=== PATIENT | female | born 1970 | race Caucasian/White ===

== ENCOUNTER 2020-06-22 13:34 | Outpatient (REF) | payer OTHER, SELFPAY ==
[2020-06-22 15:15] LABS: MANUAL DIFF FLAG NO
[2020-06-22 15:17] LABS: Basophils Percent Auto 0.6 % (0-2); Eosinophils Absolute Auto 0.1 X10*3/uL (0.0-0.4); Eosinophils Percent Auto 1.5 % (0-4); Hematocrit 36.2 % (37-47); Hemoglobin 11.9 g/dl (12.0-16.0); Imm Gran Abs Auto 0.01 X10*3/uL (0.00-0.03); Imm Gran Pct Auto 0.2 % (0.0-0.4); Lymphocytes Absolute Auto 1.5 X10*3/uL (1.2-4.9); Lymphocytes Percent Auto 27.8 % (20-40); Mean Corpuscular HGB Conc 32.9 g/dl (31.0-35.0); Mean Corpuscular Hemoglobin 29.7 pg (27.0-33.0); Mean Corpuscular Volume 90.3 fL (80-98); Mean Platelet Volume 10.2 fL (9.4-12.3); Monocytes Absolute Auto 0.4 X10*3/uL (0.1-1.2); Monocytes Percent Auto 7.2 % (2-11); Neutrophils Absolute Auto 3.3 X10*3/uL (2.0-8.3); Neutrophils Percent Auto 62.7 % (45-73); Platelet Count 202 X10*3/uL (160-400); Red Blood Count 4.01 X10*6/uL (4.20-5.50); Red Cell Distribution Width 12.9 % (11.0-16.0); White Blood Count 5.3 X10*3/uL (4.8-10.8)
[2020-06-22 15:21] LABS: Glucose Urine UA NEG (NEG); Leukocyte Esterase Urine NEG (NEG); Nitrite Urine NEG (NEG); PH 6.5 (5.0-8.0); Urine Blood 1+ (NEG); Urine Ketones NEG (NEG); Urine Protein NEG (NEG-TRACE)
[2020-06-22 15:23] LABS: Appearance Urine CLEAR; Color Urine YELLOW
[2020-06-22 15:32] LABS: Bacteria Urine 1+ /LPF; Squamous Epithelial Cell Urine 2+ /LPF; WBC Urine 0 /HPF (0-4)
[2020-06-22 15:43] LABS: Alanine Aminotransferase 35 U/L (0-31); Albumin Level 4.1 g/dL (3.5-5.0); Alkaline Phosphatase 101 U/L (39-117); Anion Gap 11 (12-20); Aspartate Amino Transferase 27 U/L (5-31); Bilirubin Total 0.2 mg/dL (0.0-1.0); Blood Urea Nitrogen 18 mg/dL (9-16); C Reactive Protein 0.29 mg/dL (< or = 0.50); Calcium 9.2 mg/dL (8.4-10.2); Carbon Dioxide 31 mmol/L (22-29); Chloride 104 mmol/L (96-108); Estimated Glomerular Filt Rate > 60; Glucose Random 88 mg/dL (60-115); Sodium 142 mmol/L (135-145); Total Protein 7.4 g/dL (6.5-8.0)
[2020-06-22 16:08] LABS: Erythrocyte Sedimentation Rate 46 MM/HR (0-20)
[2020-06-23 12:42] LABS: Anti DNA DS Antibody <1 IU/mL; SM/Ribonucleoprotein Ab <1.0 NEG AI (<1.0 NEG); Smith Protein <1.0 NEG AI (<1.0 NEG)
[2020-06-23 13:58] LABS: Complement C3 87 mg/dL (83-193)
== END 2020-06-22 13:35 | disposition home or self-care (01) ==
LOC: HO.LAB 13:34
PROVIDERS: PCP Nurse Practitioner Family; Visit Provider Student in an Organized Health Care Education/Training Program
DX: R76.8 Other specified abnormal immunological findings in serum (principal); I73.00 Raynaud's syndrome without gangrene; K21.9 Gastro-esophageal reflux disease without esophagitis; Z79.899 Other long term (current) drug therapy; Z86.16 Personal history of COVID-19
CPT/HCPCS: 36415; 80053; 81001; 85025; 85652; 86140; 86160; 86225; 86235; 99212

== ENCOUNTER → 2020-08-31 10:03 | Outpatient (BNVA) | payer OTHER, SELFPAY | PROVIDERS: PCP Internal Medicine; Visit Provider Student in an Organized Health Care Education/Training Program | DX: R76.8 Other specified abnormal immunological findings in serum (principal); I73.00 Raynaud's syndrome without gangrene | CPT/HCPCS: 99212 ==

== ENCOUNTER → 2021-09-01 14:55 | Outpatient (BNVA) | payer OTHER, MEDICAID, SELFPAY | PROVIDERS: PCP Internal Medicine; Visit Provider Nurse Practitioner Family | DX: Z13.89 Encounter for screening for other disorder (principal) ==

== ENCOUNTER 2022-01-17 07:49 | Outpatient (REF) | payer OTHER, MEDICAID, SELFPAY ==
--- NOTE | 2022-01-17 08:08 | EEG_ITS ---
This is a 16-channel EEG with an EKG lead. The patient is reported awake during the tracing. Background EEG rhythm is low amplitude, fast with no obvious asymmetry or paroxysmal tendency. Photic stimulation does not produce any significant abnormality. Hyperventilation is not performed. Cardiac lead does not reveal any significant abnormality. IMPRESSION: Unremarkable EEG. MD MONY Martínez/DAR / [id number]
== END 2022-01-17 07:50 | disposition home or self-care (01) ==
LOC: HO.NEURO 07:49
PROVIDERS: Visit Provider Nurse Practitioner Family
DX: F09 Unspecified mental disorder due to known physiological condition (principal)
CPT/HCPCS: 95816

== ENCOUNTER 2023-10-12 14:50 | Outpatient (AMB) | payer OTHER, SELFPAY ==
--- NOTE | 2023-10-12 15:36 | A.OFFVIS_ITS ---
Vital Signs 10/12/23 15:38 Height 5 ft 4 in Weight 202 lb BMI 34.7 BP 128/82 Blood Pressure Location Rt brachial Position Sitting Pulse 79 Pulse Source Pulse Oximeter Pulse Oximetry (%) 100 Intake Visit Reasons: F/U-LVM Intake Note: Patient presents for follow up patient here for headaches dizziness and unstable. Allergies ketorolac [From TORADOL] Allergy (Intermediate, Verified 10/12/23 15:39) hives contrast dye Allergy (Intermediate, Uncoded 10/12/23 15:39) Hives Medication List - Last Reconciled 10/12/23 by KEV Bone acetaminophen (Tylenol) 325 mg PO QID PRN albuterol sulfate 90 mcg/actuation 2 puffs inhalation Q6H PRN bupropion HCl 100 mg PO BID candesartan 4 mg PO DAILY cholecalciferol (vitamin D3) 25 mcg PO DAILY desvenlafaxine succinate ER 25 mg PO DAILY docusate sodium 100 mg PO BID duloxetine 30 mg PO DAILY ergocalciferol (vitamin D2) mcg PO escitalopram oxalate 5 mg PO DAILY famotidine (Pepcid) 20 mg PO BEDTIME ferrous sulfate 325 mg PO DAILY gabapentin 300 mg PO DAILY hydroxychloroquine 200 mg PO BID lidocaine 5% topical milnacipran (Savella) 25 mg PO BID mirtazapine 30 mg PO BEDTIME montelukast 10 mg PO DAILY naproxen 250 mg PO BID olopatadine 0.7% (Pataday Once Daily Relief) 1 drp ophthalmic (eye) QAM ondansetron HCl 4 mg PO Q8H PRN 30 days pantoprazole 20 mg PO DAILY polyethylene glycol 3350 (Gavilax) grams PO pregabalin 25 mg PO TID rizatriptan 5 - 10 mg (0.5 - 1 x 10 mg) PO Q2H PRN 30 days tobramycin-dexamethasone 0.3-0.1 % drps ophthalmic (eye) HPI Comments Details: 53-yr-old female presents for f/u visit, pt was last seen approx 2 yrs ago. Pt reports she has had Covid-19 in 2019 and 2021. The infection in 2021 left her bedridden x's 1 month and required rehab stay. Pt reports residual neurological s/s of memory loss, speech difficulties- improving some, balance difficulties- was using a walker and now a cane, room spinning dizziness, headaches, jean marie ear ringing/pulsating noise- worse when laying on left side, generalized tingling, depression. She has made some gains, but overall is still not feeling well. During this time, pt has had extensive work-up and medication trials, per review of [facility] PCP, neurosurgery, and neurology notes: Neurology, Dr Rodrigues at [facility], for polyneuropathies. Neurology eval at - dx'd w/ functional neurological d/o. 08/2023, [facility] neurosurgery consult, Dr Marley, for C5-6 cervical stenosis w/o cord abnormality, neck pain and paresthesias- no surgical intervention advised. Rheumatology Dr Valiente ([address])- for positive SERAFIN Work-up: * 08/2023, US retropeitoneal: Stable right renal cyst with septations measuring up to 2.2 cm. No new lesion. * CTH 02/20/22:??no acutte intracranial abnormality? * MRI brain W/W0 02/21/2022: Small T2 bright foci within the supratentorial white matter unchanged, cervical cord is normal in signal. * MRI cervical spine 02/21/2022: There is a T2 hemangioma, no epidural fluid collection no cervical spine signal abnormality mild central canal narrowing at C5-6. * ?EMG/NCS 05/18/2022: Normal study no evidence of large fiber sensory motor polyneuropathy affecting the right lower however upper extremities, no evidence of sciatic, peroneal, median, ulnar neuropathy, no evidence of a lumbosacral or brachial plexopathy no evidence of radiculopathy, no evidence of myopathy. * ?Skin biopsy 03/13/23:?Right thigh 9.3 II nerve fibers per millimeter?which is normal,?right calf?8.4 III nerve fibers per millimeter which is in the normal range.??Sweat gland nerve fiber density was unable to be performed.?? * [place] [facility] [place]remark[place] Labs: 07/09/2023: CBC- NL ESR- 55 High BMP- NL 11/20/22: Iron Level- 81 Iron Binding Capacity, Unsaturated- 273 Iron Binding Capacity, Estimated Total- 354 % Iron Saturation- 23 Ferritin Level- 79 Per [facility] neurology note 06/27/23: + SERAFIN 1:80 B12 1825 Folic acid 23 Lactate 0.9 CRP 0.3 Ferritin 91 TSH 1.82 Vitamin B6 16 Vitamin D normal Copper 140 Lead negative Mercury negative Arsenic negative Immunofixation slightly elevated IgG 20405 SPEP WNL Paraneoplastic antibody panel negative HIV negative RPR negative Lyme negative Hep C negative Tick panel negative ESR 18 (05/18/2022)?40 (30/09/21)?72 (02/20/2022)?38 (12/08/2021) RF Negative Sjogren's negative Hepatitis B-Negative RPR negative HIV negative [facility] tick panel negative anti- Hu?negative Interval medication trials: gpn - nausea and blurred vision?? cymbalta - not tolerating hydroxychlorquine - did not tolerate prednisone - not beneficial lidocaine -??not significantly beneficial.? desvenlafaxine- ineffective She had PT for BLE strengthening- has had soem benefit. She has not had Vestibular tx. She has a new headache- a severe left sided stabbing headache, which lasts 15 minutes. Happens most when laying down on the left side. A/w left neck feels warm, left ear pounding sound, could not see from her left eye, could not talk- speech slowness. The stabbing pain lasts 15 minutes, and the other s/s resolve w/in 1 hr. These headaches started 4 months ago, and has had 3 of these attacks since onset, the last attack was 1 month ago Left eye vision is worse. She continues to have her typical migraine- frontal region heaviness a/w more difficulty concentrating/focusing/remembering. Occurs 3-4 x's per week. She had eye exam 2 weeks ago- states right eye pressure, but vision is ok. States was told to f/u w/ neurology. She is not taking any medications for the headaches other than Tylenol. She is taking Pregabaiin- for the tingling, helps some. [facility] Medical History (Updated 10/13/23 @ 13:00 by KEV Bone) IBS (irritable bowel syndrome) Asthma Pericardial effusion Anemia Kidney stones Depression Endometriosis GERD (gastroesophageal reflux disease) Fibromyalgia Scleroderma COVID-19 virus infection Cervicalgia Snoring Raynauds phenomenon SERAFIN positive Surgical History History of right oophorectomy Hx of hysterectomy Hx of cholecystectomy History of section Family History Sister Thyroid disease Alopecia Family/Other Diabetes Social History Household Members: Significant Other and Children Alcohol intake: never Patient Tobacco Use Status: Never used Tobacco Current occupational status: employed 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 [employer] 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 Vital Signs: Last Vital Signs Pulse 79 10/12/23 15:38 BP 128/82 10/12/23 15:38 Pulse Ox 100 10/12/23 15:38 BMI result Body Mass Index 34.7 Const General: cooperative and no acute distress Resp Effort & Inspection: normal respiratory effort and able to speak in complete sentences Neuro Other: A&O x's 3, mild STM lapses, mild bradyphrenia, sad affect Photophobic Steady gait w/ cane Cranial nerves: Yes CN's II-XII intact bilaterally Psych Appearance: grossly normal Attitude: cooperative Assessment & Plan Assessment & Plan (1) Migraine without aura: Code(s): G43.009 - Migraine without aura, not intractable, without status migrainosus Category: Medical (2) Vertigo: Code(s): R42 - Dizziness and giddiness Category: Medical (3) Vertigo: Code(s): R42 - Dizziness and giddiness Category: Medical (4) Fatigue: Code(s): R53.83 - Other fatigue Category: Medical (5) Paresthesia: Code(s): R20.2 - Paresthesia of skin Category: Medical (6) White matter abnormality on MRI of brain: Code(s): R90.82 - White matter disease, unspecified Category: Medical (7) New onset headache: Comment: short left sided stabbing head attacks Code(s): R51.9 - Headache, unspecified Category: Medical Plan Recheck labs for common etiologies of new onset left sided headaches, paresthesias, fatigue Brain MRI w/wo- to assess for secondary etiologies of new onset left sided headache, and to assess status of white matter changes Start PT- for vestibular eval & tx- order given to pt. Continue to follow w/ psychiatry. Discussed that treating her migraine may help to improve her vestibular, cognitive, and fatigue s/s. For migraine prevention: Start Ajovy 225mg sc q month. Start Riboflavin 400mg qam Start Magnesium 400mg qhs. Advised to change Mirtazapine from qam to qhs- as this is causing daytime tiredness. Previous medications trials- Amitriptyline- not tolertaed. Desvenlafaxine- ineffective for migraine. Bupropion- ineffective for headache. Milnacipran- ineffective for headache. Mirtazapine- ineffective for headache. Candesartan- ineffective after > 3 months. Migraine tx contraindications- Topiramate d/t h/o kidney stones. Beta-blockers d/t symptomatic asthma. NSAIDs d/t Toradol allergy. For acute migraine tx: Resume Rizatriptan 10mg prn, may take w/ Tylenol. Previous acute tx trials: Sumatriptan- caused nausea. Upon review of above, consider trial of alpha-lipoic acid 600mg qd, sleep study. If true neurogenic functional d/o- consider referral to [facility] [place]. F/u upon review of above and in-clinic in 6 months or sooner prn. Orders: Orders PT Evaluation and Treatment 10/12/23 G43.009 - Migraine without aura, not intractable, without status migrainosus, R42 - Dizziness and giddiness Erythrocyte Sedimentation Rate 10/12/23 D64.9 - Anemia, unspecified, R20.2 - Paresthesia of skin, R42 - Dizziness and giddiness, R51.9 - Headache, unspecified, R53.83 - Other fatigue, R76.8 - Other specified abnormal immunological findings in serum SERAFIN Reflex Titer and Pattern 10/12/23 D64.9 - Anemia, unspecified, R20.2 - Paresthesia of skin, R42 - Dizziness and giddiness, R51.9 - Headache, unspecified, R53.83 - Other fatigue, R76.8 - Other specified abnormal immunological findings in serum Rheumatoid Factor 10/12/23 D64.9 - Anemia, unspecified, R20.2 - Paresthesia of skin, R42 - Dizziness and giddiness, R51.9 - Headache, unspecified, R53.83 - Other fatigue, R76.8 - Other specified abnormal immunological findings in serum Homocysteine 10/12/23 D64.9 - Anemia, unspecified, R20.2 - Paresthesia of skin, R42 - Dizziness and giddiness, R51.9 - Headache, unspecified, R53.83 - Other fatigue, R76.8 - Other specified abnormal immunological findings in serum CRP High Sensitivity 10/12/23 D64.9 - Anemia, unspecified, R20.2 - Paresthesia of skin, R42 - Dizziness and giddiness, R51.9 - Headache, unspecified, R53.83 - Other fatigue, R76.8 - Other specified abnormal immunological findings in serum IRON PROFILE 10/12/23 D64.9 - Anemia, unspecified, R20.2 - Paresthesia of skin, R42 - Dizziness and giddiness, R51.9 - Headache, unspecified, R53.83 - Other fatigue, R76.8 - Other specified abnormal immunological findings in serum MR head/brain wo/w con 10/12/23 R20.2 - Paresthesia of skin, R42 - Dizziness and giddiness, R51.9 - Headache, unspecified, R90.82 - White matter disease, unspecified Complete Blood Count Auto Diff 10/12/23 D64.9 - Anemia, unspecified, R20.2 - Paresthesia of skin, R42 - Dizziness and giddiness, R51.9 - Headache, unspecified, R53.83 - Other fatigue, R76.8 - Other specified abnormal immunological findings in serum Comprehensive Met. Panel 10/12/23 D64.9 - Anemia, unspecified, R20.2 - Paresthesia of skin, R42 - Dizziness and giddiness, R51.9 - Headache, unspecified, R53.83 - Other fatigue, R76.8 - Other specified abnormal immunological findings in serum TSH reflex Free T4 10/12/23 D64.9 - Anemia, unspecified, R20.2 - Paresthesia of skin, R42 - Dizziness and giddiness, R51.9 - Headache, unspecified, R53.83 - Other fatigue, R76.8 - Other specified abnormal immunological findings in serum Vitamin D 25-OH (D2 and D3) 10/12/23 D64.9 - Anemia, unspecified, R20.2 - Paresthesia of skin, R42 - Dizziness and giddiness, R51.9 - Headache, unspecified, R53.83 - Other fatigue, R76.8 - Other specified abnormal immunological findings in serum Vitamin B12 and Folate 10/12/23 D64.9 - Anemia, unspecified, R20.2 - Paresthesia of skin, R42 - Dizziness and giddiness, R51.9 - Headache, unspecified, R53.83 - Other fatigue, R76.8 - Other specified abnormal immunological findings in serum Methylmalonic Acid 10/12/23 D64.9 - Anemia, unspecified, R20.2 - Paresthesia of skin, R42 - Dizziness and giddiness, R51.9 - Headache, unspecified, R53.83 - Other fatigue, R76.8 - Other specified abnormal immunological findings in serum Hemoglobin A1c 10/12/23 D64.9 - Anemia, unspecified, R20.2 - Paresthesia of skin, R42 - Dizziness and giddiness, R51.9 - Headache, unspecified, R53.83 - Other fatigue, R76.8 - Other specified abnormal immunological findings in serum Medications: New fremanezumab-vfrm (Ajovy) administer 225mg sc q month 225 mg (1.5 mL) subcut ONCE 30 days 1.5 mL 6RF riboflavin (vitamin B2) 400 mg PO DAILY 30 days 30 tabs 6RF magnesium oxide may hold for loose stools 400 mg PO BEDTIME 30 days 30 tabs 6RF Refilled rizatriptan At onset of headache, may repeat in 2 hours. Max 2 tabs per day or 4 tabs per week. 5 - 10 mg (0.5 - 1 x 10 mg) PO Q2H 30 days PRN 12 tabs 3RF migraine headache Coding Level of Care Code Est Pt Level 4 (05350) Complex EM visit Add On G2211 Diagnoses Migraine without aura G43.009 Vertigo R42 Fatigue R53.83 Paresthesia R20.2 White matter abnormality on MRI of brain R90.82 New onset headache R51.9
[2023-10-12 15:38] VITALS: BP 128/82; PULSE 79; O2SAT 100; BMI 34.7
== END 2023-10-12 16:33 | disposition home or self-care (01) ==
PROVIDERS: PCP Student in an Organized Health Care Education/Training Program; Visit Provider Nurse Practitioner Family
DX: G43.009 Migraine without aura, not intractable, without status migrainosus (principal); R42 Dizziness and giddiness; R53.83 Other fatigue; R20.2 Paresthesia of skin; R90.82 White matter disease, unspecified; R51.9 Headache, unspecified
CPT/HCPCS: 99214; G2211

== ENCOUNTER → 2023-10-12 14:50 | Outpatient (BNVA) | payer OTHER, SELFPAY | PROVIDERS: PCP Student in an Organized Health Care Education/Training Program; Visit Provider Nurse Practitioner Family | DX: G43.009 Migraine without aura, not intractable, without status migrainosus (principal); R51.9 Headache, unspecified; R42 Dizziness and giddiness; R53.83 Other fatigue; R20.2 Paresthesia of skin; R90.82 White matter disease, unspecified | CPT/HCPCS: 99212 ==

== ENCOUNTER 2023-10-16 12:59 | Outpatient (REF) | payer OTHER, SELFPAY ==
[2023-10-16 18:12] LABS: MANUAL DIFF FLAG NO
[2023-10-16 18:18] LABS: Basophils Percent Auto 0.6 % (0-2); Eosinophils Absolute Auto 0.1 X10*3/uL (0.0-0.4); Eosinophils Percent Auto 1.4 % (0-4); Hematocrit 35.1 % (37.0-47.0); Hemoglobin 11.6 g/dl (12.0-16.0); Imm Gran Abs Auto 0.05 X10*3/uL (0.00-0.03); Lymphocytes Absolute Auto 1.3 X10*3/uL (1.2-4.9); Lymphocytes Percent Auto 25.8 % (20-40); Mean Corpuscular Hemoglobin 29.3 pg (27.0-33.0); Mean Corpuscular Volume 88.6 fL (80.0-98.0); Mean Platelet Volume 10.6 fL (9.4-12.3); Monocytes Absolute Auto 0.4 X10*3/uL (0.1-1.2); Monocytes Percent Auto 8.3 % (2-11); Neutrophils Absolute Auto 3.1 x10*3/uL (2.0-8.3); Neutrophils Percent Auto 62.9 % (45-73); Platelet Count 219 X10*3/uL (160-400); Red Blood Count 3.96 X10*6/uL (4.20-5.50); Red Cell Distribution Width 12.8 % (11.0-16.0); White Blood Count 4.9 X10*3/uL (4.8-10.8)
[2023-10-16 18:35] LABS: Rheumatoid Factor < 13.0 IU/mL (<15.0)
[2023-10-16 18:46] LABS: Alanine Aminotransferase 23 U/L (0-31); Albumin Level 3.9 g/dL (3.5-5.0); Alkaline Phosphatase 106 U/L (39-117); Anion Gap 9 (12-20); Aspartate Amino Transferase 20 U/L (5-31); Bilirubin Total 0.2 mg/dL (0.0-1.0); Blood Urea Nitrogen 18 mg/dL (9-16); Calcium 9.1 mg/dL (8.4-10.2); Carbon Dioxide 28 mmol/L (22-29); Chloride 108 mmol/L (96-108); Estimated Glomerular Filt Rate > 60; Glucose Random 89 mg/dL (60-115); Iron 80 mcg/dL (30-160); Percent Iron Saturation 26 % (15-50); Potassium 3.9 mmol/L (3.3-5.1); Sodium 141 mmol/L (135-145); Total Iron Binding Capacity 307 mcg/dL (228-428); Total Protein 7.4 g/dL (6.5-8.0); Unsaturated Iron Binding 227 ug/dL
[2023-10-16 18:52] LABS: TSH reflex Free T4 1.28 uIU/mL (0.32-4.0)
[2023-10-16 19:03] LABS: Folate 8.9 ng/mL (> or = 4.0); Vitamin B12 431 pg/mL (200-900)
[2023-10-16 19:19] LABS: Erythrocyte Sedimentation Rate 40 MM/HR (0-20)
[2023-10-17 19:23] LABS: CRP High Sensitivity 2.6 mg/L
[2023-10-18 15:09] LABS: Anti Nuclear Antibody Screen NEGATIVE (NEGATIVE)
[2023-10-20 17:34] LABS: Vitamin D 25-OH, D2 4 ng/mL; Vitamin D 25-OH, D3 13 ng/mL; Vitamin D 25-OH, Total 17 ng/mL (30-100)
== END 2023-10-16 13:00 | disposition home or self-care (01) ==
LOC: HO.HKASLDS 12:59
PROVIDERS: Visit Provider Nurse Practitioner Family
DX: R42 Dizziness and giddiness (principal); D64.9 Anemia, unspecified; R51.9 Headache, unspecified; R76.8 Other specified abnormal immunological findings in serum; R53.83 Other fatigue; R20.2 Paresthesia of skin
CPT/HCPCS: 36415; 80053; 82306; 82607; 82746; 83540; 84443; 85025; 85652; 86038; 86141; 86431

== ENCOUNTER 2024-03-10 08:00 | Outpatient (AMB) | payer OTHER, SELFPAY ==
--- NOTE | 2024-03-10 08:01 | MHC.OFFVIS ---
Intake Visit Reasons: worsening headaches Intake Note: Patient presents for headaches has a headache right now describes it as 9 right now. Allergies ketorolac [From TORADOL] Allergy (Intermediate, Verified 03/10/24 08:02) hives contrast dye Allergy (Intermediate, Uncoded 03/10/24 08:02) Hives Medication List - Last Reconciled 03/16/24 by KEV Bone acetaminophen (Tylenol) 325 mg PO QID PRN albuterol sulfate 90 mcg/actuation 2 puffs inhalation Q6H PRN bupropion HCl 100 mg PO BID cholecalciferol (vitamin D3) 25 mcg PO DAILY docusate sodium 100 mg PO BID ergocalciferol (vitamin D2) mcg PO famotidine (Pepcid) 20 mg PO BEDTIME ferrous sulfate 325 mg PO DAILY fremanezumab-vfrm (Ajovy) 225 mg (1.5 mL) subcut ONCE 30 days hydroxychloroquine 200 mg PO BID lidocaine 5% topical magnesium oxide 400 mg PO BEDTIME 30 days milnacipran (Savella) 25 mg PO BID mirtazapine 30 mg PO BEDTIME montelukast 10 mg PO DAILY naproxen 250 mg PO BID olopatadine 0.7% (Pataday Once Daily Relief) 1 drp ophthalmic (eye) QAM ondansetron 8 mg PO Q8H PRN 30 days pantoprazole 20 mg PO DAILY polyethylene glycol 3350 (Gavilax) grams PO pregabalin 25 mg PO TID riboflavin (vitamin B2) 400 mg PO DAILY 30 days rizatriptan 5 - 10 mg (0.5 - 1 x 10 mg) PO Q2H PRN 30 days tobramycin-dexamethasone 0.3-0.1 % drps ophthalmic (eye) verapamil ER 100 mg PO BEDTIME 30 days HPI Comments Details: 53-yr-old female presents for f/u televideo visit of migraine via D[employer]im[employer]. She has had eye exam- tx'd for upper/lower lid inflammation. States she is going to be referred to [place] d/t chronic blurry vision. Is f/b Eye & Lasix. Brain MRI was unremarkable. 10/16/23 10/16/23 13:00 13:06 WBC 4.9 RBC 3.96 L Hgb 11.6 L Hct 35.1 L MCV 88.6 MCH 29.3 ESR 40 H Sodium 141 Potassium 3.9 Chloride 108 Carbon Dioxide 28 Anion Gap 9 L BUN 18 H Estimated GFR > 60 Random Glucose 89 Calcium 9.1 Iron 80 TIBC 307 % Saturation 26 Unsat Iron Binding 227 Total Bilirubin 0.2 AST 20 ALT 23 Alkaline Phosphatase 106 C-React Prot High Sens 2.6 Total Protein 7.4 Albumin 3.9 Vitamin B12 431 25-OH Vitamin D Total 17 L Folate 8.9 TSH 1.28 Rheumatoid Factor < 13.0 SERAFIN Screen NEGATIVE She has been having increased migraine, photophobia, nausea, tinnitus, dizziness especially over the last 1-2 months. Migraine frequency is now > 4-5 days per week. Headache is worse when standing- when standing feels weird like she is not standing anywhere. She did not start Ajovy- thought it was not approved- unfortunately the PA has now . Psychiatry advised her to increase buproprion dose, and will change mirtazapine to qhs. Previous OV note from 10/12/2023: 53-yr-old female presents for f/u visit, pt was last seen approx 2 yrs ago. Pt reports she has had Covid-19 in 2019 and 2021. The infection in 2021 left her bedridden x's 1 month and required rehab stay. Pt reports residual neurological s/s of memory loss, speech difficulties- improving some, balance difficulties- was using a walker and now a cane, room spinning dizziness, headaches, jean marie ear ringing/pulsating noise- worse when laying on left side, generalized tingling, depression. She has made some gains, but overall is still not feeling well. During this time, pt has had extensive work-up and medication trials, per review of [facility] PCP, neurosurgery, and neurology notes: Neurology, Dr Rodrigues at [facility], for polyneuropathies. Neurology eval at - dx'd w/ functional neurological d/o. 08/2023, [facility] neurosurgery consult, Dr Marley, for C5-6 cervical stenosis w/o cord abnormality, neck pain and paresthesias- no surgical intervention advised. Rheumatology Dr Valiente ([place] [facility])- for positive SERAFIN Work-up: 08/2023, US retropeitoneal: Stable right renal cyst with septations measuring up to 2.2 cm. No new lesion. CTH 02/20/22:??no acutte intracranial abnormality? MRI brain W/W0 02/21/2022: Small T2 bright foci within the supratentorial white matter unchanged, cervical cord is normal in signal. MRI cervical spine 02/21/2022: There is a T2 hemangioma, no epidural fluid collection no cervical spine signal abnormality mild central canal narrowing at C5-6. ?EMG/NCS 05/18/2022: Normal study no evidence of large fiber sensory motor polyneuropathy affecting the right lower however upper extremities, no evidence of sciatic, peroneal, median, ulnar neuropathy, no evidence of a lumbosacral or brachial plexopathy no evidence of radiculopathy, no evidence of myopathy. ?Skin biopsy 03/13/23:?Right thigh 9.3 II nerve fibers per millimeter?which is normal,?right calf?8.4 III nerve fibers per millimeter which is in the normal range.??Sweat gland nerve fiber density was unable to be performed.?? EEG, 01/17/2022 [place] [facility] [place] Unremarkable Labs: 07/09/2023: CBC- NL ESR- 55 High BMP- NL 11/20/22: Iron Level- 81 Iron Binding Capacity, Unsaturated- 273 Iron Binding Capacity, Estimated Total- 354 % Iron Saturation- 23 Ferritin Level- 79 Per [facility] neurology note 06/27/23: + SERAFIN 1:80 B12 1825 Folic acid 23 Lactate 0.9 CRP 0.3 Ferritin 91 TSH 1.82 Vitamin B6 16 Vitamin D normal Copper 140 Lead negative Mercury negative Arsenic negative Immunofixation slightly elevated IgG 82455 SPEP WNL Paraneoplastic antibody panel negative HIV negative RPR negative Lyme negative Hep C negative Tick panel negative ESR 18 (05/18/2022)?40 (30/09/21)?72 (02/20/2022)?38 (12/08/2021) RF Negative Sjogren's negative Hepatitis B-Negative RPR negative HIV negative [facility] tick panel negative anti- Hu?negative Interval medication trials: gpn - nausea and blurred vision?? cymbalta - not tolerating hydroxychlorquine - did not tolerate prednisone - not beneficial lidocaine -??not significantly beneficial.? desvenlafaxine- ineffective She had PT for BLE strengthening- has had soem benefit. She has not had Vestibular tx. She has a new headache- a severe left sided stabbing headache, which lasts 15 minutes. Happens most when laying down on the left side. A/w left neck feels warm, left ear pounding sound, could not see from her left eye, could not talk- speech slowness. The stabbing pain lasts 15 minutes, and the other s/s resolve w/in 1 hr. These headaches started 4 months ago, and has had 3 of these attacks since onset, the last attack was 1 month ago Left eye vision is worse. She continues to have her typical migraine- frontal region heaviness a/w more difficulty concentrating/focusing/remembering. Occurs 3-4 x's per week. She had eye exam 2 weeks ago- states right eye pressure, but vision is ok. States was told to f/u w/ neurology. She is not taking any medications for the headaches other than Tylenol. She is taking Pregabaiin- for the tingling, helps some. [facility] Medical History (Updated 03/16/24 @ 17:03 by KEV Bone) IBS (irritable bowel syndrome) Asthma Pericardial effusion Anemia Kidney stones Depression Endometriosis GERD (gastroesophageal reflux disease) Fibromyalgia Scleroderma COVID-19 virus infection Cervicalgia Snoring Raynauds phenomenon SERAFIN positive Surgical History History of right oophorectomy Hx of hysterectomy Hx of cholecystectomy History of section Family History Sister Thyroid disease Alopecia Family/Other Diabetes Social History Household Members: Significant Other and Children Alcohol intake: never Patient Tobacco Use Status: Never used Tobacco Current occupational status: employed 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 [employer] 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 Const General: cooperative and no acute distress Resp Effort & Inspection: normal respiratory effort and able to speak in complete sentences Psych Appearance: grossly normal Attitude: cooperative Telehealth Telehealth Telehealth Platform[facility] Location of provider rendering services: practice address Location of patient: address on file Patient Identification confirmed using: Name, : Yes Telehealth method: video Patient verbally consented to treatment: Yes Patient verbally consented to billing insurance company: Yes Patient informed of any privacy concerns related to visit: Yes Minutes spent on Phone/Video with Pt.: 23 Assessment & Plan Assessment & Plan (1) Migraine without aura: Code(s): G43.009 - Migraine without aura, not intractable, without status migrainosus Category: Medical (2) Vertigo: Code(s): R42 - Dizziness and giddiness Category: Medical (3) Vertigo: Code(s): R42 - Dizziness and giddiness Category: Medical (4) Fatigue: Code(s): R53.83 - Other fatigue Category: Medical (5) Paresthesia: Code(s): R20.2 - Paresthesia of skin Category: Medical (6) Dizziness: Code(s): R42 - Dizziness and giddiness Category: Medical (7) Snoring: Code(s): R06.83 - Snoring Category: Medical (8) Hypersomnia: Comment: ESS- 12 Code(s): G47.10 - Hypersomnia, unspecified Category: Medical Plan Reviewed labs, notable for: Mild anemia w/ low norm B-12. Will check mma and homocysteine levels. Chronic elevated ESR 40 H w/ normal CRP, SERAFIN, RF. Will recheck in f/u. Vit D def- started on Vit De supplement. Will recheck. Reviewed Brain MRI w/wo- unremarkable Again start PT- for vestibular eval & tx- pt is awaiting PT-1 form from her PCP. Will request visual field test. Could consider VEP. Pt advised to undergo HST to assess for sleep apnea. Continue to follow w/ psychiatry. Discussed that treating her migraine may help to improve her vestibular, cognitive, and fatigue s/s. For migraine prevention: Again trial Ajovy 225mg sc q month- will need to request new prior auth- note pt never started Ajovy. Start Verapamil ER 100mg qhs. Check baseline EKG prior to starting. Continue Riboflavin 400mg qam Continue Magnesium 400mg qhs. Advised to change Mirtazapine from qam to qhs- as this is causing daytime tiredness. Previous medications trials- Amitriptyline- not tolerated. Desvenlafaxine- ineffective for migraine. Bupropion- ineffective for headache. Milnacipran- ineffective for headache. Mirtazapine- ineffective for headache. Candesartan- ineffective after > 3 months. Migraine tx contraindications- Topiramate d/t h/o kidney stones. Beta-blockers d/t symptomatic asthma. NSAIDs d/t Toradol allergy. For acute migraine tx: Continue Rizatriptan 10mg prn, may take w/ Tylenol. Increase Ondansetron from 4mg to 8mg prn. Previous acute tx trials: Sumatriptan- caused nausea. F/u upon review of above and in-clinic in 6 months or sooner prn. Orders: Orders ECG 12 lead EKG 03/10/24 I10 - Essential (primary) hypertension, R42 - Dizziness and giddiness RT home sleep study Today G47.10 - Hypersomnia, unspecified, R06.83 - Snoring Medications: New ondansetron 8 mg PO Q8H 30 days PRN 30 tabs 3RF nausea and vomiting verapamil ER 100 mg PO BEDTIME 30 days 30 caps 2RF Discontinued ondansetron HCl Discontinued Reason: Doctor's Order 4 mg PO Q8H 30 days PRN 20 tabs 3RF nausea and vomiting Coding Level of Care Code Tele Est Pt Level 4 (80212) Diagnoses Migraine without aura G43.009 Vertigo R42 Fatigue R53.83 Paresthesia R20.2 Dizziness R42 Snoring R06.83 Hypersomnia G47.10
== END 2024-03-10 11:28 | disposition home or self-care (01) ==
LOC: HO.HSMS 08:00
PROVIDERS: PCP Student in an Organized Health Care Education/Training Program; Visit Provider Nurse Practitioner Family
DX: G43.009 Migraine without aura, not intractable, without status migrainosus (principal); R42 Dizziness and giddiness; R53.83 Other fatigue; R20.2 Paresthesia of skin; R06.83 Snoring; G47.10 Hypersomnia, unspecified
CPT/HCPCS: 99214

== ENCOUNTER → 2024-03-10 08:00 | Outpatient (BNVA) | payer OTHER, SELFPAY | PROVIDERS: PCP Student in an Organized Health Care Education/Training Program; Visit Provider Nurse Practitioner Family ==

== ENCOUNTER 2024-09-12 10:50 | Outpatient (AMB) | payer BC, SELFPAY ==
[2024-09-12 11:17] VITALS: BP 114/84; PULSE 67; O2SAT 100
--- NOTE | 2024-09-12 11:17 | A.OFFVIS_ITS ---
Vital Signs 09/12/24 11:17 Height 5 ft 4 in BP 114/84 Blood Pressure Location Lt brachial Position Sitting Pulse 67 Pulse Source Pulse Oximeter Pulse Oximetry (%) 100 Oxygen Delivery Method Room Air Intake Visit Reasons: f/u appt Intake Note: Patient presents follow up for Vision disturbances, severe headaches, tinnitus, numbness on right side of body. Field Adjuster Required: No Accompanied by: Self / Same As Patient Allergies ketorolac [From TORADOL] Allergy (Intermediate, Verified 09/12/24 11:18) hives contrast dye Allergy (Intermediate, Uncoded 03/10/24 08:02) Hives HPI Comments Details: 54-yr-old female presents for f/u of migraine and follow-up of sleep study. 08/29/2024, home sleep study at [facility], which showed moderate mixed sleep apnea with an overall AHI 19.7 per hour, Medicare AHI 7.5 per hour, average SpO2 94%, O2 luca 89%. Recommendation of reading sleep neurologist was for patient to undergo follow-up in-lab PAP titration study with TCCO2 if available, which we have already ordered. Pt reports a couple of days ago- she had brief episode of RUE feeling - lasted seconds. She started shaking her arm, and the feeling resolved, but since she has had RUE tightness and pins and needles. At the time she also felt exhausted, SOB, slight chest tightness/weird sensation, and went back to bed. She did not seek medical attention. Since, she continues to feel RUE numbness, tingling, tightness, weakness, exhaustion. She is not on ASA. Pt reports she had a reaction to a TDaP vaccine 6 days ago- given in her left deltoid. Pt reports legs felt tight, SOB, sweating. Had ER eval, per patient- ER felt that pt was not having an allergic reaction but rather a generalized inflammatory response. Pt reports: Worsening headaches. She did not receive Ajovy- and now insurance has changed. She did not start verapamil. She has not had riboflavin- thought it was a 30 day order. Head feels numb. Is seeing halos- journalists and other writers feels this may be r/t migraine. Pt reports she is not sleeping well- waking up 3-4 times a night, feels like she is shaking and falling, and then cannot fall back asleep. Feels she cannot breathe, but her home SpO2 results are normal. She previously had rheumatology eval- for shiny skin, cold hands, pain- they did not feel this was scleroderma and advised to f/u prn. However, her inflammatory markers are still elevated. She has made a f/u appt for Dec 2024. 03/10/2024, HPI: She has had eye exam- tx'd for upper/lower lid inflammation. States she is going to be referred to [place] d/t chronic blurry vision. Is f/b Eye & Lasix. Brain MRI was unremarkable. 10/16/23 10/16/23 13:00 13:06 WBC 4.9 RBC 3.96 L Hgb 11.6 L Hct 35.1 L MCV 88.6 MCH 29.3 ESR 40 H Sodium 141 Potassium 3.9 Chloride 108 Carbon Dioxide 28 Anion Gap 9 L BUN 18 H Estimated GFR > 60 Random Glucose 89 Calcium 9.1 Iron 80 TIBC 307 % Saturation 26 Unsat Iron Binding 227 Total Bilirubin 0.2 AST 20 ALT 23 Alkaline Phosphatase 106 C-React Prot High Sens 2.6 Total Protein 7.4 Albumin 3.9 Vitamin B12 431 25-OH Vitamin D Total 17 L Folate 8.9 TSH 1.28 Rheumatoid Factor < 13.0 SERAFIN Screen NEGATIVE She has been having increased migraine, photophobia, nausea, tinnitus, dizziness especially over the last 1-2 months. Migraine frequency is now > 4-5 days per week. Headache is worse when standing- when standing feels weird like she is not standing anywhere. She did not start Ajovy- thought it was not approved- unfortunately the PA has now . Psychiatry advised her to increase buproprion dose, and will change mirtazapine to qhs. Previous OV note from 10/12/2023: 53-yr-old female presents for f/u visit, pt was last seen approx 2 yrs ago. Pt reports she has had Covid-19 in 2019 and 2021. The infection in 2021 left her bedridden x's 1 month and required rehab stay. Pt reports residual neurological s/s of memory loss, speech difficulties- improving some, balance difficulties- was using a walker and now a cane, room spinning dizziness, headaches, jean marie ear ringing/pulsating noise- worse when laying on left side, generalized tingling, depression. She has made some gains, but overall is still not feeling well. During this time, pt has had extensive work-up and medication trials, per review of [facility] PCP, neurosurgery, and neurology notes: Neurology, Dr Rodrigues at [facility], for polyneuropathies. Neurology eval at - dx'd w/ functional neurological d/o. 08/2023, [facility] neurosurgery consult, Dr Marley, for C5-6 cervical stenosis w/o cord abnormality, neck pain and paresthesias- no surgical intervention advised. Rheumatology Dr Valiente ([facility])- for positive SERAFIN Work-up: * 08/2023, US retropeitoneal: Stable right renal cyst with septations measuring up to 2.2 cm. No new lesion. * CTH 02/20/22:??no acutte intracranial abnormality? * MRI brain W/W0 02/21/2022: Small T2 bright foci within the supratentorial white matter unchanged, cervical cord is normal in signal. * MRI cervical spine 02/21/2022: There is a T2 hemangioma, no epidural fluid collection no cervical spine signal abnormality mild central canal narrowing at C5-6. * ?EMG/NCS 05/18/2022: Normal study no evidence of large fiber sensory motor polyneuropathy affecting the right lower however upper extremities, no evidence of sciatic, peroneal, median, ulnar neuropathy, no evidence of a lumbosacral or brachial plexopathy no evidence of radiculopathy, no evidence of myopathy. * ?Skin biopsy 03/13/23:?Right thigh 9.3 II nerve fibers per millimeter?which is normal,?right calf?8.4 III nerve fibers per millimeter which is in the normal range.??Sweat gland nerve fiber density was unable to be performed.?? * EEG, 01/17/2022 at [facility] [place]: Unremarkable Labs: 07/09/2023: CBC- NL ESR- 55 High BMP- NL 11/20/22: Iron Level- 81 Iron Binding Capacity, Unsaturated- 273 Iron Binding Capacity, Estimated Total- 354 % Iron Saturation- 23 Ferritin Level- 79 Per [facility] neurology note 06/27/23: + SERAFIN 1:80 B12 1825 Folic acid 23 Lactate 0.9 CRP 0.3 Ferritin 91 TSH 1.82 Vitamin B6 16 Vitamin D normal Copper 140 Lead negative Mercury negative Arsenic negative Immunofixation slightly elevated IgG 27620 SPEP WNL Paraneoplastic antibody panel negative HIV negative RPR negative Lyme negative Hep C negative Tick panel negative ESR 18 (05/18/2022)?40 (30/09/21)?72 (02/20/2022)?38 (12/08/2021) RF Negative Sjogren's negative Hepatitis B-Negative RPR negative HIV negative [place] tick panel negative anti- Hu?negative Interval medication trials: gpn - nausea and blurred vision?? cymbalta - not tolerating hydroxychlorquine - did not tolerate prednisone - not beneficial lidocaine -??not significantly beneficial.? desvenlafaxine- ineffective She had PT for BLE strengthening- has had soem benefit. She has not had Vestibular tx. She has a new headache- a severe left sided stabbing headache, which lasts 15 minutes. Happens most when laying down on the left side. A/w left neck feels warm, left ear pounding sound, could not see from her left eye, could not talk- speech slowness. The stabbing pain lasts 15 minutes, and the other s/s resolve w/in 1 hr. These headaches started 4 months ago, and has had 3 of these attacks since onset, the last attack was 1 month ago Left eye vision is worse. She continues to have her typical migraine- frontal region heaviness a/w more difficulty concentrating/focusing/remembering. Occurs 3-4 x's per week. She had eye exam 2 weeks ago- states right eye pressure, but vision is ok. States was told to f/u w/ neurology. She is not taking any medications for the headaches other than Tylenol. She is taking Pregabaiin- for the tingling, helps some. [facility] Medical History (Updated 09/04/24 @ 08:34 by KEV Bone) IBS (irritable bowel syndrome) Asthma Pericardial effusion Anemia Kidney stones Depression Endometriosis GERD (gastroesophageal reflux disease) Fibromyalgia Scleroderma COVID-19 virus infection Cervicalgia Snoring Raynauds phenomenon SERAFIN positive Surgical History History of right oophorectomy Hx of hysterectomy Hx of cholecystectomy History of section Family History Sister Thyroid disease Alopecia Family/Other Diabetes Social History Household Members: Significant Other and Children Alcohol intake: never Patient Tobacco Use Status: Never used Tobacco Current occupational status: employed 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 [employer] 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 Vital Signs: Last Vital Signs Pulse 67 09/12/24 11:17 BP 114/84 09/12/24 11:17 Pulse Ox 100 09/12/24 11:17 Oxygen Delivery Method Room Air 09/12/24 11:17 Const General: cooperative and no acute distress Resp Effort & Inspection: normal respiratory effort and able to speak in complete sentences Neuro Other: A&O x's 3, mild STM lapses, mild bradyphrenia Photophobic Pupils equal and reactive to light, EOM intact Bilateral symmetric eyebrow raise Mild right lower facial weakness on smile and cheek puff Tongue protrusion at midline Speech soft, clear Right pronator drift- mild RUE weakness and decreased sensation compared to left. DTRs dulled throughout BUE negative Marks. Steady gait w/ cane Psych Appearance: grossly normal Attitude: cooperative Assessment & Plan Assessment & Plan (1) Migraine without aura: Code(s): G43.009 - Migraine without aura, not intractable, without status migrainosus Category: Medical (2) Fatigue: Code(s): R53.83 - Other fatigue Category: Medical (3) Paresthesia: Code(s): R20.2 - Paresthesia of skin Category: Medical (4) Snoring: Code(s): R06.83 - Snoring Category: Medical (5) Hypersomnia: Comment: ESS- 12 Code(s): G47.10 - Hypersomnia, unspecified Category: Medical (6) Mixed sleep apnea: Comment: Moderate 08/19/2024 HST (at [facility]): AHI 19.7 per hour (obstructive greater than central events), Medicare AHI 7.5 per hour, average SpO2 94%, O2 luca 89%. Code(s): G47.39 - Other sleep apnea Category: Medical Plan Patient advised to have [facility] ER eval, as she has new onset right lower facial weakness and RUE paresthesias, decreased sensation, and tightness. Discussed that although patient is beyond 4 hours of last known well time, I would like patient to undergo evaluation to confirm if there is evidence of recent stroke, to that appropriate workup and treatment may be initiated. Patient does not drive herself. Offered to call 911, however patient declines. Patient states her transportation service can bring her to [facility] ER today. Our nurse placed call to [facility] ER to provide the above history. Upon review of ER workup and results: Consider follow-up lab work including vitamin-D level, repeat inflammatory markers. Reviewed results of in-lab sleep study, showing moderate mixed sleep apnea, patient advised to undergo in-lab PAP titration study as ordered. Follow-up with ophthalmology as scheduled. Follow-up with rheumatology as scheduled Follow-up with psychiatry as scheduled Discussed that treating her migraine may help to improve her vestibular, cognitive, and fatigue s/s. For migraine prevention: Hold Ajovy 225mg sc q month and Verapamil ER 100mg qhs- until after review of [facility] workup and results. Continue Riboflavin 400mg qam Continue Magnesium 400mg qhs. Continue Mirtazapine qhs. Previous medications trials- Amitriptyline- not tolerated. Desvenlafaxine- ineffective for migraine. Bupropion- ineffective for headache. Milnacipran- ineffective for headache. Mirtazapine- ineffective for headache. Candesartan- ineffective after > 3 months. Migraine tx contraindications- Topiramate d/t h/o kidney stones. Beta-blockers d/t symptomatic asthma. NSAIDs d/t Toradol allergy. For acute migraine tx: Continue Rizatriptan 10mg prn, may take w/ Tylenol. Continue Ondansetron 8mg prn. Previous acute tx trials: Sumatriptan- caused nausea. F/u upon review of above and in-clinic in 6 months or sooner prn. Coding Level of Care Code Est Pt Level 4 (05038) Diagnoses Migraine without aura G43.009 Fatigue R53.83 Paresthesia R20.2 Snoring R06.83 Hypersomnia G47.10 Mixed sleep apnea G47.39
--- OUTSIDE RECORDS SUMMARY | 2024-09-12 11:57 | XMS_ITS | Clinical Summary ---
Author Organization [facility] Address [address] [place] [address] Phone Care Team Providers Care Licensed Insurance Sales Agent Name Role Phone Earlene Andrade MD Primary Care Provider + Allergies Active Allergy Reactions Criticality Noted Date Comments Folic Acid Rash Low 01/05/2020 Iodinated Contrast Media Other (see comments),Hives,Shortness of breath High 01/05/2020 Nsaids Other (see comments) 07/27/2020 Prednisone Other (see comments) 10/06/2017 Sertraline Other (see comments) 01/05/2020 Ketorolac Tromethamine Other (see comments) Medications losartan (COZAAR) 25 MG tablet Comments: Filled Date: Oct 16 2017 12:00AM Patient Notes: TAKE 1 TABLET BY MOUTH EVERY DAY Duration: 30 8 Active cholecalciferol (VITAMIN D-3 SUPER STRENGTH) 50 MCG (2000 UT) tablet Take 2 capsules by mouth 1 (one) time each day Active albuterol HFA (ProAir HFA) 108 (90 Base) MCG/ACT inhaler Inhale 1 puff 9 Active acetaminophen-co deine (TYLENOL #3) 300-30 MG per tablet 1 Active Nutritional Supplements (ESTROVEN MAXIMUM STRENGTH PO) Take 1 tablet by mouth 1 (one) time each day Active Turmeric 450 MG capsule Take 1 capsule by mouth 1 (one) time each day Active Multiple Vitamin (MULTI-VITAMIN DAILY PO) Take 1 capsule by mouth 1 (one) time each day Active ondansetron (ZOFRAN) 4 MG tablet Take 4 mg by mouth if needed for nausea or vomiting Active Nutritional Supplements (ESTROVEN PO) estroven, 0 Refills, Maintenance, 09/08/20 12:25:00 EDT 1 Active ALBUTEROL IN Inhale 9 Active rizatriptan (MAXALT) 10 MG tablet TAKE 1/2 TO 1 TABLET BY MOUTH EVERY 2 HOURS NEEDED AT ONSET OF MIGRAINE HEADACHE MAX OF 2 TABS PER DAY AND MAX OF 4 TABS PER WEEK 2 Active famotidine (PEPCID) 20 MG tablet Take 20 mg by mouth 2 Active ferrous sulfate 325 (65 Fe) MG tablet Take 325 mg by mouth 1 (one) time each day with breakfast Active buPROPion SR (WELLBUTRIN SR) 200 MG 12 hr tablet Take 200 mg by mouth in the morning and 200 mg in the evening. Do not crush, chew, or split.. Active pregabalin (LYRICA) 25 MG capsule Take 25 mg by mouth in the morning and 25 mg in the evening. Active mirtazapine (REMERON JENNA-TAB) 30 MG dispersible tablet Take 30 mg by mouth every night Active Active Problems Problem Noted Date Diagnosed Date Calculus of gallbladder with cholecystitis 07/05 Proteinuria 08/24/2020 Recurrent urinary tract infection 04/16/2020 Hyperglycemia 04/16/2020 Chronic kidney disease stage 2 04/16/2020 Anemia in chronic kidney disease 04/16/2020 Microscopic hematuria 01/16/2020 Vitamin D deficiency 03/07/2019 Anti-nuclear factor detected 03/12/2018 Hematuria 09/18/2017 Overview (04/16/2020): 12/2014 negative cystoscopy, cytology Gastroesophageal reflux disease 08/30/2017 Irritable bowel syndrome 08/30/2017 Cyst of kidney 04/19/2017 Overview (01/16/2020): CT 07/17/2015, recurrent microscopic hematuria, Dr Hensley Encounters Date Type Department Care Team Description 07/23/2024 Orders Only [facility] [address] [place] [address] Buddy Hough MD Microscopic hematuria from Last 3 Months Immunizations Immunization Administration Dates Next Due Influenza, MDCK, PF, Quadrivalent 03/07/2019,03/2018 Influenza, Quadrivalent, Preservative Free 03/27 Influenza, Unspecified 11/22/2021 Tdap 05/18/2015,05/18/2015 Family History Medical History Relation Comments Heart disease Father Diabetes Mother Diabetes Sibling Relation Status Comments Father Mother Sibling Social History Tobacco Use Types Packs/Day Years Used Date Smoking Tobacco: Never Smokeless Tobacco: Never Tobacco Cessation:Counseling Given: No Comments Unknown Sex and Gender Information Value Date Recorded Sex Assigned at Not on file Legal Sex Female 4:36 PM EST Gender Identity Not on file Sexual Orientation Not on file Last Filed Vital Signs Vital Sign Reading Time Taken Comments Blood Pressure 138/62 09/10/2023 2:55 PM EDT Pulse 97 09/10/2023 2:55 PM EDT Temperature - - Respiratory Rate - - Oxygen Saturation - - Inhaled Oxygen Concentration - - Weight 92.4 kg (203 lb 12.8 oz) 09/10/2023 2:55 PM EDT Height 162.6 cm (5' 4 ) 09/06/2020 11:3 6 AM EDT Body Mass Index 34.98 09/06/2020 11:36 AM EDT Plan of Treatment Upcoming Encounters Date Type Department Care Team (Late st Contact Info) Description 09/22/2024 4:00 PM EDT Office Visit [facility] [address] [phone] Buddy Hough MD [address] [phone] Health Maintenance Due Date Last Done Comments Breast Cancer Screening 1972 Hepatitis B Vaccine (1 of 3 - 19+ 3-dose series) 08/09/1991 Pneumococcal Vaccine: 50+ Ye ars (1 of 2 - PCV) 08/09/1991 Colorectal Cancer Screening: Annual FOBT 2021 Colorectal Cancer Screening: Colonoscopy 2021 Colorectal Cancer Screening: Sigmoidoscopy 2021 Influenza Vaccine (Season Ended) 2025 11/22/2021, 03/27/2020, 03/07/2019, Additional history exists Insurance [employer] Commercial Medicaid [place] Member Subscriber Plan / Payer (Ef fective 2021-Present) Name:Sariah Jc Relation to Subscriber:Self Name:Sariah Jc Payer ID:Not on file Group ID:Not on file Type:Not on file Address: [place] [id number] [place] [facility] Care Teams Licensed Insurance Sales Agent Relationship Specialty Start Date End Date Earlene Andrade MD [address] [place] [id number] PCP - General Dental Mechanical Engineering Draftsperson 02/16/23
--- OUTSIDE RECORDS SUMMARY | 2024-09-12 11:57 | XMS_ITS | Encounter Summary ---
Author Organization [facility] Address [address] [place] [address] Phone Care Team Providers Care Director Of Compensation Name Role Phone Earlene Andrade MD Primary Care Provider + Encounter Details Date Type Department Care Team (Late st Contact Info) Description 12/14/2021 Documentation Only [facility] [address] [place] [phone] Darwin Hensley MD [address] [place] [address] [place] [phone] Social History Tobacco Use Types Packs/Day Years Used Date Smoking Tobacco: Never Smokeless Tobacco: Never Comments Unknown Sex and Gender Information Value Date Recorded Sex Assigned at Not on file Legal Sex Female 4:36 PM EST Gender Identity Not on file Sexual Orientation Not on file documented as of this encounter Plan of Treatment Upcoming Encounters Date Type Department Care Team (Late st Contact Info) Description 09/22/2024 4:00 PM EDT [facility] [address] [phone] Buddy Hough MD [address] [phone] documented as of this encounter Visit Diagnoses Not on filedocumented in this encounter Care Teams Director Of Compensation Relationship Specialty Start Date End Date Earlene Andrade MD [address] [place], [place] [phone] PCP - General Dental Haul Driver 02/16/23 documented as of this encounter
--- OUTSIDE RECORDS SUMMARY | 2024-09-12 11:57 | XMS_ITS | Clinical Summary ---
Author Organization [facility] Address [address] [place] [address] Care Team Providers Care Toll Collector Name Role Phone Nell ALARCON DO, Edward J Primary Care Provider Unavailable Allergies Active Allergy Reactions Criticality Noted Date Comments Covid-19 (Subunit) Vaccine Swelling High Covid-19 Mrna Vacc (Moderna) 06/07/2022 Other reaction(s): SOB facial and lip swelling Folic Acid Rash Low 01/05/2020 Iodinated Contrast Media 08/06/2017 Other reaction(s): Hives, SOB, swelling Ketorolac Tromethamine 04/25/2017 Other reaction(s): Hives, Other (see comments), SOB, palpitations Nsaids 07/27/2020 Other reaction(s): Other (see comments) Prednisone 10/06/2017 Other reaction(s): Other (see comments) Sertraline 01/05/2020 Other reaction(s): Other (see comments) Medications Medication Sig Dispensed Refills Start Date End Date Status acetaminophen (TYLENOL) 325 MG tablet Take 3 tablets (975 mg total) by mouth. 0 02/22/2022 Active albuterol (PROVENTIL) (2.5 MG/3ML) 0.083% nebulizer solution Inhale 3 mL (2.5 mg total) into the lungs. 0 07/28/2014 Active cholestyramine (QUESTRAN) 4 g packet TAKE 1 PACKET ORALLY 2 TIMES A DAY WITH WATER, AVOID TAKING WITHIN 30 MINUTES OF OTHER MEDICATIONS 0 06/05/2022 Active Acetaminophen-Code ine 300-30 MG per tablet 0 04/15/2014 Active Cholecalciferol 50 MCG (2000 UT) TABS Take 2 capsules by mouth. 0 Active escitalopram (LEXAPRO) tablet 10 mg Take 1 tablet (10 mg total) by mouth daily. 30 tablet 0 06/28/2022 Active Savella 25 MG TABS TAKE 2 TABLET BY MOUTH EVERY MORNING AFTER BREAKFAST. 180 tablet 0 12/18/2022 Active pregabalin (LYRICA) 25 MG capsule TAKE 1 CAPSULE BY MOUTH 3 TIMES A DAY. 270 capsule 3 09/26/2023 Active Family History Medical History Relation Name Comments Cancer Father Relation Name Status Comments Father Mother Alive Social History Tobacco Use Types Packs/Day Years Used Date Smoking Tobacco: Never Passive Smoke Exposure: Never Smokeless Tobacco: Never Tobacco Cessation:Counseling Given: Not Answered Alcohol Use Standard Drinks/Week Comments Never 0 (1 standard drink = 0.6 oz pur e alcohol) Sex and Gender Information Value Date Recorded Sex Assigned at Not on file Gender Identity Not on file Sexual Orientation Not on file Job Start Date Occupation Industry Not on file Not on file Not on file Last Filed Vital Signs Vital Sign Reading Time Taken Comments Blood Pressure 130/80 06/20/2022 1:52 PM EST Pulse 88 06/20/2022 1:52 PM EST Temperature - - Respiratory Rate - - Oxygen Saturation 98% 06/20/2022 1:52 PM EST Inhaled Oxygen Concentration - - Weight 84.4 kg (186 lb) 06/20/2022 1:52 PM EST Height 160 cm (5' 3 ) 06/20/2022 1:52 PM EST Body Mass Index 32.95 06/20/2022 1:52 PM EST Plan of Treatment Health Maintenance Due Date Last Done Comments Hepatitis B Vaccines (1 of 3 - 3-dose series) 1972 Hepatitis C Screening 1972 Depression Screening 1984 BMI Counseling 1990 Preventative Health Evaluation 1990 Cervical Cancer Screening (Pap Smear) 1993 Colon Cancer Screening (Colonoscopy) 2017 Breast Cancer Screening (Mammogram) 2022 Shingrix-Zoster Vaccine (1 of 2) 2022 COVID-19 Vaccine (2 - season) 2024 12/16/2020 Influenza Vaccine (#1) 2024 , 03/27/2020, 03/27/2020, Additional history exists DTap / Tdap / Td (2 - Td or Tdap) 05/18/2025 05/18/2015 Pneumococcal Vaccine Aged Out 02/26/2014 No long er eligible based on patient's age to complete this topic RSV Ped < 20 months Aged Out No longe r eligible based on patient's age to complete this topic Care Teams Toll Collector Relationship Specialty Start Date End Date Devang Camejo IV, DO PCP - General Internal Medicine 06/09/22
--- OUTSIDE RECORDS SUMMARY | 2024-09-12 11:57 | XMS_ITS | Encounter Summary ---
Author Organization [facility] Address [address] [place] [address] Phone Care Team Providers Care Magneto Specialist Name Role Phone Earlene Andrade MD Primary Care Provider + Encounter Details Date Type Department Care Team (Late st Contact Info) Description 12/02/2021 Documentation Only [facility] [address] [place] [phone] Darwin Hensley MD [address] [place] [address] [place] [phone] Social History Tobacco Use Types Packs/Day Years [...] Visit [facility] [address] [phone] Buddy Hough MD [address] [phone] documented as of this encounter Visit Diagnoses Not on filedocumented in this encounter Care Teams Magneto Specialist Relationship Specialty Start Date End Date Earlene Andrade MD [address] [place], [place] [phone] PCP - General Dental Conference Center Manager 02/16/23 documented as of this encounter
--- OUTSIDE RECORDS SUMMARY | 2024-09-12 11:57 | XMS_ITS | Encounter Summary ---
Author Organization [facility] Address [address] [place] [address] Phone Care Team Providers Care Music Orchestrator Name Role Phone Earlene Andrade MD Primary Care Provider + Encounter Details Date Type Department Care Team (Late st Contact Info) Description 12/02/2021 Documentation Only [facility] [address] [phone] Darwin Hensley MD [address] [place] [address] [place] [phone] Social History Tobacco Use Types Packs/Day Years [...] [facility] [address] [phone] uBddy Hough MD [address] [phone] documented as of this encounter Visit Diagnoses Not on filedocumented in this encounter Care Teams Music Orchestrator Relationship Specialty Start Date End Date Earlene Andrade MD [address] [place], [place] [phone] PCP - General Dental Principal Process Engineer 02/16/23 documented as of this encounter
--- OUTSIDE RECORDS SUMMARY | 2024-09-12 11:57 | XMS_ITS | Data Portability ---
Author Organization JUAN Joseph Kendrick [place] [facility], [facility] Address [address] [place] [address] Assessment Encounter Date Assessment Date Assessment LastModified by Organization Details LastModified Time 08/02/2023 08/02/2023 52-year-old female scheduled for C5-6 anterior discectomy and fusion. Having acute visual disturbance. Headaches. Needs a neurology evaluation. We will cancel this case. Follow-up to be arranged after the neurology evaluation. Not available 08/02/2023 12:36:12 11/01/2023 11/01/2023 53-year-old female with cervical spondylosis and associated neck pain. Radicular symptoms have resolved to some extent and as such my opinion surgery is no longer indicated. She may benefit from a cervical epidural steroid injection which I will arrange and also I have reviewed with her all the topical medications that have been helpful for my patients with axial neck pain. Natural history reviewed and questions answered. Follow-up postinjection. This patient has debilitating back and radiating leg pain refractory to conservative care, thus far. I have recommended a referral for injection evaluation. Risks and benefits reviewed. I have explained that I do not perform spinal injections and we will refer the patient to a pain management group that does such injections on a routine basis. Not available 11/01/2023 17:03:57 Plan of Treatment Reminders Order Date Submit Date Provider Last Modified By Organization Details Last Modified Time Details Appointments RECHECK 15 2024 11:00A M SAVITA MISTRY PA-C Not available Not available Not available Lab None recorded. Referral physical therapist referral - DX: cervical radiculop athy eval and treat 2024 025 [email or web address] Not available 08/01/2024 14:48:51 pain managemen t referral - injection eval cervical 2023 024 [email or web address] [facility], [address], [place], [address], 12/05/2023 15:06:22 Procedures None recorded. Surgeries None recorded. Imaging None recorded. Medication Orders Celebrex 100 mg capsule 2024 025 [facility] #[id number], [address] [place], [address], 07/21/2024 10:43:48 lidocaine 5 % topical patch 2024 025 [facility]arm[facility] #[id number], [address] [place], [address], 07/21/2024 10:43:48 Patient TargetsNo targets recorded. Patient InstructionsNo instructions recorded. Reason for Referral Pain Management Referral for Cervical radiculopathy injection eval cervical Referring Physician: Royal Bautista, Orthopedic Surgery, [id number] Encounter Date: 11/01/2023 Physical Therapist Referral for Cervical radiculopathy DX: cervical radiculopathy eval and treat Referring Physician: Savita Mistry, Orthopedic Surgery, Encounter Date: 07/21/2024 Results Created Date Observation Date Name Description Value Unit Range Abnormal Flag Note LastModifiedBy Organization Detail LastModifiedTime 01/11/2004/28/2023 imagi ng/di agnos tic resul t No observ ation record ed. [email or web address] Not Available 12/14 14:16:21 Result Notes None recorded. Procedures Surgical History None recorded. Imaging Results Imaging Date Name Status LastModified by Organiz ation Details LastModified Time 04/28/2023 imaging/diag nostic result completed [email or web address] Information not available 01/11/2024 14:16:21 Procedure Notes None recorded. Medical Equipment None Reported. Allergies Allergen ID Allergen Name Allergen Category Reaction Reaction Severity Criticality Documentation Date Start Date Code Code System Note Provider Name and Address Organization Details Recorded Time 252910 Toradol medicatio n Not available Not available Not available 07/21/2024 40695 RxNorm Jackie Garcia [facility], [facility] 5 10:14:00 [id number] blue dye medicatio n Not available Not available Not available 07/21/2024 [id number] UNShirley Garcia [facility], [facility] 5 10:14:22 [id number] COVID-19 (SARS-CoV -2) vaccine, olivier cell Not available Not available Not available Not available 07/21/2024 64132 1 TOÑO Garcia [facility], [facility] 5 10:15:16 Medications Name Sig Start Date Stop Date Status Note LastModified by Organization Details LastModified Time naltrexone hcl 1 mg cap TAKE ONE CAPSULE BY MOUTH ONCE DAILY AT BEDTIME FOR DAYS 1-30, THEN TWO CAPSULES AT BEDTIME FOR DAY 31-60, THEN THREE CAPSULES AT BEDTIME ON DAY 61-90 active Not Available Not Available No t Available amoxicillin 500 mg capsule TAKE ONE CAPSULE BY MOUTH EVERY SIX HOURS UNTIL GONE active Not Available Not Available N ot Available methocarbamo l 500 mg tablet TAKE 1 TABLET BY MOUTH FOUR TIMES A DAY FOR 7 DAYS NEEDED FOR SEVERE PAIN active Not Available Not Available No t Available bupropion HCl SR 150 mg tablet,12 hr sustained-re lease TAKE ONE (1) TABLET BY MOUTH DAILY TOGETHER WITH 300 MG TO THE TOTAL DAILY DOSE OF 450 MG DAILY active Not Available Not Available No t Available ibuprofen 800 mg tablet TAKE 1 TABLET BY MOUTH EVERY 8 HOURS NEEDED FOR PAIN active Not Available Not Available No t Available rizatriptan 10 mg tablet TAKE 1/2-1 TAB AT ONSET OF MIGRAINE NEEDED.MAY REPEAT IN 2 HOURS. MAX 2 TABS/DAY OR 4 TABS/WEEK active Not Available Not Available No t Available bupropion HCl SR 100 mg tablet,12 hr sustained-re lease TAKE 1 TABLET BY MOUTH EVERY DAY IN THE MORNING active Not Available Not Available No t Available ondansetron 8 mg disintegrati ng tablet TAKE 1 TABLET BY MOUTH EVERY 8 HOURS NEEDED FOR NAUSEA AND VOMITING active Not Available Not Available No t Available acetaminophe n ER 650 mg tablet,exten ded release TAKE 1 TABLET BY MOUTH EVERY SIX HOURS NEEDED FOR PAIN active Not Available Not Available No t Available bupropion HCl 100 mg tablet TAKE 1 TABLET BY MOUTH TWICE A DAY active Not Available Not Available No t Available amoxicillin 875 mg tablet TAKE 1 TABLET BY MOUTH TWICE A DAY FOR 7 DAYS active Not Available Not Available No t Available Celebrex 100 mg capsule Take 1 capsule twice a day by oral route with meal(s) for 30 days. 2024 active Not Available Not Available Not Avai lable prednisolone acetate 1 % eye drops,suspen shanti INSTILL 1 DROP INTO BOTH EYES THREE TIMES A DAY active Not Available Not Available No t Available magnesium oxide 400 mg (241.3 mg magnesium) tablet TAKE 1 TABLET ORALLY BEDTIME FOR 30 DAYS MAY HOLD FOR LOOSE STOOLS active Not Available Not Available No t Available mirtazapine 30 mg tablet TAKE 1 TABLET BY MOUTH EVERYDAY AT BEDTIME active Not Available Not Available No t Available ferrous sulfate 325 mg (65 mg iron) tablet TAKE 1 TABLET BY MOUTH EVERY DAY active Not Available Not Available No t Available lidocaine 5 % topical patch active Not Available Not Available Not Available losartan 25 mg tablet TAKE 1 TABLET BY MOUTH EVERY DAY active Not Available Not Available No t Available verapamil ER (PM) 100 mg capsule 24hr pellet CT,ext.relea se TAKE 1 CAPSULE BY MOUTH AT BEDTIME active Not Available Not Available No t Available amoxicillin 250 mg capsule TAKE 1 CAPSULE BY MOUTH FOUR TIMES A DAY FOR 7 DAYS active Not Available Not Available N ot Available mirtazapine 15 mg tablet TAKE 1 TABLET BY MOUTH EVERYDAY AT BEDTIME active Not Available Not Available No t Available methylpredni solone 4 mg tablets in a dose pack TAKE 6 TABLETS ON DAY 1 DIRECTED ON PACKAGE AND DECREASE BY 1 TAB EACH DAY FOR A TOTAL OF 6 DAYS active Not Available Not Available No t Available ondansetron 4 mg disintegrati ng tablet PLEASE SEE ATTACHED FOR DETAILED DIRECTIONS active Not Available Not Available N ot Available Ventolin HFA 90 mcg/actuatio n aerosol inhaler INHALE 2 PUFFS INTO THE LUNGS EVERY 6 HOURS NEEDED FOR WHEEZING/SH ORTNESS OF BREATH. active Not Available Not Available No t Available oxycodone 5 mg tablet TAKE 1 TABLET BY MOUTH TWICE A DAY NEEDED FOR MODERATE PAIN FOR 7 DAYS active Not Available Not Available No t Available neomycin 3.5 mg/g-polymyx in B 10,000 unit/g-dexam eth 0.1 % eye oint APPLY 1 A SMALL AMOUNT INTO BOTH EYES FOUR TIMES A DAY USE FOR 2 WEEKS THEN STOP active Not Available Not Available No t Available bupropion HCl SR 200 mg tablet,12 hr sustained-re lease TAKE 1 TABLET BY MOUTH EVERY DAY active Not Available Not Available No t Available aripiprazole 10 mg tablet TAKE 1 TABLET BY MOUTH EVERY DAY active Not Available Not Available No t Available cyclosporine 0.05 % eye drops in a dropperette INSTILL 1 DROP INTO BOTH EYES TWICE A DAY active Not Available Not Available Not Available aripiprazole 5 mg tablet TAKE ONE (1) TABLET BY MOUTH EVERY MORNING TOGETHER WITH 10 MG AT NIGHT, DAILY DOSE IS 15 MG active Not Available Not Available No t Available cholestyrami ne (with sugar) 4 gram powder for susp in a packet TAKE 1 PACKET ORALLY 2 TIMES A DAY WITH WATER, AVOID TAKING WITHIN 30 MINUTES OF OTHER MEDICATIONS active Not Available Not Available Not Available bupropion HCl XL 300 mg 24 hr tablet, extended release TAKE 1 TABLET BY MOUTH EVERY DAY active Not Available Not Available No t Available bupropion HCl XL 150 mg 24 hr tablet, extended release TAKE 1 TABLET BY MOUTH EVERY DAY active Not Available Not Available No t Available pregabalin 25 mg capsule TAKE 1 CAPSULE BY MOUTH THREE TIMES A DAY active Not Available Not Available Not Available pregabalin 50 mg capsule PLEASE START WITH TAKING 1 CAPSULE AT NIGHT FOR AT LEAST 1 WEEK THEN START TAKING 2 CAPS AT NIGHT active Not Available Not Available No t Available aripiprazole 2 mg tablet TAKE 1 TABLET BY MOUTH EVERY DAY IN THE EVENING active Not Available Not Available No t Available cholecalcife rol (vitamin D3) 50 mcg (2,000 unit) capsule TAKE 1 CAPSULE BY MOUTH DAILY WITH FOOD active Not Available Not Available No t Available Savella 25 mg tablet TAKE 2 TABLET BY MOUTH EVERY MORNING AFTER BREAKFAST. active Not Available Not Available N ot Available GaviLyte-G 236 gram-22.74 gram-6.74 gram-5.86 gram oral solution PLEASE SEE ATTACHED FOR DETAILED DIRECTIONS active Not Available Not Available N ot Available Gavilax 17 gram/dose oral powder TAKE 17 GM BY MOUTH 2 TIMES A DAY,INSTR:D ISSOLVE IN 4 TO 8 OZ OF BEVERAGE active Not Available Not Available Not Available desvenlafaxi ne succinate ER 25 mg tablet,exten ded release 24 hr TAKE 1 TABLET BY MOUTH EVERY DAY active Not Available Not Available No t Available riboflavin (vitamin B2) 400 mg tablet TAKE 400 MG ORALLY DAILY FOR 30 DAYS active Not Available Not Available No t Available ergocalcifer ol (vitamin D2) 50 mcg (2,000 unit) capsule TAKE 1 CAPSULE BY MOUTH DAILY WITH FOOD active Not Available Not Available No t Available Vitals Date Recorded Body height Body mass index (BMI) Body weight Provider Name and Address Organization Details Last Updated DateTime 08/02/2023 160.02 cm 32.9 kg/m2 06134.18 g [facility] 08/02/2023 12:01:14 Date Recorded Body height Body mass index (BMI) Body weight Provider Name and Address Organization Details Last Updated DateTime 11/01/2023 160.02 cm 36 kg/m2 02097.25 g [facility] 11/01/2023 13:02:58 Date Recorded Body height Body mass index (BMI) Body weight Provider Name and Address Organization Details Last Updated DateTime 07/21/2024 162.56 cm 34.3 kg/m2 42606.47 g Jackie Garcia [facility] 07/21/2024 10:13:47 Social History None recorded. Functional Status None recorded. Mental Status None recorded. Family History Nothing Reported. Medical History No medical history recorded. Gynecological HistoryNo gynecological history recorded. Obstetrics History GPAL:G 0 P 0 0 0 0 Past Encounters Encounter ID Performer Location Encounter Start Date Encounter Closed Date Diagnosis/Indication Diagnosis SNOMED-CT Code Diagnosis ICD10 Code Diagnosis Note [id number] Royal Bautista MD [facility] [address] [place] [address] 08/02/2023 10:57:55 08/21/2023 09:25:27 Herniation of nucleus pulposus of cervical intervertebral disc [id number] 91139 M50.20 [id number] Royal Bautista MD [facility] [address] [place] [address] 11/01/2023 12:47:42 12/05/2023 15:06:21 Cervical radiculopathy 97918600 M54.12 [id number] [facility] [address] [place] [address] 07/21/2024 10:01:13 08/01/2024 14:48:51 Cervical radiculopathy 98668350 M54.12 Health Concerns Section Related Observation LastModified by Organization Detai ls LastModified Time None Recorded Concern Status LastModified by Organization Details LastModified Time None Recorded Advance Directives Directive None Recorded Payers Encounter Date Sequence Insurance Name Policy Number Policy Robles Covered Member ID Robles Member ID Guarantor Name 08/02/2023 1 [facility] (MEDICAID HMO) [id number] Sariah E David Abraham [id number] Sariah Ирина David Abraham 11/01/2023 1 [facility] (MEDICAID HMO) [id number] Sariah E David Abraham [id number] Sariah Ирина David Abraham Notes Date Note Type Note Provider Name and Address Organization Details Recorded Time 08/02/2023 text/html The patient is h ere for a preoperative H&P examination. Risks and benefits of procedure reviewed, questions answered, consents signed. Full H&P dictated.Procedure [ ] Royal Bautista MD [address], [place], [address], [facility] 08/02/2023 12:36:44 11/01/2023 text/html HPI: 53-year-old female with known cervical spondylosis and neck pain returns for recheck. At 1 time she was scheduled for a anterior cervical discectomy and fusion. She had significant COVID related symptoms and surgery was canceled. Now she reports primary complaint of neck pain. She has some burning sensations in her hands from time to time. Worse with activity and relieved with recumbency. Awakens her at night. WORK STATUS: Disabled PFMSH and ROS has been reviewed, updated, and is located in the patient's chart RADIOGRAPHS: Not indicated PHYSICAL EXAMINATION: Royal Bautista MD [address], [place], [address], [facility] 11/01/2023 17:04:15 07/21/2024 text/html I am seeing the patient today under the supervision of Dr. Manzano who was available but who did not see the patient. HPI: Patient is a pleasant 53-year-old female who presents for follow up evaluation of ongoing neck pain. Patient was previously seen and followed by Dr. Bautista in the office she was initially scheduled for an ACDF C5-C6 however due to neurological symptoms patient needed neurology clearance. In follow-up after seeing neurology there seem to be some alleviation of symptoms patient was referred for injection therapy. She presents today stating the last 2 weeks her pain is gotten significantly worse she was unable to get injection therapy as she was told by that clinic that she is too high of a risk for infection and they did not feel comfortable moving forward with injections. 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 Patient was seen by neurology sent for a sleep study that is booked for next month as well as mandibular therapy however she was not cleared to do this as well due to some of her other health concerns. Patient endorses paresthesias from COVID over the last 2 weeks she has been having pain at the curvature of the neck into the thoracic spine left arm feels funny feels like she is having puwp-jsu-upkaoel and then it became pain she continues to have headaches on and off along the left side. For a few days she was having some weakness in bilateral legs as well as the right arm and right leg. However this is somewhat abated. She has been taking Tylenol 850 mg. Patient was previously seen in office by Dr. Bautista in October 2023 she was referred for Steroid injection she presents today in follow-up. TREATMENTS: As noted in HPI Past family, medical, social history and review of systems has been reviewed, updated and signed by me and is located in the patient? ? ?s chart. Examination: The patient is well appearing, alert and oriented x3 and in no acute distress. Gait is antalgic. Patient is able to transition from seated to standing position with difficulty.Inspecti on of the spine reveals no step off, deformity or overlying skin changes or atrophy.The spine is nontender over the paravertebral musculature. tender over the left upper trapezius and SCM.Range of motion of the cervical spine is 60% of normal.Strength in all upper extremity myotomes 5/5 bilaterally.Sensati on intact.Re? e xes normal 2+, brachial triceps, brachioradialis.Hof fman's sign negative. Cervical spine MRI was independently reviewed in office again with the patient today indicative of C5-C6 disc herniation with mild compression of exiting nerve root. No cervical stenosis is noted at any level. Impression/Plan: Neck pain with radicular symptoms patient endorses a complex pain history she has trialed multiple medications that have not been significantly helpful for her. We discussed potentially trying Celebrex 100 mg twice a day for 30 days as well as lidocaine patches over that area. As patient does not seem to be of the mindset for any type of surgical procedure and does not feel safe doing any kind of injection therapy after she was told she would be high risk for infection. I would recommend physical therapy for cervical spine stabilization and manual therapies as needed will follow-up in 8 to 10 weeks. Discussed with the patient if she has any symptoms of the Celebrex such as stomach pain nausea vomiting and discontinue this medication as she does state some sensitivities to ibuprofen. All other questions were asked and answered. Patient expressed understanding agreement plan. [employer] [facility] speech recognition software configuration specialist software was used to create portions of this document. An attempt at proofreading has been made to minimize errors. Please call for corrections. SAVITA MISTRY PA-C [address], [place], [address], [facility] 07/21/2024 10:42:02 OBGyn Episode No OBEpisode recorded.
--- OUTSIDE RECORDS SUMMARY | 2024-09-12 11:57 | XMS_ITS ---
Author Name [facility] Organization Unknown Encounters Encounter Type Encounter Reason Primary Diagnosis Location Date Ambulatory [facility] 05/11/2023
--- OUTSIDE RECORDS SUMMARY | 2024-09-12 11:57 | XMS_ITS | Clinical Summary ---
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 Name Role Phone Devang Camejo Primary Care Provider Allergies Active Allergy Reactions Criticality Noted Date Comments Covid-19 Vacc,Mrna(Moderna)-Pf 06/07/2022 Other reaction(s): SOB facial and lip swelling Covid-19 Vaccine, Recombinant (Novavax) Swelling High 12/28/2020 Folic Acid Rash Low 01/05/2020 Iodinated Contrast Media 08/06/2017 Other reaction(s): Hives, SOB, swelling Ketorolac Tromethamine Hives 06/28/2024 Other (see comments), SOB, palpitations Nsaids (Non-Steroidal Anti-Inflammatory Drug) 07/27/2020 Other reaction(s): Other (see comments) Prednisone 10/06/2017 Other reaction(s): Other (see comments) Sertraline 01/05/2020 Other reaction(s): Other (see comments) Medications acetaminophen (TYLENOL) 325 mg tablet Take 3 tablets (975 mg total) by mouth. 2 Active acetaminophen-c odeine (TYLENOL #3) 300-30 mg per tablet 4 Active albuterol 2.5 mg /3 mL (0.083 %) nebulizer solution Inhale 3 mL (2.5 mg total) by mouth. 5 Active cholecalciferol (VITAMIN D-3) 50 mcg (2,000 unit) tablet Take 2 tablets (4,000 Units total) by mouth. Active cholestyramine (QUESTRAN) 4 gram packet Take 1 packet (4 g total) by mouth 2 (two) times a day. WITH WATER, AVOID TAKING WITHIN 30 MINUTES OF OTHER MEDICATIONS 3 Active escitalopram (LEXAPRO) 10 mg tablet Take 1 tablet (10 mg total) by mouth 1 (one) time each day. 3 Active pregabalin (LYRICA) 25 mg capsule Take 1 capsule (25 mg total) by mouth 3 (three) times a day. Max Daily Amount: 75 mg 4 Active milnacipran (Savella) 25 mg tablet Take 2 tablets (50 mg total) by mouth 1 (one) time each day after breakfast. 3 Active Surgical History Surgery Date Site/Laterality Comments HYSTERECTOMY 2013 PROCEDURE: HISTORICAL HYSTERECTOMY; COMMENT: endometriosis SECTION PROCEDURE: HISTORICAL ; COMMENT: x 1 OVARIAN CYST REMOVAL 09/09/2012 PROCEDURE: KS OVARIAN CYSTECTOMY UNI/BI OTHER SURGICAL HISTORY PROCEDURE: [place] HYSTEROSCOPY LYSIS INTRAUTERINE ADHESIONS COLONOSCOPY 02/12/2014 PROCEDURE: HISTORICAL COLONOSCOPY; COMMENT: hemorrhoids; repeat in 10 yrs CYSTOSCOPY 12/2014 PROCEDURE: HISTORICAL CYSTOSCOPY; COMMENT: Negative OOPHORECTOMY 2013 Right PROCEDURE: HISTORICAL OOPHORECTOMY; COMMENT: endometriosis OTHER SURGICAL HISTORY 11/15/2010 Left PROCEDURE: KS PUNCTURE ASPIRATION CYST OF BREAST; COMMENT: breast cyst aspiration SECTION PROCEDURE: SECTION HYSTERECTOMY PROCEDURE:HYSTERECTOMY GALLBLADDER SURGERY PROCEDURE:GALLBLADDER SURGERY Medical History Medical History Date Comments Abnormal CT of brain 04/25/2017 DX:Abnormal CT of brain; COMMENT: ? Abnl ventricle, MRI done, referred to Dr Ham, no further information available Allergic rhinitis 04/25/2017 DX:Allergic rh initis Anemia 04/19/2017 DX:Anemia Asthma 04/19/2017 DX:Asthma Biliary dyskinesia 04/25/2017 DX:Biliary dy skinesia; COMMENT: Dr Vale, biliary scan 09/04/2016: recommended cholecystectomy, patient deferred Bladder disorder 04/19/2017 DX:Bladder diso rder; COMMENT: Dr Flower urology, cystoscopy 01/2014 Chronic constipation 04/19/2017 DX:Chronic constipation; COMMENT: Sees Dr Vale for GI Cyst of right kidney 04/19/2017 DX:Cyst of right kidney; COMMENT: CT 07/17/2015, recurrent microscopic hematuria, Dr Hensley Depression 04/25/2017 DX:Depression; C OMMENT: Past use celexa Endometriosis 04/19/2017 DX:Endometriosis History of kidney stones 04/25/2017 DX:Hist ory of kidney stones; COMMENT: stents Mastalgia 04/25/2017 DX:Mastalgia; CO MMENT: Recurrent, has seen breast center, ++ fam hx Ca Breast, Migraine 04/19/2017 DX:Migraine Pericarditis 04/19/2017 DX:Pericarditis Scoliosis 04/19/2017 DX:Scoliosis; CO MMENT: Chronic excerbations of back pain IBS (irritable bowel syndrome) 08/30/2017 D X:IBS (irritable bowel syndrome) Fatty liver 08/30/2017 DX:Fatty liver Hematuria 09/18/2017 DX:Hematuria; CO MMENT: 12/2014 negative cystoscopy, cytology Left ovarian cyst 2017 DX:Left ovaria n cyst Depression DX:Depression Family History Medical History Relation Name Comments Breast cancer Aunt mother maternal, ca B reast Diabetes Brother 1 PUD Diabetes Brother 2 depression Diabetes Brother 3 htn Diabetes Brother 4 Cancer Father Heart attack Father 48, CABG,H [place], DM, Ca prostate, colon ca (48) Diabetes Maternal Grandfather htn Hypertension Maternal Grandmother Seizures Mother OA,anemia,IBS, HLD, Asthma Sister 1 HTN,scoliosis Asthma Sister 2 HTN, thyroid di sorder Asthma Sister 3 HTN, depression Prostate cancer Uncle maternal Relation Name Status Comments Aunt mother Brother 1 Alive Brother 2 Alive Brother 3 Alive Brother 4 Alive Father Maternal Grandfather Maternal Grandmother Mother Alive Sister 1 Alive Sister 2 Alive Sister 3 Alive Uncle Social History Tobacco Use Types Packs/Day Years Used Date Smoking Tobacco: Never Smokeless Tobacco: Never Alcohol Use Standard Drinks/Week Comments Never 0 (1 standard drink = 0.6 oz pur e alcohol) Comments Unknown Sex and Gender Information Value Date Recorded Sex Assigned at Not on file Legal Sex Female 9:31 PM EDT Gender Identity Not on file Sexual Orientation Not on file Obstetrics History Last Filed Vital Signs Vital Sign Reading Time Taken Comments Blood Pressure 130/80 06/20/2022 1:52 PM EST Pulse 88 06/20/2022 1:52 PM EST Temperature - - Respiratory Rate - - Oxygen Saturation - - Inhaled Oxygen Concentration - - Weight 84.4 kg (186 lb) 06/20/2022 1:52 PM EST Height 160 cm (5' 3 ) 06/20/2022 1:52 PM EST Body Mass Index 32.95 06/20/2022 1:52 PM EST Plan of Treatment Health Maintenance Due Date Last Done Comments Breast Cancer Screening 1970 Hepatitis A Vaccines (1 of 2 - Risk 2-dose series) 08/09/1991 Hepatitis B Vaccines (1 of 3 - 19+ 3-dose series) 08/09/1991 Pneumococcal Vaccine: 50+ Years (1 of 2 - PCV) 08/09/1991 Pneumococcal Vaccine: Pediatrics (0 to 5 Years) and At-Risk Patients (6 to 64 Years) (1 of 2 - PCV) 08/09/1991 Colorectal Cancer Screening: Colonoscopy 09/30/2021 Depression Screening 09/30/2021 HIV Screening 09/30/2021 Hepatitis C Screening 09/30/2021 Social Influencers of Health Screening 09/30/2021 Zoster Vaccines (1 of 2) 2022 COVID-19 Vaccine (2 - 2023-2 5 season) 2024 12/16/2020 Influenza Vaccine (Season Ended) 2025 03/27/2020, 03/07/2019, 04/23/2018 DTaP,Tdap,and Td Vaccines (2 - Td or Tdap) 05/18/2025 05/18/2015 Cholesterol Screening (Lipid Panel) 03/28/2027 03/28/2022 HIB Vaccines Aged Out No longer eligi ble based on patient's age to complete this topic HPV Vaccines Aged Out No longer eligi ble based on patient's age to complete this topic IPV Vaccines Aged Out No longer eligi ble based on patient's age to complete this topic MMR Vaccines Aged Out No longer eligi ble based on patient's age to complete this topic Meningococcal ACWY Vaccine Aged Out N o longer eligible based on patient's age to complete this topic Meningococcal B Vaccine Aged Out No l onger eligible based on patient's age to complete this topic RSV Immunization Patients Under 20 months Aged Out No longer eligible b ased on patient's age to complete this topic Varicella Vaccines Aged Out No longer eligible based on patient's age to complete this topic Procedures Procedure Name Priority Date/Time Associated Diagnosis Comments LIPID PANEL Routine 03/28/2022 from Last 3 Months or Most Recently Relevant to Health Maintenance Results * Lipid panel (03/28/2022) LDL/HDL Ratio 0 0 - 0 Comment:no interpretation, a bstracted Triglycerides 0 0 - 0 mg/dL Comment:no interpretation, a bstracted Cholesterol 0 0 - 0 mg/dL Comment:no interpretation, a bstracted HDL 0 0 - 0 mg/dL Comment:no interpretation, a bstracted LDL Cholesterol 0 0 - 0 mg/dL Comment:no interpretation, a bstracted Blood Venous blood specimen / Unknown us Historical Provider LAB BLOOD ORDERABLES Viviane l Result from Last 3 Months or Most Recently Relevant to Health Maintenance Care Teams Small 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
== END 2024-09-12 12:08 | disposition home or self-care (01) ==
LOC: HO.HSMS 10:50
PROVIDERS: PCP Student in an Organized Health Care Education/Training Program; Visit Provider Nurse Practitioner Family
DX: G43.009 Migraine without aura, not intractable, without status migrainosus (principal); R53.83 Other fatigue; R20.2 Paresthesia of skin; R06.83 Snoring; G47.10 Hypersomnia, unspecified; G47.39 Other sleep apnea
CPT/HCPCS: 99214

== ENCOUNTER → 2024-09-12 10:50 | Outpatient (BNVA) | payer BC, SELFPAY | PROVIDERS: PCP Student in an Organized Health Care Education/Training Program; Visit Provider Nurse Practitioner Family ==

== ENCOUNTER 2024-09-23 14:52 | Outpatient (AMB) | payer BC, SELFPAY ==
[2024-09-23 15:04] VITALS: BP 130/84; PULSE 101; O2SAT 100
--- NOTE | 2024-09-23 15:04 | MHC.OFFVIS ---
Vital Signs 09/23/24 15:04 Height 5 ft 4 in BP 130/84 Blood Pressure Location Lt brachial Position Sitting Pulse 101 H Pulse Source Pulse Oximeter Pulse Oximetry (%) 100 Oxygen Delivery Method Room Air Intake Visit Reasons: follow up - discharge Allergies ketorolac [From TORADOL] Allergy (Intermediate, Verified 09/23/24 16:46) hives COVID-19 (SARS-CoV-2) vaccine, olivier Allergy (Verified 09/23/24 16:46) Hives contrast dye Allergy (Intermediate, Uncoded 03/10/24 08:02) Hives HPI Comments Details: 54-yr-old female presents for urgent follow-up of worsening bilateral lower extremity paresthesias and headache. Patient states that after the last visit, her transportation service would not bring her to the ER after her appointment with me, which was to evaluate a recent onset a recent RUE tightness and pins and needles following transient episode of on feeling . On September 19, she went to [facility] ER with complaints of worsening lower extremity pain and weakness. Lab workup revealed mild hypokalemia, and she was treated with potassium repletion and IV fluid, and discharged home. Pt also reports she was seen by rheuamtology [facility]- and had lab testing completed, results of which are pending. Fortunately, I am unable to review these. Today, patient is visibly uncomfortable. She reports her bilateral lower extremity painful pins and needles and numbness has worsened. Now it is taking her hours to get out of bed, and she can not walk without a Rollator walker that she borrowed. Her headache has also continue to increase. She has states these symptoms started after her Tdap vaccine at the end of August. She states she had paresthesias, which were not painful, in the past following a vaccination. 09/12/2024 previous HPI: 54-yr-old female presents for f/u of migraine and follow-up of sleep study. 08/29/2024, home sleep study at [facility], which showed moderate mixed sleep apnea with an overall AHI 19.7 per hour, Medicare AHI 7.5 per hour, average SpO2 94%, O2 luca 89%. Recommendation of reading sleep neurologist was for patient to undergo follow-up in-lab PAP titration study with TCCO2 if available, which we have already ordered. Pt reports a couple of days ago- she had brief episode of RUE feeling - lasted seconds. She started shaking her arm, and the feeling resolved, but since she has had RUE tightness and pins and needles. At the time she also felt exhausted, SOB, slight chest tightness/weird sensation, and went back to bed. She did not seek medical attention. Since, she continues to feel RUE numbness, tingling, tightness, weakness, exhaustion. She is not on ASA. Pt reports she had a reaction to a TDaP vaccine 6 days ago- given in her left deltoid. Pt reports legs felt tight, SOB, sweating. Had ER eval, per patient- ER felt that pt was not having an allergic reaction but rather a generalized inflammatory response. Pt reports: Worsening headaches. She did not receive Ajovy- and now insurance has changed. She did not start verapamil. She has not had riboflavin- thought it was a 30 day order. Head feels numb. 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 Pt reports she is not sleeping well- waking up 3-4 times a night, feels like she is shaking and falling, and then cannot fall back asleep. Feels she cannot breathe, but her home SpO2 results are normal. She previously had rheumatology eval- for shiny skin, cold hands, pain- they did not feel this was scleroderma and advised to f/u prn. However, her inflammatory markers are still elevated. She has made a f/u appt for Dec 2024. 03/10/2024, HPI: She has had eye exam- tx'd for upper/lower lid inflammation. States she is going to be referred to [place] d/t chronic blurry vision. Is f/b [facility]. Brain MRI was unremarkable. 10/16/23 10/16/23 13:00 13:06 WBC 4.9 RBC 3.96 L Hgb 11.6 L Hct 35.1 L MCV 88.6 MCH 29.3 ESR 40 H Sodium 141 Potassium 3.9 Chloride 108 Carbon Dioxide 28 Anion Gap 9 L BUN 18 H Estimated GFR > 60 Random Glucose 89 Calcium 9.1 Iron 80 TIBC 307 % Saturation 26 Unsat Iron Binding 227 Total Bilirubin 0.2 AST 20 ALT 23 Alkaline Phosphatase 106 C-React Prot High Sens 2.6 Total Protein 7.4 Albumin 3.9 Vitamin B12 431 25-OH Vitamin D Total 17 L Folate 8.9 TSH 1.28 Rheumatoid Factor < 13.0 SERAFIN Screen NEGATIVE She has been having increased migraine, photophobia, nausea, tinnitus, dizziness especially over the last 1-2 months. Migraine frequency is now > 4-5 days per week. Headache is worse when standing- when standing feels weird like she is not standing anywhere. She did not start Ajovy- thought it was not approved- unfortunately the PA has now . Psychiatry advised her to increase buproprion dose, and will change mirtazapine to qhs. Previous OV note from 10/12/2023: 53-yr-old female presents for f/u visit, pt was last seen approx 2 yrs ago. Pt reports she has had Covid-19 in 2019 and 2021. The infection in 2021 left her bedridden x's 1 month and required rehab stay. Pt reports residual neurological s/s of memory loss, speech difficulties- improving some, balance difficulties- was using a walker and now a cane, room spinning dizziness, headaches, jean marie ear ringing/pulsating noise- worse when laying on left side, generalized tingling, depression. She has made some gains, but overall is still not feeling well. During this time, pt has had extensive work-up and medication trials, per review of [facility] PCP, neurosurgery, and neurology notes: Neurology, Dr Rodrigues at [facility], for polyneuropathies. Neurology eval at - dx'd w/ functional neurological d/o. 08/2023, [facility] neurosurgery consult, Dr Marley, for C5-6 cervical stenosis w/o cord abnormality, neck pain and paresthesias- no surgical intervention advised. Rheumatology Dr Valiente ([facility])- for positive SERAFIN Work-up: 08/2023, US retropeitoneal: Stable right renal cyst with septations measuring up to 2.2 cm. No new lesion. CTH 02/20/22:??no acutte intracranial abnormality? MRI brain W/W0 02/21/2022: Small T2 bright foci within the supratentorial white matter unchanged, cervical cord is normal in signal. MRI cervical spine 02/21/2022: There is a T2 hemangioma, no epidural fluid collection no cervical spine signal abnormality mild central canal narrowing at C5-6. ?EMG/NCS 05/18/2022: Normal study no evidence of large fiber sensory motor polyneuropathy affecting the right lower however upper extremities, no evidence of sciatic, peroneal, median, ulnar neuropathy, no evidence of a lumbosacral or brachial plexopathy no evidence of radiculopathy, no evidence of myopathy. ?Skin biopsy 03/13/23:?Right thigh 9.3 II nerve fibers per millimeter?which is normal,?right calf?8.4 III nerve fibers per millimeter which is in the normal range.??Sweat gland nerve fiber density was unable to be performed.?? EEG, 01/17/2022 at [facility]: Unremarkable Labs: 07/09/2023: CBC- NL ESR- 55 High BMP- NL 11/20/22: Iron Level- 81 Iron Binding Capacity, Unsaturated- 273 Iron Binding Capacity, Estimated Total- 354 % Iron Saturation- 23 Ferritin Level- 79 Per [facility] neurology note 06/27/23: + SERAFIN 1:80 B12 1825 Folic acid 23 Lactate 0.9 CRP 0.3 Ferritin 91 TSH 1.82 Vitamin B6 16 Vitamin D normal Copper 140 Lead negative Mercury negative Arsenic negative Immunofixation slightly elevated IgG [id number] SPEP WNL Paraneoplastic antibody panel negative HIV negative RPR negative Lyme negative Hep C negative Tick panel negative ESR 18 (05/18/2022)?40 (30/09/21)?72 (02/20/2022)?38 (12/08/2021) RF Negative Sjogren's negative Hepatitis B-Negative RPR negative HIV negative [facility] tick panel negative anti- Hu?negative Interval medication trials: gpn - nausea and blurred vision?? cymbalta - not tolerating hydroxychlorquine - did not tolerate prednisone - not beneficial lidocaine -??not significantly beneficial.? desvenlafaxine- ineffective She had PT for BLE strengthening- has had soem benefit. She has not had Vestibular tx. She has a new headache- a severe left sided stabbing headache, which lasts 15 minutes. Happens most when laying down on the left side. A/w left neck feels warm, left ear pounding sound, could not see from her left eye, could not talk- speech slowness. The stabbing pain lasts 15 minutes, and the other s/s resolve w/in 1 hr. These headaches started 4 months ago, and has had 3 of these attacks since onset, the last attack was 1 month ago Left eye vision is worse. She continues to have her typical migraine- frontal region heaviness a/w more difficulty concentrating/focusing/remembering. Occurs 3-4 x's per week. She had eye exam 2 weeks ago- states right eye pressure, but vision is ok. States was told to f/u w/ neurology. She is not taking any medications for the headaches other than Tylenol. She is taking Pregabaiin- for the tingling, helps some. [facility] Medical History (Updated 09/17/24 @ 07:26 by KEV Bone) IBS (irritable bowel syndrome) Asthma Pericardial effusion Anemia Kidney stones Depression Endometriosis GERD (gastroesophageal reflux disease) Fibromyalgia Scleroderma COVID-19 virus infection Cervicalgia Snoring Raynauds phenomenon SERAFIN positive Surgical History History of right oophorectomy Hx of hysterectomy Hx of cholecystectomy History of section Family History Sister Thyroid disease Alopecia Family/Other Diabetes Social History Household Members: Significant Other and Children Alcohol intake: never Patient Tobacco Use Status: Never used Tobacco Current occupational status: employed 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 Vital Signs: Last Vital Signs Pulse 101 H 09/23/24 15:04 BP 130/84 09/23/24 15:04 Pulse Ox 100 09/23/24 15:04 Oxygen Delivery Method Room Air 09/23/24 15:04 Const General: cooperative and in distress (Crying throughout visit) Resp Effort & Inspection: normal respiratory effort and able to speak in complete sentences Neuro Other: A&O x's 3, Exam was limited today due to patient's distress and tearfulness. Patient unable to perform BLE hip flexor, ankle extension, ankle flexion against resistance. Patient able to stand using arms of walker to support herself. Multiple steps to turn, when attempts to step with walker, patient is dragging right foot behind her. Note that at last visit, patient's gait was steady with a cane. Deep tendon reflexes (DTR's): Right patellar reflex intensity grade: 2+ and Left patellar reflex intensity grade: 2+ Psych Appearance: grossly normal Attitude: cooperative Assessment & Plan Assessment & Plan (1) Migraine without aura: Code(s): G43.009 - Migraine without aura, not intractable, without status migrainosus Category: Medical (2) Fatigue: Code(s): R53.83 - Other fatigue Category: Medical (3) Paresthesia: Code(s): R20.2 - Paresthesia of skin Category: Medical (4) Snoring: Code(s): R06.83 - Snoring Category: Medical (5) Hypersomnia: Comment: ESS- 12 Code(s): G47.10 - Hypersomnia, unspecified Category: Medical (6) Mixed sleep apnea: Comment: Moderate 08/19/2024 HST (at [facility]): AHI 19.7 per hour (obstructive greater than central events), Medicare AHI 7.5 per hour, average SpO2 94%, O2 luca 89%. Code(s): G47.39 - Other sleep apnea Category: Medical Plan Patient advised to have a [facility] ER evaluation, for worsening BLE painful paresthesias and possible weakness versus decreased effort due to pain symptoms, in marked change in gait. Call placed to [facility] ear, requesting brain and cervical imaging be done to assess for stroke, inflammatory, or demyelinating process. Patient likely will benefit from a BLE EMG/NCS. Reviewed results of in-lab sleep study, showing moderate mixed sleep apnea, patient advised to undergo in-lab PAP titration study as ordered. Follow-up with ophthalmology as scheduled. Follow-up with rheumatology as scheduled Follow-up with psychiatry as scheduled Discussed that treating her migraine may help to improve her vestibular, cognitive, and fatigue s/s. For migraine prevention: Hold Ajovy 225mg sc q month and Verapamil ER 100mg qhs- until after review of [facility] workup and results. Continue Riboflavin 400mg qam Continue Magnesium 400mg qhs. Continue Mirtazapine qhs. Previous medications trials- Amitriptyline- not tolerated. Desvenlafaxine- ineffective for migraine. Bupropion- ineffective for headache. Milnacipran- ineffective for headache. Mirtazapine- ineffective for headache. Candesartan- ineffective after > 3 months. Migraine tx contraindications- Topiramate d/t h/o kidney stones. Beta-blockers d/t symptomatic asthma. NSAIDs d/t Toradol allergy. For acute migraine tx: Continue Rizatriptan 10mg prn, may take w/ Tylenol. Continue Ondansetron 8mg prn. Previous acute tx trials: Sumatriptan- caused nausea. Case discussed with Dr. Danyell Mcconnell F/u upon review of above and in-clinic in 1-3 months or sooner prn. Coding Level of Care Code Est Pt Level 4 (08673) Diagnoses Migraine without aura G43.009 Fatigue R53.83 Paresthesia R20.2 Snoring R06.83 Hypersomnia G47.10 Mixed sleep apnea G47.39
--- OUTSIDE RECORDS SUMMARY | 2024-09-23 15:54 | XMS_ITS | Clinical Summary ---
Author Organization [facility] Address [address] [place] [address] Phone Care Team Providers Care Machine Heel Seat Fitter Name Role Phone Physician, Pcp Unknown Primary Care Provider Jackie vailable Allergies Active Allergy Reactions Criticality Noted Date [...] time each day after breakfast. 3 Active potassium chloride (KLOR-CON M10) 10 mEq CR tablet Take 1 tablet (10 mEq total) by mouth 2 (two) times a day for 10 days. Tablet may be swallowed whole (do not crush/chew/suck on) OR broken in half and each half swallowed separately OR dissolved (whole tablet) in ~4 ounces of water (allow ~2 minutes to dissolve, stir well and administer immediately). 20 tablet 5 10/01/19 25 Active Encounters Date Type Department Care Team Description 09/19/2024 11:07 PM EDT - 09/20/2024 3:56 AM EDT Emergency [facility] Emergency [address] [place] [address] Kimi Mondragon MD Viral syndrome (Primary Dx); Myalgia; Hypokalemia Discharge Disposition: Home or Self Care from Last 3 Months Surgical History Surgery Date Site/Laterality Comments HYSTERECTOMY 2013 PROCEDURE: HISTORICAL HYSTERECTOMY; COMMENT: endometriosis SECTION PROCEDURE: HISTORICAL ; COMMENT: x 1 OVARIAN CYST REMOVAL 09/09/2012 PROCEDURE: NC OVARIAN CYSTECTOMY UNI/BI OTHER SURGICAL HISTORY PROCEDURE: NC HYSTEROSCOPY LYSIS INTRAUTERINE ADHESIONS COLONOSCOPY 02/12/2014 PROCEDURE: HISTORICAL COLONOSCOPY; COMMENT: hemorrhoids; repeat in 10 yrs CYSTOSCOPY 12/2014 PROCEDURE: HISTORICAL CYSTOSCOPY; COMMENT: Negative OOPHORECTOMY 2014 Right PROCEDURE: HISTORICAL OOPHORECTOMY; COMMENT: endometriosis OTHER SURGICAL HISTORY 11/15/2010 Left PROCEDURE: NC PUNCTURE ASPIRATION CYST OF BREAST; COMMENT: breast [...] Sign Reading Time Taken Comments Blood Pressure 123/86 09/20/2024 2:17 AM EDT Pulse 88 09/20/2024 2:17 AM EDT Temperature 36.7 ??C (98 ??F) 09/20/2024 2:17 AM EDT Respiratory Rate 16 09/20/2024 2:17 AM EDT Oxygen Saturation 100% 09/20/2024 2:17 AM EDT Inhaled Oxygen Concentration - - Weight 86.2 kg (190 lb) 09/19/2024 5:28 PM EDT Height 162.6 cm (5' 4 ) 09/19/2024 5:28 PM EDT Body Mass Index 32.61 09/19/2024 5:28 PM EDT Plan of Treatment Health Maintenance Due Date [...] HIV Screening 09/30/2021 Hepatitis C Screening 09/30/2021 Medicare Annual Wellness Visit 09/30/2021 Social Influencers of Health Screening 09/30/2021 Zoster Vaccines (1 of 2) 2022 COVID-19 Vaccine (2 - season) 2024 12/16/2020 Influenza Vaccine (Season Ended) 2025 11/22/2021, 04/08/2021, 03/27/2020, Additional history exists Hypertension/CHF/CAD Annual BMP Blood Test 09/19/2025 09/19/2024, 06/20/2022, 06/20/2022 Cholesterol Screening (Lipid Panel) 03/28/2027 03/28/2022, 03/28/2022 DTaP,Tdap,and Td Vaccines (3 - Td or Tdap) 09/05/2034 09/05/2024, 05/18/2015 HIB Vaccines Aged Out No longer eligi [...] 20 months Aged Out No longer eligible based on patient's age to complete this topic Varicella Vaccines Aged Out No longer eligible based on patient's age to complete this topic Procedures Procedure Name Priority Date/Time Associated Diagnosis Comments ECG ANNOTATED 09/22/2024 ECG 12-LEAD STAT 09/20/2024 12:32 AM EDT C-REACTIVE PROTEIN STAT Add-on 09/19/2024 5: 48 PM EDT PHOSPHORUS Add-On 09/19/2024 5:48 PM EDT CREATINE KINASE STAT Add-on 09/19/2024 5:48 PM EDT CBC WITH AUTO DIFFERENTIAL STAT 09/19/2024 5:48 PM EDT COMPREHENSIVE METABOLIC PANEL STAT 09/19/2024 5:48 PM EDT MAGNESIUM STAT 09/19/2024 5:48 PM EDT CBC AND DIFFERENTIAL STAT 09/19/2024 5:48 PM EDT H[place]OWITZ URINE CULTURE TUBE STAT 09/19/2024 5:39 PM EDT URINALYSIS WITH REFLEX MICROSCOPIC AND CULTURE STAT 09/19/2024 5:39 PM EDT URINALYSIS WITH REFLEX MICROSCOPIC AND CULTURE STAT 09/19/2024 5:39 PM EDT CULTURE URINE STAT 09/19/2024 5:39 PM EDT RESPIRATORY VIRUS PANEL MOLECULAR STUDY STAT 09/19/2024 5:33 PM EDT LIPID PANEL Routine 03/28/2022 from Last 3 Months or Most Recently Relevant to Health Maintenance Results * ECG-Annotated (09/22/2024) us Provider Onbase MD ECG ORDERABLES Final Result * ECG 12 lead (09/20/2024 12:32 AM EDT) Ventricular Rate ECG 81 BPM GEMUSE Atrial Rate 81 BPM GEMUSE P-R Interval 138 ms GEMUSE QRS Duration 80 ms GEMUSE Q-T Interval 414 ms GEMUSE QTc 480 ms GEMUSE P Wave [place] 108 degrees GEMUSE R [place] 27 degrees GEMUSE T [place] 42 degrees GEMUSE ECG Interpretation Normal sinus rhythm When compared with ECG of 12-MAY-2022 14:24, No significant change was found Confirmed by MAXIMINO CARREON ([id number]) on 09/20/2024 11:09:55 PM GEMUSE 09/20/2024 12:3 2 AM EDT 09/20/2024 11:09 PM EDT us Kimi Mondragon MD ECG ORDERABLES Final Re sult GEMUSE * CBC auto differential (09/19/2024 5:48 PM EDT) [facility] WBC 5.2 4.8 - 10.8 K/mcL LAB HEMETOLOGY METHOD 09/19/2024 6:23 PM EDT [facility] RBC 4.30 3.80 - 4.80 M/mcL LAB HEMETOLOGY METHOD 09/19/2024 6:23 PM EDT [facility] Hemoglobin 12.7 11.5 - 16.0 g/dL LAB HEMETOLOGY METHOD 09/19/2024 6:23 PM EDT [facility] Hematocrit 37.8 35.0 - 47.0 % LAB HEMETOLOGY METHOD 09/19/2024 6:23 PM EDT [facility] MCV 88.1 79.0 - 98.0 FL LAB HEMETOLOGY METHOD 09/19/2024 6:23 PM EDT [facility] MCH 29.6 27.0 - 32.0 pcg LAB HEMETOLOGY METHOD 09/19/2024 6:23 PM EDT [facility] MCHC 33.6 32.0 - 37.0 g/dL LAB HEMETOLOGY METHOD 09/19/2024 6:23 PM EDT [facility] RDW 13.3 11.0 - 15.0 % LAB HEMETOLOGY METHOD 09/19/2024 6:23 PM EDT [facility] Platelets 242 130 - 400 K/mcL LAB HEMETOLOGY METHOD 09/19/2024 6:23 PM EDT [facility] MPV 10.3 7.0 - 11.0 FL LAB HEMETOLOGY METHOD 09/19/2024 6:23 PM EDT [facility] NRBC 0.0 <1.0 % LAB HEMETOLOGY METHOD 09/19/2024 6:23 PM [facility] NRBC Absolute 0.00 <0.10 K/mcL LAB HEMETOLOGY METHOD 09/19/2024 6:23 PM [facility] Neutrophils Relative 62.3 % LAB HEMETOLOGY METHOD 09/19/2024 6:23 PM [facility] Lymphocytes Relative 27.7 % LAB HEMETOLOGY METHOD 09/19/2024 6:23 PM [facility] Monocytes Relative 8.6 % LAB HEMETOLOGY METHOD 09/19/2024 6:23 PM [facility] Eosinophils Relative 0.6 % LAB HEMETOLOGY METHOD 09/19/2024 6:23 PM [facility] Basophils Relative 0.6 % LAB HEMETOLOGY METHOD 09/19/2024 6:23 PM [facility] Immature Granulocytes Relative 0.2 % LAB HEMETOLOGY METHOD 09/19/2024 6:23 PM [facility] Neutrophils Absolute 3.26 1.50 - 7.00 K/mcL LAB HEMETOLOGY METHOD 09/19/2024 6:23 PM [facility] Lymphocytes Absolute 1.45 1.00 - 5.00 K/mcL LAB HEMETOLOGY METHOD 09/19/2024 6:23 PM [facility] Monocytes Absolute 0.45 0.20 - 1.00 K/mcL LAB HEMETOLOGY METHOD 09/19/2024 6:23 PM [facility] Eosinophils Absolute 0.03 0.00 - 0.50 K/mcL LAB HEMETOLOGY METHOD 09/19/2024 6:23 PM [facility] Basophils Absolute 0.03 0.00 - 0.20 K/mcL LAB HEMETOLOGY METHOD 09/19/2024 6:23 PM [facility] Immature Granulocytes Absolute 0.01 0.00 - 0.03 K/mcL LAB HEMETOLOGY METHOD 09/19/2024 6:23 PM EDT [facility] Blood Venous blood specimen / Unknown Venipuncture / Unknown 09/19/2024 5:48 PM EDT 09/19/2024 6:10 PM EDT Kimi Mondragon MD LAB BLOOD ORDERABLES Fin al Result Performing Organization Address [facility] Co de Phone Number [facility] [address] [place] [address], [place] [phone] * C-reactive protein (09/19/2024 5:48 PM EDT) C-Reactive Protein <0.29 <=0.50 mg/dL LAB CHEMISTRY METHOD 09/20/2024 1:24 AM EDT [facility] Blood Venous blood specimen / Unknown Venipuncture / Unknown 09/19/2024 5:48 PM EDT 09/19/2024 6:10 PM EDT Kimi Mondragon MD LAB BLOOD ORDERABLES Fin al Result Performing Organization Address [facility] de Phone Number [facility] [address] [place] [address], [place] [phone] * Phosphorus (09/19/2024 5:48 PM EDT) Phosphorus 3.5 2.5 - 4.5 mg/dL LAB CHEMISTRY METHOD 09/20/2024 1:24 AM EDT [facility] Blood Venous blood specimen / Unknown Venipuncture / Unknown 09/19/2024 5:48 PM EDT 09/19/2024 6:10 PM EDT Kimi Mondragon MD LAB BLOOD ORDERABLES Fin al Result Performing Organization Address [facility] Co de Phone Number [facility] [address] [place] [address], [place] [phone] * Magnesium (09/19/2024 5:48 PM EDT) [facility] Magnesium 2.2 1.9 - 2.6 mg/dL LAB CHEMISTRY METHOD 09/19/2024 6:54 PM EDT [facility] Blood Venous blood specimen / Unknown Venipuncture / Unknown 09/19/2024 5:48 PM EDT 09/19/2024 6:10 PM EDT Kimi Mondragon MD LAB BLOOD ORDERABLES Fin al Result Performing Organization Address [facility]/ZIP Co de Phone Number [facility] [address] [place] [address], [place] [phone] * Creatine kinase (09/19/2024 5:48 PM EDT) [facility] Total CK 81 22 - 269 unit/L LAB CHEMISTRY METHOD 09/20/2024 1:24 AM EDT [facility] Blood Venous blood specimen / Unknown Venipuncture / Unknown 09/19/2024 5:48 PM EDT 09/19/2024 6:10 PM EDT Kimi Mondragon MD LAB BLOOD ORDERABLES Fin al Result [facility] [address] [place] [address], [place] [phone] * (ABNORMAL) Comprehensive metabolic panel (09/19/2024 5:48 PM EDT) [facility] Sodium 138 133 - 145 mmol/L LAB CHEMISTRY METHOD 09/19/2024 6:54 PM EDT [facility] Potassium 3.3(L) 3.5 - 5.5 mmol/L LAB CHEMISTRY METHOD 09/19[facility]2024 6[facility] Chloride 106 96 - 110 mmol/L LAB CHEMISTRY METHOD 09/19/2024 6:54 PM [facility] CO2 24 21 - 32 mmol/L LAB CHEMISTRY METHOD 09/19/2024 6:54 PM [facility] Anion Gap 8 3 - 11 LAB CHEMISTRY METHOD 09/19/2024 6:54 PM [facility] Glucose 99 70 - 100 mg/dL LAB CHEMISTRY METHOD 09/19/2024 6:54 PM [facility] BUN 12 5 - 25 mg/dL LAB CHEMISTRY METHOD 09/19/2024 6:54 PM [facility] Creatinine 0.75 0.50 - 1.10 mg/dL LAB CHEMISTRY METHOD 09/19/2024 6:54 PM [facility] eGFR 96 >=60 mL/min/1. 73m2 LAB CHEMISTRY METHOD 09/19/2024 6:54 PM [facility] Comment:Calculation based on the Chronic Kidney Disease Epidemiology Collaboration (CKD-EPI) equation refit without adjustment for race. BUN/Creatinine Ratio 16.0 LAB CHEMISTRY METHOD 09/19/2024 6:54 PM [facility] Calcium 9.5 8.5 - 10.5 mg/dL LAB CHEMISTRY METHOD 09/19/2024 6:54 PM [facility] AST (SGOT) 22 10 - 42 unit/L LAB CHEMISTRY METHOD 09/19/2024 6:54 PM [facility] ALT (SGPT) 41 10 - 60 unit/L LAB CHEMISTRY METHOD 09/19/2024 6:54 PM [facility] Alkaline Phosphatase 124(H) 42 - 121 unit/L LAB CHEMISTRY METHOD 09/19/2024 6:54 PM [facility] Total Protein 8.4(H) 6.0 - 8.0 g/dL LAB CHEMISTRY METHOD 09/19/2024 6:54 PM EDT [facility] Albumin 4.0 3.2 - 5.0 g/dL LAB CHEMISTRY METHOD 09/19/2024 6:54 PM EDT [facility] Total Bilirubin 0.4 0.0 - 1.4 mg/dL LAB CHEMISTRY METHOD 09/19/2024 6:54 PM T [facility] Blood Venous blood specimen / Unknown Venipuncture / Unknown 09/19/2024 5:48 PM EDT 09/19/2024 6:10 PM EDT us Kimi Mondragon MD LAB BLOOD ORDERABLES Fin al Result [facility] [address] [place] [address], [place] [phone] * (ABNORMAL) Urinalysis with reflex microscopic and culture (09/19/2024 5:39 PM EDT) Specific [place] Urine 1.004 1.003 - 1.030 LAB URINALYSIS - AUTOMATED METHOD 09/19/2024 6:19 PM [facility] pH, Urine 7.0 5.0 - 8.0 pH LAB URINALYSIS - AUTOMATED METHOD 09/19/2024 6:19 PM [facility] Leukocytes, Urine Small(A) Negative LAB URINALYSIS - AUTOMATED METHOD 09/19/2024 6:19 PM [facility] Nitrite, Urine Negative Negative LAB URINALYSIS - AUTOMATED METHOD 09/19/2024 6:19 PM [facility] Protein, Urine Negative <=Trace mg/dL LAB URINALYSIS - AUTOMATED METHOD 09/19/2024 6:19 PM [facility] Glucose, Urine Negative Negative mg/dL LAB URINALYSIS - AUTOMATED METHOD 09/19/2024 6:19 PM [facility] Ketones, Urine Negative Negative mg/dL LAB URINALYSIS - AUTOMATED METHOD 09/19/2024 6:19 PM EDT [facility] Urobilinogen, Urine 0.2 0.2 - 1.0 mg/dL LAB URINALYSIS - AUTOMATED METHOD 09/19/2024 6:19 PM [facility] Bilirubin, Urine Negative Negative LAB URINALYSIS - AUTOMATED METHOD 09/19/2024 6:19 PM [facility] Blood, Urine Small(A) Negative LAB URINALYSIS - AUTOMATED METHOD 09/19/2024 6:19 PM [facility] RBC, Urine 0.7 0 - 4 /HPF LAB URINALYSIS - AUTOMATED METHOD 09/19/2024 6:19 PM [facility] WBC, Urine 5.0(H) 0 - 4 /HPF LAB URINALYSIS - AUTOMATED METHOD 09/19/2024 6:19 PM [facility] Squamous Epithelial, Urine 23 0 - 60 /LPF LAB URINALYSIS - AUTOMATED METHOD 09/19/2024 6:19 PM [facility] Bacteria, Urine Negative Negative /HPF LAB URINALYSIS - AUTOMATED METHOD 09/19/2024 6:19 PM [facility] Hyaline Casts, Urine 0.8 0 - 3 /LPF LAB URINALYSIS - AUTOMATED METHOD 09/19/2024 6:19 PM [facility] Urine Urine specimen obtained by clean catch procedure / Unknown Non-blood Collection / Unknown 09/19/2024 5:39 PM EDT 09/19/2024 6:10 PM EDT us Kimi Mondragon MD LAB URINE ORDERABLES Fin al Result [facility] [address] [place] [address], * Horowitz urine culture tube (09/19/2024 5:39 PM EDT) [facility] Extra Tube Hold for add-ons. 09/19/2024 8:01 PM EDT [facility] Comment:Auto resulted. Urine Urine specimen obtained by clean catch procedure / Unknown Non-blood Collection / Unknown 09/19/2024 5:39 PM EDT 09/19/2024 6:10 PM EDT Kimi Mondragon MD LAB URINE ORDERABLES Fin al Result [facility] [address] [place] [address], [place] [phone] * Culture urine (09/19/2024 5:39 PM EDT) [facility] Culture, Urine 10,000-49,000 CFU/mL Mixed urogenital esther, no uropathogens present. Suggest repeat specimen if clinically indicated. 09/20/2024 1:58 PM EDT [facility] Urine Urine specimen obtained by clean catch procedure / Unknown Non-blood Collection / Unknown 09/19/2024 5:39 PM EDT 09/19/2024 6:19 PM EDT Kimi Mondragon MD LAB MICROBIOLOGY - GENER AL ORDERABLES Final Result Performing Organization Address City/[facility]/ZIP Co de Phone Number [facility] [address] [place] [address], [place] [phone] * Respiratory virus panel molecular study (09/19/2024 5:33 PM EDT) [facility] Adenovirus Detection by PCR Not Detected Not Detected LAB MICROBIOLOGY METHOD 09/19/2024 7:12 PM EDT [facility] Influenza A PCR Not Detected Not Detected LAB MICROBIOLOGY METHOD 09/19/2024 7:12 PM EDT [facility] Influenza B PCR Not Detected Not Detected LAB MICROBIOLOGY METHOD 09/19/2024 7:12 PM EDT [facility] Coronavirus 229E Not Detected Not Detected LAB MICROBIOLOGY METHOD 09/19/2024 7:12 PM EDT [facility] Coronavirus HKU1 Not Detected Not Detected LAB MICROBIOLOGY METHOD 09/19/2024 7:12 PM EDT [facility] Coronavirus OC43 Not Detected Not Detected LAB MICROBIOLOGY METHOD 09/19/2024 7:12 PM EDT [facility] Coronavirus NL63 Not Detected Not Detected LAB MICROBIOLOGY METHOD 09/19/2024 7:12 PM EDT [facility] Parainfluenza Virus 1 Not Detected Not Detected LAB MICROBIOLOGY METHOD 09/19/2024 7:12 PM EDT [facility] Parainfluenza Virus 2 Not Detected Not Detected LAB MICROBIOLOGY METHOD 09/19/2024 7:12 PM EDT [facility] Parainfluenza Virus 3 Not Detected Not Detected LAB MICROBIOLOGY METHOD 09/19/2024 7:12 PM EDT [facility] Parainfluenza Virus 4 Not Detected Not Detected LAB MICROBIOLOGY METHOD 09/19/2024 7:12 PM EDT [facility] RSV PCR Not Detected Not Detected LAB MICROBIOLOGY METHOD 09/19/2024 7:12 PM EDT [facility] Human Metapneumovirus A and B Not Detected Not Detected LAB MICROBIOLOGY METHOD 09/19/2024 7:12 PM EDT [facility] Rhinovirus/Entero virus Not Detected Not Detected LAB MICROBIOLOGY METHOD 09/19/2024 7:12 PM EDT [facility] Bordetella pertussis Not Detected Not Detected LAB MICROBIOLOGY METHOD 09/19/2024 7:12 PM EDT [facility] Bordetella parapertussis Not Detected Not Detected LAB MICROBIOLOGY METHOD 09/19/2024 7:12 PM EDT [facility] Mycoplasma pneumo by PCR Not Detected Not Detected LAB MICROBIOLOGY METHOD 09/19/2024 7:12 PM EDT [facility] Chlamydia pneumoniae Not Detected Not Detected LAB MICROBIOLOGY METHOD 09/19/2024 7:12 PM EDT [facility] SARS COV-2 Not Detected Not Detected LAB MICROBIOLOGY METHOD 09/19/2024 7:12 PM EDT [facility] Swab Both anterior nares / Unknown Non-blood Collection / Unknown 09/19/2024 5:33 PM EDT 09/19/2024 6:09 PM EDT Narrative [facility] - 09/19/2024 7:12 PM EDT Testing was performed using the [employer] Respiratory Pathogen PCR Assay. All results must be correlated with the clinical findings. Results should not be used as the sole basis for diagnosis. False Negative results may occur from the presence of sequence variants in the region targeted by the assay or the presence of inhibitors. Results may be affected by concurrent antiviral/antimicrobial therapy or levels of organisms that are below the limit of detection. Kimi Mondragon MD LAB MICROBIOLOGY - [facility] AL ORDERABLES Final Result [facility] [address] [place] [address], * Lipid panel (03/28/2022) LDL/HDL Ratio 0 0 - 0 Comment:no interpretation, a bstracted Triglycerides 0 0 - 0 mg/dL Comment:no interpretation, a bstracted Cholesterol 0 0 - 0 mg/dL Comment:no interpretation, a bstracted HDL 0 0 - 0 mg/dL Comment:no interpretation, a bstracted LDL Cholesterol 0 0 - 0 mg/dL Comment:no interpretation, a bstracted Blood Venous blood specimen / Unknown Historical Provider LAB BLOOD ORDERABLES Viviane l Result from Last 3 Months or Most Recently Relevant to Health Maintenance Insurance [facility] MEDICARE ADVANTAGE MEDICAID - [place] Care Teams Machine Heel Seat Fitter Relationship Specialty Start Date End Date Physician, Pcp Unknown PCP - General 09/19/24
--- OUTSIDE RECORDS SUMMARY | 2024-09-23 15:55 | XMS_ITS | Clinical Summary ---
Author Organization [facility] Address [address] [address] Phone Care Team Providers Care Rail Detector Car Operator Name Role Phone Earlene Andrade MD Primary [...] 30 mg by mouth every night Active citric acid-potassium citrate (POLYCITRA) 1100-334 MG/5ML solution Take by mouth in the morning and at noon and in the evening. Take with meals. Active Active Problems Problem Noted Date Diagnosed [...] Encounters Date Type Department Care Team Description 09/22/2024 4:00 PM EDT Office Visit [facility] [address] [place] [phone] Buddy Hough MD Microscopic hematuria (Primary Dx) 07/23/2024 Orders Only [facility] [address] [facility] [address] [place] [phone] Buddy Hough MD Microscopic hematuria from Last [...] Sign Reading Time Taken Comments Blood Pressure 112/80 09/22/2024 4:07 PM EDT Pulse 97 09/10/2023 2:55 PM EDT Temperature - - Respiratory Rate - - Oxygen Saturation - - Inhaled Oxygen Concentration - - Weight 84.8 kg (187 lb) 09/22/2024 4:07 PM EDT Height 162.6 cm (5' 4 ) 09/06/2020 11:36 AM EDT Body Mass Index 32.1 09/06/2020 11:36 AM EDT Plan of Treatment Upcoming Encounters Date Type Department Care Team (Late st Contact Info) Description 12/26/2024 9:15 AM EDT Office Visit [facility] [address] [facility] [address] [place] [phone] Buddy Hough MD [address] [facility] [address] [place] [phone] Health Maintenance Due Date Last Done Comments [...] history exists Insurance [employer] Commercial Medicaid [place] Medicaid [place] Medicaid [place] [facility] Care Teams Rail Detector Car Operator Relationship Specialty Start Date End Date Earlene Andrade MD [address] [place] [id number] PCP - General Internal Medicine 02/16/23
--- OUTSIDE RECORDS SUMMARY | 2024-09-23 15:55 | XMS_ITS | Encounter Summary ---
Author Organization [email or web address] Address [address] [place] [address] Care Team Providers Care Map Maker Name Role Phone Physician, Pcp Unknown Primary Care Provider Jackie vailable Reason for Visit * Reason Comments Generalized Body Aches Had tdap 14 days ago left arm Encounter Details Date Type Department Care Team (Late st Contact Info) Description 09/19/2024 11:07 PM EDT - 09/20/2024 3:56 AM EDT Emergency [facility] Emergency [address] [place] [address] Kimi Mondragon MD [address] [place] [address] Viral syndrome (Primary Dx); Myalgia; Hypokalemia Discharge Disposition: Home or Self Care Social History Tobacco Use Types Packs/Day Years [...] on file documented as of this encounter Last Filed Vital Signs Vital Sign Reading [...] Mass Index 32.61 09/19/2024 5:28 PM EDT documented in this encounter Discharge Instructions * Discharge Instructions* Kimi Mondragon MD - 09/20/2024 3:35 AM EDT Try to force your fluids over the next several days. Return to the emergency department if you develop any new or worsening symptoms including: Worsening weakness in your legs, fevers greater than 100 degrees, chest pain, difficulty breathing, any new symptom that concerns you. Follow-up with your primary care doctor soon as possible. * Attachments The following attachments cannot be sent through Care Everywhere. * Viral Infections (Bahamian) * Myalgia (Bahamian) * Hypokalemia ([place]ahamian) documented in this encounter Medications at Time of Discharge acetaminophen (TYLENOL) 325 mg tablet Take 3 tablets (975 mg total) by mouth. 02/22/2022 acetaminophen-co deine (TYLENOL #3) 300-30 mg per tablet 04/15/2014 albuterol 2.5 mg /3 mL (0.083 %) nebulizer solution Inhale 3 mL (2.5 mg total) by mouth. 07/28/2014 cholecalciferol (VITAMIN D-3) 50 mcg (2,000 unit) tablet Take 2 tablets (4,000 Units total) by mouth. cholestyramine (QUESTRAN) 4 gram packet Take 1 packet (4 g total) by mouth 2 (two) times a day. WITH WATER, AVOID TAKING WITHIN 30 MINUTES OF OTHER MEDICATIONS 06/05/2022 escitalopram (LEXAPRO) 10 mg tablet Take 1 tablet (10 mg total) by mouth 1 (one) time each day. 06/28/2022 milnacipran (Savella) 25 mg tablet Take 2 tablets (50 mg total) by mouth 1 (one) time each day after breakfast. 12/18/2022 potassium chloride (KLOR-CON M10) 10 mEq CR tablet Take 1 tablet (10 mEq total) by mouth 2 (two) times a day for 10 days. Tablet may be swallowed whole (do not crush/chew/suck on) OR broken in half and each half swallowed separately OR dissolved (whole tablet) in ~4 ounces of water (allow ~2 minutes to dissolve, stir well and administer immediately). 20 tablet 09/20/2024 5 pregabalin (LYRICA) 25 mg capsule Take 1 capsule (25 mg total) by mouth 3 (three) times a day. Max Daily Amount: 75 mg 09/26/2023 documented as of this encounter Ordered Prescriptions Prescription Sig Dispense Quantity Refills Last Filled Start Date End Date potassium chloride (KLOR-CON M10) 10 mEq CR tablet Take 1 tablet (10 mEq total) by mouth 2 (two) times a day for 10 days. Tablet may be swallowed whole (do not crush/chew/suck on) OR broken in half and each half swallowed separately OR dissolved (whole tablet) in ~4 ounces of water (allow ~2 minutes to dissolve, stir well and administer immediately). 20 tablet 09/20/2024 5 documented in this encounter Discharge Disposition Disposition Code Departure Means Destination Comment s Home or Self Care documented in this encounter Progress Notes * Kiko Ricks RN - 09/19/2024 5:24 PM EDT Had TDAP shot 14 days ago x3 days muscle pain/weakness all over not unilateral. Shot was given in left arm x3 days pain radiating up arm into ear. Finger and toe pain. Low back pain. Fever once in the last 3 day * Kimi Mondragon MD - 09/19/2024 5:19 PM EDT Emergency Medicine Note Patient Name: Sariah Rosario Initial Evaluation: 09/19/2024 : 1970 Patient's PCP: Pcp Unknown Physician Emergency Physician: Kimi Mondragon MD History of Present Illness Chief Complaint: Chief Complaint Patient presents with Generalized Body Aches Had tdap 14 days ago left arm HPI: 54 year old female with extensive PMH including anemia, depression, anxiety, migraine headaches presenting with generalized bodyaches, paresthesias, bilateral lower extremity numbness and tingling, diarrhea and poor appetite ongoing for the last 2 weeks after receiving a Tdap vaccine. She was scratched by a dog and required antibiotics. Antibiotics course was completed about a week ago. Otherwise she admits to fever at 1 point over the last 2 weeks as high as 103 degrees. Admits that sincethen she has had the chills but has not measured a temperature at home. Denies cough or cold type symptoms. Denies hematochezia or melena. Denies vomiting but admits to nausea. No known sick contactsor questionable food intake. ROS: I have performed a ROS with the pertinent positives and negatives documented in the history ofpresent illness. Previous History Past Medical History: Diagnosis Date Abnormal CT of brain 04/25/2017 DX:Abnormal CT of brain; COMMENT: ? Abnl ventricle, MRI done, referred to Dr Ham, no further information available Allergic rhinitis 04/25/2017 DX:Allergic rhinitis Anemia 04/19/2017 DX:Anemia Asthma 04/19/2017 DX:Asthma Biliary dyskinesia 04/25/2017 DX:Biliary dyskinesia; COMMENT: Dr Vale, biliary scan 09/04/2016: recommended cholecystectomy, patient deferred Bladder disorder 04/19/2017 DX:Bladder disorder; COMMENT: Dr Flower urology, cystoscopy 01/2014 Chronic constipation 04/19/2017 DX:Chronic constipation; COMMENT: Sees Dr Vale for GI Cyst of right kidney 04/19/2017 DX:Cyst of right kidney; COMMENT: CT 07/17/2015, recurrent microscopic hematuria, Dr Hensley Depression 04/25/2017 DX:Depression; COMMENT: Past use celexa Depression DX:Depression Endometriosis 04/19/2017 DX:Endometriosis Fatty liver 08/30/2017 DX:Fatty liver Hematuria 09/18/2017 DX:Hematuria; COMMENT: 12/2014 negative cystoscopy, cytology History of kidney stones 04/25/2017 DX:History of kidney stones; COMMENT: stents IBS (irritable bowel syndrome) 08/30/2017 DX:IBS (irritable bowel syndrome) Left ovarian cyst 2017 DX:Left ovarian cyst Mastalgia 04/25/2017 DX:Mastalgia; COMMENT: Recurrent, has seen breast center, ++ fam hx Ca Breast, Migraine 04/19/2017 DX:Migraine Pericarditis 04/19/2017 DX:Pericarditis Scoliosis 04/19/2017 DX:Scoliosis; COMMENT: Chronic excerbations of back pain Past Surgical History: Procedure Laterality Date SECTION PROCEDURE: HISTORICAL ; COMMENT: x 1 SECTION PROCEDURE: SECTION COLONOSCOPY 02/12/2014 PROCEDURE: HISTORICAL COLONOSCOPY; COMMENT: hemorrhoids; repeat in 10 yrs CYSTOSCOPY 12/2014 PROCEDURE: HISTORICAL CYSTOSCOPY; COMMENT: Negative GALLBLADDER SURGERY PROCEDURE:GALLBLADDER SURGERY HYSTERECTOMY 2013 PROCEDURE: HISTORICAL HYSTERECTOMY; COMMENT: endometriosis HYSTERECTOMY PROCEDURE:HYSTERECTOMY OOPHORECTOMY Right 2013 PROCEDURE: HISTORICAL OOPHORECTOMY; COMMENT: endometriosis OTHER SURGICAL HISTORY PROCEDURE: CA HYSTEROSCOPY LYSIS INTRAUTERINE ADHESIONS OTHER SURGICAL HISTORY Left 11/15/2010 PROCEDURE: CA PUNCTURE ASPIRATION CYST OF BREAST; COMMENT: breast cyst aspiration OVARIAN CYST REMOVAL 09/09/2012 PROCEDURE: CA OVARIAN CYSTECTOMY UNI/BI Social History Tobacco Use Smoking status: Never Smokeless tobacco: Never Substance Use Topics Alcohol use: Never Drug use: Never Family History Problem Relation Name Age of Onset Seizures Mother OA,anemia,IBS, HLD, Heart attack Father 48, CABG,HTN, DM, Ca prostate, colon ca (48) Asthma Sister HTN,scoliosis Diabetes Brother PUD Asthma Sister HTN, thyroid disorder Asthma Sister HTN, depression Prostate cancer Uncle maternal Diabetes Brother depression Diabetes Brother htn Diabetes Brother Breast cancer Aunt mother maternal, ca Breast Diabetes Maternal Grandfather htn Hypertension Maternal Grandmother Cancer Father is allergic to covid-19 vaccine, recombinant (novavax); covid-19 vacc,mrna(moderna)-pf; iodinated contrast media; ketorolac tromethamine; nsaids (non-steroidal anti-inflammatory drug); prednisone; sertraline; and folic acid. No current facility-administered medications on file prior to encounter. Current Outpatient Medications on File Prior to Encounter Medication Sig Dispense Refill acetaminophen (TYLENOL) 325 mg tablet Take 3 tablets (975 mg total) by mouth. acetaminophen-codeine (TYLENOL #3) 300-30 mg per tablet albuterol 2.5 mg /3 mL (0.083 %) nebulizer solution Inhale 3 mL (2.5 mg total) by mouth. cholecalciferol (VITAMIN D-3) 50 mcg (2,000 unit) tablet Take 2 tablets (4,000 Units total) by mouth. cholestyramine (QUESTRAN) 4 gram packet Take 1 packet (4 g total) by mouth 2 (two) times a day. WITH WATER, AVOID TAKING WITHIN 30 MINUTES OF OTHER MEDICATIONS escitalopram (LEXAPRO) 10 mg tablet Take 1 tablet (10 mg total) by mouth 1 (one) time each day. milnacipran (Savella) 25 mg tablet Take 2 tablets (50 mg total) by mouth 1 (one) time each day after breakfast. pregabalin (LYRICA) 25 mg capsule Take 1 capsule (25 mg total) by mouth 3 (three) times a day. Max Daily Amount: 75 mg 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 ED Triage Vitals [09/19/24 1728] Temp Heart Rate Resp BP 36.6 ??C (97.9 ??F) 97 18 (!) 151/106 SpO2 Temp Source Heart Rate Source Patient Position 100 % Oral -- -- BP Location FiO2 (%) -- -- GENERAL: Ill-Appearing, appears uncomfortable. SKIN: Normal skin color for ethnicity, warm, dry, no rashes noted. HEENT: Normocephalic, atraumatic, no stridor, dry mucous membranes, dentition intact, EOMI. NECK: Soft, supple, full ROM, midline structures nontender, no step-offs, no deformities, no lymphadenopathy. CHEST: Heart regular tachycardia, no murmurs, symmetric chest rise and fall. PULMONARY: Clear to auscultation bilaterally, diminished at the bases, no labored breathing, no wheezes/rhales/rhonchi. ABDOMINAL: Soft, nondistended, nontender, positive bowel sounds in all quadrants. : Deferred. MUSCULOSKELETAL: Normal tone, full range of motion, no deformities, no peripheral edema. NEURO: Alert and oriented x3, CN II through XII intact, equal strength and sensation bilateral upper and lower extremities, no focal neurologic deficits. PSYCHIATRIC: Flat affect, fluid speech, good eye contact and appropriate demeanor. Results Labs Reviewed COMPREHENSIVE METABOLIC PANEL - Abnormal Result Value Sodium 138 Potassium 3.3 (*) Chloride 106 CO2 24 Anion Gap 8 Glucose 99 BUN 12 Creatinine 0.75 eGFR 96 BUN/Creatinine Ratio 16.0 Calcium 9.5 AST (SGOT) 22 ALT (SGPT) 41 Alkaline Phosphatase 124 (*) Total Protein 8.4 (*) Albumin 4.0 Total Bilirubin 0.4 URINALYSIS WITH REFLEX MICROSCOPIC AND CULTURE - Abnormal Specific [place] Urine 1.004 pH, Urine 7.0 Leukocytes, Urine Small (*) Nitrite, Urine Negative Protein, Urine Negative Glucose, Urine Negative Ketones, Urine Negative Urobilinogen, Urine 0.2 Bilirubin, Urine Negative Blood, Urine Small (*) RBC, Urine 0.7 WBC, Urine 5.0 (*) Squamous Epithelial, Urine 23 Bacteria, Urine Negative Hyaline Casts, Urine 0.8 RESPIRATORY VIRUS PANEL MOLECULAR STUDY - Normal Adenovirus Detection by PCR Not Detected Influenza A PCR Not Detected Influenza B PCR Not Detected Coronavirus 229E Not Detected Coronavirus HKU1 Not Detected Coronavirus OC43 Not Detected Coronavirus NL63 Not Detected Parainfluenza Virus 1 Not Detected Parainfluenza Virus 2 Not Detected Parainfluenza Virus 3 Not Detected Parainfluenza Virus 4 Not Detected RSV PCR Not Detected Human Metapneumovirus A and B Not Detected Rhinovirus/Enterovirus Not Detected Bordetella pertussis Not Detected Bordetella parapertussis Not Detected Mycoplasma pneumo by PCR Not Detected Chlamydia pneumoniae Not Detected SARS COV-2 Not Detected Narrative: Testing was performed using the [employer] Respiratory Pathogen PCR Assay. All results must [...] that are below the limit of detection. MAGNESIUM - Normal Magnesium 2.2 CREATINE KINASE - Normal Total CK 81 PHOSPHORUS - Normal Phosphorus 3.5 C-REACTIVE PROTEIN - Normal C-Reactive Protein <0.29 CULTURE URINE CBC AND DIFFERENTIAL Narrative: The following orders were created for panel order CBC and differential. Procedure Abnormality Status --------- ------ CBC auto differential[[id number]] Final result Please view results for these tests on the individual orders. URINALYSIS WITH REFLEX MICROSCOPIC AND CULTURE Narrative: The following orders were created for panel order Urinalysis with reflex microscopic and culture. Procedure Abnormality Status --------- ------ Urinalysis with reflex ...[[id number]] Abnormal Final result Horowitz urine culture tube[[id number]] Final result Please view results for these tests on the individual orders. CBC WITH AUTO DIFFERENTIAL WBC 5.2 RBC 4.30 Hemoglobin 12.7 Hematocrit 37.8 MCV 88.1 MCH 29.6 MCHC 33.6 RDW 13.3 Platelets 242 MPV 10.3 NRBC 0.0 NRBC Absolute 0.00 Neutrophils Relative 62.3 Lymphocytes Relative 27.7 Monocytes Relative 8.6 Eosinophils Relative 0.6 Basophils Relative 0.6 Immature Granulocytes Relative 0.2 Neutrophils Absolute 3.26 Lymphocytes Absolute 1.45 Monocytes Absolute 0.45 Eosinophils Absolute 0.03 Basophils Absolute 0.03 Immature Granulocytes Absolute 0.01 Abnormal Labs Reviewed COMPREHENSIVE METABOLIC PANEL - Abnormal; Notable for the following components: Result Value Potassium 3.3 (*) Alkaline Phosphatase 124 (*) Total Protein 8.4 (*) All other components within normal limits URINALYSIS WITH REFLEX MICROSCOPIC AND CULTURE - Abnormal; Notable for the following components: Leukocytes, Urine Small (*) Blood, Urine Small (*) WBC, Urine 5.0 (*) All other components within normal limits No orders to display I have discussed the incidental/abnormal imaging and/or lab abnormalities with the patient and haveinstructed them the need for further evaluation and workup with their primary care doctor. I have provided the patient with a paper copy of the abnormality. The laboratory results, imaging results and other diagnostic exam results were reviewed in the EMR. Medical Decision Making Patient presents today with generalized weakness. Differential diagnosis includes anemia, electrolyte abnormality, infection, rhabdomyolysis/myositis, neurologic disorders such as Guillain-[place] or myasthenia gravis, CVA, medication side effects, deconditioning, dehydration, among many others. A broad-based workup was initiated based on the patient's history and physical examination. They were watched closely on telemetry monitor with vital signs that were monitored during the duration of their stay. There are no signs of focal neurological deficit or weakness on exam. Patient feeling significantly improved after treatment today. Potassium is slightly low, which has been repleted. We had an extensive discussion regarding importance of follow-up with primary care aswell strict return precautions to the emergency department. Using shared decision making, plan for discharge home to follow-up with primary care and/or specialist. Patient understands and agrees withplan for discharge. Discharged home in stable condition. Medications lactated Ringer's bolus 1,000 mL (0 mL intravenous Stopped 09/20/24118) potassium chloride (KLOR-CON M20) CR tablet 40 mEq (40 mEq oral Given 09/20/2436) Followed by potassium chloride (KLOR-CON M20) CR tablet 20 mEq (20 mEq oral Given 09/20/24117) ondansetron (PF) (ZOFRAN) injection 4 mg (4 mg intravenous Given 09/20/2437) diazePAM (VALIUM) tablet 5 mg (5 mg oral Given 09/20/24137) acetaminophen (TYLENOL) tablet 1,000 mg (1,000 mg oral Given 09/20/24137) Clinical Impressions as of 09/20/24338 Viral syndrome Myalgia Hypokalemia Procedures Procedures Diagnosis 1. Viral syndrome 2. Myalgia 3. Hypokalemia Disposition Discharge ED Prescriptions Medication Sig Dispense Start Date End Date Auth. Provider potassium chloride (KLOR-CON M10) 10 mEq CR tablet Take 1 tablet (10 mEq total) by mouth 2 (two) times a day for 10 days. Tablet may be swallowed whole (do not crush/chew/suck on) OR broken in half and each half swallowed separately OR dissolved (whole tablet) in ~4 ounces of water (allow ~2 minutes to dissolve, stir well and administer immediately). 20 tablet 09/20/2024 09/30/2024 Kimi Mondragon MD Physician Attestation Kimi Mondragon MD 09/20/24 0028 Kimi Mondragon MD 09/20/24 0339 documented in this encounter Plan of Treatment Not on file documented as of this encounter Procedures Procedure Name Priority Date/Time Associated Diagnosis Comments ECG ANNOTATED 09/22/2024 ECG 12-LEAD STAT 09/20/2024 12:32 AM EDT CBC WITH AUTO DIFFERENTIAL STAT 09/19/2024 5:48 PM EDT CBC AND DIFFERENTIAL STAT 09/19/2024 5:48 PM EDT C-REACTIVE PROTEIN STAT Add-on 09/19/2024 5: 48 PM EDT PHOSPHORUS Add-On 09/19/2024 5:48 PM EDT MAGNESIUM STAT 09/19/2024 5:48 PM EDT CREATINE KINASE STAT Add-on 09/19/2024 5:48 PM EDT COMPREHENSIVE METABOLIC PANEL STAT 09/19/2024 5:48 PM EDT URINALYSIS WITH REFLEX MICROSCOPIC AND CULTURE STAT 09/19/2024 5:39 PM EDT [place] URINE CULTURE TUBE STAT 09/19/2024 5:39 PM EDT URINALYSIS WITH REFLEX MICROSCOPIC AND CULTURE STAT 09/19/2024 5:39 PM EDT CULTURE URINE STAT 09/19/2024 5:39 PM EDT RESPIRATORY VIRUS PANEL MOLECULAR STUDY STAT 09/19/2024 5:33 PM EDT documented in this encounter Results * ECG-Annotated (09/22/2024) us Provider Onbase MD ECG ORDERABLES Final Result * ECG 12 lead (09/20/2024 12:32 AM EDT) Ventricular Rate ECG 81 BPM GEMUSE Atrial Rate 81 BPM GEMUSE P-R Interval 138 ms GEMUSE QRS Duration 80 ms GEMUSE Q-T Interval 414 ms GEMUSE QTc 480 ms GEMUSE P Wave Bertrand 108 degrees GEMUSE R Bertrand 27 degrees GEMUSE T Bertrand 42 degrees GEMUSE ECG Interpretation Normal sinus rhythm When compared with ECG of 12-MAY-2022 14:24, No significant change was found Confirmed by MAXIMINO CARREON ([id number]) on 09/20/2024 11:09:55 PM GEMUSE 09/20/2024 12:3 2 AM EDT 09/20/2024 11:09 PM EDT us Kimi Mondragon MD ECG ORDERABLES Final Re sult GEMUSE * C-reactive protein (09/19/2024 5:48 PM EDT) C-Reactive Protein <0.29 <=0.50 mg/dL LAB CHEMISTRY METHOD 09/20/2024 1:24 AM EDT [facility] Blood Venous blood specimen / Unknown Venipuncture / Unknown 09/19/2024 5:48 PM EDT 09/19/2024 6:10 PM EDT Kimi Mondragon MD LAB BLOOD ORDERABLES Fin al Result Performing Organization Address [facility] Co de Phone Number [facility] [address] [place] [address], [place] [phone] * Phosphorus (09/19/2024 5:48 PM EDT) Phosphorus 3.5 2.5 - 4.5 mg/dL LAB CHEMISTRY METHOD 09/20/2024 1:24 AM EDT [facility] Blood Venous blood specimen / Unknown Venipuncture / Unknown 09/19/2024 5:48 PM EDT 09/19/2024 6:10 PM EDT us Kimi Mondragon MD LAB BLOOD ORDERABLES Fin al Result Performing Organization Address [facility] Co de Phone Number [facility] [address] [place] [address], [place] [phone] * Creatine kinase (09/19/2024 5:48 PM EDT) Pathologist [facility] Total CK 81 22 - 269 unit/L LAB CHEMISTRY METHOD 09/20/2024 1:24 AM EDT [facility] Blood Venous blood specimen / Unknown Venipuncture / Unknown 09/19/2024 5:48 PM EDT 09/19/2024 6:10 PM EDT us Kimi Mondragon MD LAB BLOOD ORDERABLES Fin al Result [facility] [address] [place] [address], * CBC auto differential (09/19/2024 5:48 PM EDT) [facility] WBC 5.2 4.8 - 10.8 K/mcL LAB HEMETOLOGY METHOD 09/19/2024 6:23 PM EDT [facility] RBC 4.30 3.80 - 4.80 M/mcL LAB HEMETOLOGY METHOD 09/19/2024 6:23 PM EDT [facility] Hemoglobin 12.7 11.5 - 16.0 g/dL LAB HEMETOLOGY METHOD 09/19/2024 6:23 PM EDT [facility] Hematocrit 37.8 35.0 - 47.0 % LAB HEMETOLOGY METHOD 09/19/2024 6:23 PM EDT [facility] MCV 88.1 79.0 - 98.0 FL LAB HEMETOLOGY METHOD 09/19/2024 6:23 PM EDT [facility] MCH 29.6 27.0 - 32.0 pcg LAB HEMETOLOGY [facility] MCHC 33.6 32.0 - 37.0 g/dL LAB HEMETOLOGY METHOD 09/19/2024 6:23 PM EDT [facility] RDW 13.3 11.0 - 15.0 % LAB HEMETOLOGY METHOD 09/19/2024 6:23 PM [facility] Platelets 242 130 - 400 K/mcL LAB HEMETOLOGY METHOD 09/19/2024 6:23 PM [facility] MPV 10.3 7.0 - 11.0 FL LAB HEMETOLOGY METHOD 09/19/2024 6:23 PM [facility] NRBC 0.0 <1.0 % LAB HEMETOLOGY METHOD 09/19/2024 6:23 PM [facility] NRBC Absolute 0.00 <0.10 K/mcL LAB HEMETOLOGY METHOD 09/19/2024 6:23 PM [facility] Neutrophils Relative 62.3 % LAB HEMETOLOGY METHOD 09/19/2024 6:23 PM [facility] Lymphocytes Relative 27.7 % LAB HEMETOLOGY METHOD 09/19/2024 6:23 PM [facility] Monocytes Relative 8.6 % LAB HEMETOLOGY METHOD 09/19/2024 6:23 PM [facility] Eosinophils Relative 0.6 % LAB HEMETOLOGY METHOD 09/19/2024 6:23 PM [facility] Basophils Relative 0.6 % LAB HEMETOLOGY METHOD 09/19/2024 6:23 PM [facility] Immature Granulocytes Relative 0.2 % LAB HEMETOLOGY METHOD 09/19/2024 6:23 PM [facility] Neutrophils Absolute 3.26 1.50 - 7.00 K/mcL LAB HEMETOLOGY METHOD 09/19/2024 6:23 PM [facility] Lymphocytes Absolute 1.45 1.00 - 5.00 K/mcL LAB HEMETOLOGY METHOD 09/19/2024 6:23 PM [facility] Monocytes Absolute 0.45 0.20 - 1.00 K/mcL LAB HEMETOLOGY METHOD 09/19/2024 6:23 PM EDT [facility] Eosinophils Absolute 0.03 0.00 - 0.50 K/mcL LAB HEMETOLOGY METHOD 09/19/2024 6:23 PM EDT [facility] Basophils Absolute 0.03 0.00 - 0.20 K/mcL LAB HEMETOLOGY METHOD 09/19/2024 6:23 PM EDT [facility] Immature Granulocytes Absolute 0.01 0.00 - 0.03 K/mcL LAB HEMETOLOGY METHOD 09[facility]19[facility]2024 [facility] Blood Venous blood specimen / Unknown Venipuncture / Unknown 09/19/2024 5:48 PM EDT 09/19/2024 6:10 PM EDT us Kimi Mondragon MD LAB BLOOD ORDERABLES Fin al Result [facility] [address] [place] [address], * (ABNORMAL) Comprehensive metabolic panel (09/19/2024 5:48 PM EDT) Sodium 138 133 - 145 mmol/L LAB CHEMISTRY METHOD 09/19/2024 6:54 PM [facility] Potassium 3.3(L) 3.5 - 5.5 mmol/L LAB CHEMISTRY METHOD 09/19/2024 6:54 PM EDT [facility] Chloride 106 96 - 110 mmol/L LAB CHEMISTRY METHOD 09/19/2024 6:54 PM [facility] CO2 24 21 - 32 mmol/L LAB CHEMISTRY METHOD 09/19/2024 6:54 PM EDT [facility] Anion Gap 8 3 - 11 LAB CHEMISTRY METHOD 09/19/2024 6:54 PM [facility] Glucose 99 70 - 100 mg/dL LAB CHEMISTRY METHOD 09/19/2024 6:54 PM [facility] BUN 12 5 - 25 mg/dL LAB CHEMISTRY METHOD 09/19/2024 6:54 PM [facility] Creatinine 0.75 0.50 - 1.10 mg/dL LAB CHEMISTRY METHOD 09/19/2024 6:54 PM [facility] eGFR 96 >=60 mL/min/1. 73m2 LAB CHEMISTRY METHOD 09/19/2024 6:54 PM [facility] Comment:Calculation based on the Chronic Kidney Disease Epidemiology Collaboration (CKD-EPI) equation refit without adjustment for race. BUN/Creatinine Ratio 16.0 LAB CHEMISTRY METHOD 09/19/2024 6:54 PM [facility] Calcium 9.5 8.5 - 10.5 mg/dL LAB CHEMISTRY METHOD 09/19/2024 6:54 PM [facility] AST (SGOT) 22 10 - 42 unit/L LAB CHEMISTRY METHOD 09/19/2024 6:54 PM [facility] ALT (SGPT) 41 10 - 60 unit/L LAB CHEMISTRY METHOD 09/19/2024 6:54 PM [facility] Alkaline Phosphatase 124(H) 42 - 121 unit/L LAB CHEMISTRY METHOD 09/19/2024 6:54 PM [facility] Total Protein 8.4(H) 6.0 - 8.0 g/dL LAB CHEMISTRY METHOD 09/19/2024 6:54 PM [facility] Albumin 4.0 3.2 - 5.0 g/dL LAB CHEMISTRY METHOD 09/19/2024 6:54 PM [facility] Total Bilirubin 0.4 0.0 - 1.4 mg/dL LAB CHEMISTRY METHOD 09/19/2024 6:54 PM [facility] Blood Venous blood specimen / Unknown Venipuncture / Unknown 09/19/2024 5:48 PM EDT 09/19/2024 6:10 PM EDT Kimi Mondragon MD LAB BLOOD ORDERABLES Fin al Result Performing Organization Address [facility]/ZIP Co de Phone Number [facility] [address] [place] [address], [place] [phone] * Magnesium (09/19/2024 5:48 PM EDT) Magnesium 2.2 1.9 - 2.6 mg/dL LAB CHEMISTRY METHOD 09/19/2024 6:54 PM EDT [facility] Blood Venous blood specimen / Unknown Venipuncture / Unknown 09/19/2024 5:48 PM EDT 09/19/2024 6:10 PM EDT Kimi Mondragon MD LAB BLOOD ORDERABLES Fin al Result Performing Organization Address [facility] de Phone Number [facility] [address] [place] [address], [place] [phone] * Culture urine (09/19/2024 5:39 PM EDT) Culture, Urine 10,000-49,000 CFU/mL Mixed urogenital esther, no uropathogens present. Suggest repeat specimen if clinically indicated. 09/20/2024 1:58 PM EDT [facility] Urine Urine specimen obtained by clean catch procedure / Unknown Non-blood Collection / Unknown 09/19/2024 5:39 PM EDT 09/19/2024 6:19 PM EDT Kimi Mondragon MD LAB MICROBIOLOGY - GENER AL ORDERABLES Final Result Performing Organization Address [facility]/ZIP Co de Phone Number [facility] [address] [place] [address], [place] [phone] * Horowitz urine culture tube (09/19/2024 5:39 PM EDT) [facility] Extra Tube Hold for add-ons. 09/19/2024 8:01 PM EDT [facility] Comment:Auto resulted. Urine Urine specimen obtained by clean catch procedure / Unknown Non-blood Collection / Unknown 09/19/2024 5:39 PM EDT 09/19/2024 6:10 PM EDT us Kimi Mondragon MD LAB URINE ORDERABLES Fin al Result [facility] [address] [place] [address], * (ABNORMAL) Urinalysis with reflex microscopic and culture (09/19/2024 5:39 PM EDT) [facility] Specific [place] Urine 1.004 1.003 - 1.030 LAB URINALYSIS - AUTOMATED METHOD 09/19/2024 6:19 PM [facility] pH, Urine 7.0 5.0 - 8.0 pH LAB URINALYSIS - AUTOMATED METHOD 09/19/2024 6:19 PM [facility] Leukocytes, Urine Small(A) Negative LAB URINALYSIS - AUTOMATED METHOD 09/19/2024 6:19 PM [facility] Nitrite, Urine Negative Negative LAB URINALYSIS - AUTOMATED METHOD 09/19/2024 6:19 PM [facility] Protein, Urine Negative <=Trace mg/dL LAB URINALYSIS - AUTOMATED METHOD 09/19/2024 6:19 PM [facility] Glucose, Urine Negative Negative mg/dL LAB URINALYSIS - AUTOMATED METHOD 09/19/2024 6:19 PM [facility] Ketones, Urine Negative Negative mg/dL LAB URINALYSIS - AUTOMATED METHOD 09/19/2024 6:19 PM EDT [facility] Urobilinogen, Urine 0.2 0.2 - 1.0 mg/dL LAB URINALYSIS - AUTOMATED METHOD 09/19/2024 6:19 PM [facility] Bilirubin, Urine Negative Negative LAB URINALYSIS - AUTOMATED METHOD 09/19/2024 6:19 PM [facility] Blood, Urine Small(A) Negative LAB URINALYSIS - AUTOMATED METHOD 09/19/2024 6:19 PM [facility] RBC, Urine 0.7 0 - 4 /HPF LAB URINALYSIS - AUTOMATED METHOD 09/19/2024 6:19 PM [facility] WBC, Urine 5.0(H) 0 - 4 /HPF LAB URINALYSIS - AUTOMATED METHOD 09/19/2024 6:19 PM [facility] Squamous Epithelial, Urine 23 0 - 60 /LPF LAB URINALYSIS - AUTOMATED METHOD 09/19/2024 6:19 PM [facility] Bacteria, Urine Negative Negative /HPF LAB URINALYSIS - AUTOMATED METHOD 09/19/2024 6:19 PM [facility] Hyaline Casts, Urine 0.8 0 - 3 /LPF LAB URINALYSIS - AUTOMATED METHOD 09/19/2024 6:19 PM [facility] Urine Urine specimen obtained by clean catch procedure / Unknown Non-blood Collection / Unknown 09/19/2024 5:39 PM EDT 09/19/2024 6:10 PM EDT us Kimi Mondragon MD LAB URINE ORDERABLES Fin al Result [facility] [address] [place] [address], * Respiratory virus panel molecular study (09/19/2024 5:33 PM EDT) Pathologist [facility] Adenovirus Detection by PCR Not Detected Not Detected LAB MICROBIOLOGY METHOD 09/19/2024 7:12 PM EDT [facility] Influenza A PCR Not Detected Not Detected LAB MICROBIOLOGY METHOD 09/19/2024 7:12 PM EDT [facility] Influenza B PCR Not Detected Not Detected LAB MICROBIOLOGY METHOD 09/19/2024 7:12 PM EDT [facility] Coronavirus 229E Not Detected Not Detected LAB MICROBIOLOGY METHOD 09/19/2024 7:12 PM EDT [facility] Coronavirus HKU1 Not Detected Not Detected LAB MICROBIOLOGY METHOD 09/19/2024 7:12 PM EDT [facility] Coronavirus OC43 Not Detected Not Detected LAB MICROBIOLOGY METHOD 09/19/2024 7:12 PM EDT [facility] Coronavirus NL63 Not Detected Not Detected LAB MICROBIOLOGY METHOD 09/19/2024 7:12 PM EDT [facility] Parainfluenza Virus 1 Not Detected Not Detected LAB MICROBIOLOGY METHOD 09/19/2024 7:12 PM EDT [facility] Parainfluenza Virus 2 Not Detected Not Detected LAB MICROBIOLOGY METHOD 09/19/2024 7:12 PM EDT [facility] Parainfluenza Virus 3 Not Detected Not Detected LAB MICROBIOLOGY METHOD 09/19/2024 7:12 PM EDT [facility] Parainfluenza Virus 4 Not Detected Not Detected LAB MICROBIOLOGY METHOD 09/19/2024 7:12 PM EDT [facility] RSV PCR Not Detected Not Detected LAB MICROBIOLOGY METHOD 09/19/2024 7:12 PM EDT [facility] Human Metapneumovirus A and B Not Detected Not Detected LAB MICROBIOLOGY METHOD 09/19/2024 7:12 PM EDT [facility] Rhinovirus/Entero virus Not Detected Not Detected LAB MICROBIOLOGY METHOD 09/19/2024 7:12 PM EDT [facility] Bordetella pertussis Not Detected Not Detected LAB MICROBIOLOGY METHOD 09/19/2024 7:12 PM EDT [facility] Bordetella parapertussis Not Detected Not Detected LAB MICROBIOLOGY METHOD 09/19/2024 7:12 PM EDT [facility] Mycoplasma pneumo by PCR Not Detected Not Detected LAB MICROBIOLOGY METHOD 09/19/2024 7:12 PM EDT [facility] Chlamydia pneumoniae Not Detected Not Detected LAB MICROBIOLOGY METHOD 09/19/2024 7:12 PM EDT [facility] SARS COV-2 Not Detected Not Detected LAB MICROBIOLOGY METHOD 09/19/2024 7:12 PM EDT [facility] Swab Both anterior nares / Unknown Non-blood Collection / Unknown 09/19/2024 5:33 PM EDT 09/19/2024 6:09 PM EDT Narrative [facility] - 09/19/2024 7:12 PM EDT Testing was performed using the [employer] Respiratory Pathogen PCR Assay. All results must [...] that are below the limit of detection. us Kimi Mondragon MD LAB MICROBIOLOGY - [facility] AL ORDERABLES Final Result [facility] [address] [place] [address], documented in this encounter Visit Diagnoses Diagnosis Viral syndrome- Primary Unspecified viral infection, in conditions classified elsewhere and of unspecified site Myalgia Unspecified myalgia and myositis Hypokalemia Hypopotassemia documented in this encounter Administered Medications Inactive Administered Medications - up to 3 most recent administrations Medication Order MAR Action Action Date Dose Rate Site acetaminophen (TYLENOL) tablet 1,000 mg 1,000 mg, oral, Once, On 09/20/24 at 0131, For 1 dose Given 09/20/2024 1:38 AM EDT 1,000 mg diazePAM (VALIUM) tablet 5 mg 5 mg, oral, Once, On 09/20/24 at 0131, For 1 dose Given 09/20/2024 1:38 AM EDT 5 mg lactated Ringer's bolus 1,000 mL 1,000 mL, intravenous, at 1,000 mL/hr, Administer over 1 Hours, Once, On 09/20/24 at 0017, For 1 dose New Bag 09/20/2024 12:37 AM EDT 1,000 mL 1000 mL/hr ondansetron (PF) (ZOFRAN) injection 4 mg 4 mg, intravenous, Once, On 09/20/24 at 0017, For 1 dose Given 09/20/2024 12:38 AM EDT 4 mg potassium chloride (KLOR-CON M20) CR tablet 20 mEq 20 mEq, oral, Once, On 09/20/24 at 0217, For 1 dose, Tablet may be swallowed whole (do not crush/chew/suck on) OR broken in half and each half swallowed separately OR dissolved (whole tablet) in ~4 ounces of water (allow ~2 minutes to dissolve, stir well and administer immediately). Given 09/20/2024 1:18 AM EDT 20 mEq potassium chloride (KLOR-CON M20) CR tablet 40 mEq 40 mEq, oral, Once, On 09/20/24 at 0017, For 1 dose, Tablet may be swallowed whole (do not crush/chew/suck on) OR broken in half and each half swallowed separately OR dissolved (whole tablet) in ~4 ounces of water (allow ~2 minutes to dissolve, stir well and administer immediately). Given 09/20/2024 12:37 AM EDT 40 mEq documented in this encounter Active and Recently Administered Medications Times are shown in EDT. Scheduled Medication Order 09/18/2024 09/19/2024 09/20/2024 acetaminophen (TYLENOL) tablet 1,000 mg (COMPLETED) 1,000 mg, oral, Once, On 09/20/24 at 0131, For 1 dose 0138 (Given - Provid er: Breanne Cohen RN) diazePAM (VALIUM) tablet 5 mg (COMPLETED) 5 mg, oral, Once, On 09/20/24 at 0131, For 1 dose 0138 (Given - Provid er: Breanne Cohen RN) lactated Ringer's bolus 1,000 mL (COMPLETED) 1,000 mL, intravenous, at 1,000 mL/hr, Administer over 1 Hours, Once, On 09/20/24 at 0017, For 1 dose 0037 (New Bag - Prov ider: Breanne Cohen RN)0119 (Stopped - Provider: Breanne Cohen RN) ondansetron (PF) (ZOFRAN) injection 4 mg (COMPLETED) 4 mg, intravenous, Once, On 09/20/24 at 0017, For 1 dose 0038 (Given - Provid er: Breanne Cohen RN) potassium chloride (KLOR-CON M20) CR tablet 20 mEq (COMPLETED)(Linked Group 1) 20 mEq, oral, Once, On 09/20/24 at 0217, For 1 dose, Tablet may be swallowed whole (do not crush/chew/suck on) OR broken in half and each half swallowed separately OR dissolved (whole tablet) in ~4 ounces of water (allow ~2 minutes to dissolve, stir well and administer immediately). 0118 (Given - Provid er: Breanne Cohen RN - Comment: already administered) potassium chloride (KLOR-CON M20) CR tablet 40 mEq (COMPLETED)(Linked Group 1) 40 mEq, oral, Once, On 09/20/24 at 0017, For 1 dose, Tablet may be swallowed whole (do not crush/chew/suck on) OR broken in half and each half swallowed separately OR dissolved (whole tablet) in ~4 ounces of water (allow ~2 minutes to dissolve, stir well and administer immediately). 0037 (Given - Provid er: Breanne Cohen RN) Linked Groups Order Group 1: potassium chloride (KLOR-CON M20) CR tablet 40 mEq (COMPLETED)Jump to med 40 mEq, oral, Once, On 09/20/24 at 0017, For 1 dose, Tablet may be swallowed whole (do not crush/chew/suck on) OR broken in half and each half swallowed separately OR dissolved (whole tablet) in ~4 ounces of water (allow ~2 minutes to dissolve, stir well and administer immediately). Followed by potassium chloride (KLOR-CON M20) CR tablet 20 mEq (COMPLETED)Jump to med 20 mEq, oral, Once, On 09/20/24 at 0217, For 1 dose, Tablet may be swallowed whole (do not crush/chew/suck on) OR broken in half and each half swallowed separately OR dissolved (whole tablet) in ~4 ounces of water (allow ~2 minutes to dissolve, stir well and administer immediately). documented in this encounter Care Teams Map Maker Relationship Specialty Start Date End Date Physician, Pcp Unknown PCP - General 09/19/24 documented as of this encounter
--- OUTSIDE RECORDS SUMMARY | 2024-09-23 15:55 | XMS_ITS | Encounter Summary ---
Author Organization [facility] Address [address] [place] [address] Phone Care Team Providers Care Fisher Lobster Name Role Phone Earlene Andrade MD Primary Care Provider + Encounter Details Date Type Department Care Team (Late st Contact Info) Description 12/02/2021 Documentation Only [facility] [address] [place] [phone] Darwin Hensley MD [address] [place] [address] [place] [phone] Social History Tobacco Use Types Packs/Day Years [...] Visit [facility] [address] [phone] Buddy Hough MD [address] [phone] documented as of this encounter Visit Diagnoses Not on filedocumented in this encounter Care Teams Fisher Lobster Relationship Specialty Start Date End Date Earlene Andrade MD [address] [place], [place] [phone] PCP - General Internal Medicine 02/16/23 documented as of this encounter
--- OUTSIDE RECORDS SUMMARY | 2024-09-23 15:55 | XMS_ITS | Encounter Summary ---
Author Organization [facility] Address [address] [place] [address] Phone Care Team Providers Care Chief Credit Officer Name Role Phone Earlene Andrade MD Primary Care Provider + Encounter Details Date Type Department Care Team (Late st Contact Info) Description 12/02/2021 Documentation Only [facility] [address] [place] [phone] Darwin Hensley MD [address] [place] [address] [place] [phone] Social History Tobacco Use Types Packs/Day Years [...] [facility] [address] [phone] Buddy Hough MD [address] [phone] documented as of this encounter Visit Diagnoses Not on filedocumented in this encounter Care Teams Chief Credit Officer Relationship Specialty Start Date End Date Earlene Andrade MD [address] [place], [place] [phone] PCP - General Internal Medicine 02/16/23 documented as of this encounter
--- OUTSIDE RECORDS SUMMARY | 2024-09-23 15:55 | XMS_ITS | Clinical Summary ---
Author Organization [facility] Address [address] [place] [address] Care Team Providers Care Wool Broker Name Role Phone Nell ALARCON DO, Edward [...] age to complete this topic Care Teams Wool Broker Relationship Specialty Start Date End Date Devang Camejo IV, DO PCP - General Internal Medicine 06/09/22
--- OUTSIDE RECORDS SUMMARY | 2024-09-23 15:55 | XMS_ITS | Encounter Summary ---
Author Organization [facility] Address [address] [place] [phone] Phone Care Team Providers Care Hydrographical Technical Officer Name Role Phone Earlene Andrade MD Primary Care Provider + Reason for Visit * Reason Comments microscopic hematuria isolated proteinuria Encounter Details Date Type Department Care Team ([facility] st Contact Info) Description 09/22/2024 4:00 PM EDT Office Visit [facility] [address] [place] [phone] Buddy Hough MD [address] [phone] Microscopic hematuria (Primary Dx) Social History Tobacco Use Types Packs/Day Years [...] Pressure 112/80 09/22/2024 4:07 PM EDT Pulse - - Temperature - - Respiratory Rate - - Oxygen Saturation - - Inhaled Oxygen Concentration - - Weight 84.8 kg (187 lb) 09/22/2024 4:07 PM EDT Height - - Body Mass Index 32.1 09/06/2020 11:36 AM EDT documented in this encounter Progress Notes * Buddy Hough MD - 09/22/2024 4:00 PM EDT [facility] Patient Name: Sariah Rosario, Female Date of : 1970, 54 y.o. Date: 09/22/2024 [] New Patient [x] Established Patient [] New Hospital Follow Up [] Established Hospital Follow Up [] Telemed Visit [] H&P Referring MD: No primary care provider on file. PCP: Earlene Andrade MD Chief Complaint: Chief Complaint Patient presents with microscopic hematuria isolated proteinuria Reason For Visit: Sariah Rosario is a 54 y.o. female for f/u re Microscopic hematuria / She had no proteinuria Has had Urologic w/u in the pasrt including a cystoscopy Has h/o stones Has had COVID x 2 and states she has ? Long COVID symptoms and neuro symptoms No CP + SOB NO luis haematuria Had tetanus shot and has all 4 ext weakness- was in [facility] and seeing a neurologist in AM The following portions of the patient's chart were reviewed in this encounter and updated as appropriate: Allergies Meds Problems Med Hx Surg Hx Fam Hx ROS Constitutional: Negative for chills and fever. HENT: Negative for congestion, ear pain, hearing loss and sore throat. Eyes: Negative for pain and discharge. Respiratory: Negative for cough, shortness of breath and wheezing. Cardiovascular: Negative for chest pain, palpitations and leg swelling. Gastrointestinal: Negative for abdominal pain, blood in stool, constipation, diarrhea, nausea and vomiting. Genitourinary: Negative for dysuria, frequency, hematuria and urgency. Musculoskeletal: Negative for back pain, myalgias and neck pain. Skin: Negative for rash. Neurological: Negative for dizziness, tremors and headaches. Endo/Heme/Allergies: Negative for polydipsia. Does not bruise/bleed easily. Full 13 point review of systems unremarkable except as noted above. Past Medical History: Diagnosis Date Anemia Asthma Chronic kidney disease stage 2 Depressive disorder Gastroesophageal reflux disease H/O: kidney disease Proteinuris and Hematuris History of recurrent urinary tract infection Irritable bowel syndrome Nephrolithiasis Past Surgical History: Procedure Laterality Date APPENDECTOMY HYSTERECTOMY Social History Tobacco Use Smoking status: Never Smokeless tobacco: Never Substance Use Topics Alcohol use: Not on file Family History Problem Relation Age of Onset Diabetes Mother Diabetes Sibling Heart disease Father Current Outpatient Medications Medication Sig Dispense Refill acetaminophen-codeine (TYLENOL #3) 300-30 MG per tablet albuterol HFA (ProAir HFA) 108 (90 Base) MCG/ACT inhaler Inhale 1 puff ALBUTEROL IN Inhale buPROPion SR (WELLBUTRIN SR) 200 MG 12 hr tablet Take 200 mg by mouth in the morning and 200 mg in the evening. Do not crush, chew, or split.. cholecalciferol (VITAMIN D-3 SUPER STRENGTH) 50 MCG (2000 UT) tablet Take 2 capsules by mouth 1 (one) time each day citric acid-potassium citrate (POLYCITRA) 1100-334 MG/5ML solution Take by mouth in the morning andat noon and in the evening. Take with meals. famotidine (PEPCID) 20 MG tablet Take 20 mg by mouth losartan (COZAAR) 25 MG tablet Comments: Filled Date: Oct 16 2017 12:00AM Patient Notes: TAKE 1 TABLET BY MOUTH EVERY DAY Duration: 30 mirtazapine (REMERON JENNA-TAB) 30 MG dispersible tablet Take 30 mg by mouth every night ondansetron (ZOFRAN) 4 MG tablet Take 4 mg by mouth if needed for nausea or vomiting rizatriptan (MAXALT) 10 MG tablet TAKE 1/2 TO 1 TABLET BY MOUTH EVERY 2 HOURS NEEDED AT ONSET OFMIGRAINE HEADACHE MAX OF 2 TABS PER DAY AND MAX OF 4 TABS PER WEEK ferrous sulfate 325 (65 Fe) MG tablet Take 325 mg by mouth 1 (one) time each day with breakfast (Patient not taking: Reported on 09/22/2024) Multiple Vitamin (MULTI-VITAMIN DAILY PO) Take 1 capsule by mouth 1 (one) time each day (Patient not taking: Reported on 09/22/2024) Nutritional Supplements (ESTROVEN MAXIMUM STRENGTH PO) Take 1 tablet by mouth 1 (one) time each day(Patient not taking: Reported on 09/22/2024) Nutritional Supplements (ESTROVEN PO) estroven, 0 Refills, Maintenance, 09/08/20 12:25:00 EDT (Patient not taking: Reported on 09/22/2024) pregabalin (LYRICA) 25 MG capsule Take 25 mg by mouth in the morning and 25 mg in the evening. (Patient not taking: Reported on 09/22/2024) Turmeric 450 MG capsule Take 1 capsule by mouth 1 (one) time each day (Patient not taking: Reportedon 09/22/2024) No current facility-administered medications for this visit. Allergies Allergen Reactions Iodinated Contrast Media Other (see comments), Hives and Shortness of breath Nsaids Other (see comments) Prednisone Other (see comments) Sertraline Other (see comments) Toradol [Ketorolac Tromethamine] Other (see comments) Folic Acid Rash Objective: Vitals: 09/22/24 1607 BP: 112/80 Weight: 187 lb (84.8 kg) Vitals reviewed. Constitutional: Patient does not appear ill. HEENT: DANNIE , No JVD Nose: Nose normal. Mouth/Throat: Oropharynx is clear and moist. Eyes: Conjunctivae are normal. Pupils are equal, round, and reactive to light. No scleral icterus. Neck: No thyroid mass and no thyromegaly present. Cardiovascular: Normal rate and regular rhythm. Exam reveals no friction rub. No murmur heard. No edema. Pulmonary/Chest: Effort normal and breath sounds normal. No respiratory distress. No wheezes. No rales. Abdominal: Soft. There is no abdominal tenderness. No hernia. Musculoskeletal: Normal range of motion. She exhibits no deformity. Skin: Skin is warm and dry. No rash noted. No erythema. Psychiatric: Normal mood and affect. EST GFR Date Value Ref Range Status 07/31/2020 127 ML/MIN/1.73 M2 Final Comment: Creatinine based estimated glomerular filtration rate (eGFR) is calculated using the Chronic Kidney Disease Epidemiology Collaboration (CKD-EPI). The CKD-EPI creatinine equation has not been validated in children (<18 years), women or in some racial or ethnic subgroups other than Caucasians and Americans. Testing performed or reported by [facility] [employer], a Service of [facility], [address] [place] [address] Laurie Cevallos MD, Flower Shop Laborer/Designer Est GFR Non Date Value Ref Range Status 07/09/2023 106 ML/MIN/1.73 M2 Final Comment: Creatinine based estimated glomerular filtration (eGFR) in adults is calculated using the National Kidney Foundation recommended 2020 CKD-EPI equation. Estimates GFR from serum creatinine, age and sex. Testing performed or reported by [facility] [employer], a Service of [address] [address] Ashish Gaona MD, Flower Shop Laborer/Designer [facility]# [id number] Chemistry Lab Units 09/19/24 1748 07/09/23 1037 02/16/23 1046 CREATININE mg/dL 0.75 0.7 0.7 BUN mg/dL 12 19 16 BUN / CREAT RATIO 16 -- -- EGFRNAFR ML/MIN/1.73 M2 -- 106 106 GLUCOSE mg/dL 99 112* 94 POTASSIUM mmol/L 3.3* 4.3 4.2 SODIUM mmol/L 138 143 140 CO2 mmol/L 24 27 28 CHLORIDE mmol/L 106 105 106 ALBUMIN g/dL 4 4.3 4.1 BILIRUBIN TOTAL mg/dL 0.4 -- -- AST unit/L 22 -- -- Bone Mineral Lab Units 09/19/24 1748 07/09/23 1037 02/16/23 1046 CALCIUM mg/dL 9.5 9.4 9.2 PHOSPHORUS mg/dL 3.5 3.6 3.5 ALK PHOS unit/L 124* -- -- MAGNESIUM mg/dL 2.2 -- -- Urine Lab Units 06/06/23 1400 02/16/23 1046 PH U 6.0 6.5 GLUCOSE UR NEGATIVE NEGATIVE KETONES U MG/DL NEGATIVE NEGATIVE WBC UR HPF /HPF NONE SEEN <1 RBC UR HPF /HPF 12* 7* UROBILINOGEN U MG/DL MG/DL NORMAL NORMAL PLAN: Assessment & Plan 1. Microscopic hematuria U Pr/ Cr ratio was 0.25 in the past Normal SERAFIN is +ve but Anti Ds DNA is negative / Normal compliments Pt refused a kidney Bx in the past Renal func is normal . Has persistent Microscopic hematuria - Had a Urologic w/u as well Pt advised to keep herself hydrated F/u with Urology re renal cyst No new labs F/u renal func OrderedUA with microscopy and U pr/cr ratio- Before next visit If pt has proteinuria will push for a Bx F/u with Neurology Thx Orders Placed This Encounter Renal function panel Urine Protein / creatinine ratio Urinalysis with microscopic Return in about 3 months (around 12/23/2024). Buddy Hough MD documented in this encounter Plan of Treatment Upcoming Encounters Date Type Department Care Team (Late st Contact Info) Description 12/26/2024 9:15 AM EDT Office Visit [facility] [address] [address] Buddy Hough MD [address] [address] Scheduled Orders Name Type Priority Associated Diagnoses Orde r Schedule Renal function panel Lab Routine Microscopic hematuria Expected: 09/22/2024, Expires: 10/23/2025 Urine Protein / creatinine ratio Lab Routine Microscopic hematuria Expected: 09/22/2024, Expires: 10/23/2025 Urinalysis with microscopic Lab Routine Microscopic hematuria Expected: 09/22/2024, Expires: 10/23/2025 documented as of this encounter Visit Diagnoses Diagnosis Microscopic hematuria- Primary documented in this encounter Care Teams Hydrographical Technical Officer Relationship Specialty Start Date End Date Earlene Andrade MD [address] [place] [address] PCP - General Internal Medicine 02/16/23 documented as of this encounter
--- OUTSIDE RECORDS SUMMARY | 2024-09-23 15:55 | XMS_ITS | Data Portability ---
Author Organization [facility] Joseph Kendrick [facility] Address [address] [place] [address] Assessment Encounter Date Assessment Date Assessment LastModified [...] Organization Details Last Modified Time Details Appointments MUST SEE MD Lawler 2024 10:15A Ford Bautista MD Not available Not available Not available Lab None recorded. Referral physical therapist referral - DX: cervical radiculop athy eval and treat 2024 025 [email or web address] Not available 08/01/2024 14:48:51 pain managemen t referral - injection eval cervical 2023 024 [email or web address], [address] [place], [place], [address], 12/05/2023 15:06:22 Procedures None recorded. Surgeries None recorded. Imaging None recorded. Medication Orders prednison e 20 mg tablet [address] [employer][id number], [address] [place], [address], 09/16/2024 11:13:05 Celebrex 100 mg capsule 2024 [address] [employer][id number], [address] [place], [address], 07/21/2024 10:43:48 lidocaine 5 % topical patch [address]/Pharmacy [address][id number], [address] [place], [address], 07/21/2024 10:43:48 Patient TargetsNo targets recorded. Patient InstructionsNo instructions recorded. Reason for Referral Pain Management Referral for Cervical radiculopathy injection eval cervical Referring Physician: Royal Bautista, Orthopedic Surgery, [id number] Encounter Date: 11/01/2023 Physical Therapist Referral for Cervical radiculopathy DX: cervical radiculopathy eval and treat Referring Physician: Savita Mistry, Orthopedic Surgery, Encounter Date: 07/21/2024 Results Created Date Observation Date Name Description Value Unit Range Abnormal Flag Note LastModifiedBy Organization Detail LastModifiedTime 01/11/2004/28/2023 altai ng/di selinaos tic resul t No observ ation record [...] Name and Address Organization Details Recorded Time [id number] Toradol medicatio n Not available Not available Not available 07/21/2024 38852 RxNorm Jackie Jose null, [facility] 5 10:14:00 [id number] blue dye medicatio n Not available Not available Not available 07/21/2024 [id number] [facility]K [facility] 5 10:14:22 [id number] COVID-19 (SARS-CoV -2) vaccine, olivier cell Not available Not available Not available Not available 07/21/2024 16697 1 UNK Jackie Jose [facility] 5 10:15:16 Medications Name Sig Start [...] BY MOUTH DAILY TOGETHER WITH 300 MG , TOTAL DAILY DOSE IS 450 MG DAILY active Not Available Not Available No t Available ibuprofen 800 mg tablet TAKE 1 TABLET BY MOUTH EVERY 8 HOURS NEEDED FOR PAIN active Not Available Not Available No t Available prednisone 20 mg tablet Take 1 tablet every day by oral route for 5 days. 2024 active Not Available Not Available Not Avai lable rizatriptan 10 mg tablet TAKE 1/2-1 TAB AT ONSET OF MIGRAINE NEEDED.MAY REPEAT IN 2 HOURS. MAX 2 TABS/DAY OR 4 TABS/WEEK active Not Available Not Available No t Available methylpredni solone 4 mg tablet TAKE 6 TABLETS ON DAY 1 DIRECTED [...] Not Available Not Available N ot Available amoxicillin 875 mg-potassium clavulanate 125 mg tablet TAKE 1 TABLET BY MOUTH TWICE A DAY FOR 7 DAYS active Not Available Not Available No t Available Ventolin HFA 90 mcg/actuatio n aerosol [...] Available Not Available No t Available aripiprazole 20 mg tablet TAKE 1 TABLET BY MOUTH [...] Updated DateTime 08/02/2023 160.02 cm 32.9 kg/m2 39608.18 g [facility] 08/02/2023 12:01:14 Date Recorded Body height Body mass index (BMI) Body weight Provider Name and Address Organization Details Last Updated DateTime 11/01/2023 160.02 cm 36 kg/m2 50826.25 g [facility] 11/01/2023 13:02:58 Date Recorded Body height Body mass index (BMI) Body weight Provider Name and Address Organization Details Last Updated DateTime 07/21/2024 162.56 cm 34.3 kg/m2 39166.47 g [facility] 07/21/2024 10:13:47 Date Recorded Body height Body mass index (BMI) Body weight Provider Name and Address Organization Details Last Updated DateTime 09/16/2024 162.56 cm 34.3 kg/m2 35223.47 g [facility] 09/16/2024 10:45:02 Social History None recorded. Functional Status None recorded. Mental Status None recorded. Family History Nothing Reported. Medical History No medical history recorded. Gynecological HistoryNo gynecological history recorded. Obstetrics History GPAL:G 0 P 0 0 0 0 Past Encounters Encounter ID Performer Location Encounter Start Date Encounter Closed Date Diagnosis/Indication Diagnosis SNOMED-CT Code Diagnosis ICD10 Code Diagnosis Note [id number] Royal Bautista MD [facility] [address] [place] [address] 08/02/2023 10:57:55 08/21/2023 09:25:27 Herniation of nucleus pulposus of cervical intervertebral disc 7047297068 36556 M50.20 [id number] Royal Bautista MD [facility] [address] [place] [address] 11/01/2023 12:47:42 12/05/2023 15:06:21 Cervical radiculopathy 44178416 M54.12 [id number] SAVITA MISTRY PA-C [facility] [place] [address] [place] [address] 07/21/2024 10:01:13 08/01/2024 14:48:51 Cervical radiculopathy 15181910 M54.12 [id number] SAVITA MISTRY PA-C [facility] [place] [address] [place] [address] 09/16/2024 10:38:57 09/22/2024 15:28:07 Neck pain 92837803 M54.2 Health Concerns Section Related Observation LastModified by Organization Detai ls LastModified Time None Recorded Concern Status LastModified by Organization Details LastModified Time None Recorded Advance Directives Directive None Recorded Payers Encounter Date Sequence Insurance Name Policy Number Policy Robles Covered Member ID Robles Member ID Guarantor Name 08/02/2023 1 [facility] (MEDICAID HMO) [id number] Sariah Rosario [id number] Sariah Rosario 11/01/2023 1 [facility] (MEDICAID HMO) [id number] Sariah Rosario [id number] Sariah Rosario 09/16/2024 1 [place]MED[place] HMO) [id number] Sariah Castrejon David Rosario [id number] Sariah Castrejon David Rosario 09/16/2024 2 [place] [facility] Sariah Castrejon David Rosario [id number] Sariah Castrejon David Rosario Notes Date Note Type Note Provider Name and Address Organization Details Recorded Time 08/02/2023 text/html The patient is h ere for a preoperative H&P examination. Risks and benefits of procedure reviewed, questions answered, consents signed. Full H&P dictated.Procedure [ ] Royal Bautista MD [address], [place], [address], [facility] 08/02/2023 12:36:44 11/01/2023 text/html HPI: 53-year-old [...] indicated PHYSICAL EXAMINATION: Royal Bautista MD [address], [place], [address], [facility] 11/01/2023 17:04:15 07/21/2024 text/html I am seeing [...] feels funny feels like she is having [id number] and then it became pain she continues [...] and answered. Patient expressed understanding agreement plan. GL [employer] speech recognition food packer software was used to create portions of this document. An attempt at proofreading has been made to minimize errors. Please call for corrections. SAVITA MISTRY PA-C [address] [facility] [address], [place], [address], [facility] [place] [facility] 07/21/2024 10:42:02 09/16/2024 text/html I am seeing the patient today under the supervision of Dr. Conrad who was available but who did not see the patient. HPI: Patient is a pleasant 53-year-old female who presents for follow up evaluation of ongoing neck pain. Patient was previously seen and followed by Dr. Bautista in the office she was initially scheduled for an ACDF C5-C6 however due to neurological symptoms patient needed neurology clearance. Patient presents today can follow-up with myself worsening bilateral numbness tingling and pain. She was recently in the emergency department due to worsening symptoms. She was seen by neurosurgery who ordered an MRI of her cervical spine recommended Medrol Dosepak and continued follow-up in our office. Patient was previously seen in office by [...] cervical stenosis is noted at any level. This again is confirmed on an updated MRI completed on 08/29/2024 Impression/Plan: Neck pain with radicular symptoms patient endorses a complex pain history she has trialed multiple medications that have not been significantly helpful for her. At this time I would recommend a prednisone burst for 5 days. And follow-up again with Dr. Bautista to discuss potential surgical options as previously planned however were postponed due to changes in symptomology. Patient now is also endorsing diffuse paresthesias throughout the body unclear at this time or this coming from she may still continue to need neurology clearance. [facility] speech recognition food packer software was used to create portions of this document. An attempt at proofreading has been made to minimize errors. Please call for corrections. SAVITA MISTRY PA-C [address] [facility] [address], [place], [address], [facility] [place] [facility] 09/16/2024 12:08:10 OBGyn Episode No OBEpisode recorded.
--- OUTSIDE RECORDS SUMMARY | 2024-09-23 15:55 | XMS_ITS | Encounter Summary ---
Author Organization [facility] Address [address] [place] [address] Phone Care Team Providers Care Foam Charger Name Role Phone Earlene Andrade MD Primary Care Provider + Encounter Details Date Type Department Care Team (Late st Contact Info) Description 12/14/2021 Documentation Only [facility] [address] [place] [phone] Darwin Hensley MD [address] [place] [address] [place] [phone] Social History Tobacco Use Types Packs/Day Years [...] [facility] [address] [phone] Buddy Hough MD [address] [phone] documented as of this encounter Visit Diagnoses Not on filedocumented in this encounter Care Teams Foam Charger Relationship Specialty Start Date End Date Earlene Andrade MD [address] [place], [place] [id number] PCP - General Internal Medicine 02/16/23 documented as of this encounter
== END 2024-09-23 16:09 | disposition home or self-care (01) ==
LOC: HO.HSMS 14:52
PROVIDERS: PCP Student in an Organized Health Care Education/Training Program; Visit Provider Nurse Practitioner Family
DX: G43.009 Migraine without aura, not intractable, without status migrainosus (principal); R53.83 Other fatigue; R20.2 Paresthesia of skin; R06.83 Snoring; G47.10 Hypersomnia, unspecified; G47.39 Other sleep apnea
CPT/HCPCS: 99214

== ENCOUNTER 2024-09-23 16:24 | Inpatient (IN) | payer MEDICARE, MEDICAID, SELFPAY ==
--- NOTE | ~2024-09-23 | CT_ITS ---
CLINICAL HISTORY: paresthesias all extremities, leg weakness CT head without contrast Comparison: None Findings: No intra-axial mass, midline shift, hydrocephalus, or acute hemorrhage. No significant atrophy-like change or white matter disease. The visualized paranasal sinuses and mastoid air cells are normal. The orbits are within normal limits. No skull fracture. IMPRESSION: 1. No acute intracranial findings. This document has been electronically signed by: Shirley Marion MD on 09/23/2024 17:40:14
--- NOTE | ~2024-09-23 | MR_ITS ---
CLINICAL HISTORY: Neurological deficits after TDAP vaccine. MR cervical spine without intravenous contrast. Comparison: None available Findings: No x-rays or CT of the cervical spine available for review at this time. Mild reversal of the cervical lordosis. No significant listhesis. Minimal height loss of the C6 appears old/chronic. Abnormal STIR signal of the T2 vertebral body is nonspecific and likely due to atypical hemangioma. Additional small typical hemangiomas are noted. Dorsal subcutaneous edema and mild muscle fluid signal may reflect muscle strain. No drainable paraspinal fluid collection. Mild osteoarthritis of the craniocervical junction. No definite abnormal signal of the cervical spinal cord accounting for motion and phase artifacts. C2-C3: Bilateral facet arthropathy. No spinal canal stenosis. Mild right-sided foraminal narrowing. C3-C4: Disc osteophyte complex and bilateral facet arthropathy. No spinal canal stenosis. Mild right-sided foraminal narrowing. C4-C5: Small disc osteophyte complexes with mild-minimal spinal canal stenosis. Trace right foraminal narrowing. C5-C6: Disc osteophyte complex and bilateral facet arthropathy. Moderate spinal canal stenosis. Moderate bilateral foraminal narrowing. C6-C7: Disc osteophyte complex and bilateral facet arthropathy. Minimal spinal canal stenosis. Mild bilateral foraminal narrowing. C7-T1: Bilateral facet arthropathy. No significant spinal stenosis. IMPRESSION: 1. Degenerative disc changes including disc osteophyte complex at C5-C6 where there is moderate spinal stenosis. 2. Reversal of the cervical lordosis with multifocal facet arthropathy. This document has been electronically signed by: Ang Holland MD on 09/25/2024 21:42:54
--- NOTE | ~2024-09-23 | FL_ITS ---
EXAMINATION: XR LUMBAR PUNCTURE CLINICAL INFORMATION: per neuro neuro deficits s/p TDAP vacc ? GBS COMPARISON: None available. TECHNIQUE: Following explaining fluoroscopy-guided lumbar puncture procedure, benefits and risk, a written consent was obtained. Patient was placed prone on fluoroscopy table and a marker was placed overlying the L4-5 disc level. There is marked and the skin and cleaned and draped in usual sterile manner with 2% chlorhexidine solution. 1% lidocaine was injected puncture site. A 20-gauge spinal needle was inserted from the skin intrathecally at the L4-5 disc level. After removing stylet and observing CSF return, patient was quickly placed in the left lateral decubitus view and opening CSF pressure was obtained. Subsequently fluid was collected in 4 test tubes. Postprocedure stylet was reintroduced and needle withdrawn. Simple bandage applied post procedure. Patient tolerated procedure extremely well. FINDINGS: On fluoroscopy images visualize L3, L4, L5 vertebral heights and alignment are normal. The disc heights are normal. Visualized SI joints are normal. Successful fluoroscopy-guided L4-5 lumbar printer performed. Opening CSF pressure 12 cm of water. Approximately 13 mL of clear CSF fluid was collected in 4 test tubes and sent to lab as per physician orders. FLUOROSCOPY TIME: 12 seconds DOSE AREA PRODUCT: 39.4 uGy-m2 (microgray-meter squared) FL/FL guided lumbar puncture LP IMPRESSION: Successful fluoroscopy-guided L4-5 lumbar puncture performed without immediate complications. Electronically signed by: Glynn Lanier MD 09/24/2024 04:29 PM EDT
--- NOTE | ~2024-09-23 | MR_ITS ---
EXAMINATION: MR BRAIN WITHOUT CONTRAST CLINICAL INFORMATION: Neurological deficits after TDAP vaccine. 54-year-old female. COMPARISON: No prior MRI. CT head 09/23/2024. TECHNIQUE: MRI of the brain was obtained using routine sequences without contrast. Examination was performed on a 1.5 [place] high-field Siemens unit. FINDINGS: There is no diffusion restriction. There is no intracranial hemorrhage, acute infarction, mass effect, or edema. Ventricles, sulci, and cisterns are normal in size and configuration for patient age. No shift of midline. No abnormal hemosiderin deposition is identified. There are a few scattered punctate and minimally confluent foci of white matter T2 hyperintensity in the periventricular, subcortical, and hemispheric deep white matter. These are nonspecific but statistically most likely relate to minimal small vessel ischemic changes. Midline structures appear normally formed. The pituitary gland appears normal. Posterior fossa structures appear normal. Cerebellar tonsils are appropriately located. Major flow voids are preserved within the skull base. The globes and orbital contents demonstrate no abnormalities. Paranasal sinuses are clear bilaterally. Nasal septum is midline without spur. The mastoids and tympanic cavities are normally aerated. Extracranial soft tissues demonstrate no abnormalities. No suspicious bone marrow changes are evident. Atlantoaxial joint is normal. MR/MR head/brain wo con IMPRESSION: 1. No intracranial hemorrhage, acute infarction, mass effect, or edema. 2. Minimal changes of small vessel ischemia. Electronically signed by: Tian Dixon MD 09/24/2024 02:22 PM EDT
--- NOTE | 2024-09-23 16:42 | ED_ITS ---
HPI - General Adult General Chief complaint: Neuro Symptoms/Deficit Stated complaint: [facility] called cant walk in pain Time Seen by Provider: 09/23/24 21:18 Source: patient Mode of arrival: ambulatory Limitations: no limitations History of Present Illness ED Provider: DR. Chao HPI narrative: Patient is a 54-year-old female referred to the ED by neurologist, Ozzie Nguyen, CORPORATE DIRECTOR for symptoms following administration of Tdap at [facility] 17 days ago. States she is unable to walk, paresthesias to all extremities, lower back pain, left sided headache, cloudy vision in both eyes, pain to both legs. No speech abnormality, no diplopia, Related Data Home Medications ?Medication ?Instructions ?Recorded ?Confirmed acetaminophen 325 mg tablet 325 mg PO QID PRN 06/22/20 03/16/24 (Tylenol) albuterol sulfate 90 mcg/actuation 2 puff inhalation Q6H PRN 06/22/20 03/16/24 aerosol inhaler cholecalciferol (vitamin D3) 25 25 mcg PO DAILY 06/22/20 03/16/24 mcg (1,000 unit) capsule famotidine 20 mg tablet (Pepcid) 20 mg PO BEDTIME 06/22/20 03/16/24 naproxen 250 mg tablet 250 mg PO BID 01/25/22 03/16/24 bupropion HCl 100 mg tablet 100 mg PO BID 01/25/23 03/16/24 docusate sodium 100 mg capsule 100 mg PO BID 01/25/23 03/16/24 ergocalciferol (vitamin D2) 50 mcg mcg PO 01/25/23 03/16/24 (2,000 unit) capsule ferrous sulfate 325 mg (65 mg 325 mg PO DAILY 01/25/23 03/16/24 iron) tablet hydroxychloroquine 200 mg tablet 200 mg PO BID 01/25/23 03/16/24 lidocaine 5 % topical ointment topical 01/25/23 03/16/24 milnacipran 25 mg tablet (Savella) 25 mg PO BID 01/25/23 03/16/24 mirtazapine 30 mg tablet 30 mg PO BEDTIME 01/25/23 03/16/24 montelukast 10 mg tablet 10 mg PO DAILY 01/25/23 03/16/24 olopatadine 0.7 % eye drops 1 drp ophthalmic (eye) QAM 01/25/23 03/16/24 (Pataday Once Daily Relief) pantoprazole 20 mg tablet,delayed 20 mg PO DAILY 01/25/23 03/16/24 release polyethylene glycol 3350 17 g PO 01/25/23 03/16/24 gram/dose oral powder (Gavilax) pregabalin 25 mg capsule 25 mg PO TID 01/25/23 03/16/24 tobramycin 0.3 %-dexamethasone 0.1 drp ophthalmic (eye) 01/25/23 03/16/24 % eye drops,suspension amoxicillin 875 mg tablet 875 mg PO BID 09/12/24 Previous Rx's ?Medication ?Instructions ?Recorded fremanezumab-vfrm 225 mg/1.5 mL 225 mg (1.5 mL) subcut ONCE 30 10/12/23 subcutaneous auto-injector (Ajovy) days #1.5 mL rizatriptan 10 mg tablet 5 - 10 mg (0.5 - 1 x 10 mg) PO Q2H 10/12/23 PRN migraine headache 30 days #12 tabs magnesium oxide 400 mg (241.3 mg 400 mg PO BEDTIME 30 days #30 tabs 10/13/23 magnesium) tablet riboflavin (vitamin B2) 400 mg 400 mg PO DAILY 30 days #30 tabs 10/13/23 tablet ondansetron 8 mg disintegrating 8 mg PO Q8H PRN nausea and 03/10/24 tablet vomiting 30 days #30 tabs verapamil 100 mg capsule 24hr 100 mg PO BEDTIME 30 days #30 caps 03/10/[address],ext[address]release Allergies Allergy/AdvReac Type Severity Reaction Status Date / Time ketorolac [From TORADOL] Allergy Intermediate hives Verified 09/23/24 16:46 COVID-19 (SARS-CoV-2) Allergy Hives Verified 09/23/24 16:46 vaccine, olivier contrast dye Allergy Intermediate Hives Uncoded 03/10/24 08:02 Review of Systems 2 Review of Systems: All other systems are reviewed and are negative Constitutional: Reports as per HPI and Reports no additional constitutional complaints Eyes: Reports as per HPI and Reports no additional eye complaints Reports system reviewed and no additional complaints, except as documented Cardiovascular: Reports as per HPI and Reports no additional cardiovascular complaints Respiratory: Reports as per HPI and Reports no additional respiratory complaints Gastrointestinal: Reports as per HPI and Reports no additional gastrointestinal complaints Genitourinary: Reports no additional female genitourinary complaints Musculoskeletal: Reports no additional musculoskeletal complaints Skin/Breast: Reports system reviewed and no additional complaints, except as docu Psychiatric: Reports no additional psychiatric complaints Endocrine: Reports no additional endocrine complaints Hematologic/Lymphatic: Reports no additional hematologic/lymphatic complaints Allergic/Immunologic: Reports no additional allergic/immunologic complaints Reports system reviewed and no additional complaints, except as documented and Reports Abnormal speech present [facility] Past Medical History Medical History IBS (irritable bowel syndrome) Asthma Pericardial effusion Anemia Kidney stones Depression Endometriosis GERD (gastroesophageal reflux disease) Fibromyalgia Scleroderma COVID-19 virus infection Cervicalgia Snoring Raynauds phenomenon SERAFIN positive Surgical History History of right oophorectomy Hx of hysterectomy Hx of cholecystectomy History of section Family History Family History Sister Thyroid disease Alopecia Family/Other Diabetes Social History Social History Household Members: Significant Other and Children Unable to assess alcohol history related to: Unknown Alcohol intake: never Patient Tobacco Use Status: Never used Tobacco Use of substances other than those prescribed or required for medical reasons: Unknown Advance Directives: No Advance Directives Information Provided: Yes Patient : No Current occupational status: employed 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 Blood pressure elevated. Heart rate normal. Respiratory rate normal. Temperature normal. Oxygen saturation normal. Appearance: Alert. Oriented X3. No acute distress. Head: Normal external exam. Normocephalic. Atraumatic. No Jones signs noted. No raccoon eyes noted Eyes: PERRLA. EOMI. Conjunctiva and sclera normal. Eyelids normal. ENT: TM's Normal. Pharynx normal. Uvula midline. Moist mucous membranes. No trismus noted. No drooling noted. No muffled voice noted. Neck: Normal inspection. Neck supple. FROM. No adenopathy. Thyroid Normal. No meningeal signs. No neck mass noted. CVS: Normal heart rate and rhythm. Heart sound normal. No murmurs noted. Pulses normal throughout. Respiratory: No respiratory distress. Painless inspiration. Breath sounds normal. No wheezes/rales/rhonchi noted. Chest nontender. No accessory muscle usage noted or decreased air movement noted. Abdomen: Soft and nontender. Bowel sounds normal in all 4 quadrants. No distention noted. No organomegaly noted. No visible injury noted. Back: No CVA tenderness. Full range of motion noted. Skin: Skin warm and dry. Normal skin color. Normal skin turgor. No rashes/lesions/lacerations noted. Extremities: No lower extremity edema. Extremities exhibit normal range of motion. Extremities nontender. Neuro: Mental status: Normal attention, orientation, memory, and affect. Cranial nerves: Pupils are equal, round and reactive to light, EOMI, visual cárdenas are fall, face is symmetric, facial sensations are normal. Motor examination normal muscle tone, strength to 4 extremities. DTR are +2, planter's are flexor. Sensory exam; normal coordination, no ataxia, gait stable. Cerebellar exam: Mjqasb-xe-kols and nxmn-wc-plmo is normal. Extrapyramidal system: No tremors, no rigidity with normal facial expressions. Pronator drift not present NIH Stroke Scale Time: 21:37 Level of Consciousness: Alert Level of Consciousness Questions: Answers both questions correctly Level of Consciousness Commands: Performs both tasks correctly Best Gaze: Normal Visual: No visual loss Facial Palsy: Normal Motor Arm (Right): No drift Motor Arm (Left): No drift Motor Leg (Right): No drift Motor Leg (Left): No drift Limb Ataxia: Absent Sensory: Normal Best Language: No aphasia Dysarthia: Normal Extinction and Inattention: No abnormality Score: 0 Course Course Course Narrative: This is a rapid medical exam performed by Eula Beebe NP: Additional HPI, ROS, PE not included below will be deferred to primary provider. Plan: CT head, labs, EKG Reevaluation(s) Reevaluation #1: Bilateral lower extremity weakness and paresthesia after patient received Tdap vaccination 2 weeks ago, neuro exam is unremarkable, CT head is unremarkable, no metabolic abnormalities, no anemia, case was discussed with Dr. Diaz recommending admission for further neurological consultation and rule out side- effect of tetanus immunization including but not limited to Guillain-Cooter syndrome. Time: 21:38 Medical Decision Making Differential Diagnosis Differential Diagnoses: The differential diagnosis associated with the presentation includes (Tdap side-effect, autoimmune muscular disease, rhabdomyolysis, severe anemia) Admission/Observation Consideration of admission/observation: Escalation of care including admission/observation considered Consult Healthcare Provider Management of the patient was discussed with: Hospitalist (Dr. Almanza) and Hot Braider (Dr. Diaz) Lab Data MDM Lab Attestation statement: I reviewed the patient's lab results. 09/23/24 17:03 09/23/24 17:03 Labs: Lab Results 09/23/24 Range/Units 17:03 WBC 6.2 (4.8-10.8) X10*3/uL RBC 4.44 (4.20-5.50) X10*6/uL Hgb 13.2 (12.0-16.0) g/dl Hct 38.2 (37.0-47.0) % MCV 86.0 (80.0-98.0) fL MCH 29.7 (27.0-33.0) pg MCHC 34.6 (31.0-35.0) g/dl RDW 13.4 (11.0-16.0) % Plt Count 230 (160-400) X10*3/uL MPV 9.5 (9.4-12.3) fL Immature Gran % (Auto) 0.2 (0.0-0.4) % Neut % (Auto) 67.9 (45-73) % Lymph % (Auto) 22.3 (20-40) % Colbert % (Auto) 8.5 (2-11) % Eos % (Auto) 0.6 (0-4) % Baso % (Auto) 0.5 (0-2) % Lymph # (Auto) 1.4 (1.2-4.9) X10*3/uL Colbert # (Auto) 0.5 (0.1-1.2) X10*3/uL Eos # (Auto) 0.0 (0.0-0.4) X10*3/uL Baso # (Auto) 0.0 (0.0-0.2) X10*3/uL Abs Immat Gran (auto) 0.01 (0.00-0.03) X10*3/uL Absolute Neuts (auto) 4.2 (2.0-8.3) x10*3/uL Absolute Nucleated RBC 0.000 (0.0-0.012) X10*3/uL Nucleated RBC % (auto) 0.0 (0.0-0.2) /100WBC ESR 46 H (0-20) MM/HR Sodium 143 (135-145) mmol/L Potassium 3.7 (3.3-5.1) mmol/L Chloride 108 (96-108) mmol/L Carbon Dioxide 25 (22-29) mmol/L Anion Gap 14 (12-20) BUN 16 (9-16) mg/dL Creatinine 0.75 (0.5-1.4) mg/dL Estim Creat Clear Calc 93.2 Estimated GFR > 60 Random Glucose 87 (60-115) mg/dL Calcium 9.6 (8.4-10.2) mg/dL Magnesium 2.3 (1.6-2.6) mg/dL Total Bilirubin 0.3 (0.0-1.0) mg/dL AST 28 (5-31) U/L ALT 32 H (0-31) U/L Alkaline Phosphatase 107 (39-117) U/L C-Reactive Protein 0.13 (< or = 0.50) mg/dL Total Protein 8.2 H (6.5-8.0) g/dL Albumin 4.4 (3.5-5.0) g/dL Independent Interpretation I performed an independent interpretation of an: CT Scan (Head: No acute intracranial findings.) Radiology Impression Discussion of test interpretation with radiology: I have reviewed the radiologist's reading. Discharge Plan Discharge Clinical Impression: Bilateral leg weakness, Paresthesia Patient Disposition: Admitted As Inpatient Prescriptions: No Action acetaminophen [Tylenol] 325 mg tablet 325 mg PO QID PRN famotidine [Pepcid] 20 mg tablet 20 mg PO BEDTIME albuterol sulfate 90 mcg/actuation HFA aerosol inhaler 2 puff inhalation Q6H PRN cholecalciferol (vitamin D3) 25 mcg (1,000 unit) capsule 25 mcg PO DAILY docusate sodium 100 mg capsule 100 mg PO BID Pataday Once Daily Relief 0.7 % drops 1 drp ophthalmic (eye) QAM pantoprazole 20 mg tablet,delayed release (DR/EC) 20 mg PO DAILY hydroxychloroquine 200 mg tablet 200 mg PO BID montelukast 10 mg tablet 10 mg PO DAILY tobramycin-dexamethasone 0.3-0.1 % drops,suspension ophthalmic (eye) polyethylene glycol 3350 [Gavilax] 17 gram/dose powder PO lidocaine 5 % ointment topical ferrous sulfate 325 mg (65 mg iron) tablet 325 mg PO DAILY ergocalciferol (vitamin D2) 50 mcg (2,000 unit) capsule PO bupropion HCl 100 mg tablet 100 mg PO BID pregabalin 25 mg capsule 25 mg PO TID mirtazapine 30 mg tablet 30 mg PO BEDTIME Savella 25 mg tablet 25 mg PO BID naproxen 250 mg tablet 250 mg PO BID verapamil 100 mg capsule, [address] 100 mg PO BEDTIME 30 Days Qty: 30 2RF ondansetron 8 mg tablet,disintegrating 8 mg PO Q8H PRN (Reason: nausea and vomiting) 30 Days Qty: 30 3RF Ajovy Autoinjector 225 mg/1.5 mL auto-injector 225 mg subcut ONCE 30 Days Qty: 1.5 6RF Rx Instructions: administer 225mg sc q month rizatriptan 10 mg tablet 5 - 10 mg PO Q2H PRN (Reason: migraine headache) 30 Days Qty: 12 3RF Rx Instructions: At onset of headache, may repeat in 2 hours. Max 2 tabs per day or 4 tabs per week. riboflavin (vitamin B2) 400 mg tablet 400 mg PO DAILY 30 Days Qty: 30 6RF magnesium oxide 400 mg (241.3 mg magnesium) tablet 400 mg PO BEDTIME 30 Days Qty: 30 6RF Rx Instructions: may hold for loose stools amoxicillin 875 mg tablet 875 mg PO BID Print Language: Belizean
[2024-09-23 16:45] VITALS: BP 148/85; PULSE 84; RESP 18; TEMP 36.7; O2SAT 100; BMI 32.6
--- NOTE | 2024-09-23 16:46 | ECG_ITS ---
Test Reason : WEAKNESS Blood Pressure : */* mmHG Vent. Rate : 77 BPM Atrial Rate : 77 BPM P-R Int : 140 ms QRS Dur : 74 ms QT Int : 380 ms P-R-T Axes : 25 3 24 degrees QTcB Int : 430 ms Normal sinus rhythm Minimal voltage criteria for LVH, may be normal variant ( R in aVL ) Borderline ECG No previous ECGs available Referred By: Shandra Beebe Electronically Signed By: KIMBERLYN MORENO MD
[2024-09-23 17:06] LABS: MANUAL DIFF FLAG NO
[2024-09-23 17:09] LABS: Basophils Percent Auto 0.5 % (0-2); Eosinophils Percent Auto 0.6 % (0-4); Hematocrit 38.2 % (37.0-47.0); Hemoglobin 13.2 g/dl (12.0-16.0); Imm Gran Abs Auto 0.01 X10*3/uL (0.00-0.03); Imm Gran Pct Auto 0.2 % (0.0-0.4); Lymphocytes Absolute Auto 1.4 X10*3/uL (1.2-4.9); Lymphocytes Percent Auto 22.3 % (20-40); Mean Corpuscular HGB Conc 34.6 g/dl (31.0-35.0); Mean Corpuscular Hemoglobin 29.7 pg (27.0-33.0); Mean Platelet Volume 9.5 fL (9.4-12.3); Monocytes Absolute Auto 0.5 X10*3/uL (0.1-1.2); Monocytes Percent Auto 8.5 % (2-11); Neutrophils Absolute Auto 4.2 x10*3/uL (2.0-8.3); Neutrophils Percent Auto 67.9 % (45-73); Platelet Count 230 X10*3/uL (160-400); Red Blood Count 4.44 X10*6/uL (4.20-5.50); Red Cell Distribution Width 13.4 % (11.0-16.0); White Blood Count 6.2 X10*3/uL (4.8-10.8)
[2024-09-23 17:43] LABS: Alanine Aminotransferase 32 U/L (0-31); Albumin Level 4.4 g/dL (3.5-5.0); Anion Gap 14 (12-20); Aspartate Amino Transferase 28 U/L (5-31); Bilirubin Total 0.3 mg/dL (0.0-1.0); Blood Urea Nitrogen 16 mg/dL (9-16); C Reactive Protein 0.13 mg/dL (< or = 0.50); Calcium 9.6 mg/dL (8.4-10.2); Carbon Dioxide 25 mmol/L (22-29); Chloride 108 mmol/L (96-108); Creatinine Clr Calc Pharmacy 93.2; Estimated Glomerular Filt Rate > 60; Glucose Random 87 mg/dL (60-115); Magnesium 2.3 mg/dL (1.6-2.6); Potassium 3.7 mmol/L (3.3-5.1); Sodium 143 mmol/L (135-145); Total Protein 8.2 g/dL (6.5-8.0)
[2024-09-23 18:00] LABS: Erythrocyte Sedimentation Rate 46 MM/HR (0-20)
[2024-09-23 18:07] LABS: Alkaline Phosphatase 107 U/L (39-117)
--- OUTSIDE RECORDS SUMMARY | 2024-09-23 19:38 | XMS_ITS | Data Portability ---
Author Organization [facility] Joseph Kendrick [facility] Address [address] [place] [address] Assessment Encounter Date Assessment Date Assessment LastModified [...] radiculop athy eval and treat 2024 025 [email or web address] Not available 08/01/2024 14:48:51 pain managemen t referral - injection eval cervical 2023 024 [email or web address] [facility], [address], [place], [address], 12/05/2023 15:06:22 Procedures None recorded. Surgeries None recorded. Imaging None recorded. Medication Orders prednison e 20 mg tablet [id number], [address] [place], [address], 09/16/2024 11:13:05 Celebrex 100 mg capsule [address][id number], [address] [place], [address], 07/21/2024 10:43:48 lidocaine 5 % topical patch [address]acy [address][id number], [address] [place], [address], 07/21/2024 10:43:48 Patient TargetsNo targets recorded. Patient InstructionsNo instructions recorded. Reason for Referral Pain Management Referral for Cervical radiculopathy injection eval cervical Referring Physician: Royal Bautista, Orthopedic Surgery, [id number] Encounter Date: 11/01/2023 Physical Therapist Referral for [...] Name and Address Organization Details Recorded Time [id number] Toradol medicatio n Not available Not available Not available 07/21/2024 46810 RxNorm Jackie Jose null, [facility] 5 10:14:00 [id number] blue dye medicatio n Not available Not available Not available 07/21/2024 95074 UNK [facility] 5 10:14:22 [id number] COVID-19 (SARS-CoV -2) vaccine, olivier cell Not available Not available Not available Not available 07/21/2024 [id number] 1 UNK Jackie Jose [facility] 5 10:15:16 Medications Name Sig Start [...] Updated DateTime 08/02/2023 160.02 cm 32.9 kg/m2 33829.18 g [facility] 08/02/2023 12:01:14 Date Recorded Body height Body mass index (BMI) Body weight Provider Name and Address Organization Details Last Updated DateTime 11/01/2023 160.02 cm 36 kg/m2 60181.25 g [facility] 11/01/2023 13:02:58 Date Recorded Body height Body mass index (BMI) Body weight Provider Name and Address Organization Details Last Updated DateTime 07/21/2024 162.56 cm 34.3 kg/m2 27241.47 g [facility] 07/21/2024 10:13:47 Date Recorded Body height Body mass index (BMI) Body weight Provider Name and Address Organization Details Last Updated DateTime 09/16/2024 162.56 cm 34.3 kg/m2 14350.47 g [facility] 09/16/2024 10:45:02 Social History None recorded. Functional Status None recorded. Mental Status None recorded. Family History Nothing Reported. Medical History No medical history recorded. Gynecological HistoryNo gynecological history recorded. Obstetrics History GPAL:G 0 P 0 0 0 0 Past Encounters Encounter ID Performer Location Encounter Start Date Encounter Closed Date Diagnosis/Indication Diagnosis SNOMED-CT Code Diagnosis ICD10 Code Diagnosis Note [id number] Royal Bautista MD [facility] [address] [place] [address] 08/02/2023 10:57:55 08/21/2023 09:25:27 Herniation of nucleus pulposus of cervical intervertebral disc 9319875843 60644 M50.20 [id number] Royal Bautista MD [facility] [address] [place] [address] 11/01/2023 12:47:42 12/05/2023 15:06:21 Cervical radiculopathy 34541845 M54.12 [id number] SAVITA MISTRY PA-C [facility] [address] [place] [address] 07/21/2024 10:01:13 08/01/2024 14:48:51 Cervical radiculopathy 94556016 M54.12 [id number] SAVITA MISTRY PA-C [facility] [place] [address] [place] [address] 09/16/2024 10:38:57 09/22/2024 15:28:07 Neck pain 02366307 M54.2 Health Concerns Section Related Observation LastModified by Organization Detai ls LastModified Time None Recorded Concern Status LastModified by Organization Details LastModified Time None Recorded Advance Directives Directive None Recorded Payers Encounter Date Sequence Insurance Name Policy Number Policy Robles Covered Member ID Robles Member ID Guarantor Name 08/02/2023 1 [facility] [id number] Sariah Rosario [id number] Sariah Rosario 11/01/2023 1 [facility]) [id number] Sariah Rosario [id number] Sariah Rosario 09/16/2024 1 [place]MED[place] HMO) [id number] Sariah Castrejon David Rosario [id number] Sariah Castrejon David Rosario 09/16/2024 2 [place] [facility] Sariah Castrejon David Rosario [id number] Sariah Castrejon David Rosario Notes Date Note Type Note Provider Name and Address Organization Details Recorded Time 08/02/2023 text/html The patient is h ere for a preoperative H&P examination. Risks and benefits of procedure reviewed, questions answered, consents signed. Full H&P dictated.Procedure [ ] Royal Bautista MD [address], [place], [address], [facility] 08/02/2023 12:36:44 11/01/2023 text/html HPI: 53-year-old [...] indicated PHYSICAL EXAMINATION: Royal Bautista MD [address], [place], [address], [facility] 11/01/2023 17:04:15 07/21/2024 text/html I am [...] feels funny feels like she is having knxe-cnp-kznuhaw and then it became pain she continues [...] and answered. Patient expressed understanding agreement plan. [employer] speech recognition protection agent software was used to create portions of this document. An attempt at proofreading has been made to minimize errors. Please call for corrections. SAVITA MISTRY PA-C [address], [place], [address], [facility] 07/21/2024 10:42:02 09/16/2024 text/html I am [...] 5 days. And follow-up again with Dr. Bautsita to discuss potential surgical options as previously planned however were postponed due to changes in symptomology. Patient now is also endorsing diffuse paresthesias throughout the body unclear at this time or this coming from she may still continue to need neurology clearance. [facility] speech recognition protection agent software was used to create portions of this document. An attempt at proofreading has been made to minimize errors. Please call for corrections. SAVITA MISTRY PA-C [address], [place], [address], [facility] 09/16/2024 12:08:10 OBGyn Episode No OBEpisode recorded.
--- OUTSIDE RECORDS SUMMARY | 2024-09-23 19:38 | XMS_ITS | Encounter Summary ---
Author Organization [facility] Address [address] [place] [address] Phone Care Team Providers Care Student Finance Specialist Name Role Phone Earlene Andrade MD Primary Care Provider + Encounter Details Date Type Department Care Team (Late st Contact Info) Description 12/02/2021 Documentation Only [facility] [address] [place] [phone] Darwin Hensley MD [address] [place] [address] [place] [phone] Social History Tobacco Use Types Packs/Day Years [...] Visit [facility] [address] [phone] Buddy Hough MD [address] [phone] documented as of this encounter Visit Diagnoses Not on filedocumented in this encounter Care Teams Student Finance Specialist Relationship Specialty Start Date End Date Earlene Andrade MD [address] [place], [place] [phone] PCP - General Internal Medicine 02/16/23 documented as of this encounter
--- OUTSIDE RECORDS SUMMARY | 2024-09-23 19:39 | XMS_ITS | Encounter Summary ---
Author Organization [facility] Address [address] [place] [address] Phone Care Team Providers Care Scrap Crane Operator Name Role Phone Earlene Andrade MD Primary Care Provider + Encounter Details Date Type Department Care Team (Late st Contact Info) Description 12/02/2021 Documentation Only [facility] [address] [place] [phone] Darwin Hensley MD [address] [place] [address] [place] [phone] Social History Tobacco Use Types Packs/Day Years [...] Visit [facility] [address] [phone] Buddy Hough MD [address] [phone] documented as of this encounter Visit Diagnoses Not on filedocumented in this encounter Care Teams Scrap Crane Operator Relationship Specialty Start Date End Date Earlene Andrade MD [address] [place], [place] [phone] PCP - General Internal Medicine 02/16/23 documented as of this encounter
--- OUTSIDE RECORDS SUMMARY | 2024-09-23 19:39 | XMS_ITS | Encounter Summary ---
Author Organization [employer] Address [address] [place] [address] Care Team Providers Care Supervisor Mill Name Role Phone Physician, Pcp Unknown Primary Care Provider Jackie vailable Reason for Visit * Reason Comments Generalized Body Aches Had tdap 14 days ago left arm Encounter Details Date Type Department Care Team (Late st Contact Info) Description 09/19/2024 11:07 PM EDT - 09/20/2024 3:56 AM EDT Emergency [facility] Emergency [address] [place] [address] Kimi Mondragon MD [address] [place] [address] Viral syndrome (Primary Dx); Myalgia; Hypokalemia Discharge [...] sent through Care Everywhere. * Viral Infections ([place]) * Myalgia ([place]) * Hypokalemia ([place]) documented in this encounter Medications at Time [...] PM EDT Emergency Medicine Note Patient Name: Sairah Rosario Initial Evaluation: 09/19/2024 : 1970 Patient's [...] OOPHORECTOMY; COMMENT: endometriosis OTHER SURGICAL HISTORY PROCEDURE: [place] HYSTEROSCOPY LYSIS INTRAUTERINE ADHESIONS OTHER SURGICAL HISTORY Left 11/15/2010 PROCEDURE: [place] PUNCTURE ASPIRATION CYST OF BREAST; COMMENT: breast cyst aspiration OVARIAN CYST REMOVAL 09/09/2012 PROCEDURE: IL OVARIAN CYSTECTOMY UNI/BI Social History Tobacco Use [...] REFLEX MICROSCOPIC AND CULTURE - Abnormal Specific Fred Urine 1.004 pH, Urine 7.0 Leukocytes, Urine [...] Detected Narrative: Testing was performed using the [employer] Respiratory Pathogen PCR Assay. All results must [...] Procedure Abnormality Status --------- ------ CBC auto differential[[id number]] Final result Please view results for these tests on the individual orders. URINALYSIS WITH REFLEX MICROSCOPIC AND CULTURE Narrative: The following orders were created for panel order Urinalysis with reflex microscopic and culture. Procedure Abnormality Status --------- ------ Urinalysis with reflex ...[[id number]] Abnormal Final result Horowitz urine culture tube[[id number]] Final result Please view results for these [...] abnormality, infection, rhabdomyolysis/myositis, neurologic disorders such as Guillain-[place] or myasthenia gravis, CVA, medication side effects, deconditioning, dehydration, among many others. A broad-based workup was initiated based on the patient's history and physical examination. They were watched closely on smoking pipe repairer with vital signs that were monitored during [...] GEMUSE QTc 480 ms GEMUSE P Wave [place] 108 degrees GEMUSE R [place] 27 degrees GEMUSE T [place] 42 degrees GEMUSE ECG Interpretation Normal sinus [...] LAB CHEMISTRY METHOD 09/20/2024 1:24 AM EDT [facility] Blood Venous blood specimen / Unknown Venipuncture / Unknown 09/19/2024 5:48 PM EDT 09/19/2024 6:10 PM EDT Kimi Mondragon MD LAB BLOOD ORDERABLES Fin al Result Performing Organization Address [facility] Co de Phone Number [facility] [address] [place] [address], [place] [phone] * Phosphorus (09/19/2024 5:48 PM EDT) Phosphorus 3.5 2.5 - 4.5 mg/dL LAB CHEMISTRY METHOD 09/20/2024 1:24 AM EDT [facility] Blood Venous blood specimen / Unknown Venipuncture / Unknown 09/19/2024 5:48 PM EDT 09/19/2024 6:10 PM EDT us Kimi Mondragon MD LAB BLOOD ORDERABLES Fin al Result Performing Organization Address [facility] Co de Phone Number [facility] [address] [place] [address], [place] [phone] * Creatine kinase (09/19/2024 5:48 PM EDT) Pathologist [facility] Total CK 81 22 - 269 unit/L LAB CHEMISTRY METHOD 09/20/2024 1:24 AM EDT [facility] Blood Venous blood specimen / Unknown Venipuncture / Unknown 09/19/2024 5:48 PM EDT 09/19/2024 6:10 PM EDT us Kimi Mondragon MD LAB BLOOD ORDERABLES Fin al Result [facility] [address] [place] [address], * CBC auto differential (09/19/2024 5:48 PM EDT) [facility] WBC 5.2 4.8 - 10.8 K/mcL LAB HEMETOLOGY METHOD 09/19/2024 6:23 PM EDT [facility] RBC 4.30 3.80 - 4.80 M/mcL LAB HEMETOLOGY METHOD 09/19/2024 6:23 PM EDT [facility] Hemoglobin 12.7 11.5 - 16.0 g/dL LAB HEMETOLOGY METHOD 09/19/2024 6:23 PM EDT [facility] Hematocrit 37.8 35.0 - 47.0 % LAB HEMETOLOGY METHOD 09/19/2024 6:23 PM EDT [facility] MCV 88.1 79.0 - 98.0 FL LAB HEMETOLOGY METHOD 09/19/2024 6:23 PM EDT [facility] MCH 29.6 27.0 - 32.0 pcg LAB HEMETOLOGY [facility] MCHC 33.6 32.0 - 37.0 g/dL LAB HEMETOLOGY METHOD 09/19/2024 6:23 PM EDT [facility] RDW 13.3 11.0 - 15.0 % LAB HEMETOLOGY METHOD 09/19/2024 6:23 PM [facility] Platelets 242 130 - 400 K/mcL LAB HEMETOLOGY METHOD 09/19/2024 6:23 PM [facility] MPV 10.3 7.0 - 11.0 FL LAB HEMETOLOGY METHOD 09/19/2024 6:23 PM [facility] NRBC 0.0 <1.0 % LAB HEMETOLOGY METHOD 09/19/2024 6:23 PM [facility] NRBC Absolute 0.00 <0.10 K/mcL LAB HEMETOLOGY METHOD 09/19/2024 6:23 PM [facility] Neutrophils Relative 62.3 % LAB HEMETOLOGY METHOD 09/19/2024 6:23 PM [facility] Lymphocytes Relative 27.7 % LAB HEMETOLOGY METHOD 09/19/2024 6:23 PM [facility] Monocytes Relative 8.6 % LAB HEMETOLOGY METHOD 09/19/2024 6:23 PM [facility] Eosinophils Relative 0.6 % LAB HEMETOLOGY METHOD 09/19/2024 6:23 PM [facility] Basophils Relative 0.6 % LAB HEMETOLOGY METHOD 09/19/2024 6:23 PM [facility] Immature Granulocytes Relative 0.2 % LAB HEMETOLOGY METHOD 09/19/2024 6:23 PM [facility] Neutrophils Absolute 3.26 1.50 - 7.00 K/mcL LAB HEMETOLOGY METHOD 09/19/2024 6:23 PM [facility] Lymphocytes Absolute 1.45 1.00 - 5.00 K/mcL LAB HEMETOLOGY METHOD 09/19/2024 6:23 PM [facility] Monocytes Absolute 0.45 0.20 - 1.00 K/mcL LAB HEMETOLOGY METHOD 09/19/2024 6:23 PM EDT [facility] Eosinophils Absolute 0.03 0.00 - 0.50 K/mcL LAB HEMETOLOGY METHOD 09/19/2024 6:23 PM EDT [facility] Basophils Absolute 0.03 0.00 - 0.20 K/mcL LAB HEMETOLOGY METHOD 09/19/2024 6:23 PM EDT [facility] Immature Granulocytes Absolute 0.01 0.00 - 0.03 K/mcL LAB HEMETOLOGY METHOD 09/19/2024 6[facility] Blood Venous blood specimen / Unknown Venipuncture / Unknown 09/19/2024 5:48 PM EDT 09/19/2024 6:10 PM EDT us Kimi Mondragon MD LAB BLOOD ORDERABLES Fin al Result [facility] [address] [place] [address], * (ABNORMAL) Comprehensive metabolic panel (09/19/2024 5:48 PM EDT) Sodium 138 133 - 145 mmol/L LAB CHEMISTRY METHOD 09/19/2024 6:54 PM [facility] Potassium 3.3(L) 3.5 - 5.5 mmol/L LAB CHEMISTRY METHOD 09/19/2024 6:54 PM EDT [facility] Chloride 106 96 - 110 mmol/L LAB CHEMISTRY METHOD 09/19/2024 6:54 PM [facility] CO2 24 21 - 32 mmol/L LAB CHEMISTRY METHOD 09/19/2024 6:54 PM EDT [facility] Anion Gap 8 3 - 11 LAB CHEMISTRY METHOD 09/19/2024 6:54 PM [facility] Glucose 99 70 - 100 mg/dL LAB CHEMISTRY METHOD 09/19/2024 6:54 PM [facility] BUN 12 5 - 25 mg/dL LAB CHEMISTRY METHOD 09/19/2024 6:54 PM [facility] Creatinine 0.75 0.50 - 1.10 mg/dL LAB CHEMISTRY METHOD 09/19/2024 6:54 PM [facility] eGFR 96 >=60 mL/min/1. 73m2 LAB CHEMISTRY METHOD 09/19/2024 6:54 PM [facility] Comment:Calculation based on the Chronic Kidney Disease Epidemiology Collaboration (CKD-EPI) equation refit without adjustment for race. BUN/Creatinine Ratio 16.0 LAB CHEMISTRY METHOD 09/19/2024 6:54 PM [facility] Calcium 9.5 8.5 - 10.5 mg/dL LAB CHEMISTRY METHOD 09/19/2024 6:54 PM [facility] AST (SGOT) 22 10 - 42 unit/L LAB CHEMISTRY METHOD 09/19/2024 6:54 PM [facility] ALT (SGPT) 41 10 - 60 unit/L LAB CHEMISTRY METHOD 09/19/2024 6:54 PM [facility] Alkaline Phosphatase 124(H) 42 - 121 unit/L LAB CHEMISTRY METHOD 09/19/2024 6:54 PM [facility] Total Protein 8.4(H) 6.0 - 8.0 g/dL LAB CHEMISTRY METHOD 09/19/2024 6:54 PM [facility] Albumin 4.0 3.2 - 5.0 g/dL LAB CHEMISTRY METHOD 09/19/2024 6:54 PM [facility] Total Bilirubin 0.4 0.0 - 1.4 mg/dL LAB CHEMISTRY METHOD 09/19/2024 6:54 PM [facility] Blood Venous blood specimen / Unknown Venipuncture / Unknown 09/19/2024 5:48 PM EDT 09/19/2024 6:10 PM EDT Kimi Mondragon MD LAB BLOOD ORDERABLES Fin al Result Performing Organization Address [facility]/ZIP Co de Phone Number [facility] [address] [place] [address], [place] [phone] * Magnesium (09/19/2024 5:48 PM EDT) Magnesium 2.2 1.9 - 2.6 mg/dL LAB CHEMISTRY METHOD 09/19/2024 6:54 PM EDT [facility] Blood Venous blood specimen / Unknown Venipuncture / Unknown 09/19/2024 5:48 PM EDT 09/19/2024 6:10 PM EDT Kimi Mondragon MD LAB BLOOD ORDERABLES Fin al Result Performing Organization Address [facility] de Phone Number [facility] [address] [place] [address], [place] [phone] * Culture urine (09/19/2024 5:39 PM EDT) Culture, Urine 10,000-49,000 CFU/mL Mixed urogenital esther, no uropathogens present. Suggest repeat specimen if clinically indicated. 09/20/2024 1:58 PM EDT [facility] Urine Urine specimen obtained by clean catch procedure / Unknown Non-blood Collection / Unknown 09/19/2024 5:39 PM EDT 09/19/2024 6:19 PM EDT Kimi Mondragon MD LAB MICROBIOLOGY - GENER AL ORDERABLES Final Result Performing Organization Address [facility]/ZIP Co de Phone Number [facility] [address] [place] [address], [place] [phone] * Horowitz urine culture tube (09/19/2024 5:39 PM EDT) [facility] Extra Tube Hold for add-ons. 09/19/2024 8:01 PM EDT [facility] Comment:Auto resulted. Urine Urine specimen obtained by clean catch procedure / Unknown Non-blood Collection / Unknown 09/19/2024 5:39 PM EDT 09/19/2024 6:10 PM EDT us Kimi Mondragon MD LAB URINE ORDERABLES Fin al Result [facility] [address] [place] [address], * (ABNORMAL) Urinalysis with reflex microscopic and culture (09/19/2024 5:39 PM EDT) [facility] Specific Fred Urine 1.004 1.003 - 1.030 LAB URINALYSIS - AUTOMATED METHOD 09/19/2024 6:19 PM [facility] pH, Urine 7.0 5.0 - 8.0 pH LAB URINALYSIS - AUTOMATED METHOD 09/19/2024 6:19 PM [facility] Leukocytes, Urine Small(A) Negative LAB URINALYSIS - AUTOMATED METHOD 09/19/2024 6:19 PM [facility] Nitrite, Urine Negative Negative LAB URINALYSIS - AUTOMATED METHOD 09/19/2024 6:19 PM [facility] Protein, Urine Negative <=Trace mg/dL LAB URINALYSIS - AUTOMATED METHOD 09/19/2024 6:19 PM [facility] Glucose, Urine Negative Negative mg/dL LAB URINALYSIS - AUTOMATED METHOD 09/19/2024 6:19 PM [facility] Ketones, Urine Negative Negative mg/dL LAB URINALYSIS - AUTOMATED METHOD 09/19/2024 6:19 PM EDT [facility] Urobilinogen, Urine 0.2 0.2 - 1.0 mg/dL LAB URINALYSIS - AUTOMATED METHOD 09/19/2024 6:19 PM [facility] Bilirubin, Urine Negative Negative LAB URINALYSIS - AUTOMATED METHOD 09/19/2024 6:19 PM [facility] Blood, Urine Small(A) Negative LAB URINALYSIS - AUTOMATED METHOD 09/19/2024 6:19 PM [facility] RBC, Urine 0.7 0 - 4 /HPF LAB URINALYSIS - AUTOMATED METHOD 09/19/2024 6:19 PM [facility] WBC, Urine 5.0(H) 0 - 4 /HPF LAB URINALYSIS - AUTOMATED METHOD 09/19/2024 6:19 PM [facility] Squamous Epithelial, Urine 23 0 - 60 /LPF LAB URINALYSIS - AUTOMATED METHOD 09/19/2024 6:19 PM [facility] Bacteria, Urine Negative Negative /HPF LAB URINALYSIS - AUTOMATED METHOD 09/19/2024 6:19 PM [facility] Hyaline Casts, Urine 0.8 0 - 3 /LPF LAB URINALYSIS - AUTOMATED METHOD 09/19/2024 6:19 PM [facility] Urine Urine specimen obtained by clean catch procedure / Unknown Non-blood Collection / Unknown 09/19/2024 5:39 PM EDT 09/19/2024 6:10 PM EDT us Kimi Mondragon MD LAB URINE ORDERABLES Fin al Result [facility] [address] [place] [address], * Respiratory virus panel molecular study (09/19/2024 5:33 PM EDT) Pathologist [facility] Adenovirus Detection by PCR Not Detected Not Detected LAB MICROBIOLOGY METHOD 09/19/2024 7:12 PM EDT [facility] Influenza A PCR Not Detected Not Detected LAB MICROBIOLOGY METHOD 09/19/2024 7:12 PM EDT [facility] Influenza B PCR Not Detected Not Detected LAB MICROBIOLOGY METHOD 09/19/2024 7:12 PM EDT [facility] Coronavirus 229E Not Detected Not Detected LAB MICROBIOLOGY METHOD 09/19/2024 7:12 PM EDT [facility] Coronavirus HKU1 Not Detected Not Detected LAB MICROBIOLOGY METHOD 09/19/2024 7:12 PM EDT [facility] Coronavirus OC43 Not Detected Not Detected LAB MICROBIOLOGY METHOD 09/19/2024 7:12 PM EDT [facility] Coronavirus NL63 Not Detected Not Detected LAB MICROBIOLOGY METHOD 09/19/2024 7:12 PM EDT [facility] Parainfluenza Virus 1 Not Detected Not Detected LAB MICROBIOLOGY METHOD 09/19/2024 7:12 PM EDT [facility] Parainfluenza Virus 2 Not Detected Not Detected LAB MICROBIOLOGY METHOD 09/19/2024 7:12 PM EDT [facility] Parainfluenza Virus 3 Not Detected Not Detected LAB MICROBIOLOGY METHOD 09/19/2024 7:12 PM EDT [facility] Parainfluenza Virus 4 Not Detected Not Detected LAB MICROBIOLOGY METHOD 09/19/2024 7:12 PM EDT [facility] RSV PCR Not Detected Not Detected LAB MICROBIOLOGY METHOD 09/19/2024 7:12 PM EDT [facility] Human Metapneumovirus A and B Not Detected Not Detected LAB MICROBIOLOGY METHOD 09/19/2024 7:12 PM EDT [facility] Rhinovirus/Entero virus Not Detected Not Detected LAB MICROBIOLOGY METHOD 09/19/2024 7:12 PM EDT [facility] Bordetella pertussis Not Detected Not Detected LAB MICROBIOLOGY METHOD 09/19/2024 7:12 PM EDT [facility] Bordetella parapertussis Not Detected Not Detected LAB MICROBIOLOGY METHOD 09/19/2024 7:12 PM EDT [facility] Mycoplasma pneumo by PCR Not Detected Not Detected LAB MICROBIOLOGY METHOD 09/19/2024 7:12 PM EDT [facility] Chlamydia pneumoniae Not Detected Not Detected LAB MICROBIOLOGY METHOD 09/19/2024 7:12 PM EDT [facility] SARS COV-2 Not Detected Not Detected LAB MICROBIOLOGY METHOD 09/19/2024 7:12 PM EDT [facility] Swab Both anterior nares / Unknown Non-blood Collection / Unknown 09/19/2024 5:33 PM EDT 09/19/2024 6:09 PM EDT Narrative [facility] - 09/19/2024 7:12 PM EDT Testing was performed using the [employer] Respiratory Pathogen PCR Assay. All results must [...] us Kimi Mondragon MD LAB MICROBIOLOGY - [facility] AL ORDERABLES Final Result [facility] [address] [place] [address], documented in this encounter Visit Diagnoses Diagnosis [...] immediately). documented in this encounter Care Teams Supervisor Mill Relationship Specialty Start Date End Date Physician, Pcp Unknown PCP - General 09/19/24 documented as of this encounter
--- OUTSIDE RECORDS SUMMARY | 2024-09-23 19:39 | XMS_ITS | Encounter Summary ---
Author Organization [facility] Address [address] [place] [phone] Phone Care Team Providers Care Hair Clipper Power Name Role Phone Earlene Andrade MD Primary Care Provider + Reason for Visit * Reason Comments microscopic hematuria isolated proteinuria Encounter Details Date Type Department Care Team ([facility] st Contact Info) Description 09/22/2024 4:00 PM EDT Office Visit [facility] [address] [place] [phone] Buddy Hough MD [address] [phone] Microscopic hematuria (Primary Dx) Social [...] 4:00 PM EDT [facility] Patient Name: Sariah Rosario, Female Date of [...] has all 4 ext weakness- was in [facility] and seeing a neurologist in AM The [...] and Americans. Testing performed or reported by [facility], a Service of [facility], [address] [place] [id number] Laurie Cevallos MD, Tower Dragline Operator Est GFR Non Date Value Ref Range Status 07/09/2023 106 ML/MIN/1.73 M2 Final Comment: Creatinine based estimated glomerular filtration (eGFR) in adults is calculated using the National Kidney Foundation recommended 2020 CKD-EPI equation. Estimates GFR from serum creatinine, age and sex. Testing performed or reported by [facility], a Service of [address] [address] Ashish Gaona MD, Tower Dragline Operator [facility]# [id number] Chemistry Lab Units 09/19/24 1748 07/09/23 1037 [...] Visit [facility] [address] [phone] Buddy Hough MD [address] [phone] Scheduled Orders Name Type Priority [...] Primary documented in this encounter Care Teams Hair Clipper Power Relationship Specialty Start Date End Date Earlene Andrade MD [address] [place] [address] PCP - General Internal Medicine 02/16/23 documented as of this encounter
--- OUTSIDE RECORDS SUMMARY | 2024-09-23 19:39 | XMS_ITS | Encounter Summary ---
Author Organization [facility] Address [address] [place] [address] Phone Care Team Providers Care Hospital Account Liaison Name Role Phone Earlene Andrade MD Primary Care Provider + Encounter Details Date Type Department Care Team (Late st Contact Info) Description 12/14/2021 Documentation Only [facility] [address] [place] [phone] Darwin Hensley MD [address] [place] [address] [place] [phone] Social History Tobacco Use Types Packs/Day Years [...] Visit [facility] [address] [phone] Buddy Hough MD [address] [phone] documented as of this encounter Visit Diagnoses Not on filedocumented in this encounter Care Teams Hospital Account Liaison Relationship Specialty Start Date End Date Earlene Andrade MD [address] [place], [place] [phone] PCP - General Internal Medicine 02/16/23 documented as of this encounter
--- OUTSIDE RECORDS SUMMARY | 2024-09-23 19:39 | XMS_ITS | Clinical Summary ---
Author Organization [facility] Address [address] [phone] Phone Care Team Providers Care Incubator Operator Name Role Phone Earlene Andrade MD [...] Visit [facility] [address] [place] [phone] Buddy Hough MD Microscopic hematuria (Primary Dx) 07/23/2024 Orders Only [facility] [place] [address] [facility] [address] [place] [phone] Buddy Hough MD Microscopic hematuria from Last [...] Visit [facility] [address] [facility] [address] [place] [address] Buddy Hough MD [address] [facility] [address] [place] [phone] Health Maintenance Due Date Last [...] [employer] [place] [facility] Care Teams Incubator Operator Relationship Specialty Start Date End Date Earlene Andrade MD [address] [place] [phone] PCP - General Internal Medicine 02/16/23
--- OUTSIDE RECORDS SUMMARY | 2024-09-23 19:39 | XMS_ITS | Clinical Summary ---
Author Organization [facility] Address [address] [place] [address] Care Team Providers Care Revolving Field Assembler Name Role Phone Nell ALARCON DO, Edward [...] age to complete this topic Care Teams Revolving Field Assembler Relationship Specialty Start Date End Date Devang Camejo IV, DO PCP - General Internal Medicine 06/09/22
[2024-09-23 20:58] VITALS: BP 140/80; PULSE 78; RESP 18; TEMP 36.8; O2SAT 98
--- NOTE | 2024-09-23 22:37 | PHA.MEDREC ---
Addendum entered by Monique Baker RPh 09/23/24 22:46: reviewed by [facility]. Original Note: Pharmacy Consult ? Medication Reconciliation Pharmacy has completed the medication reconciliation. Spoke to patient to confirm med list. Patient states she only takes Acetaminophen 500 mg, Miralax , and Potassium 10 mEq. took off all other medications off med rec even though there are recent claims for Aripipazole 20 mg last filled 09/01/24 for 90 days, Bupropion Hcl 150 mg with 300 mg for a total dose of 450 mg, last filled 09/04/24 for 90 days, Mirtazipine 30 mg, last filled 09/01/24 for 90 days.
--- NOTE | 2024-09-23 22:43 | P.HPHOSP_ITS ---
History of Present Illness Date of Service: 09/23/24 Attending physician on admission: Isauro Almanza Chief Complaint: B leg weakness,burning pain head to toe, unable to walk Patient is a 54-year-old female with past medical history obstructive sleep apnea, fatty liver, migraine, endometriosis relieved by hysterectomy, pericardial effusion, iron-deficiency anemia, cholecystectomy, alopecia, recent viral stomach infection, previous reaction to COVID vaccination 2 years prior with similar symptoms requiring rehabilitation to walk again (patient was not diagnosed with GBS), tinnitus, pinched nerve in the cervical spine, lumbar spine stenosis and denies history of HSV 1 or 2 infection, STD's, hepatitis-B or C and HIV presents to the emergency department after seeing her PCP today for BECERRA and progressive symptoms involving neuropathic pain from head to toe, bilateral leg weakness with B foot drag and paresthesia in all extremities after receiving a DTaP vaccination 4 weeks prior. Patient states it is now taking more time to get out of bed and she is dependent on using a Rollator to ambulate. Patient is reporting over the last 4 days, increasing haziness with her vision, and essential tremor only in the right hand, patient is right hand dominant. In addition patient is not able to walk because of the pain and weakness. Patient states she can currently bear weight though. Patient denies any falls or injuries in the last 2 weeks. Patient adds that the injection was given in the left deltoid and although she has chronic tinnitus, the tinnitus in the left ear to the top of the head increased after the injection. Patient currently denies any fever, chills, night sweats or unexplained weight loss. Patient is not having any chest pain, nausea, vomiting or abdominal pain. Patient was seen at [facility] September 19 and was having complaints of worsening lower extremity pain and weakness. She was found to have hypokalemia and was treated and released. Patient was also seen by [facility] 1 week prior and patient believes she was being worked up for lupus with history of a positive SERAFIN? and other possible autoimmune issues. Those lab results are still pending per patient. Overall patient's inflammatory markers have been elevated for some time. Patient has previous episode after COVID vaccination 2 years prior resulted in similar symptoms but with less progression. Patient was told she did not have GBS back then because she still had sensation intact. Patient did require rehabilitation in order to walk again. Patient was told it was a reaction to the vaccination. Patient did undergo EEG testing and the results were unremarkable. Patient currently being worked up for MS, lupus and in the past had 1 positive scleroderma test and then 2 negative scleroderma tests. In the interim patient has had a pericardial effusion but with no underlying etiology or diagnosis as to the cause. At this time patient has no autoimmune diagnoses in her medical history. Patient has significant allergies including gabapentin which has caused increased intra-ocular pressure and patient has been told not to take this medication. In addition patient has adverse GI side effects when taking NSAIDs including ibuprofen and Toradol. Patient can not receive contrast dye due to anaphylaxis. Allergies have been updated upon admission. Patient noted not to be able to void on bedpan. Patient feels her bladder is full but she can not void. Patient states she was incontinent of urine earlier this morning. Patient also states that she is extremely constipated and has had this problem for some time. Patient is a prediabetic and is not taking any medications for diabetes management or GLP-1s. Patient is being admitted for neurological consultation, lumbar puncture with CSF testing, PT consultation, and monitoring overnight. Review of Systems 2 Review of Systems: Patient reports haziness with her vision in both eyes, denies dysphagia, chest pain, shortness of breath at rest or abdominal pain. Patient is not having any nausea or vomiting. Patient does report an active appetite. Patient is reporting an essential tremor in the right hand only that started 4 days prior. Patient states she can bear weight but it is too painful and she is too weak to walk at this time. Patient is also reporting some persistent constipation along with urinary incontinence 1 time this morning and now inability to void on bedpan. Patient denies any burning or pain with urination prior to today. Patient does have a headache but is not describing it as a usual migraine. Patient denies any nuchal pain or immobility. Patient denies any recent fever or chills, night sweats. Yes all other systems are reviewed and are negative [facility] Medical History (Updated 09/23/24 @ 23:07 by AUTUMN Matute) Lumbar spinal stenosis Fatty liver Adverse neurologic event after COVID-19 vaccination Endometriosis FH: cholecystectomy Sleep apnea Migraine Alopecia IBS (irritable bowel syndrome) Asthma Pericardial effusion Anemia Kidney stones Depression Endometriosis GERD (gastroesophageal reflux disease) Fibromyalgia Scleroderma COVID-19 virus infection Cervicalgia Snoring Raynauds phenomenon SERAFIN positive Cognitive capacity: Alert and orientated x3 Functional capacity: uses cane/walker Family History Sister Thyroid disease Alopecia Family/Other Diabetes Surgical History History of right oophorectomy Hx of hysterectomy Hx of cholecystectomy History of section Social History Household Members: Significant Other and Children Unable to assess alcohol history related to: Unknown Alcohol intake: never Patient Tobacco Use Status: Never used Tobacco Use of substances other than those prescribed or required for medical reasons: Unknown Advance Directives: No Advance Directives Information Provided: Yes Nutrition Risks: No Nutritional Risk Patient : No Current occupational status: employed 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 [employer] Ebola Risk: Travel/Contact With Anyone From Affected Area/s: No Has Patient Experienced Ebola Symptoms: No Meds Allergies Allergy/AdvReac Type Severity Reaction Status Date / Time ketorolac [From TORADOL] Allergy Intermediate hives Verified 09/23/24 23:22 COVID-19 (SARS-CoV-2) Allergy Hives Verified 09/23/24 23:22 vaccine, olivier contrast dye Allergy Intermediate Hives Uncoded 09/23/24 23:22 gabapentin AdvReac Weakness Uncoded 09/23/24 23:22 Active Medications: Current Medications Acetaminophen (Acetaminophen 325 Mg Tablet) 650 mg PO Q6H PRN PRN Reason: Pain, Mild 1-3,fever,headache Albuterol/Ipratropium (Albuterol/Iprat 2.5/0.5mg 3 Ml Ampul.Neb) 3 ml INHALE Q4H PRN PRN Reason: Shortness of Breath/Wheezing Calcium Carbonate (Calcium Carbonate 750 Mg Tab.Chew) 750 mg PO Q4H PRN PRN Reason: Heartburn Magnesium Hydroxide (Milk Of Magnesia 30 Ml Oral.Susp) 30 ml PO DAILY PRN PRN Reason: Constipation Melatonin (Melatonin 3 Mg Tablet) 6 mg PO BEDTIME PRN PRN Reason: Insomnia Ondansetron HCl (Ondansetron Hcl 4 Mg/2 Ml Vial) 4 mg IVPUSH Q8H PRN PRN Reason: Nausea and Vomiting Senna (Sennosides 8.6 Mg Tablet) 17.2 mg PO BEDTIME DAILY Sodium Chloride (0.9 % Sodium Chloride Flush 3 Ml Syringe) 3 ml IVFLUSH QSHIFT [facility] Home Medications ?Medication ?Instructions ?Recorded ?Confirmed ?Last Taken ?Type polyethylene glycol 3350 17 17 g PO DAILY PRN Constipation 01/25/23 09/23/24 Unknown History gram/dose oral powder (Gavilax) acetaminophen 500 mg tablet 500 mg PO Q6H PRN Pain 09/23/24 09/23/24 Unknown History potassium chloride 10 mEq 10 meq PO DAILY 09/23/24 09/23/24 09/22/24 History tablet,extended release(part/cryst) 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 2 Vital Signs and Narrative: Vital Signs: Last Vital Signs Temp 98.2 F 09/23/24 20:58 Pulse 78 09/23/24 20:58 Resp 18 09/23/24 20:58 BP 140/80 H 09/23/24 20:58 Pulse Ox 98 09/23/24 20:58 O2 Del Method Room Air 09/23/24 20:58 BMI result Body Mass Index 32.6 Alert and orientated X3, able to give good hx Neuro: CN II-X11 intact, visual acuity intact, essential tremor R hand only, B foot drag reported, DTR +2 R patellar EYES: PERRLA, EOM intact ENT: hearing intact, no issues with swallowing, uvula midline, lips moist, nares patent no epistaxis Cardiac: S1 S2 RRR, no murmur, no JVD, no edema in Lower ext Pulmonary: lungs clear to ausculation B Abdominal: BS active in all 4 quadrants, no guarding, tenderness, rebounding, obese MSK: strength 4/5 upper and 3/5 lower extremities : no CVA tenderness, bladder distension noted Extremities: no edema in lower extremities, PT and DP pulses palpable +2 Psych: mood anxious, judgement and insight good Skin: No open wounds noted and patient did not report any open wounds Results Labs 09/23/24 17:03 09/23/24 17:03 Labs: Laboratory Results - last 24 hr 09/23/24 17:03 MCV 86.0 MCH 29.7 MCHC 34.6 RDW 13.4 Plt Count 230 MPV 9.5 Immature Gran % (Auto) 0.2 Neut % (Auto) 67.9 Lymph % (Auto) 22.3 [place] % (Auto) 8.5 Eos % (Auto) 0.6 Baso % (Auto) 0.5 Lymph # (Auto) 1.4 [place] # (Auto) 0.5 Eos # (Auto) 0.0 Baso # (Auto) 0.0 Abs Immat Gran (auto) 0.01 Absolute Neuts (auto) 4.2 Absolute Nucleated RBC 0.000 Nucleated RBC % (auto) 0.0 ESR 46 H Anion Gap 14 Estim Creat Clear Calc 93.2 Estimated GFR > 60 Random Glucose 87 Calcium 9.6 Magnesium 2.3 Total Bilirubin 0.3 AST 28 ALT 32 H Alkaline Phosphatase 107 Total Creatine Kinase 125 C-Reactive Protein 0.13 Total Protein 8.2 H Albumin 4.4 ECG Attestation: I personally reviewed and interpreted this ECG as follows: (Sinus arrhythmia, heart rate 77, QTC 430, NC 140) Prior ECG tracings: available for review Assessment and Plan (1) Paresthesia: Status: Acute (2) Bilateral leg weakness: Status: Acute Plan Patient is a 54-year-old female with past medical history obstructive sleep apnea, fatty liver, migraine, endometriosis relieved by hysterectomy, pericardial effusion, iron-deficiency anemia, cholecystectomy, alopecia, recent viral stomach infection, previous reaction to COVID vaccination 2 years prior with similar symptoms requiring rehabilitation to walk again (patient was not diagnosed with GBS), tinnitus, pinched nerve in the cervical spine, lumbar spine stenosis and denies history of HSV 1 or 2 infection, STD's, hepatitis-B or C and HIV is being admitted for neurological workup with consultation and plan for lumbar puncture and MRI of the brain. Patient may be having a significant adverse reaction to a DTaP vaccination 1 month prior with history of similar respons to COVID vaccination 2 years prior. Paresthesia/bilateral leg weakness possibly secondary to DTaP vaccination 1 month prior with history of similar reaction to COVID vaccination 2 years ago -neurology consulted -MRI of the brain pending -plan for lumbar puncture in the a.m., lab tests have been ordered, Lovenox is held -PT consultation if needed this admission -fall prevention -pain management, morphine has been effective. Patient can not use gabapentin as this causes increased intra-ocular pressure in the past. -CMV (serum)testing pending, ESR 40, CRP 0.13 Urinary incontinence -patient was finally able to void this evening in the ED -UA with reflex pending -likely secondary to patient's new onset neurological symptoms since vaccination 1 month prior Constipation -ordering Dulcolax suppository once today -MiraLax daily -senna daily DVT prophylaxis: Held due to lumbar puncture plan for the morning Med rec pending Full code status Quality Stroke Does the patient have a stroke diagnosis?: No Reason for No Anti-thrombotic by Day Two: Contraindicated VTE Prior VTE?: No VTE Risk Level:: Medical - moderate - high VTE Device Contraindication: N/A - Device Ordered VTE Drug Contraindication: N/A - Med Ordered
[2024-09-23 22:50] LABS: Appearance Urine Clear; Color Urine Yellow; Glucose Urine UA Negative (Negative); Leukocyte Esterase Urine Moderate (2+) (Negative); Nitrite Urine Negative (Negative); PH 5.5 (5.0-9.0); Specific Gravity - Urine 1.025 (1.005-1.025); UMIC TRIGGER UACC YES; Urine Blood Moderate (2+) (Negative); Urine Ketones 15 mg/dL (Negative); Urine Protein Trace mg/dL (Neg-Trace)
--- OUTSIDE RECORDS SUMMARY | 2024-09-23 23:47 | XMS_ITS | Clinical Summary ---
Author Organization [facility] Address [address] [place] [address] Care Team Providers Care Documentum Consultant Name Role Phone Nell ALARCON DO, Edward [...] age to complete this topic Care Teams Documentum Consultant Relationship Specialty Start Date End Date Devang Camejo IV, DO PCP - General Internal Medicine 06/09/22
--- OUTSIDE RECORDS SUMMARY | 2024-09-23 23:47 | XMS_ITS | Encounter Summary ---
Author Organization [facility] Address [address] [place] [address] Phone Care Team Providers Care Image Editor Name Role Phone Earlene Andrade MD Primary Care Provider + Encounter Details Date Type Department Care Team (Late st Contact Info) Description 12/02/2021 Documentation Only [facility] [address] [place] [phone] Darwin Hensley MD [address] [place] [address] [place] [phone] Social History Tobacco Use Types Packs/Day Years [...] Visit [facility] [address] [phone] uBddy Hough MD [address] [phone] documented as of this encounter Visit Diagnoses Not on filedocumented in this encounter Care Teams Image Editor Relationship Specialty Start Date End Date Earlene Andrade MD [address] [place], [place] [id number] PCP - General Internal Medicine 02/16/23 documented as of this encounter
--- OUTSIDE RECORDS SUMMARY | 2024-09-23 23:47 | XMS_ITS | Clinical Summary ---
Author Organization [facility] Address [address] [place] [address] Phone Care Team Providers Care Straddle Bug Driver Name Role Phone Physician, Pcp Unknown Primary [...] EDT - 09/20/2024 3:[address] [facility] Emergency [address] [place] [address] Kimi Mondragon MD Viral syndrome (Primary Dx); Myalgia; Hypokalemia Discharge Disposition: Home or Self Care from Last 3 Months Surgical History Surgery Date Site/Laterality Comments HYSTERECTOMY 2013 PROCEDURE: HISTORICAL HYSTERECTOMY; COMMENT: endometriosis SECTION PROCEDURE: HISTORICAL ; COMMENT: x 1 OVARIAN CYST REMOVAL 09/09/2012 PROCEDURE: WI OVARIAN CYSTECTOMY UNI/BI OTHER SURGICAL HISTORY PROCEDURE: WI HYSTEROSCOPY LYSIS INTRAUTERINE ADHESIONS COLONOSCOPY 02/12/2014 PROCEDURE: HISTORICAL COLONOSCOPY; COMMENT: hemorrhoids; repeat in 10 yrs CYSTOSCOPY 12/2014 PROCEDURE: HISTORICAL CYSTOSCOPY; COMMENT: Negative OOPHORECTOMY 2014 Right PROCEDURE: HISTORICAL OOPHORECTOMY; COMMENT: endometriosis OTHER SURGICAL HISTORY 11/15/2010 Left PROCEDURE: WI PUNCTURE ASPIRATION CYST OF BREAST; COMMENT: breast [...] GEMUSE QTc 480 ms GEMUSE P Wave [place] 108 degrees GEMUSE R [place] 27 degrees GEMUSE T [place] 42 degrees GEMUSE ECG Interpretation Normal sinus rhythm When compared with ECG of 12-MAY-2022 14:24, No significant change was found Confirmed by MAXIMINO CARREON ([id number]) on 09/20/2024 11:09:55 PM GEMUSE 09/20/2024 12:3 2 AM EDT 09/20/2024 11:09 PM EDT us Kimi Mondragon MD ECG ORDERABLES Final Re sult GEMUSE * CBC auto differential (09/19/2024 5:48 PM EDT) [facility] WBC 5.2 4.8 - 10.8 K/mcL LAB HEMETOLOGY METHOD 09/19/2024 6:23 PM EDT [facility] RBC 4.30 3.80 - 4.80 M/mcL LAB HEMETOLOGY METHOD 09/19/2024 6:23 PM EDT [facility] Hemoglobin 12.7 11.5 - 16.0 g/dL LAB HEMETOLOGY METHOD 09/19/2024 6:23 PM EDT [facility] Hematocrit 37.8 35.0 - 47.0 % LAB HEMETOLOGY METHOD 09/19/2024 6:23 PM EDT [facility] MCV 88.1 79.0 - 98.0 FL LAB HEMETOLOGY METHOD 09/19/2024 6:23 PM EDT [facility] MCH 29.6 27.0 - 32.0 pcg LAB HEMETOLOGY METHOD 09/19/2024 6:23 PM EDT [facility] MCHC 33.6 32.0 - 37.0 g/dL LAB HEMETOLOGY METHOD 09/19/2024 6:23 PM EDT [facility] RDW 13.3 11.0 - 15.0 % LAB HEMETOLOGY METHOD 09/19/2024 6:23 PM EDT [facility] Platelets 242 130 - 400 K/mcL LAB HEMETOLOGY METHOD 09/19/2024 6:23 PM EDT [facility] MPV 10.3 7.0 - 11.0 FL LAB HEMETOLOGY METHOD 09/19/2024 6:23 PM EDT [facility] NRBC 0.0 <1.0 % LAB HEMETOLOGY METHOD 09/19/2024 6:23 PM [facility] NRBC Absolute 0.00 <0.10 K/mcL LAB HEMETOLOGY METHOD 09/19/2024 6:23 PM [facility] Neutrophils Relative 62.3 % LAB HEMETOLOGY METHOD 09/19/2024 6:23 PM [facility] Lymphocytes Relative 27.7 % LAB HEMETOLOGY METHOD 09/19/2024 6:23 PM [facility] Monocytes Relative 8.6 % LAB HEMETOLOGY METHOD 09/19/2024 6:23 PM [facility] Eosinophils Relative 0.6 % LAB HEMETOLOGY METHOD 09/19/2024 6:23 PM [facility] Basophils Relative 0.6 % LAB HEMETOLOGY METHOD 09/19/2024 6:23 PM [facility] Immature Granulocytes Relative 0.2 % LAB HEMETOLOGY METHOD 09/19/2024 6:23 PM [facility] Neutrophils Absolute 3.26 1.50 - 7.00 K/mcL LAB HEMETOLOGY METHOD 09/19/2024 6:23 PM [facility] Lymphocytes Absolute 1.45 1.00 - 5.00 K/mcL LAB HEMETOLOGY METHOD 09/19/2024 6:23 PM [facility] Monocytes Absolute 0.45 0.20 - 1.00 K/mcL LAB HEMETOLOGY METHOD 09/19/2024 6:23 PM [facility] Eosinophils Absolute 0.03 0.00 - 0.50 K/mcL LAB HEMETOLOGY METHOD 09/19/2024 6:23 PM [facility] Basophils Absolute 0.03 0.00 - 0.20 K/mcL LAB HEMETOLOGY METHOD 09/19/2024 6:23 PM [facility] Immature Granulocytes Absolute 0.01 0.00 - 0.03 K/mcL LAB HEMETOLOGY METHOD 09/19/2024 6:23 PM EDT [facility] Blood Venous blood specimen / Unknown Venipuncture / Unknown 09/19/2024 5:48 PM EDT 09/19/2024 6:10 PM EDT Kimi Mondragon MD LAB BLOOD ORDERABLES Fin al Result Performing Organization Address [facility] Co de Phone Number [facility] [address] [place] [address], [place] [phone] * C-reactive protein (09/19/2024 5:48 PM EDT) C-Reactive Protein <0.29 <=0.50 mg/dL LAB CHEMISTRY METHOD 09/20/2024 1:24 AM EDT [facility] Blood Venous blood specimen / Unknown Venipuncture / Unknown 09/19/2024 5:48 PM EDT 09/19/2024 6:10 PM EDT Kimi Mondragon MD LAB BLOOD ORDERABLES Fin al Result Performing Organization Address [facility] de Phone Number [facility] [address] [place] [address], [place] [phone] * Phosphorus (09/19/2024 5:48 PM EDT) Phosphorus 3.5 2.5 - 4.5 mg/dL LAB CHEMISTRY METHOD 09/20/2024 1:24 AM EDT [facility] Blood Venous blood specimen / Unknown Venipuncture / Unknown 09/19/2024 5:48 PM EDT 09/19/2024 6:10 PM EDT Kimi Mondragon MD LAB BLOOD ORDERABLES Fin al Result Performing Organization Address [facility] Co de Phone Number [facility] [address] [place] [address], [place] [phone] * Magnesium (09/19/2024 5:48 PM EDT) [facility] Magnesium 2.2 1.9 - 2.6 mg/dL LAB CHEMISTRY METHOD 09/19/2024 6:54 PM EDT [facility] Blood Venous blood specimen / Unknown Venipuncture / Unknown 09/19/2024 5:48 PM EDT 09/19/2024 6:10 PM EDT Kimi Mondragon MD LAB BLOOD ORDERABLES Fin al Result Performing Organization Address [facility]/ZIP Co de Phone Number [facility] [address] [place] [address], [place] [phone] * Creatine kinase (09/19/2024 5:48 PM EDT) [facility] Total CK 81 22 - 269 unit/L LAB CHEMISTRY METHOD 09/20/2024 1:24 AM EDT [facility] Blood Venous blood specimen / Unknown Venipuncture / Unknown 09/19/2024 5:48 PM EDT 09/19/2024 6:10 PM EDT Kimi Mondragon MD LAB BLOOD ORDERABLES Fin al Result [facility] [address] [place] [address], [place] [phone] * (ABNORMAL) Comprehensive metabolic panel (09/19/2024 5:48 PM EDT) [facility] Sodium 138 133 - 145 mmol/L LAB CHEMISTRY METHOD 09/19/2024 6:54 PM EDT [facility] Potassium 3.3(L) 3.5 - 5.5 mmol/L LAB CHEMISTRY [facility]19[facility]24 [facility] Chloride 106 96 - 110 mmol/L LAB CHEMISTRY METHOD 09/19/2024 6:54 PM [facility] CO2 24 21 - 32 mmol/L LAB CHEMISTRY METHOD 09/19/2024 6:54 PM [facility] Anion Gap 8 3 - 11 LAB CHEMISTRY METHOD 09/19/2024 6:54 PM [facility] Glucose 99 70 - 100 mg/dL LAB CHEMISTRY METHOD 09/19/2024 6:54 PM [facility] BUN 12 5 - 25 mg/dL LAB CHEMISTRY METHOD 09/19/2024 6:54 PM [facility] Creatinine 0.75 0.50 - 1.10 mg/dL LAB CHEMISTRY METHOD 09/19/2024 6:54 PM [facility] eGFR 96 >=60 mL/min/1. 73m2 LAB CHEMISTRY METHOD 09/19/2024 6:54 PM [facility] Comment:Calculation based on the Chronic Kidney Disease Epidemiology Collaboration (CKD-EPI) equation refit without adjustment for race. BUN/Creatinine Ratio 16.0 LAB CHEMISTRY METHOD 09/19/2024 6:54 PM [facility] Calcium 9.5 8.5 - 10.5 mg/dL LAB CHEMISTRY METHOD 09/19/2024 6:54 PM [facility] AST (SGOT) 22 10 - 42 unit/L LAB CHEMISTRY METHOD 09/19/2024 6:54 PM [facility] ALT (SGPT) 41 10 - 60 unit/L LAB CHEMISTRY METHOD 09/19/2024 6:54 PM [facility] Alkaline Phosphatase 124(H) 42 - 121 unit/L LAB CHEMISTRY METHOD 09/19/2024 6:54 PM [facility] Total Protein 8.4(H) 6.0 - 8.0 g/dL LAB CHEMISTRY METHOD 09/19/2024 6:54 PM EDT [facility] Albumin 4.0 3.2 - 5.0 g/dL LAB CHEMISTRY METHOD 09/19/2024 6:54 PM EDT [facility] Total Bilirubin 0.4 0.0 - 1.4 mg/dL LAB CHEMISTRY METHOD 09/19/2024 6:54 PM T [facility] Blood Venous blood specimen / Unknown Venipuncture / Unknown 09/19/2024 5:48 PM EDT 09/19/2024 6:10 PM EDT us Kimi Mondragon MD LAB BLOOD ORDERABLES Fin al Result [facility] [address] [place] [address], [place] [phone] * (ABNORMAL) Urinalysis with reflex microscopic and culture (09/19/2024 5:39 PM EDT) Specific [place] Urine 1.004 1.003 - 1.030 LAB URINALYSIS - AUTOMATED METHOD 09/19/2024 6:19 PM [facility] pH, Urine 7.0 5.0 - 8.0 pH LAB URINALYSIS - AUTOMATED METHOD 09/19/2024 6:19 PM [facility] Leukocytes, Urine Small(A) Negative LAB URINALYSIS - AUTOMATED METHOD 09/19/2024 6:19 PM [facility] Nitrite, Urine Negative Negative LAB URINALYSIS - AUTOMATED METHOD 09/19/2024 6:19 PM [facility] Protein, Urine Negative <=Trace mg/dL LAB URINALYSIS - AUTOMATED METHOD 09/19/2024 6:19 PM [facility] Glucose, Urine Negative Negative mg/dL LAB URINALYSIS - AUTOMATED METHOD 09/19/2024 6:19 PM [facility] Ketones, Urine Negative Negative mg/dL LAB URINALYSIS - AUTOMATED METHOD 09/19/2024 6:19 PM EDT [facility] Urobilinogen, Urine 0.2 0.2 - 1.0 mg/dL LAB URINALYSIS - AUTOMATED METHOD 09/19/2024 6:19 PM [facility] Bilirubin, Urine Negative Negative LAB URINALYSIS - AUTOMATED METHOD 09/19/2024 6:19 PM [facility] Blood, Urine Small(A) Negative LAB URINALYSIS - AUTOMATED METHOD 09/19/2024 6:19 PM [facility] RBC, Urine 0.7 0 - 4 /HPF LAB URINALYSIS - AUTOMATED METHOD 09/19/2024 6:19 PM [facility] WBC, Urine 5.0(H) 0 - 4 /HPF LAB URINALYSIS - AUTOMATED METHOD 09/19/2024 6:19 PM [facility] Squamous Epithelial, Urine 23 0 - 60 /LPF LAB URINALYSIS - AUTOMATED METHOD 09/19/2024 6:19 PM [facility] Bacteria, Urine Negative Negative /HPF LAB URINALYSIS - AUTOMATED METHOD 09/19/2024 6:19 PM [facility] Hyaline Casts, Urine 0.8 0 - 3 /LPF LAB URINALYSIS - AUTOMATED METHOD 09/19/2024 6:19 PM [facility] Urine Urine specimen obtained by clean catch procedure / Unknown Non-blood Collection / Unknown 09/19/2024 5:39 PM EDT 09/19/2024 6:10 PM EDT us Kimi Mondragon MD LAB URINE ORDERABLES Fin al Result [facility] [address] [place] [address], * Horowitz urine culture tube (09/19/2024 5:39 PM EDT) [facility] Extra Tube Hold for add-ons. 09/19/2024 8:01 PM EDT [facility] Comment:Auto resulted. Urine Urine specimen obtained by clean catch procedure / Unknown Non-blood Collection / Unknown 09/19/2024 5:39 PM EDT 09/19/2024 6:10 PM EDT Kimi Mondragon MD LAB URINE ORDERABLES Fin al Result [facility] [address] [place] [address], [place] [phone] * Culture urine (09/19/2024 5:39 PM EDT) [facility] Culture, Urine 10,000-49,000 CFU/mL Mixed urogenital esther, no uropathogens present. Suggest repeat specimen if clinically indicated. 09/20/2024 1:58 PM EDT [facility] Urine Urine specimen obtained by clean catch procedure / Unknown Non-blood Collection / Unknown 09/19/2024 5:39 PM EDT 09/19/2024 6:19 PM EDT Kimi Mondragon MD LAB MICROBIOLOGY - GENER AL ORDERABLES Final Result Performing Organization Address City/[facility]/ZIP Co de Phone Number [facility] [address] [place] [address], [place] [phone] * Respiratory virus panel molecular study (09/19/2024 5:33 PM EDT) [facility] Adenovirus Detection by PCR Not Detected Not Detected LAB MICROBIOLOGY METHOD 09/19/2024 7:12 PM EDT [facility] Influenza A PCR Not Detected Not Detected LAB MICROBIOLOGY METHOD 09/19/2024 7:12 PM EDT [facility] Influenza B PCR Not Detected Not Detected LAB MICROBIOLOGY METHOD 09/19/2024 7:12 PM EDT [facility] Coronavirus 229E Not Detected Not Detected LAB MICROBIOLOGY METHOD 09/19/2024 7:12 PM EDT [facility] Coronavirus HKU1 Not Detected Not Detected LAB MICROBIOLOGY METHOD 09/19/2024 7:12 PM EDT [facility] Coronavirus OC43 Not Detected Not Detected LAB MICROBIOLOGY METHOD 09/19/2024 7:12 PM EDT [facility] Coronavirus NL63 Not Detected Not Detected LAB MICROBIOLOGY METHOD 09/19/2024 7:12 PM EDT [facility] Parainfluenza Virus 1 Not Detected Not Detected LAB MICROBIOLOGY METHOD 09/19/2024 7:12 PM EDT [facility] Parainfluenza Virus 2 Not Detected Not Detected LAB MICROBIOLOGY METHOD 09/19/2024 7:12 PM EDT [facility] Parainfluenza Virus 3 Not Detected Not Detected LAB MICROBIOLOGY METHOD 09/19/2024 7:12 PM EDT [facility] Parainfluenza Virus 4 Not Detected Not Detected LAB MICROBIOLOGY METHOD 09/19/2024 7:12 PM EDT [facility] RSV PCR Not Detected Not Detected LAB MICROBIOLOGY METHOD 09/19/2024 7:12 PM EDT [facility] Human Metapneumovirus A and B Not Detected Not Detected LAB MICROBIOLOGY METHOD 09/19/2024 7:12 PM EDT [facility] Rhinovirus/Entero virus Not Detected Not Detected LAB MICROBIOLOGY METHOD 09/19/2024 7:12 PM EDT [facility] Bordetella pertussis Not Detected Not Detected LAB MICROBIOLOGY METHOD 09/19/2024 7:12 PM EDT [facility] Bordetella parapertussis Not Detected Not Detected LAB MICROBIOLOGY METHOD 09/19/2024 7:12 PM EDT [facility] Mycoplasma pneumo by PCR Not Detected Not Detected LAB MICROBIOLOGY METHOD 09/19/2024 7:12 PM EDT [facility] Chlamydia pneumoniae Not Detected Not Detected LAB MICROBIOLOGY METHOD 09/19/2024 7:12 PM EDT [facility] SARS COV-2 Not Detected Not Detected LAB MICROBIOLOGY METHOD 09/19/2024 7:12 PM EDT [facility] Swab Both anterior nares / Unknown Non-blood Collection / Unknown 09/19/2024 5:33 PM EDT 09/19/2024 6:09 PM EDT Narrative [facility] - 09/19/2024 7:12 PM EDT Testing was performed using the [employer] Respiratory Pathogen PCR Assay. All results must [...] detection. Kimi Mondragon MD LAB MICROBIOLOGY - [facility] AL ORDERABLES Final Result [facility] [address] [place] [address], * Lipid panel (03/28/2022) LDL/HDL Ratio 0 [...] Most Recently Relevant to Health Maintenance Insurance [facility] MEDICARE ADVANTAGE MEDICAID - [place] Care Teams Straddle Bug Driver Relationship Specialty Start Date End Date Physician, Pcp Unknown PCP - General 09/19/24
--- OUTSIDE RECORDS SUMMARY | 2024-09-23 23:47 | XMS_ITS | Encounter Summary ---
Author Organization [facility] Address [address] [place] [address] Phone Care Team Providers Care Aquatic Biologist Name Role Phone Earlene Andrade MD Primary Care Provider + Encounter Details Date Type Department Care Team (Late st Contact Info) Description 12/14/2021 Documentation Only [facility] [address] [place] [phone] Darwin Hensley MD [address] [place] [address] [place] [phone] Social History Tobacco Use Types Packs/Day Years [...] [facility] [address] [phone] Buddy Hough MD [address] [phone] documented as of this encounter Visit Diagnoses Not on filedocumented in this encounter Care Teams Aquatic Biologist Relationship Specialty Start Date End Date Earlene Andrade MD [address] [place], [place] [phone] PCP - General Internal Medicine 02/16/23 documented as of this encounter
--- OUTSIDE RECORDS SUMMARY | 2024-09-23 23:47 | XMS_ITS | Encounter Summary ---
Author Organization [facility] Address [address] [place] [phone] Phone Care Team Providers Care Dispersion Mixer Name Role Phone Earlene Andrade MD Primary Care Provider + Reason for Visit * Reason Comments microscopic hematuria isolated proteinuria Encounter Details Date Type Department Care Team ([facility] st Contact Info) Description 09/22/2024 4:00 PM EDT Office Visit [facility] [address] [place] [phone] Buddy Hough MD [address] [phone] Microscopic hematuria (Primary Dx) Social [...] 4:00 PM EDT [facility] Patient Name: Sariah Rosario, Female Date of [...] has all 4 ext weakness- [place] [facility] [place] in AM The [...] and Americans. Testing performed or reported by [facility] [employer], a Service of [facility], [address] [place] [id number] Laurie Cevallos MD, Energy Analyst Est GFR Non Date Value Ref Range Status 07/09/2023 106 ML/MIN/1.73 M2 Final Comment: Creatinine based estimated glomerular filtration (eGFR) in adults is calculated using the National [employer] recommended 2020 CKD-EPI equation. Estimates GFR from serum creatinine, age and sex. Testing performed or reported by [facility] [employer], a Service of [address] [address] Ashish Gaona MD, Energy Analyst [facility]# [id number] Chemistry Lab Units 09/19/24 1748 07/09/23 1037 [...] Visit [facility] [address] [phone] Buddy Hough MD [address] [phone] Scheduled Orders Name Type Priority [...] Primary documented in this encounter Care Teams Dispersion Mixer Relationship Specialty Start Date End Date Earlene Andrade MD [address] [place] [address] PCP - General Internal Medicine 02/16/23 documented as of this encounter
--- OUTSIDE RECORDS SUMMARY | 2024-09-23 23:47 | XMS_ITS | Encounter Summary ---
Author Organization [facility] Address [address] [place] [address] Phone Care Team Providers Care Sheep Farmer Name Role Phone Earlene Andrade MD Primary Care Provider + Encounter Details Date Type Department Care Team (Late st Contact Info) Description 12/02/2021 Documentation Only [facility] [address] [place] [phone] Darwin Hensley MD [address] [place] [address] [place] [phone] Social History Tobacco Use Types Packs/Day Years [...] Visit [facility] [address] [phone] Buddy Hough MD [address] [phone] documented as of this encounter Visit Diagnoses Not on filedocumented in this encounter Care Teams Sheep Farmer Relationship Specialty Start Date End Date Earlene Andrade MD [address] [place], [place] [phone] PCP - General Internal Medicine 02/16/23 documented as of this encounter
--- OUTSIDE RECORDS SUMMARY | 2024-09-23 23:47 | XMS_ITS | Encounter Summary ---
Author Organization [employer] Address [address] [place] [address] Care Team Providers Care Exhaust Emissions Inspector Name Role Phone Physician, Pcp Unknown Primary Care Provider Jackie vailable Reason for Visit * Reason Comments Generalized Body Aches Had tdap 14 days ago left arm Encounter Details Date Type Department Care Team (Late st Contact Info) Description 09/19/2024 11:07 PM EDT - 09/20/2024 3:56 AM EDT Emergency [facility] Emergency [address] [place] [address] Kimi Mondragon MD [address] [place] [address] Viral syndrome (Primary Dx); Myalgia; Hypokalemia Discharge [...] sent through Care Everywhere. * Viral Infections (Iraqi) * Myalgia (Iraqi) * Hypokalemia (Iraqi) documented in this encounter Medications at Time [...] OOPHORECTOMY; COMMENT: endometriosis OTHER SURGICAL HISTORY PROCEDURE: NH HYSTEROSCOPY LYSIS INTRAUTERINE ADHESIONS OTHER SURGICAL HISTORY Left 11/15/2010 PROCEDURE: NH PUNCTURE ASPIRATION CYST OF BREAST; COMMENT: breast cyst aspiration OVARIAN CYST REMOVAL 09/09/2012 PROCEDURE: NH OVARIAN CYSTECTOMY UNI/BI Social History Tobacco Use [...] REFLEX MICROSCOPIC AND CULTURE - Abnormal Specific [place] Urine 1.004 pH, Urine 7.0 Leukocytes, Urine [...] Detected Narrative: Testing was performed using the [employer] Respiratory Pathogen PCR Assay. All results must [...] Procedure Abnormality Status --------- ------ CBC auto differential[[id number]] Final result Please view results for these tests on the individual orders. URINALYSIS WITH REFLEX MICROSCOPIC AND CULTURE Narrative: The following orders were created for panel order Urinalysis with reflex microscopic and culture. Procedure Abnormality Status --------- ------ Urinalysis with reflex ...[[id number]] Abnormal Final result Horowitz urine culture tube[[id number]] Final result Please view results for these [...] abnormality, infection, rhabdomyolysis/myositis, neurologic disorders such as Guillain-Hope or myasthenia gravis, CVA, medication side effects, deconditioning, dehydration, among many others. A broad-based workup was initiated based on the patient's history and physical examination. They were watched closely on cardiac rehabilitation specialist with vital signs that were monitored during [...] GEMUSE QTc 480 ms GEMUSE P Wave Poyen 108 degrees GEMUSE R Poyen 27 degrees GEMUSE T Poyen 42 degrees GEMUSE ECG Interpretation Normal sinus [...] LAB CHEMISTRY METHOD 09/20/2024 1:24 AM EDT [facility] Blood Venous blood specimen / Unknown Venipuncture / Unknown 09/19/2024 5:48 PM EDT 09/19/2024 6:10 PM EDT Kimi Mondragon MD LAB BLOOD ORDERABLES Fin al Result Performing Organization Address [facility] Co de Phone Number [facility] [address] [place] [address], [place] [phone] * Phosphorus (09/19/2024 5:48 PM EDT) Phosphorus 3.5 2.5 - 4.5 mg/dL LAB CHEMISTRY METHOD 09/20/2024 1:24 AM EDT [facility] Blood Venous blood specimen / Unknown Venipuncture / Unknown 09/19/2024 5:48 PM EDT 09/19/2024 6:10 PM EDT us Kimi Mondragon MD LAB BLOOD ORDERABLES Fin al Result Performing Organization Address [facility] Co de Phone Number [facility] [address] [place] [address], [place] [phone] * Creatine kinase (09/19/2024 5:48 PM EDT) Pathologist [facility] Total CK 81 22 - 269 unit/L LAB CHEMISTRY METHOD 09/20/2024 1:24 AM EDT [facility] Blood Venous blood specimen / Unknown Venipuncture / Unknown 09/19/2024 5:48 PM EDT 09/19/2024 6:10 PM EDT us Kimi Mondragon MD LAB BLOOD ORDERABLES Fin al Result [facility] [address] [place] [address], * CBC auto differential (09/19/2024 5:48 PM EDT) [facility] WBC 5.2 4.8 - 10.8 K/mcL LAB HEMETOLOGY METHOD 09/19/2024 6:23 PM EDT [facility] RBC 4.30 3.80 - 4.80 M/mcL LAB HEMETOLOGY METHOD 09/19/2024 6:23 PM EDT [facility] Hemoglobin 12.7 11.5 - 16.0 g/dL LAB HEMETOLOGY METHOD 09/19/2024 6:23 PM EDT [facility] Hematocrit 37.8 35.0 - 47.0 % LAB HEMETOLOGY METHOD 09/19/2024 6:23 PM EDT [facility] MCV 88.1 79.0 - 98.0 FL LAB HEMETOLOGY METHOD 09/19/2024 6:23 PM EDT [facility] MCH 29.6 27.0 - 32.0 pcg LAB HEMETOLOGY METHOD 09/19[facility]2024 [facility] MCHC 33.6 32.0 - 37.0 g/dL LAB HEMETOLOGY METHOD 09/19/2024 6:23 PM EDT [facility] RDW 13.3 11.0 - 15.0 % [...] LAB HEMETOLOGY METHOD 09/19/2024 6:23 PM EDT [facility] Eosinophils Absolute 0.03 0.00 - 0.50 K/mcL LAB HEMETOLOGY METHOD 09/19/2024 6:23 PM EDT [facility] Basophils Absolute 0.03 0.00 - 0.20 K/mcL LAB HEMETOLOGY METHOD 09/19/2024 6:23 PM EDT [facility] Immature Granulocytes Absolute 0.01 0.00 - 0.03 K/mcL LAB HEMETOLOGY METHOD 09/19/2024 6:[facility] Blood Venous blood specimen / Unknown Venipuncture / Unknown 09/19/2024 5:48 PM EDT 09/19/2024 6:10 PM EDT us Kimi Mondragon MD LAB BLOOD ORDERABLES Fin al Result [facility] [address] [place] [address], * (ABNORMAL) Comprehensive metabolic panel (09/19/2024 5:48 PM EDT) Sodium 138 133 - 145 mmol/L LAB CHEMISTRY METHOD 09/19/2024 6:54 PM [facility] Potassium 3.3(L) 3.5 - 5.5 mmol/L LAB CHEMISTRY METHOD 09/19/2024 6:54 PM EDT [facility] Chloride 106 96 - 110 mmol/L LAB CHEMISTRY METHOD 09/19/2024 6:54 PM [facility] CO2 24 21 - 32 mmol/L LAB CHEMISTRY METHOD 09/19/2024 6:54 PM EDT [facility] Anion Gap 8 3 [...] 5:48 PM EDT 09/19/2024 6:10 PM EDT Kiim Mondragon MD LAB BLOOD ORDERABLES Fin al Result Performing Organization Address [facility]ZIP Co de Phone Number [facility] [address] [place] [address], [place] [phone] * Magnesium (09/19/2024 5:48 PM EDT) Magnesium 2.2 1.9 - 2.6 mg/dL LAB CHEMISTRY METHOD 09/19/2024 6:54 PM EDT [facility] Blood Venous blood specimen / Unknown Venipuncture / Unknown 09/19/2024 5:48 PM EDT 09/19/2024 6:10 PM EDT Kimi Mondragon MD LAB BLOOD ORDERABLES Fin al Result Performing Organization Address [facility] de Phone Number [facility] [address] [place] [address], [place] [phone] * Culture urine (09/19/2024 5:39 PM EDT) Culture, Urine 10,000-49,000 CFU/mL Mixed urogenital esther, no uropathogens present. Suggest repeat specimen if clinically indicated. 09/20/2024 1:58 PM EDT [facility] Urine Urine specimen obtained by clean catch procedure / Unknown Non-blood Collection / Unknown 09/19/2024 5:39 PM EDT 09/19/2024 6:19 PM EDT Kimi Mondragon MD LAB MICROBIOLOGY - GENER AL ORDERABLES Final Result Performing Organization Address [facility]ZIP Co de Phone Number [facility] [address] [place] [address], [place] [phone] * Horowitz urine culture tube (09/19/2024 5:39 PM EDT) [facility] Extra Tube Hold for add-ons. 09/19/2024 8:01 PM EDT [facility] Comment:Auto resulted. Urine Urine specimen obtained by clean catch procedure / Unknown Non-blood Collection / Unknown 09/19/2024 5:39 PM EDT 09/19/2024 6:10 PM EDT us Kimi Mondragon MD LAB URINE ORDERABLES Fin al Result [facility] [address] [place] [address], * (ABNORMAL) Urinalysis with reflex microscopic and culture (09/19/2024 5:39 PM EDT) [facility] Specific [place] Urine 1.004 1.003 - 1.030 LAB URINALYSIS [...] - AUTOMATED METHOD 09/19/2024 6:19 PM EDT [facility] Urobilinogen, Urine 0.2 0.2 - 1.0 [...] MD LAB URINE ORDERABLES Fin al Result [facility] [address] [place] [address], * Respiratory virus panel molecular study (09/19/2024 5:33 PM EDT) Pathologist [facility] Adenovirus Detection by PCR Not Detected Not Detected LAB MICROBIOLOGY METHOD 09/19/2024 7:12 PM EDT [facility] Influenza A PCR Not Detected Not Detected LAB MICROBIOLOGY METHOD 09/19/2024 7:12 PM EDT [facility] Influenza B PCR Not Detected Not Detected LAB MICROBIOLOGY METHOD 09/19/2024 7:12 PM EDT [facility] Coronavirus 229E Not Detected Not Detected LAB MICROBIOLOGY METHOD 09/19/2024 7:12 PM EDT [facility] Coronavirus HKU1 Not Detected Not Detected LAB MICROBIOLOGY METHOD 09/19/2024 7:12 PM EDT [facility] Coronavirus OC43 Not Detected Not Detected LAB MICROBIOLOGY METHOD 09/19/2024 7:12 PM EDT [facility] Coronavirus NL63 Not Detected Not Detected LAB MICROBIOLOGY METHOD 09/19/2024 7:12 PM EDT [facility] Parainfluenza Virus 1 Not Detected Not Detected LAB MICROBIOLOGY METHOD 09/19/2024 7:12 PM EDT [facility] Parainfluenza Virus 2 Not Detected Not Detected LAB MICROBIOLOGY METHOD 09/19/2024 7:12 PM EDT [facility] Parainfluenza Virus 3 Not Detected Not Detected LAB MICROBIOLOGY METHOD 09/19/2024 7:12 PM EDT [facility] Parainfluenza Virus 4 Not Detected Not Detected LAB MICROBIOLOGY METHOD 09/19/2024 7:12 PM EDT [facility] RSV PCR Not Detected Not Detected LAB MICROBIOLOGY METHOD 09/19/2024 7:12 PM EDT [facility] Human Metapneumovirus A and B Not Detected Not Detected LAB MICROBIOLOGY METHOD 09/19/2024 7:12 PM EDT [facility] Rhinovirus/Entero virus Not Detected Not Detected LAB MICROBIOLOGY METHOD 09/19/2024 7:12 PM EDT [facility] Bordetella pertussis Not Detected Not Detected LAB MICROBIOLOGY METHOD 09/19/2024 7:12 PM EDT [facility] Bordetella parapertussis Not Detected Not Detected LAB MICROBIOLOGY METHOD 09/19/2024 7:12 PM EDT [facility] Mycoplasma pneumo by PCR Not Detected Not Detected LAB MICROBIOLOGY METHOD 09/19/2024 7:12 PM EDT [facility] Chlamydia pneumoniae Not Detected Not Detected LAB MICROBIOLOGY METHOD 09/19/2024 7:12 PM EDT [facility] SARS COV-2 Not Detected Not Detected LAB MICROBIOLOGY METHOD 09/19/2024 7:12 PM EDT [facility] Swab Both anterior nares / Unknown Non-blood Collection / Unknown 09/19/2024 5:33 PM EDT 09/19/2024 6:09 PM EDT Narrative [facility] - 09/19/2024 7:12 PM EDT Testing was performed using the [employer] Respiratory Pathogen PCR Assay. All results must [...] us Kimi Mondragon MD LAB MICROBIOLOGY - [facility] AL ORDERABLES Final Result [facility] [address] [place] [address], documented in this encounter Visit Diagnoses Diagnosis [...] immediately). documented in this encounter Care Teams Exhaust Emissions Inspector Relationship Specialty Start Date End Date Physician, Pcp Unknown PCP - General 09/19/24 documented as of this encounter
--- OUTSIDE RECORDS SUMMARY | 2024-09-23 23:47 | XMS_ITS | Clinical Summary ---
Author Organization [facility] Address [address] [address] Phone Care Team Providers Care Route Vending Machine Servicer Name Role Phone Earlene Andrade MD Primary [...] [facility] [address] [place] [address] [phone] Buddy Hough MD Microscopic hematuria (Primary Dx) 07/23/2024 Orders Only [facility] [address] [facility] [address] [place] [phone] Buddy Hough MD Microscopic hematuria from Last [...] [facility] [address] [facility] [address] [place] [address] Buddy Hough MD [address] [facility] [address] [place] [address] Health Maintenance Due Date Last [...] [employer] [place] [facility] Care Teams Route Vending Machine Servicer Relationship Specialty Start Date End Date Earlene Andrade MD [address] [place] [id number] PCP - General Internal Medicine 02/16/23
[2024-09-23 23:58] LABS: Bacteria Urine 2+ (None Seen); Hyaline Casts Urine 0-2 /LPF (0-2); UACC Culture Trigger YES; WBC Urine 21-50 /HPF (0-5)
[2024-09-24] VITALS (8 sets, daily range): BP systolic 113–141; BP diastolic 61–83; PULSE 64–87; RESP 14–18; TEMP 36.4–36.7; O2SAT 97–100; BMI 34.2
--- NOTE | 2024-09-24 | ECG_ITS ---
Test Reason : EPIGASTRIC PAIN Blood Pressure : */* mmHG Vent. Rate : 71 BPM Atrial Rate : * BPM P-R Int : * ms QRS Dur : 86 ms QT Int : 406 ms P-R-T Axes : * 16 37 degrees QTcB Int : 441 ms Normal sinus rhythm Nonspecific ST abnormality When compared with ECG of 23-Sep-2024 16:55, No significant changes seen Referred By: Nikki Mehta Electronically Signed By: KIMBERLYN MORENO MD
[2024-09-24] MEDS: 0.9 % Sodium Chloride Flush 3 ML SYRINGE IVFLUSH ×4 (00:28→21:12)
[2024-09-24] MEDS: Acetaminophen 325 MG TABLET 650 MG PO ×3 (00:28→16:07)
[2024-09-24] MEDS: Morphine Sulfate 2 MG/ML CARTRIDGE IVPUSH (02:01)
[2024-09-24] MEDS: cefTRIAXone sodium 1 GM VIAL IVPUSH ×2 (02:01→21:12)
[2024-09-24] MEDS: ondansetron HCL 4 MG/2 ML VIAL IVPUSH (02:01)
[2024-09-24 03:43] LABS: Basophils Percent Auto 0.4 % (0-2); Eosinophils Absolute Auto 0.1 X10*3/uL (0.0-0.4); Eosinophils Percent Auto 1.1 % (0-4); Hematocrit 37.3 % (37.0-47.0); Hemoglobin 12.8 g/dl (12.0-16.0); Imm Gran Abs Auto 0.01 X10*3/uL (0.00-0.03); Imm Gran Pct Auto 0.2 % (0.0-0.4); Lymphocytes Absolute Auto 1.6 X10*3/uL (1.2-4.9); Lymphocytes Percent Auto 29.9 % (20-40); MANUAL DIFF FLAG NO; Mean Corpuscular HGB Conc 34.3 g/dl (31.0-35.0); Mean Corpuscular Hemoglobin 29.7 pg (27.0-33.0); Mean Corpuscular Volume 86.5 fL (80.0-98.0); Mean Platelet Volume 9.8 fL (9.4-12.3); Monocytes Absolute Auto 0.4 X10*3/uL (0.1-1.2); Monocytes Percent Auto 7.4 % (2-11); Neutrophils Absolute Auto 3.2 x10*3/uL (2.0-8.3); Platelet Count 202 X10*3/uL (160-400); Red Blood Count 4.31 X10*6/uL (4.20-5.50); Red Cell Distribution Width 13.5 % (11.0-16.0); White Blood Count 5.3 X10*3/uL (4.8-10.8)
[2024-09-24 04:01] LABS: Alanine Aminotransferase 33 U/L (0-31); Albumin Level 4.1 g/dL (3.5-5.0); Anion Gap 16 (12-20); Aspartate Amino Transferase 33 U/L (5-31); Bilirubin Total 0.4 mg/dL (0.0-1.0); Blood Urea Nitrogen 15 mg/dL (9-16); Calcium 9.5 mg/dL (8.4-10.2); Carbon Dioxide 23 mmol/L (22-29); Chloride 107 mmol/L (96-108); Creatinine Clr Calc Pharmacy 88.5; Estimated Glomerular Filt Rate > 60; Glucose Random 126 mg/dL (60-115); Potassium 3.4 mmol/L (3.3-5.1); Sodium 143 mmol/L (135-145); Total Protein 7.8 g/dL (6.5-8.0)
[2024-09-24 04:08] LABS: Alkaline Phosphatase 100 U/L (39-117)
[2024-09-24] MEDS: Milk of Magnesia 30 ML ORAL.SUSP PO (04:13)
[2024-09-24 04:38] LABS: Lipase 68 U/L (8-78)
--- NOTE | 2024-09-24 07:00 | CA_ITS ---
Transthoracic Echocardiogram Patient (Last, First, Middle): Sariah Hernandez, Gender: Female Date of : 1970 Age: 54 Procedure Date: 09/24/2024 Procedure Type: Transthoracic Echocardiogram Location: ER Height: 162.56 cm Weight: 86.18 kg BSA: 1.91 m2 Heart Rate: bpm BP: 122 / 77 mmHg New Patient Escort: KENDRA Garay MD: Nikki Mehta [facility]- Emergency Telecommunications Dispatcher: Noe Kearns MD Symptoms: hx of pericardial effusion, abnormal ECG Study Quality: Fair/PEG allergy unable to use Definity ECG Rhythm: Sinus Conclusions: - Trivial pericardial effusion otherwise normal study Findings Left Ventricle Normal left ventricular size, thickness, and systolic function. The visually estimated ejection fraction is between 55-60%. Regional wall motion abnormalities can not be excluded due to suboptimal endocardial definition. Spectral Doppler is indicative of a normal filling pattern. Right Ventricle Normal right ventricular cavity size and systolic function. Atria The left atrium is normal in size. There is no evidence of interatrial shunt. The right atrium is normal in size. Aortic Valve The aortic valve structure and function is likely normal. There is no aortic valve stenosis. There is no aortic valve regurgitation. Mitral Valve Normal mitral valve structure and function. There is trace mitral valve regurgitation. There is no mitral valve stenosis. Pulmonic Valve The pulmonic valve was not well visualized. Tricuspid Valve Likely normal tricuspid valve structure and function. There is trace tricuspid valve regurgitation. The right ventricular systolic pressure is normal. The right ventricular systolic pressure is 27 mmHg. Normal right atrial pressure. There is no evidence of pulmonary hypertension. Great Vessels All visible segments of the aorta are normal in size. The pulmonary artery was not well visualized. Venous The inferior vena cava is normal in size and collapses greater than 50% with inspiration. Pericardium/Pleural There is a trivial pericardial effusion. Prior Study Comparison No prior study available for comparison. Measurements 2D Linear Measurements IVSd: 0.87 0.6-0.9/0.6-1.0 cm LVIDd: 4.29 3.9-5.3/4.2-5.9 cm LVIDd Index: 2.25 2.4-3.2/2.2-3.1 cm/m2 LVIDs: 2.98 2.0-3.6 cm LVPWd: 0.94 0.7-1.1 cm Ao Root: 2.90 2.1-3.5 cm LA Diam: 3.40 2.7-3.8/3.0-4.0 cm LAIDs Index: 1.78 1.5-2.3 cm/m2 LV Mass: 153.37 67-162/88-224 g LV Mass Index: 80.30 43-95/49-115 g/m2 LVOT Diam: 1.90 3.0+(-)1.3 cm Mitral Valve MV Pk E: 0.78 MV PK A: 0.75 MV Decel Time: 208.00 E/A: 1.00 E'Lateral: 7.62 E'Medial: 8.05 E/E' Med: 9.70 E/E' Lat: 10.20 PHT: 61.00 MVA PHT: 3.61 Decel Norton: 3.75 Aortic Valve AoV Pk Ricco: 1.41 AoV Mn Ricco: 0.84 AoV VTI: 0.21 AoV Pk Grad: 8.00 Aov Mn Grad: 3.00 CHAVO Cont.VTI: 2.66 LVOT LVOT Pk Ricco: 0.98 LVOT Mn Ricco: 0.60 LVOT VTI: 0.20 LVOT Pk Grad: 4.00 LVOT Mn Grad: 2.00 LVOT Diam: 1.90 LVOT Area: 2.84 Diastolic Function MV Pk E: 0.78 MV Pk A: 0.75 E/A: 1.00 E'Medial: 8.05 E/E' Med: 9.70 E' Laterial: 7.62 E/E' Lat: 10.20 Right Ventricle TAPSE (mm): 21.70 TVS' Ricco: 12.50 Tricuspid Valve TR Pk Ricco: 2.43 TR Pk Grad: 24.00 RA Press: 3.00 RVSP: 27.00 Great Vessels Aorta Ao Root-2D: 2.90 2.0-3.7 cm Ao Asc: 3.00 2.1-3.4 cm Updated in Other Vendor System with Status of Final Noe Kearns MD electronically signed on 09/24/2024 1:34:07 PM with status of Final
--- NOTE | 2024-09-24 08:53 | MHC.CM.PN ---
CM met with Patient at bedside, in the ED, and addressed IMM with her, providing Patient with the original and a copy will be placed on the chart. Patient lives in a house with her and 19 year old son and she has been using a walker to assist with mobility. Patient may benefit from a PT Eval to assist with disposition (home new VNA VS STR); CM has initiated and will follow for dc planning. PCP is DR. Earlene Andrade and Son will transport to home at time of dc. Patient declined the completion of a HCP.
[2024-09-24] MEDS: Potassium Chloride ER 10 MEQ TABLET.ER PO (09:19)
[2024-09-24] MEDS: polyethylene glycoL 3350 17 GM POWD.PACK PO (09:19)
--- NOTE | 2024-09-24 09:52 | PC.NURSE ---
Pt C/O Pain 01/21 but refusing Morphine- states I only want Tylenol Given Tylenol as requested.
--- NOTE | 2024-09-24 13:19 | HO.PM.IMPN ---
Subjective Subjective Date of Service: 09/24/24 Interval History: endorses bilateral leg weakness + numbness, also RUE numbness Review of Systems Review of Systems: Yes all other systems are reviewed and are negative 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 Vital Signs: Vital Signs: Last Vital Signs Temp 98.1 F 09/24/24 12:14 Pulse 67 09/24/24 12:14 Resp 18 09/24/24 12:14 BP 141/83 H 09/24/24 12:14 Pulse Ox 100 09/24/24 12:14 O2 Del Method Room Air 09/24/24 12:14 BMI result Body Mass Index 34.2 Gen: in no acute distress HEENT: sclera anicteric, moist mucus membranes Neck: supple Lungs: clear to auscultation bilaterally Heart: regular rate and rhythm, no murmurs Abd: soft, non-tender, non-distended Ext: no edema Skin: warm/well-perfused Neuro: alert and oriented x3, symmetric weakness in legs 3/5 Psych: appropriate affect Objective Data Active Medications Acetaminophen (Acetaminophen 325 Mg Tablet) 650 mg PO Q6H PRN PRN Reason: Pain, Mild 1-3,fever,headache Last Admin: 09/24/24 09:52 Dose: 650 mg Documented By: JL Albuterol/Ipratropium (Albuterol/Iprat 2.5/0.5mg 3 Ml Ampul.Neb) 3 ml INHALE Q4H PRN PRN Reason: Shortness of Breath/Wheezing Calcium Carbonate (Calcium Carbonate 750 Mg Tab.Chew) 750 mg PO Q4H PRN PRN Reason: Heartburn Ceftriaxone Sodium (Ceftriaxone Sodium 1 Gm Vial) 1 gm IVPUSH 2200 DAILY Last Admin: 09/24/24 02:01 Dose: 1 gm Documented By: SAMPSON Lorazepam (Lorazepam 0.5 Mg Tablet) 0.5 mg PO Q8H PRN PRN Reason: Anxiety Lorazepam (Lorazepam 1 Mg Tablet) 1 mg PO ONCE ONE Stop: 09/24/24 13:15 Magnesium Hydroxide (Milk Of Magnesia 30 Ml Oral.Susp) 30 ml PO DAILY PRN PRN Reason: Constipation Last Admin: 09/24/24 04:13 Dose: 30 ml Documented By: SAMPSON Melatonin (Melatonin 3 Mg Tablet) 6 mg PO BEDTIME PRN PRN Reason: Insomnia Morphine Sulfate (Morphine Sulfate 2 Mg/Ml Cartridge) 2 mg IVPUSH Q4H PRN; Protocol PRN Reason: Pain, Severe (Pain Scale 7-10) Last Admin: 09/24/24 02:01 Dose: 2 mg Documented By: SAMPSON Multi-Ingred Cream/Lotion/Oil/Oint (Artificial Tears Ophth Oint 3.5 Gm Tube) 1 appl EYE-BOTH TID PRN; Protocol PRN Reason: Dry Eyes Ondansetron HCl (Ondansetron Hcl 4 Mg/2 Ml Vial) 4 mg IVPUSH Q8H PRN PRN Reason: Nausea and Vomiting Last Admin: 09/24/24 02:01 Dose: 4 mg Documented By: SAMPSON Polyethylene Glycol (Polyethylene Glycol 3350 17 Gm Powd.Pack) 17 gm PO DAILY [facility] Last Admin: 09/24/24 09:19 Dose: 17 gm Documented By: JL Polyethylene Glycol (Polyethylene Glycol 3350 17 Gm Powd.Pack) 17 gm PO DAILY PRN PRN Reason: Constipation Potassium Chloride (Potassium Chloride Er 10 Meq Tablet.Er) 10 meq PO DAILY [facility] Last Admin: 09/24/24 09:19 Dose: 10 meq Documented By: JL Senna (Sennosides 8.6 Mg Tablet) 17.2 mg PO BEDTIME [facility] Sodium Chloride (0.9 % Sodium Chloride Flush 3 Ml Syringe) 3 ml IVFLUSH QSHIFT [facility] Last Admin: 09/24/24 09:47 Dose: 3 ml Documented By: JL Labs 09/24/24 03:37 09/24/24 03:37 Labs: Laboratory Results - last 24 hr 09/23/24 09/23/24 09/24/24 17:03 22:43 03:37 MCV 86.0 86.5 MCH 29.7 29.7 MCHC 34.6 34.3 RDW 13.4 13.5 Plt Count 230 202 MPV 9.5 9.8 Immature Gran % (Auto) 0.2 0.2 Neut % (Auto) 67.9 61.0 Lymph % (Auto) 22.3 29.9 Power % (Auto) 8.5 7.4 Eos % (Auto) 0.6 1.1 Baso % (Auto) 0.5 0.4 Lymph # (Auto) 1.4 1.6 Power # (Auto) 0.5 0.4 Eos # (Auto) 0.0 0.1 Baso # (Auto) 0.0 0.0 Abs Immat Gran (auto) 0.01 0.01 Absolute Neuts (auto) 4.2 3.2 Absolute Nucleated RBC 0.000 0.000 Nucleated RBC % (auto) 0.0 0.0 ESR 46 H Anion Gap 14 16 Estim Creat Clear Calc 93.2 88.5 Estimated GFR > 60 > 60 Random Glucose 87 126 H Calcium 9.6 9.5 Magnesium 2.3 Total Bilirubin 0.3 0.4 AST 28 33 H ALT 32 H 33 H Alkaline Phosphatase 107 100 Total Creatine Kinase 125 89 C-Reactive Protein 0.13 Total Protein 8.2 H 7.8 Albumin 4.4 4.1 Lipase 68 Urine Color Yellow Urine Appearance Clear Urine pH 5.5 Ur Specific [place] 1.025 Urine Protein Trace Urine Glucose (UA) Negative Urine Ketones 15 Urine Blood Moderate (2+) H Urine Nitrite Negative Ur Leukocyte Esterase Moderate (2+) H Urine RBC 11-20 H Urine WBC 21-50 H Ur Squamous Epith Cells 6-10 Urine Bacteria 2+ Hyaline Casts 0-2 Assessment and Plan (1) Bilateral leg weakness: Status: Acute Plan d2 for 54yo F with TERESA, NAFLD, migraine disorder, endometriosis s/p hysterectomy, pericardial effusion, currently under workup by recruiting administrator for possible autoimunie disease; presenting with worsening bilateral leg weakness and numbness/paresthesias in legs and RUE. Pt attributes it to Tdap vaccination 4 wk ago; had similar episode after Covid-19 vaccination 2 yr ago. bilateral leg weakness paresthesias - Neurology consult pending, along with MRI brain and LP with CSF studies pericardial effusion - echocardiogram pending UTI - ceftriaxone 09/24-, follow UCx TERESA - awaiting CPAP fitting constipation - bowel regimen VTE ppx - SCDs dispo - TBD In my clinical judgment, the patient requires continued inpatient hospitalization for the following reasons: neurologic workup Total time managing care of this patient today: 40 minutes. Quality Stroke Does the patient have a stroke diagnosis?: No Reason for No Anti-thrombotic by Day Two: Contraindicated VTE Prior VTE?: No VTE Risk Level:: Medical - moderate - high VTE Device Contraindication: N/A - Device Ordered VTE Drug Contraindication: N/A - Med Ordered
[2024-09-24] MEDS: LORazepam 1 MG TABLET PO (13:49)
[2024-09-24] MEDS: Artificial Tears Ophth Oint 3.5 GM TUBE 1 APPL EYE-BOTH (15:15)
[2024-09-24 15:39] LABS: Glucose CSF 69 mg/dL; Total Protein CSF 31.6 mg/dL (15-45)
[2024-09-24 15:47] LABS: Appearance CSF CLEAR; CSF Tube # 1; Color CSF COLORLESS; Red Blood Cell CSF 3 MM*3; White Blood Cell CSF 0 MM*3
[2024-09-24 15:48] LABS: CSF Appearance Clear, Colorless; CSF Tube # 3
[2024-09-24 16:14] LABS: CSF Monos 0 %; Lymphocytes CSF 0 %; Neutrophils CSF 0 %
[2024-09-24 16:15] LABS: Appearance CSF CLEAR; CSF Tube # 4; CSF Volume 3.1 ML; Color CSF COLORLESS; Red Blood Cell CSF 4 MM*3; White Blood Cell CSF 0 MM*3
--- NOTE | 2024-09-24 16:16 | PM.NEUROCN ---
History of Present Illness Data of Consult Service Date: 09/24/24 Primary Care Provider: SARA Douglas [facility] Reason for consult: Weakness This is a 54-year-old female presented to the emergency department with BECERRA and progressive symptoms involving pain from head to toe, bilateral leg weakness with bilateral foot drag and paresthesia in all extremities starting 4 days after receiving a DTaP vaccination 2 weeks prior. Patient states it takes more time to get out of bed and she is dependent on using a Rollator to ambulate. Over the last 4 days, she has increasing haziness with her vision, and a tremor in the right hand. She is not able to walk because of the pain and weakness. Denies any falls or injuries in the last 2 weeks. She has a h/o obstructive sleep apnea, fatty liver, migraine, endometriosis relieved by hysterectomy, pericardial effusion, iron-deficiency anemia, cholecystectomy, alopecia, recent viral stomach infection, previous reaction to COVID vaccination 2 years prior with similar symptoms requiring rehabilitation to walk again (patient was not diagnosed with GBS), tinnitus, pinched nerve in the cervical spine, lumbar spine stenosis and denies history of HSV 1 or 2 infection, STD's, hepatitis-B or C and HIV Patient adds that the injection was given in the left deltoid and although she has chronic tinnitus, the tinnitus in the left ear to the top of the head increased after the injection. Patient currently denies any fever, chills, night sweats or unexplained weight loss. Patient is not having any chest pain, nausea, vomiting or abdominal pain. Patient was seen at [facility] September 19 and was having complaints of worsening lower extremity pain and weakness. She was found to have hypokalemia and was treated and released. Patient was also seen by professor of poultry science 1 week prior and patient believes she was being worked up for lupus with history of a positive SERAFIN? and other possible autoimmune issues. Those lab results are still pending per patient. Overall patient's inflammatory markers have been elevated for some time. In the past had 1 positive scleroderma test and then 2 negative scleroderma tests. In the interim patient has had a pericardial effusion but with no underlying etiology or diagnosis as to the cause. At this time patient has no autoimmune diagnoses in her medical history Patient has previous episode after COVID vaccination 2 years prior resulted in similar symptoms but with less progression. Patient was told she did not have GBS back then because she still had sensation intact. Patient did require rehabilitation in order to walk again. Patient was told it was a reaction to the vaccination. Patient did undergo EEG testing and the results were unremarkable. Labs negative except sedrate of 46. MRI brain unremarkable with minor microvascular changes. [facility] Past Medical History Medical History Lumbar spinal stenosis Fatty liver Adverse neurologic event after COVID-19 vaccination Endometriosis FH: cholecystectomy Sleep apnea Migraine Alopecia IBS (irritable bowel syndrome) Asthma Pericardial effusion Anemia Kidney stones Depression Endometriosis GERD (gastroesophageal reflux disease) Fibromyalgia Scleroderma COVID-19 virus infection Cervicalgia Snoring Raynauds phenomenon SERAFIN positive Family History Family History Sister Thyroid disease Alopecia Family/Other Diabetes Surgical History Surgical History History of right oophorectomy Hx of hysterectomy Hx of cholecystectomy History of section Social History Social History Household Members: Children Housing: House Do you presently have visiting nurse or other home services: No Unable to assess alcohol history related to: Unknown Alcohol intake: never Patient Tobacco Use Status: Never used Tobacco service: No Current occupational status: employed 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 [employer] Travel History Ebola Risk: Travel/Contact With Anyone From Affected Area/s: No Has Patient Experienced Ebola Symptoms: No Meds Allergies Allergy/AdvReac Type Severity Reaction Status Date / Time ketorolac [From TORADOL] Allergy Intermediate hives Verified 09/23/24 23:22 polyethylene glycol Allergy Intermediate Unknown Verified 09/24/24 10:52 COVID-19 (SARS-CoV-2) Allergy Hives Verified 09/23/24 23:22 vaccine, olivier perflutren [From Definity] AdvReac Unknown Verified 09/24/24 10:54 contrast dye Allergy Intermediate Hives Uncoded 09/23/24 23:22 gabapentin AdvReac Weakness Uncoded 09/23/24 23:22 Active Medications: Current Medications Acetaminophen (Acetaminophen 325 Mg Tablet) 650 mg PO Q6H PRN PRN Reason: Pain, Mild 1-3,fever,headache Last Admin: 09/24/24 16:07 Dose: 650 mg Albuterol/Ipratropium (Albuterol/Iprat 2.5/0.5mg 3 Ml Ampul.Neb) 3 ml INHALE Q4H PRN PRN Reason: Shortness of Breath/Wheezing Calcium Carbonate (Calcium Carbonate 750 Mg Tab.Chew) 750 mg PO Q4H PRN PRN Reason: Heartburn Ceftriaxone Sodium (Ceftriaxone Sodium 1 Gm Vial) 1 gm IVPUSH 2200 [facility] Last Admin: 09/24/24 02:01 Dose: 1 gm Lorazepam (Lorazepam 0.5 Mg Tablet) 0.5 mg PO Q8H PRN PRN Reason: Anxiety Magnesium Hydroxide (Milk Of Magnesia 30 Ml Oral.Susp) 30 ml PO DAILY PRN PRN Reason: Constipation Last Admin: 09/24/24 04:13 Dose: 30 ml Melatonin (Melatonin 3 Mg Tablet) 6 mg PO BEDTIME PRN PRN Reason: Insomnia Morphine Sulfate (Morphine Sulfate 2 Mg/Ml Cartridge) 2 mg IVPUSH Q4H PRN; Protocol PRN Reason: Pain, Severe (Pain Scale 7-10) Last Admin: 09/24/24 02:01 Dose: 2 mg Multi-Ingred Cream/Lotion/Oil/Oint (Artificial Tears Ophth Oint 3.5 Gm Tube) 1 appl EYE-BOTH TID PRN; Protocol PRN Reason: Dry Eyes Last Admin: 09/24/24 15:15 Dose: 1 appl Ondansetron HCl (Ondansetron Hcl 4 Mg/2 Ml Vial) 4 mg IVPUSH Q8H PRN PRN Reason: Nausea and Vomiting Last Admin: 09/24/24 02:01 Dose: 4 mg Polyethylene Glycol (Polyethylene Glycol 3350 17 Gm Powd.Pack) 17 gm PO DAILY [facility] Last Admin: 09/24/24 09:19 Dose: 17 gm Polyethylene Glycol (Polyethylene Glycol 3350 17 Gm Powd.Pack) 17 gm PO DAILY PRN PRN Reason: Constipation Potassium Chloride (Potassium Chloride Er 10 Meq Tablet.Er) 10 meq PO DAILY [facility] Last Admin: 09/24/24 09:19 Dose: 10 meq Senna (Sennosides 8.6 Mg Tablet) 17.2 mg PO BEDTIME [facility] Sodium Chloride (0.9 % Sodium Chloride Flush 3 Ml Syringe) 3 [facility] Last Admin: 09/24/24 15:16 Dose: 3 ml Home Medications ?Medication ?Instructions ?Recorded ?Confirmed ?Last Taken ?Type polyethylene glycol 3350 17 17 g PO DAILY PRN Constipation 01/25/23 09/23/24 Unknown History gram/dose oral powder (Gavilax) acetaminophen 500 mg tablet 500 mg PO Q6H PRN Pain 09/23/24 09/23/24 Unknown History potassium chloride 10 mEq 10 meq PO DAILY 09/23/24 09/23/24 09/22/24 History tablet,extended release(part/cryst) 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 Vital Signs: Vital Signs: Last Vital Signs Temp 97.5 F 09/24/24 14:57 Pulse 64 09/24/24 14:57 Resp 16 09/24/24 14:57 BP 121/71 09/24/24 14:57 Pulse Ox 99 09/24/24 14:57 O2 Del Method Room Air 09/24/24 14:57 BMI result Body Mass Index 34.2 Neuro: Other: Diffuse give away weakness in a generalized distribution including neck muscles that may be submaximal voluntary effort. DTRs are hypoactive 0-1+. Plantars are flexor Results Labs 09/24/24 03:37 09/24/24 03:37 Labs: Short CBC 09/23/24 09/24/24 Range/Units 17:03 03:37 WBC 6.2 5.3 (4.8-10.8) X10*3/uL Hgb 13.2 12.8 (12.0-16.0) g/dl Hct 38.2 37.3 (37.0-47.0) % Plt Count 230 202 (160-400) X10*3/uL BMP 09/23/24 09/24/24 17:03 03:37 Sodium 143 143 Potassium 3.7 3.4 Chloride 108 107 Carbon Dioxide 25 23 BUN 16 15 Creatinine 0.75 0.79 Calcium 9.6 9.5 Cardiac Enzymes 09/23/24 09/24/24 Range/Units 17:03 03:37 Total Creatine Kinase 125 89 (26-140) U/L Liver Function 09/23/24 09/24/24 Range/Units 17:03 03:37 Total Bilirubin 0.3 0.4 (0.0-1.0) mg/dL AST 28 33 H (5-31) U/L ALT 32 H 33 H (0-31) U/L Alkaline Phosphatase 107 100 (39-117) U/L Albumin 4.4 4.1 (3.5-5.0) g/dL Urine 09/23/24 Range/Units 22:43 Urine Color Yellow Urine Appearance Clear Urine pH 5.5 (5.0-9.0) Ur Specific [place] 1.025 (1.005-1.025) Urine Protein Trace (Neg-Trace) mg/dL Urine Glucose (UA) Negative (Negative) mg/dL Assessment and Plan (1) Bilateral leg weakness: Status: Acute R/o Guillain Havelock syndrome . No evidence of MANAGER [employer] EQUIPMENT disorder. Recom: Lumbar puncture to look for elevated proteins. Nerve conduction/ EMG including F -waves. Check CPK and ALdolase (2) Paresthesia: Status: Acute Procedures Date of Service Date of Service: 09/24/24
[2024-09-24 16:43] LABS: Cryptococcus neoformans/gattii Not Detected (Not Detect.); Enterovirus Not Detected (Not Detect.); Escherichia coli K1 Not Detected (Not Detect.); Haemophilus influenzae Not Detected (Not Detect.); Herpes simplex virus 1 Not Detected (Not Detect.); Herpes simplex virus 2 Not Detected (Not Detect.); Human herpesvirus 6 Not Detected (Not Detect.); Human parechovirus Not Detected (Not Detect.); Listeria monocytogenes Not Detected (Not Detect.); Neisseria meningitidis Not Detected (Not Detect.); Streptococcus agalactiae Not Detected (Not Detect.); Streptococcus pneumoniae Not Detected (Not Detect.); Varicella zoster virus Not Detected (Not Detect.)
[2024-09-24 20:14] LABS: Oligoclonal Serum Yes
[2024-09-24] MEDS: Sennosides 8.6 MG TABLET 17.2 MG PO (21:12)
[2024-09-25] MEDS: Acetaminophen 325 MG TABLET 650 MG PO ×2 (03:25→15:41)
[2024-09-25 03:32] VITALS: BP 128/75; PULSE 76; RESP 17; TEMP 36.4; O2SAT 97
[2024-09-25 06:32] LABS: Hematocrit 35.9 % (37.0-47.0); Hemoglobin 11.9 g/dl (12.0-16.0); Mean Corpuscular HGB Conc 33.1 g/dl (31.0-35.0); Mean Corpuscular Hemoglobin 29.2 pg (27.0-33.0); Platelet Count 188 X10*3/uL (160-400); Red Blood Count 4.08 X10*6/uL (4.20-5.50); Red Cell Distribution Width 13.7 % (11.0-16.0); White Blood Count 4.1 X10*3/uL (4.8-10.8)
[2024-09-25 06:50] LABS: Alanine Aminotransferase 29 U/L (0-31); Albumin Level 3.8 g/dL (3.5-5.0); Alkaline Phosphatase 92 U/L (39-117); Anion Gap 12 (12-20); Aspartate Amino Transferase 25 U/L (5-31); Bilirubin Total 0.3 mg/dL (0.0-1.0); Blood Urea Nitrogen 15 mg/dL (9-16); Calcium 9.2 mg/dL (8.4-10.2); Carbon Dioxide 26 mmol/L (22-29); Chloride 108 mmol/L (96-108); Creatinine Clr Calc Pharmacy 95.5; Estimated Glomerular Filt Rate > 60; Glucose Random 114 mg/dL (60-115); Potassium 3.5 mmol/L (3.3-5.1); Sodium 142 mmol/L (135-145)
[2024-09-25 07:22] VITALS: BP 130/78; PULSE 82; RESP 18; TEMP 36.2; O2SAT 100
[2024-09-25 07:56] LABS: HIV AB/AG Nonreactive (Nonreactive); HIV Num 1 0.07 S/CO (0.00-0.99)
[2024-09-25] MEDS: Potassium Chloride ER 10 MEQ TABLET.ER PO (08:27)
[2024-09-25] MEDS: polyethylene glycoL 3350 17 GM POWD.PACK PO (08:28)
[2024-09-25] MEDS: 0.9 % Sodium Chloride Flush 3 ML SYRINGE IVFLUSH ×2 (08:29→21:28)
[2024-09-25 11:20] LABS: Glucose, Whole Blood 114 mg/dL (60-115)
[2024-09-25 12:15] VITALS: BP 113/73; PULSE 76; RESP 18; TEMP 36.7; O2SAT 97
--- NOTE | 2024-09-25 12:37 | MHC.CM.PN ---
PT rec acute rehab. Reviewed w/ patient who is amenable and does not have a facility preference. Referrals sent via [facility]. CM will continue to follow.
--- NOTE | 2024-09-25 13:47 | HO.PM.IMPN ---
Subjective Subjective Date of Service: 09/25/24 Interval History: c/o worsening weakness in legs, tingling of arms and now face c/o R kidney pain, minimal dysuria Review of Systems Review of Systems: Yes all other systems are reviewed and are negative 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 Vital Signs: Vital Signs: Last Vital Signs Temp 98.1 F 09/25/24 12:15 Pulse 76 09/25/24 12:15 Resp 18 09/25/24 12:15 BP 113/73 09/25/24 12:15 Pulse Ox 97 09/25/24 12:15 O2 Del Method Room Air 09/25/24 12:15 BMI result Body Mass Index 34.2 Gen: in no acute distress HEENT: sclera anicteric, moist mucus membranes Neck: supple Lungs: clear to auscultation bilaterally Heart: regular rate and rhythm, no murmurs Abd: soft, non-tender, non-distended Ext: no edema Skin: warm/well-perfused Neuro: alert and oriented x3, symmetric weakness in legs 3/5 Psych: appropriate affect Objective Data Active Medications Acetaminophen (Acetaminophen 325 Mg Tablet) 650 mg PO Q6H PRN PRN Reason: Pain, Mild 1-3,fever,headache Last Admin: 09/25/24 03:25 Dose: 650 mg Documented By: APARNA Albuterol/Ipratropium (Albuterol/Iprat 2.5/0.5mg 3 Ml Ampul.Neb) 3 ml INHALE Q4H PRN PRN Reason: Shortness of Breath/Wheezing Calcium Carbonate (Calcium Carbonate 750 Mg Tab.Chew) 750 mg PO Q4H PRN PRN Reason: Heartburn Ceftriaxone Sodium (Ceftriaxone Sodium 1 Gm Vial) 1 gm IVPUSH 2200 DAILY Last Admin: 09/24/24 21:12 Dose: 1 gm Documented By: APARNA Lorazepam (Lorazepam 0.5 Mg Tablet) 0.5 mg PO Q8H PRN PRN Reason: Anxiety Magnesium Hydroxide (Milk Of Magnesia 30 Ml Oral.Susp) 30 ml PO DAILY PRN PRN Reason: Constipation Last Admin: 09/24/24 04:13 Dose: 30 ml Documented By: SAMPSON Melatonin (Melatonin 3 Mg Tablet) 6 mg PO BEDTIME PRN PRN Reason: Insomnia Morphine Sulfate (Morphine Sulfate 2 Mg/Ml Cartridge) 2 mg IVPUSH Q4H PRN; Protocol PRN Reason: Pain, Severe (Pain Scale 7-10) Last Admin: 09/24/24 02:01 Dose: 2 mg Documented By: SAMPSON Multi-Ingred Cream/Lotion/Oil/Oint (Artificial Tears Ophth Oint 3.5 Gm Tube) 1 appl EYE-BOTH TID PRN; Protocol PRN Reason: Dry Eyes Last Admin: 09/24/24 15:15 Dose: 1 appl Documented By: AVRIL Ondansetron HCl (Ondansetron Hcl 4 Mg/2 Ml Vial) 4 mg IVPUSH Q8H PRN PRN Reason: Nausea and Vomiting Last Admin: 09/24/24 02:01 Dose: 4 mg Documented By: SAMPSON Polyethylene Glycol (Polyethylene Glycol 3350 17 Gm Powd.Pack) 17 gm PO DAILY [facility] Last Admin: 09/25/24 08:28 Dose: 17 gm Documented By: GENA Polyethylene Glycol (Polyethylene Glycol 3350 17 Gm Powd.Pack) 17 gm PO DAILY PRN PRN Reason: Constipation Potassium Chloride (Potassium Chloride Er 10 Meq Tablet.Er) 10 meq PO DAILY [facility] Last Admin: 09/25/24 08:27 Dose: 10 meq Documented By: GENA Senna (Sennosides 8.6 Mg Tablet) 17.2 mg PO BEDTIME [facility] Last Admin: 09/24/24 21:12 Dose: 17.2 mg Documented By: APARNA Sodium Chloride (0.9 % Sodium Chloride Flush 3 Ml Syringe) 3 ml IVFLUSH QSHIFT [facility] Last Admin: 09/25/24 08:29 Dose: 3 ml Documented By: GENA Labs 09/25/24 06:12 09/25/24 06:13 Labs: Laboratory Results - last 24 hr 09/24/24 09/24/24 09/24/24 14:24 14:24 14:24 MCV MCH MCHC RDW Plt Count MPV Absolute Nucleated RBC Nucleated RBC % (auto) Anion Gap Estim Creat Clear Calc Estimated GFR POC Glucose Random Glucose Calcium Total Bilirubin AST ALT Alkaline Phosphatase Total Creatine Kinase Total Protein Albumin CSF Tube Number 3 1 4 CSF Volume 3.0 CSF Appearance CSF Color CSF WBC CSF RBC CSF Neutrophils CSF Lymphocytes CSF Monocytes % CSF Appearance (b) CSF Glucose CSF Total Protein CSF C.neoform/gat PCR CSF CMV DNA (PCR) CSF Enterovirus (PCR) CSF E. coli K1 (PCR) CSF H. influenzae (PCR) CSF HSV I (PCR) CSF HSV II (PCR) CSF HHV 6 (PCR) CSF L.monocytogenes PCR CSF N. meningitidis PCR CSF Parechovirus (PCR) CSF S. agalactiae (PCR) CSF S. pneumoniae (PCR) CSF VZV (PCR) HIV 1&2 Ab/P24 Ag 4thGn 09/24/24 09/24/24 09/24/24 14:24 14:24 14:24 MCV MCH MCHC RDW Plt Count MPV Absolute Nucleated RBC Nucleated RBC % (auto) Anion Gap Estim Creat Clear Calc Estimated GFR POC Glucose Random Glucose Calcium Total Bilirubin AST ALT Alkaline Phosphatase Total Creatine Kinase Total Protein Albumin CSF Tube Number CSF Volume 3.1 CSF Appearance CLEAR CLEAR CSF Color COLORLESS COLORLESS CSF WBC 0 CSF RBC CSF Neutrophils CSF Lymphocytes CSF Monocytes % CSF Appearance (b) CSF Glucose CSF Total Protein CSF C.neoform/gat PCR CSF CMV DNA (PCR) CSF Enterovirus (PCR) CSF E. coli K1 (PCR) CSF H. influenzae (PCR) CSF HSV I (PCR) CSF HSV II (PCR) CSF HHV 6 (PCR) CSF L.monocytogenes PCR CSF N. meningitidis PCR CSF Parechovirus (PCR) CSF S. agalactiae (PCR) CSF S. pneumoniae (PCR) CSF VZV (PCR) HIV 1&2 Ab/P24 Ag 4thGn 09/24/24 09/24/24 09/25/24 14:24 14:24 06:12 MCV 88.0 MCH 29.2 MCHC 33.1 RDW 13.7 Plt Count 188 MPV 10.0 Absolute Nucleated RBC 0.000 Nucleated RBC % (auto) 0.0 Anion Gap Estim Creat Clear Calc Estimated GFR POC Glucose Random Glucose Calcium Total Bilirubin AST ALT Alkaline Phosphatase Total Creatine Kinase Total Protein Albumin CSF Tube Number CSF Volume CSF Appearance CSF Color CSF WBC 0 CSF RBC 3 4 CSF Neutrophils 0 CSF Lymphocytes 0 CSF Monocytes % 0 CSF Appearance (b) Clear, Colorless CSF Glucose 69 CSF Total Protein 31.6 CSF C.neoform/gat PCR Not Detected CSF CMV DNA (PCR) Not Detected CSF Enterovirus (PCR) Not Detected CSF E. coli K1 (PCR) Not Detected CSF H. influenzae (PCR) Not Detected CSF HSV I (PCR) Not Detected CSF HSV II (PCR) Not Detected CSF HHV 6 (PCR) Not Detected CSF L.monocytogenes PCR Not Detected CSF N. meningitidis PCR Not Detected CSF Parechovirus (PCR) Not Detected CSF S. agalactiae (PCR) Not Detected CSF S. pneumoniae (PCR) Not Detected CSF VZV (PCR) Not Detected HIV 1&2 Ab/P24 Ag 4thGn Nonreactive 09/25/24 09/25/24 06:13 11:17 MCV MCH MCHC RDW Plt Count MPV Absolute Nucleated RBC Nucleated RBC % (auto) Anion Gap 12 Estim Creat Clear Calc 95.5 Estimated GFR > 60 POC Glucose 114 Random Glucose 114 Calcium 9.2 Total Bilirubin 0.3 AST 25 ALT 29 Alkaline Phosphatase 92 Total Creatine Kinase 56 Total Protein 7.0 Albumin 3.8 CSF Tube Number CSF Volume CSF Appearance CSF Color CSF WBC CSF RBC CSF Neutrophils CSF Lymphocytes CSF Monocytes % CSF Appearance (b) CSF Glucose CSF Total Protein CSF C.neoform/gat PCR CSF CMV DNA (PCR) CSF Enterovirus (PCR) CSF E. coli K1 (PCR) CSF H. influenzae (PCR) CSF HSV I (PCR) CSF HSV II (PCR) CSF HHV 6 (PCR) CSF L.monocytogenes PCR CSF N. meningitidis PCR CSF Parechovirus (PCR) CSF S. agalactiae (PCR) CSF S. pneumoniae (PCR) CSF VZV (PCR) HIV 1&2 Ab/P24 Ag 4thGn Microbiology Microbiology Results: Microbiology 09/24/24 14:24 Gram Stain - Final Cerebrospinal Fluid Fluid Description - Final CSF Culture - Preliminary No growth after 1 day 09/24/24 01:56 Blood Culture - Preliminary Blood - Venous No growth after 24 hours. 09/24/24 01:56 Blood Culture - Preliminary Blood - Venous No growth after 24 hours. Assessment and Plan (1) Bilateral leg weakness: Status: Acute Plan d3 for 54yo F with TERESA, NAFLD, migraine disorder, endometriosis s/p hysterectomy, pericardial effusion, currently under workup by plodding operator for possible autoimunie disease; presenting with worsening bilateral leg weakness and numbness/paresthesias in legs and RUE. Pt attributes it to Tdap vaccination 4 wk ago; had similar episode after Covid-19 vaccination 2 yr ago. bilateral leg weakness paresthesias - Neurology consulted; MRI brain with minimal small vessl ischemia but no other lesions. LP done 09/24, CSF protein completely normal; MBP + oligoclonal bands pending. Per Neuro likely functional disorder but will obtain MRI C-spine; needs outpatient EMG/NCS. CPK normal; aldolase + TSH/fT4 pending. PT/OT recommend AIR pericardial effusion - echocardiogram with only trivial pericardial effusion UTI - ceftriaxone 09/24-, follow UCx TERESA - awaiting CPAP fitting as outpt constipation - bowel regimen VTE ppx - SCDs dispo - AIR In my clinical judgment, the patient requires continued inpatient hospitalization for the following reasons: neurologic workup, AIR placement Total time managing care of this patient today: 35 minutes. Quality Stroke Does the patient have a stroke diagnosis?: No Reason for No Anti-thrombotic by Day Two: Contraindicated VTE Prior VTE?: No VTE Risk Level:: Medical - moderate - high VTE Device Contraindication: N/A - Device Ordered VTE Drug Contraindication: N/A - Med Ordered
--- NOTE | 2024-09-25 14:29 | P.CNNE_ITS ---
History of Present Illness Data of Consult Service Date: 09/25/24 Primary Care Provider: SARA Douglas HPI Reason for consult: Paresthesia 54 years old woman who reported that after 3 days of taking a vaccine shot she developed tingling and numbness in her legs arms face around her lips in eyes and weakness and came to hospital. There was no associated diarrhea loss of bowel bladder control any significant pain or obvious cold or flu-like illness. She had a lumbar puncture that revealed no significant abnormality. MRI of brain and CAT scan of brain did not reveal any significant abnormality. She continues to complain of tingling and numbness. Review of Systems 2 Review of Systems: As per HPI [facility] Past Medical History Medical History Lumbar spinal stenosis Fatty liver Adverse neurologic event after COVID-19 vaccination Endometriosis FH: cholecystectomy Sleep apnea Migraine Alopecia IBS (irritable bowel syndrome) Asthma Pericardial effusion Anemia Kidney stones Depression Endometriosis GERD (gastroesophageal reflux disease) Fibromyalgia Scleroderma COVID-19 virus infection Cervicalgia Snoring Raynauds phenomenon SERAFIN positive Family History Family History Sister Thyroid disease Alopecia Family/Other Diabetes Surgical History Surgical History History of right oophorectomy Hx of hysterectomy Hx of cholecystectomy History of section Social History Social History Household Members: Children Housing: House Do you presently have visiting nurse or other home services: No Unable to assess alcohol history related to: Unknown Alcohol intake: never Patient Tobacco Use Status: Never used Tobacco service: No Current occupational status: employed 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 [employer] Travel History Ebola Risk: Travel/Contact With Anyone From Affected Area/s: No Has Patient Experienced Ebola Symptoms: No Meds Allergies Allergy/AdvReac Type Severity Reaction Status Date / Time ketorolac [From TORADOL] Allergy Intermediate hives Verified 09/23/24 23:22 polyethylene glycol Allergy Intermediate Unknown Verified 09/24/24 10:52 COVID-19 (SARS-CoV-2) Allergy Hives Verified 09/23/24 23:22 vaccine, olivier perflutren [From [facility]] AdvReac Unknown Verified 09/24/24 10:54 contrast dye Allergy Intermediate Hives Uncoded 09/23/24 23:22 gabapentin AdvReac Weakness Uncoded 09/23/24 23:22 Active Medications: Current Medications Acetaminophen (Acetaminophen 325 Mg Tablet) 650 mg PO Q6H PRN PRN Reason: Pain, Mild 1-3,fever,headache Last Admin: 09/25/24 03:25 Dose: 650 mg Albuterol/Ipratropium (Albuterol/Iprat 2.5/0.5mg 3 Ml Ampul.Neb) 3 ml INHALE Q4H PRN PRN Reason: Shortness of Breath/Wheezing Calcium Carbonate (Calcium Carbonate 750 Mg Tab.Chew) 750 mg PO Q4H PRN PRN Reason: Heartburn Ceftriaxone Sodium (Ceftriaxone Sodium 1 Gm Vial) 1 gm IVPUSH 2200 DAILY Last Admin: 09/24/24 21:12 Dose: 1 gm Lorazepam (Lorazepam 0.5 Mg Tablet) 0.5 mg PO Q8H PRN PRN Reason: Anxiety Magnesium Hydroxide (Milk Of Magnesia 30 Ml Oral.Susp) 30 ml PO DAILY PRN PRN Reason: Constipation Last Admin: 09/24/24 04:13 Dose: 30 ml Melatonin (Melatonin 3 Mg Tablet) 6 mg PO BEDTIME PRN PRN Reason: Insomnia Morphine Sulfate (Morphine Sulfate 2 Mg/Ml Cartridge) 2 mg IVPUSH Q4H PRN; Protocol PRN Reason: Pain, Severe (Pain Scale 7-10) Last Admin: 09/24/24 02:01 Dose: 2 mg Multi-Ingred Cream/Lotion/Oil/Oint (Artificial Tears Ophth Oint 3.5 Gm Tube) 1 appl EYE-BOTH TID PRN; Protocol PRN Reason: Dry Eyes Last Admin: 09/24/24 15:15 Dose: 1 appl Ondansetron HCl (Ondansetron Hcl 4 Mg/2 Ml Vial) 4 mg IVPUSH Q8H PRN PRN Reason: Nausea and Vomiting Last Admin: 09/24/24 02:01 Dose: 4 mg Polyethylene Glycol (Polyethylene Glycol 3350 17 Gm Powd.Pack) 17 gm PO DAILY DAILY Last Admin: 09/25/24 08:28 Dose: 17 gm Polyethylene Glycol (Polyethylene Glycol 3350 17 Gm Powd.Pack) 17 gm PO DAILY PRN PRN Reason: Constipation Potassium Chloride (Potassium Chloride Er 10 Meq Tablet.Er) 10 meq PO DAILY [facility] Last Admin: 09/25/24 08:27 Dose: 10 meq Senna (Sennosides 8.6 Mg Tablet) 17.2 mg PO BEDTIME [facility] Last Admin: 09/24/24 21:12 Dose: 17.2 mg Sodium Chloride (0.9 % Sodium Chloride Flush 3 Ml Syringe) 3 ml IVFLUSH QSHIFT [facility] Last Admin: 09/25/24 08:29 Dose: 3 ml Home Medications ?Medication ?Instructions ?Recorded ?Confirmed ?Last Taken ?Type polyethylene glycol 3350 17 17 g PO DAILY PRN Constipation 01/25/23 09/23/24 Unknown History gram/dose oral powder (Gavilax) acetaminophen 500 mg tablet 500 mg PO Q6H PRN Pain 09/23/24 09/23/24 Unknown History potassium chloride 10 mEq 10 meq PO DAILY 09/23/24 09/23/24 09/22/24 History tablet,extended release(part/cryst) 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 2 Vital Signs: Vital Signs: Last Vital Signs Temp 98.1 F 09/25/24 12:15 Pulse 76 09/25/24 12:15 Resp 18 09/25/24 12:15 BP 113/73 09/25/24 12:15 Pulse Ox 97 09/25/24 12:15 O2 Del Method Room Air 09/25/24 12:15 BMI result Body Mass Index 34.2 Neuro: Other: She is alert and awake with normal spontaneity of speech fluency comprehension and affect. There is no ptosis. Speech is normal. Deep tendon reflexes are trace with flexor plantars. She is able to stand up holding my hand and was hesitant to take a step. Results Labs 09/25/24 06:12 09/25/24 06:13 Labs: Short CBC 09/25/24 Range/Units 06:12 WBC 4.1 L (4.8-10.8) X10*3/uL Hgb 11.9 L (12.0-16.0) g/dl Hct 35.9 L (37.0-47.0) % Plt Count 188 (160-400) X10*3/uL BMP 09/25/24 06:13 Sodium 142 Potassium 3.5 Chloride 108 Carbon Dioxide 26 BUN 15 Creatinine 0.75 Calcium 9.2 Cardiac Enzymes 09/25/24 Range/Units 06:13 Total Creatine Kinase 56 (26-140) U/L Liver Function 09/25/24 Range/Units 06:13 Total Bilirubin 0.3 (0.0-1.0) mg/dL AST 25 (5-31) U/L ALT 29 (0-31) U/L Alkaline Phosphatase 92 (39-117) U/L Albumin 3.8 (3.5-5.0) g/dL Microbiology Microbiology Results: Microbiology 09/24/24 14:24 Cerebrospinal Fluid Gram Stain - Final 09/24/24 14:24 Cerebrospinal Fluid Fluid Description - Final 09/24/24 14:24 Cerebrospinal Fluid CSF Culture - Preliminary No growth after 1 day 09/24/24 01:56 Blood - Venous Blood Culture - Preliminary No growth after 24 hours. 09/24/24 01:56 Blood - Venous Blood Culture - Preliminary No growth after 24 hours. Assessment and Plan (1) Paresthesia: Status: Acute Unclear etiology of paresthesia syndrome with generalized weakness after 3 days of taking a vaccine shot, which was atypical for demyelinating neuropathy or Guillain-Empire type of syndrome. Lumbar puncture did not reveal any significant abnormality and brain imaging was normal. Clinical examination did not suggest any upper motor neuron or spinal cord pathology. My recommendation is to involve PT OT, reassured her, and consider outpatient EMG nerve conduction study. Procedures Date of Service Date of Service: 09/25/24
[2024-09-25 14:42] LABS: TSH reflex Free T4 1.38 uIU/mL (0.32-4.0)
[2024-09-25 15:12] VITALS: BP 129/65; PULSE 73; RESP 18; TEMP 36.6; O2SAT 99
[2024-09-25] MEDS: Milk of Magnesia 30 ML ORAL.SUSP PO (15:47)
[2024-09-25 19:31] VITALS: BP 121/76; PULSE 92; RESP 18; TEMP 36.6; O2SAT 98
[2024-09-25] MEDS: LORazepam 0.5 MG TABLET PO (20:27)
[2024-09-25] MEDS: Sennosides 8.6 MG TABLET 17.2 MG PO (21:26)
[2024-09-25] MEDS: cefTRIAXone sodium 1 GM VIAL IVPUSH (21:26)
[2024-09-26 03:30] VITALS: BP 111/64; PULSE 88; RESP 18; TEMP 36.9; O2SAT 99
[2024-09-26 07:58] VITALS: BP 124/80; PULSE 68; RESP 18; TEMP 36.1; O2SAT 99
[2024-09-26] MEDS: polyethylene glycoL 3350 17 GM POWD.PACK PO (08:57)
[2024-09-26] MEDS: cefuroxime axetiL 500 MG TABLET PO (08:57)
[2024-09-26] MEDS: 0.9 % Sodium Chloride Flush 3 ML SYRINGE IVFLUSH (08:57)
--- NOTE | 2024-09-26 12:44 | P.PNIM_ITS ---
Subjective Subjective Date of Service: 09/26/24 Interval History: c/o weakness of legs, paresthesias of arms and face c/o binocular diplopia Review of Systems Review of Systems: Yes all other systems are reviewed and are negative 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 2 Vital Signs: Vital Signs: Last Vital Signs Temp 97.0 F 09/26/24 07:58 Pulse 68 09/26/24 07:58 Resp 18 09/26/24 07:58 BP 124/80 09/26/24 07:58 Pulse Ox 99 09/26/24 07:58 O2 Del Method Room Air 09/26/24 07:58 BMI result Body Mass Index 34.2 Gen: in no acute distress HEENT: sclera anicteric, moist mucus membranes Neck: supple Lungs: clear to auscultation bilaterally Heart: regular rate and rhythm, no murmurs Abd: soft, non-tender, non-distended Ext: no edema Skin: warm/well-perfused Neuro: alert and oriented x3, symmetric weakness in legs 3/5 Psych: appropriate affect Objective Data Active Medications Acetaminophen (Acetaminophen 325 Mg Tablet) 650 mg PO Q6H PRN PRN Reason: Pain, Mild 1-3,fever,headache Last Admin: 09/25/24 15:41 Dose: 650 mg Documented By: GENA Albuterol/Ipratropium (Albuterol/Iprat 2.5/0.5mg 3 Ml Ampul.Neb) 3 ml INHALE Q4H PRN PRN Reason: Shortness of Breath/Wheezing Calcium Carbonate (Calcium Carbonate 750 Mg Tab.Chew) 750 mg PO Q4H PRN PRN Reason: Heartburn Cefuroxime Axetil (Cefuroxime Axetil 500 Mg Tablet) 500 mg PO Q12H [facility] Last Admin: 09/26/24 08:57 Dose: 500 mg Documented By: GENA Lorazepam (Lorazepam 0.5 Mg Tablet) 0.5 mg PO Q8H PRN PRN Reason: Anxiety Last Admin: 09/25/24 20:27 Dose: 0.5 mg Documented By: APARNA Magnesium Hydroxide (Milk Of Magnesia 30 Ml Oral.Susp) 30 ml PO DAILY PRN PRN Reason: Constipation Last Admin: 09/25/24 15:47 Dose: 30 ml Documented By: GENA Melatonin (Melatonin 3 Mg Tablet) 6 mg PO BEDTIME PRN PRN Reason: Insomnia Morphine Sulfate (Morphine Sulfate 2 Mg/Ml Cartridge) 2 mg IVPUSH Q4H PRN; Protocol PRN Reason: Pain, Severe (Pain Scale 7-10) Last Admin: 09/24/24 02:01 Dose: 2 mg Documented By: SAMPSON Multi-Ingred Cream/Lotion/Oil/Oint (Artificial Tears Ophth Oint 3.5 Gm Tube) 1 appl EYE-BOTH TID PRN; Protocol PRN Reason: Dry Eyes Last Admin: 09/24/24 15:15 Dose: 1 appl Documented By: AVRIL Ondansetron HCl (Ondansetron Hcl 4 Mg/2 Ml Vial) 4 mg IVPUSH Q8H PRN PRN Reason: Nausea and Vomiting Last Admin: 09/24/24 02:01 Dose: 4 mg Documented By: SAMPSON Polyethylene Glycol (Polyethylene Glycol 3350 17 Gm Powd.Pack) 17 gm PO DAILY [facility] Last Admin: 09/26/24 08:57 Dose: 17 gm Documented By: GENA Polyethylene Glycol (Polyethylene Glycol 3350 17 Gm Powd.Pack) 17 gm PO DAILY PRN PRN Reason: Constipation Potassium Chloride (Potassium Chloride Er 10 Meq Tablet.Er) 10 meq PO DAILY [facility] Last Admin: 09/26/24 08:59 Dose: Not Given Documented By: GENA Non-Admin Reason: Patient Refused Senna (Sennosides 8.6 Mg Tablet) 17.2 mg PO BEDTIME [facility] Last Admin: 09/25/24 21:26 Dose: 17.2 mg Documented By: APARNA Sodium Chloride (0.9 % Sodium Chloride Flush 3 Ml Syringe) [facility] Last Admin: 09/26/24 08:57 Dose: 3 ml Documented By: GENA Labs 09/25/24 06:12 09/25/24 06:13 Labs: Laboratory Results - last 24 hr 09/25/24 06:13 TSH 1.38 Microbiology Microbiology Results: Microbiology 09/24/24 14:24 Gram Stain - Final Cerebrospinal Fluid Fluid Description - Final CSF Culture - Preliminary No growth after 2 days 09/24/24 01:56 Blood Culture - Preliminary Blood - Venous No growth after 48 hours. 09/24/24 01:56 Blood Culture - Preliminary Blood - Venous No growth after 48 hours. 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 Pt attributes it to Tdap vaccination 4 wk ago; had similar episode after Covid-19 vaccination 2 yr ago. bilateral leg weakness paresthesias - Neurology consulted; MRI brain with minimal small vessl ischemia but no other lesions. LP done 09/24, CSF protein completely normal; MBP + oligoclonal bands pending. Per Neuro likely functional disorder but recommends outpatient EMG/NCS. CPK normal; aldolase + TSH/fT4 pending. PT/OT recommend AIR binocular diplopia - outpt Ophthalmology referral pericardial effusion - echocardiogram with only trivial pericardial effusion UTI, GBS - ceftriaxone 09/24-09/26, change to cefuroxime 09/26-10/01 TERESA - awaiting CPAP fitting as outpt constipation - bowel regimen VTE ppx - SCDs dispo - AIR In my clinical judgment, the patient requires continued inpatient hospitalization for the following reasons: placement Total time managing care of this patient today: 35 minutes. Quality Stroke Does the patient have a stroke diagnosis?: No Reason for No Anti-thrombotic by Day Two: Contraindicated VTE Prior VTE?: No VTE Risk Level:: Medical - moderate - high VTE Device Contraindication: N/A - Device Ordered VTE Drug Contraindication: N/A - Med Ordered
--- NOTE | 2024-09-26 14:14 | MHC.CM.PN ---
Addendum entered by Azeb Garcia 09/26/24 16:24: [facility] HAS INSURANCE AUTH BLS TRANSPORT VIA [facility] SCHEDULED FOR 1800 HOURS Original Note: NO ACUTE REHAB BED OFFERS CM MET WITH PT WHO WAS AGREEABLE TO STR REFERRALS [facility] OFFERING PENDING AUTH THEY HAVE SUBMITTED AUTH REQUEST PT IS MEDICALLY CLEARED
[2024-09-26] MEDS: Acetaminophen 325 MG TABLET 650 MG PO (14:42)
[2024-09-26 14:55] VITALS: BP 139/66; PULSE 96; RESP 16; TEMP 36.5; O2SAT 99
--- NOTE | 2024-09-26 17:12 | P.DS_ITS ---
DS: Providers Provider Date of Service: 09/26/24 Date of admission: 09/23/24 21:45 Date of discharge: 09/26/24 Primary care physician: SARA Douglas Consults: 09/23/24 21:55 Consult to Neurology Routine Consulting Provider: [facility] Reason for consultation: neurological deficits secondary to Tdap vaccination Has provider been notified: No DS: Diagnosis Discharge Diagnosis (1) Bilateral leg weakness: Status: Acute (2) Paresthesia: Status: Acute (3) Urinary tract infection: Status: Acute DS: Summary Hospital Course Hospital Course: From the history and physical by the admitting hospitalist, FERNANDO Mehta, 09/23/24: Patient is a 54-year-old female with past medical history obstructive sleep apnea, fatty liver, migraine, endometriosis relieved by hysterectomy, pericardial effusion, iron-deficiency anemia, cholecystectomy, alopecia, recent viral stomach infection, previous reaction to COVID vaccination 2 years prior with similar symptoms requiring rehabilitation to walk again (patient was not diagnosed with GBS), tinnitus, pinched nerve in the cervical spine, lumbar spine stenosis and denies history of HSV 1 or 2 infection, STD's, hepatitis-B or C and HIV presents to the emergency department after seeing her PCP today for BECERRA and progressive symptoms involving neuropathic pain from head to toe, bilateral leg weakness with B foot drag and paresthesia in all extremities after receiving a DTaP vaccination 4 weeks prior. Patient states it is now taking more time to get out of bed and she is dependent on using a Rollator to ambulate. Patient is reporting over the last 4 days, increasing haziness with her vision, and essenti al tremor only in the right hand, patient is right hand dominant. In addition patient is not able to walk because of the pain and weakness. Patient states she can currently bear weight though. Patient denies any falls or injuries in the last 2 weeks. Patient adds that the injection was given in the left deltoid and although she has chronic tinnitus, the tinnitus in the left ear to the top of the head increased after the injection. Patient currently denies any fever, chills, night sweats or unexplained weight loss. Patient is not having any chest pain, nausea, vomiting or abdominal pain. Patient was seen at [facility] September 19 and was having complaints of worsening lower extremity pain and weakness. She was found to have hypokalemia and was treated and released. Patient was also seen by tool and die supervisor 1 week prior and patient believes she was being worked up for lupus with history of a positive SERAFIN? and other possible autoimmune issues. Those lab results are still pending per patient. Overall patient's inflammatory markers have been elevated for some time. Patient has previous episode after COVID vaccination 2 years prior resulted in similar symptoms but with less progression. Patient was told she did not have GBS back then because she still had sensation intact. Patient did require rehabilitation in order to walk again. Patient was told it was a reaction to the vaccination. Patient did undergo EEG testing and the results were unremarkable. Patient currently being worked up for MS, lupus and in the past had 1 positive scleroderma test and then 2 negative scleroderma tests. In the interim patient has had a pericardial effusion but with no underlying etiology or diagnosis as to the cause. At this time patient has no autoimmune diagnoses in her medical history. Patient has significant allergies including gabapentin which has caused increased intra-ocular pressure and patient has been told not to take this medication. In addition patient has adverse GI side effects when taking NSAIDs including ibuprofen and Toradol. Patient can not receive contrast dye due to anaphylaxis. Allergies have been updated upon admission. Patient noted not to be able to void on bedpan. Patient feels her bladder is full but she can not void. Patient states she was incontinent of urine earlier this morning. Patient also states that she is extremely constipated and has had this problem for some time. Patient is a prediabetic and is not taking any medications for diabetes management or GLP-1s. Patient is being admitted for neurological consultation, lumbar puncture with CSF testing, PT consultation, and monitoring overnight... ...0430 Pt's ECG repeated, accelerated junctional. Pt has hx of pericardial effusion possibly related to hx of undx auto-immune disorder. ECHO has now been ordered. Consider cardiology consult iuf needed 54yo F with TERESA, NAFLD, migraine disorder, endometriosis s/p hysterectomy, pericardial effusion, currently under workup by tool and die supervisor for possible autoimmune disease; presenting with worsening bilateral leg weakness and numbness/paresthesias in legs and RUE. Pt attributes it to Tdap vaccination 4 wk ago; had similar episode after Covid-19 vaccination 2 yr ago. She was admitted to the medical-surgical unit for neurologic workup and consultation. MRI brain with minimal small vessl ischemia but no other lesions. MRI C-spine with degenerative disk changes and spinal stenosis. CPK normal; TSH normal; aldolase pending. LP done 09/24, CSF protein completely normal; MBP + oligoclonal bands pending. Per Neurology consultations, likely functional disorder but recommended outpatient EMG/NCS. PT/OT recommend AIR but a bed could not be secured; she was discharged to [facility] for short-term rehailibation. Echocardiogram showed only a trivial pericardial effusion. She complianed of binocular diplopia and should have outpatient Ophthalmology evaluation. She was diagnosed with Group B streptococcal UTI and was treated with ceftriaxone, then discharged on cefuroxime. Time Attestation Discharge Coordination Time (in mins): 35 Quality: Safe Use of Opioids Does Pt have an Active Cancer Diagnosis on the Problem List?: No Quality: Stroke Does the patient have a stroke diagnosis?: No 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 Vital Signs: Vital Signs: Last Vital Signs Temp 97.7 F 09/26/24 14:55 Pulse 96 09/26/24 14:55 Resp 16 09/26/24 14:55 BP 139/66 09/26/24 14:55 Pulse Ox 99 09/26/24 14:55 O2 Del Method Room Air 09/26/24 14:55 BMI result Body Mass Index 34.2 Gen: in no acute distress HEENT: sclera anicteric, moist mucus membranes Neck: supple Lungs: clear to auscultation bilaterally Heart: regular rate and rhythm, no murmurs Abd: soft, non-tender, non-distended Ext: no edema Skin: warm/well-perfused Neuro: alert and oriented x3, symmetric weakness in legs 3/5 Psych: appropriate affect DS: Data Data Completed and Pending Completed studies during hospitalization [Text1]: ITS Impressions Brain MRI 09/24/24 13:26 IMPRESSION: 1. No intracranial hemorrhage, acute infarction, mass effect, or edema. 2. Minimal changes of small vessel ischemia. Electronically signed by: Tian Dixon MD 09/24/2024 02:22 PM EDT RP Lumbar Puncture Fluoroscopy 09/24/24 14:05 IMPRESSION: Successful fluoroscopy-guided L4-5 lumbar puncture performed without immediate complications. Electronically signed by: Glynn aLnier MD 09/24/2024 04:29 PM EDT RP MRI C-spine 09/25/24 1. Degenerative disc changes including disc osteophyte complex at C5-C6 where there is moderate spinal stenosis. 2. Reversal of the cervical lordosis with multifocal facet arthropathy. Laboratory Tests 09/23/24 09/23/24 09/24/24 17:03 22:43 03:37 WBC 6.2 5.3 RBC 4.44 4.31 Hgb 13.2 12.8 Hct 38.2 37.3 MCV 86.0 86.5 MCH 29.7 29.7 MCHC 34.6 34.3 RDW 13.4 13.5 Plt Count 230 202 MPV 9.5 9.8 Immature Gran % (Auto) 0.2 0.2 Neut % (Auto) 67.9 61.0 Lymph % (Auto) 22.3 29.9 [place] % (Auto) 8.5 7.4 Eos % (Auto) 0.6 1.1 Baso % (Auto) 0.5 0.4 Lymph # (Auto) 1.4 1.6 [place] # (Auto) 0.5 0.4 Eos # (Auto) 0.0 0.1 Baso # (Auto) 0.0 0.0 Abs Immat Gran (auto) 0.01 0.01 Absolute Neuts (auto) 4.2 3.2 Absolute Nucleated RBC 0.000 0.000 Nucleated RBC % (auto) 0.0 0.0 ESR 46 H Sodium 143 143 Potassium 3.7 3.4 Chloride 108 107 Carbon Dioxide 25 23 Anion Gap 14 16 BUN 16 15 Creatinine 0.75 0.79 Estim Creat Clear Calc 93.2 88.5 Estimated GFR > 60 > 60 POC Glucose Random Glucose 87 126 H Calcium 9.6 9.5 Magnesium 2.3 Total Bilirubin 0.3 0.4 AST 28 33 H ALT 32 H 33 H Alkaline Phosphatase 107 100 Total Creatine Kinase 125 89 C-Reactive Protein 0.13 Total Protein 8.2 H 7.8 Albumin 4.4 4.1 Lipase 68 TSH Urine Color Yellow Urine Appearance Clear Urine pH 5.5 Ur Specific [place] 1.025 Urine Protein Trace Urine Glucose (UA) Negative Urine Ketones 15 Urine Blood Moderate (2+) H Urine Nitrite Negative Ur Leukocyte Esterase Moderate (2+) H Urine RBC 11-20 H Urine WBC 21-50 H Ur Squamous Epith Cells 6-10 Urine Bacteria 2+ Hyaline Casts 0-2 CSF Tube Number CSF Volume CSF Appearance CSF Color CSF WBC CSF RBC CSF Neutrophils CSF Lymphocytes CSF Monocytes % CSF Appearance (b) CSF Glucose CSF Total Protein CSF C.neoform/gat PCR CSF CMV DNA (PCR) CSF Enterovirus (PCR) CSF E. coli K1 (PCR) CSF H. influenzae (PCR) CSF HSV I (PCR) CSF HSV II (PCR) CSF HHV 6 (PCR) CSF L.monocytogenes PCR CSF N. meningitidis PCR CSF Parechovirus (PCR) CSF S. agalactiae (PCR) CSF S. pneumoniae (PCR) CSF VZV (PCR) HIV 1&2 Ab/P24 Ag 4thGn 09/24/24 09/24/24 09/24/24 14:24 14:24 14:24 WBC RBC Hgb Hct MCV MCH MCHC RDW Plt Count MPV Immature Gran % (Auto) Neut % (Auto) Lymph % (Auto) [place] % (Auto) Eos % (Auto) Baso % (Auto) Lymph # (Auto) [place] # (Auto) Eos # (Auto) Baso # (Auto) Abs Immat Gran (auto) Absolute Neuts (auto) Absolute Nucleated RBC Nucleated RBC % (auto) ESR Sodium Potassium Chloride Carbon Dioxide Anion Gap BUN Creatinine Estim Creat Clear Calc Estimated GFR POC Glucose Random Glucose Calcium Magnesium Total Bilirubin AST ALT Alkaline Phosphatase Total Creatine Kinase C-Reactive Protein Total Protein Albumin Lipase TSH Urine Color Urine Appearance Urine pH Ur Specific [place] Urine Protein Urine Glucose (UA) Urine Ketones Urine Blood Urine Nitrite Ur Leukocyte Esterase Urine RBC Urine WBC Ur Squamous Epith Cells Urine Bacteria Hyaline Casts CSF Tube Number 3 1 4 CSF Volume 3.0 CSF Appearance CSF Color CSF WBC CSF RBC CSF Neutrophils CSF Lymphocytes CSF Monocytes % CSF Appearance (b) CSF Glucose CSF Total Protein CSF C.neoform/gat PCR CSF CMV DNA (PCR) CSF Enterovirus (PCR) CSF E. coli K1 (PCR) CSF H. influenzae (PCR) CSF HSV I (PCR) CSF HSV II (PCR) CSF HHV 6 (PCR) CSF L.monocytogenes PCR CSF N. meningitidis PCR CSF Parechovirus (PCR) CSF S. agalactiae (PCR) CSF S. pneumoniae (PCR) CSF VZV (PCR) HIV 1&2 Ab/P24 Ag 4thGn 09/24/24 09/24/24 09/24/24 14:24 14:24 14:24 WBC RBC Hgb Hct MCV MCH MCHC RDW Plt Count MPV Immature Gran % (Auto) Neut % (Auto) Lymph % (Auto) [place] % (Auto) Eos % (Auto) Baso % (Auto) Lymph # (Auto) [place] # (Auto) Eos # (Auto) Baso # (Auto) Abs Immat Gran (auto) Absolute Neuts (auto) Absolute Nucleated RBC Nucleated RBC % (auto) ESR Sodium Potassium Chloride Carbon Dioxide Anion Gap BUN Creatinine Estim Creat Clear Calc Estimated GFR POC Glucose Random Glucose Calcium Magnesium Total Bilirubin AST ALT Alkaline Phosphatase Total Creatine Kinase C-Reactive Protein Total Protein Albumin Lipase TSH Urine Color Urine Appearance Urine pH Ur Specific [place] Urine Protein Urine Glucose (UA) Urine Ketones Urine Blood Urine Nitrite Ur Leukocyte Esterase Urine RBC Urine WBC Ur Squamous Epith Cells Urine Bacteria Hyaline Casts CSF Tube Number CSF Volume 3.1 CSF Appearance CLEAR CLEAR CSF Color COLORLESS COLORLESS CSF WBC 0 CSF RBC CSF Neutrophils CSF Lymphocytes CSF Monocytes % CSF Appearance (b) CSF Glucose CSF Total Protein CSF C.neoform/gat PCR CSF CMV DNA (PCR) CSF Enterovirus (PCR) CSF E. coli K1 (PCR) CSF H. influenzae (PCR) CSF HSV I (PCR) CSF HSV II (PCR) CSF HHV 6 (PCR) CSF L.monocytogenes PCR CSF N. meningitidis PCR CSF Parechovirus (PCR) CSF S. agalactiae (PCR) CSF S. pneumoniae (PCR) CSF VZV (PCR) HIV 1&2 Ab/P24 Ag 4thGn 09/24/24 09/24/24 09/25/24 14:24 14:24 06:12 WBC 4.1 L RBC 4.08 L Hgb 11.9 L Hct 35.9 L MCV 88.0 MCH 29.2 MCHC 33.1 RDW 13.7 Plt Count 188 MPV 10.0 Immature Gran % (Auto) Neut % (Auto) Lymph % (Auto) [place] % (Auto) Eos % (Auto) Baso % (Auto) Lymph # (Auto) [place] # (Auto) Eos # (Auto) Baso # (Auto) Abs Immat Gran (auto) Absolute Neuts (auto) Absolute Nucleated RBC 0.000 Nucleated RBC % (auto) 0.0 ESR Sodium Potassium Chloride Carbon Dioxide Anion Gap BUN Creatinine Estim Creat Clear Calc Estimated GFR POC Glucose Random Glucose Calcium Magnesium Total Bilirubin AST ALT Alkaline Phosphatase Total Creatine Kinase C-Reactive Protein Total Protein Albumin Lipase TSH Urine Color Urine Appearance Urine pH Ur Specific [place] Urine Protein Urine Glucose (UA) Urine Ketones Urine Blood Urine Nitrite Ur Leukocyte Esterase Urine RBC Urine WBC Ur Squamous Epith Cells Urine Bacteria Hyaline Casts CSF Tube Number CSF Volume CSF Appearance CSF Color CSF WBC 0 CSF RBC 3 4 CSF Neutrophils 0 CSF Lymphocytes 0 CSF Monocytes % 0 CSF Appearance (b) Clear, Colorless CSF Glucose 69 CSF Total Protein 31.6 CSF C.neoform/gat PCR Not Detected CSF CMV DNA (PCR) Not Detected CSF Enterovirus (PCR) Not Detected CSF E. coli K1 (PCR) Not Detected CSF H. influenzae (PCR) Not Detected CSF HSV I (PCR) Not Detected CSF HSV II (PCR) Not Detected CSF HHV 6 (PCR) Not Detected CSF L.monocytogenes PCR Not Detected CSF N. meningitidis PCR Not Detected CSF Parechovirus (PCR) Not Detected CSF S. agalactiae (PCR) Not Detected CSF S. pneumoniae (PCR) Not Detected CSF VZV (PCR) Not Detected HIV 1&2 Ab/P24 Ag 4thGn Nonreactive 09/25/24 09/25/24 06:13 11:17 WBC RBC Hgb Hct MCV MCH MCHC RDW Plt Count MPV Immature Gran % (Auto) Neut % (Auto) Lymph % (Auto) [place] % (Auto) Eos % (Auto) Baso % (Auto) Lymph # (Auto) [place] # (Auto) Eos # (Auto) Baso # (Auto) Abs Immat Gran (auto) Absolute Neuts (auto) Absolute Nucleated RBC Nucleated RBC % (auto) ESR Sodium 142 Potassium 3.5 Chloride 108 Carbon Dioxide 26 Anion Gap 12 BUN 15 Creatinine 0.75 Estim Creat Clear Calc 95.5 Estimated GFR > 60 POC Glucose 114 Random Glucose 114 Calcium 9.2 Magnesium Total Bilirubin 0.3 AST 25 ALT 29 Alkaline Phosphatase 92 Total Creatine Kinase 56 C-Reactive Protein Total Protein 7.0 Albumin 3.8 Lipase TSH 1.38 Urine Color Urine Appearance Urine pH Ur Specific [place] Urine Protein Urine Glucose (UA) Urine Ketones Urine Blood Urine Nitrite Ur Leukocyte Esterase Urine RBC Urine WBC Ur Squamous Epith Cells Urine Bacteria Hyaline Casts CSF Tube Number CSF Volume CSF Appearance CSF Color CSF WBC CSF RBC CSF Neutrophils CSF Lymphocytes CSF Monocytes % CSF Appearance (b) CSF Glucose CSF Total Protein CSF C.neoform/gat PCR CSF CMV DNA (PCR) CSF Enterovirus (PCR) CSF E. coli K1 (PCR) CSF H. influenzae (PCR) CSF HSV I (PCR) CSF HSV II (PCR) CSF HHV 6 (PCR) CSF L.monocytogenes PCR CSF N. meningitidis PCR CSF Parechovirus (PCR) CSF S. agalactiae (PCR) CSF S. pneumoniae (PCR) CSF VZV (PCR) HIV 1&2 Ab/P24 Ag 4thGn Discharge Plan Discharge Anticipated Discharge Date/Time: 09/26/24 17:06 Patient Disposition: Xfer [facility] Discharge Diagnosis: weakness, paresthesias urinary tract infection Referrals: [facility] [Outside] - 1 Week Sharifa Loving MD [Physician] - 2 Weeks (for nerve conduction study/EMG) Darling Andrade PA [Primary Care Provider] - 1 Week Umesh Zuleta [Physician] - 2 Weeks Discharge Medications: New cefuroxime axetil 500 mg Tablet 500 mg PO Q12H Qty: 8 0RF Lubrifresh PM 83-15 % Ointment 1 appl ophthalmic (eye) TID PRN (Reason: Dry Eyes) Qty: 5 0RF Protocol: Apply to: Apply to: both eyes Continued potassium chloride 10 mEq tablet,ER particles/crystals 10 meq PO DAILY acetaminophen 500 mg Tablet 500 mg PO Q6H PRN (Reason: Pain) polyethylene glycol 3350 [Gavilax] 17 gram/dose powder 17 g PO DAILY PRN (Reason: Constipation) Discharge Orders: Discharge Order (Routine); Ordered 09/26/24 Ordered By: Jason Briscoe Diet: Advance to usual diet Activity on Discharge: As tolerated Stand Alone Forms: Patient Portal Discharge page Print Language: Malay Care Plan Goals: improvement in strength Health Concerns: weakness, paresthesias urinary tract infection Plan of Treatment: to short-term rehabilitation for UTI, complete 4 days of cefuroxime 500 mg twice daily follow up with Neurology in 2 weeks for EMG/nerve conduction study as well as final results of lumbar puncture Assessment: See Discharge Summary.
[2024-09-26 18:15] VITALS: BP 132/79; PULSE 80; RESP 18; TEMP 36; O2SAT 94
[2024-09-26 19:54] LABS: VDRL Qualitative CSF Nonreactive (Nonreactive)
[2024-09-27 20:23] LABS: Lyme IgG CSF Immunoblot NO BANDS DETECTED; Lyme IgM CSF Immunoblot NO BANDS DETECTED
[2024-09-29 00:49] LABS: Albumin 4.1 g/dL (3.6-5.1); Albumin, CSF 17.5 mg/dL (8.0-42.0); IgG 1600 mg/dL (600-1640); IgG Synthesis Rate -3.9 mg/24 h (-9.9-3.3); IgG, CSF 3.5 mg/dL (0.8-7.7)
[2024-09-30 04:24] LABS: Aldolase 3.5 U/L (<=8.1)
[2024-09-30 13:01] LABS: CMV DNA PCR Qn Source PLASMA
[2024-09-30 13:02] LABS: CMV DNA Qn PCR NOT DETECTED; CMV DNA Qn Real Time PCR NOT DETECTED
== END 2024-09-26 18:23 | disposition skilled nursing facility (03) | DRG 92 ==
LOC: HO.ED 21:43 → HO.EDOVER 22:08 → HO.S3 09-24 11:05
PROVIDERS: Nurse Practitioner Family; Registered Nurse Emergency; Admitting Provider Student in an Organized Health Care Education/Training Program; Emergency Provider Emergency Medicine; PCP Student in an Organized Health Care Education/Training Program; Visit Provider Family Medicine
DX: R20.2 Paresthesia of skin (principal); I31.39 Other pericardial effusion (noninflammatory); N39.0 Urinary tract infection, site not specified; T50.A15A Adverse effect of pertussis vaccine, including combinations with a pertussis component, initial encounter; K76.0 Fatty (change of) liver, not elsewhere classified; H53.2 Diplopia; B95.1 Streptococcus, group B, as the cause of diseases classified elsewhere; G47.33 Obstructive sleep apnea (adult) (pediatric); R53.1 Weakness; R32 Unspecified urinary incontinence; K59.00 Constipation, unspecified; Z79.899 Other long term (current) drug therapy
CPT/HCPCS: 36415; 62328; 70450; 70551; 72141; 80053; 81001; 81003; 82042; 82085; 82550; 82945; 82947; 83690; 83735; 83873; 83916; 84157; 84166; 84443; 85025; 85027; 85652; 86140; 86335; 86592; 86617; 87015; 87040; 87070; 87086; 87102; 87116; 87147; 87205; 87206; 87389; 87483; 87497; 89051; 93005; 93306; 97162; 97166; 97530; 99285; J0696; J2270; J2405; Q9957

== ENCOUNTER → 2024-09-23 16:46 | Outpatient (BNV) | payer MEDICARE, MEDICAID, SELFPAY | PROVIDERS: Admitting Provider Student in an Organized Health Care Education/Training Program; Emergency Provider Emergency Medicine; PCP Student in an Organized Health Care Education/Training Program; Visit Provider Internal Medicine Cardiovascular Disease | DX: R53.1 Weakness (principal) | CPT/HCPCS: 93010 ==

== ENCOUNTER → 2024-09-23 16:46 | Outpatient (BNV) | payer BC, SELFPAY | PROVIDERS: PCP Student in an Organized Health Care Education/Training Program; Visit Provider Radiology Diagnostic Radiology | DX: R53.1 Weakness (principal); R20.2 Paresthesia of skin | CPT/HCPCS: 70450 ==

== ENCOUNTER 2024-09-23 21:45 | Outpatient (BNV) | payer MEDICARE, MEDICAID, SELFPAY | END 2024-09-25 20:30 | PROVIDERS: Admitting Provider Student in an Organized Health Care Education/Training Program; Emergency Provider Emergency Medicine; PCP Student in an Organized Health Care Education/Training Program; Visit Provider Radiology Neuroradiology | DX: M50.322 Other cervical disc degeneration at C5-C6 level (principal) | CPT/HCPCS: 72141 ==

== ENCOUNTER 2024-09-23 21:45 | Outpatient (BNV) | payer MEDICARE, MEDICAID, SELFPAY | END 2024-09-24 13:26 | PROVIDERS: Admitting Provider Student in an Organized Health Care Education/Training Program; Emergency Provider Emergency Medicine; PCP Student in an Organized Health Care Education/Training Program; Visit Provider Radiology Diagnostic Radiology | DX: M62.81 Muscle weakness (generalized) (principal); I67.82 Cerebral ischemia | CPT/HCPCS: 62328; 70551 ==

== ENCOUNTER 2024-09-23 21:45 | Outpatient (BNV) | payer MEDICARE, MEDICAID, SELFPAY | END 2024-09-24 03:47 | PROVIDERS: Admitting Provider Student in an Organized Health Care Education/Training Program; Emergency Provider Emergency Medicine; PCP Student in an Organized Health Care Education/Training Program; Visit Provider Internal Medicine Cardiovascular Disease | DX: I31.39 Other pericardial effusion (noninflammatory) (principal) | CPT/HCPCS: 93306 ==

== ENCOUNTER → 2024-09-23 21:45 | Outpatient (BNV) | payer MEDICARE, MEDICAID, SELFPAY | PROVIDERS: Admitting Provider Student in an Organized Health Care Education/Training Program; Emergency Provider Emergency Medicine; PCP Student in an Organized Health Care Education/Training Program; Visit Provider Psychiatry & Neurology Neurology | DX: R20.2 Paresthesia of skin (principal) | CPT/HCPCS: 99222 ==

== ENCOUNTER → 2024-09-23 21:45 | Outpatient (BNV) | payer MEDICARE, SELFPAY | PROVIDERS: Admitting Provider Student in an Organized Health Care Education/Training Program; Emergency Provider Emergency Medicine; PCP Student in an Organized Health Care Education/Training Program; Visit Provider Nurse Practitioner Family | DX: R20.2 Paresthesia of skin (principal); R29.898 Other symptoms and signs involving the musculoskeletal system | CPT/HCPCS: 99223; 99232 ==

== ENCOUNTER 2024-10-05 00:23 | Emergency (ER) | payer MEDICARE, MEDICAID, SELFPAY ==
[2024-10-05 00:30] VITALS: BP 146/88; PULSE 78; O2SAT 100
[2024-10-05 00:31] VITALS: BP 144/91; PULSE 74; RESP 16; TEMP 36.9; O2SAT 99; BMI 33.0
--- NOTE | 2024-10-05 01:06 | ED_ITS ---
HPI - General Adult General Chief complaint: Extremity Problem Stated complaint: PAIN IN ARMS AND LEGS PER EMS Time Seen by Provider: 10/05/24 00:56 Source: patient, EMS and old records reviewed Mode of arrival: EMS Limitations: no limitations History of Present Illness ED Provider: DR. Chao HPI narrative: 54-year-old female brought in from rehab for evaluation of bilateral lower extremity pain. Started in the last week of August when patient had to take a booster dose of Tdap vaccination then patient gradually started to have weakness and numbness to 4 extremities then patient presented to the hospital on 09/23 and was admitted discharged on 09/26 and had inpatient neurological workup with Neurology consultation, negative head and cervical spine MRI for demyelinating neuropathy, patient also had LP to rule out Guilain- Bendena syndrome with normal protein in the CSF patient was discharged to rehab for a physical therapy, patient's symptoms was controlled with tramadol at rehab came in today for increased bilateral for extremity pain, patient is refusing to take pain medication stated that she does not respond well to them but willing to take only Tylenol. No slurred speech, no more weakness, no numbness. Patient had similar symptoms in 2021 after was infected with COVID-19 and took 11-12 month to improve and resolve. Related Data Home Medications ?Medication ?Instructions ?Recorded ?Confirmed polyethylene glycol 3350 17 17 g PO DAILY PRN Constipation 01/25/23 09/23/24 gram/dose oral powder (Gavilax) acetaminophen 500 mg tablet 500 mg PO Q6H PRN Pain 09/23/24 09/23/24 potassium chloride 10 mEq 10 meq PO DAILY 09/23/24 09/23/24 tablet,extended release(part/cryst) Previous Rx's ?Medication ?Instructions ?Recorded cefuroxime axetil 500 mg tablet 500 mg PO Q12H #8 tabs 09/26/24 white petrolatum-mineral oil 83 1 appl ophthalmic (eye) TID PRN 09/26/24 %-15 % eye ointment (Lubrifresh PM) Dry Eyes #5 grams Allergies Allergy/AdvReac Type Severity Reaction Status Date / Time ketorolac [From TORADOL] Allergy Intermediate hives Verified 09/23/24 23:22 polyethylene glycol Allergy Intermediate Unknown Verified 09/24/24 10:52 COVID-19 (SARS-CoV-2) Allergy Hives Verified 09/23/24 23:22 vaccine, olivier morphine AdvReac Abdominal Verified 10/05/24 00:41 Pain perflutren [From Definity] AdvReac Unknown Verified 09/24/24 10:54 contrast dye Allergy Intermediate Hives Uncoded 09/23/24 23:22 gabapentin AdvReac Weakness Uncoded 09/23/24 23:22 Review of Systems Review of Systems: All other systems are reviewed and are negative Constitutional: Reports as per HPI and Reports no additional constitutional complaints Eyes: Reports as per HPI and Reports no additional eye complaints Reports system reviewed and no additional complaints, except as documented Cardiovascular: Reports as per HPI and Reports no additional cardiovascular complaints Respiratory: Reports as per HPI and Reports no additional respiratory complaints Gastrointestinal: Reports as per HPI and Reports no additional gastrointestinal complaints Genitourinary: Reports no additional female genitourinary complaints Musculoskeletal: Reports no additional musculoskeletal complaints Skin/Breast: Reports system reviewed and no additional complaints, except as docu Psychiatric: Reports no additional psychiatric complaints Endocrine: Reports no additional endocrine complaints Hematologic/Lymphatic: Reports no additional hematologic/lymphatic complaints Allergic/Immunologic: Reports no additional allergic/immunologic complaints Reports system reviewed and no additional complaints, except as documented and Reports Abnormal speech present PMFSH Past Medical History Medical History Lumbar spinal stenosis Fatty liver Adverse neurologic event after COVID-19 vaccination Endometriosis FH: cholecystectomy Sleep apnea Migraine Alopecia IBS (irritable bowel syndrome) Asthma Pericardial effusion Anemia Kidney stones Depression Endometriosis GERD (gastroesophageal reflux disease) Fibromyalgia Scleroderma COVID-19 virus infection Cervicalgia Snoring Raynauds phenomenon SERAFIN positive Surgical History History of right oophorectomy Hx of hysterectomy Hx of cholecystectomy History of section Family History Family History Sister Thyroid disease Alopecia Family/Other Diabetes Social History Social History Household Members: Children Housing: House Do you presently have visiting nurse or other home services: No Unable to assess alcohol history related to: Unknown Alcohol intake: never Patient Tobacco Use Status: Never used Tobacco Advance Directives: No Advance Directives Information Provided: No Do you have a plan to hurt others: No Plan service: No Current occupational status: employed 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 Blood pressure elevated. Heart rate normal. Respiratory rate normal. Temperature normal. Oxygen saturation normal. Appearance: Alert. Oriented X3. No acute distress. Head: Normal external exam. Normocephalic. Atraumatic. No Jones signs noted. No raccoon eyes noted Eyes: PERRLA. EOMI. Conjunctiva and sclera normal. Eyelids normal. ENT: TM's Normal. Pharynx normal. Uvula midline. Moist mucous membranes. No trismus noted. No drooling noted. No muffled voice noted. Neck: Normal inspection. Neck supple. FROM. No adenopathy. Thyroid Normal. No meningeal signs. No neck mass noted. CVS: Normal heart rate and rhythm. Heart sound normal. No murmurs noted. Pulses normal throughout. Respiratory: No respiratory distress. Painless inspiration. Breath sounds normal. No wheezes/rales/rhonchi noted. Chest nontender. No accessory muscle usage noted or decreased air movement noted. Abdomen: Soft and nontender. Bowel sounds normal in all 4 quadrants. No distention noted. No organomegaly noted. No visible injury noted. Back: No CVA tenderness. Full range of motion noted. Skin: Skin warm and dry. Normal skin color. Normal skin turgor. No rashes/lesions/lacerations noted. Extremities: No lower extremity edema. Extremities exhibit normal range of motion. Extremities nontender. Neuro: She is alert and awake with normal spontaneity of speech fluency comprehension and affect. There is no ptosis. Speech is normal. Deep tendon reflexes are trace with flexor plantars. She is able to stand up holding my hand and was hesitant to take a step. Course Reevaluation(s) Reevaluation #1: 54-year-old female suffered from for extremity pain and paresthesia, that patient attributed her symptoms to a side effect from DTaP, patient while in the ED had complete neurological evaluation including MRI of head and cervical spine with head CT, patient also had an LP workup was unremarkable patient was discharged to rehab facility on cefuroxime for UTI. Started to have poor extremity pain today patient lost pain medication she had was noon time 1 dose of tramadol otherwise patient is refusing any other pain medication requesting only Tylenol. Once we control the pain patient will be stable to go back to rehab to continue the plan. Time: 01:14 Medical Decision Making Differential Diagnosis Differential Diagnoses: The differential diagnosis associated with the presentation includes ( For extremity pain, weakness, numbness.) Admission/Observation Consideration of admission/observation: Escalation of care including admission/observation considered Discharge Plan Discharge Clinical Impression: Paresthesia and pain of extremity Patient Disposition: [facility] Transfer Details: to rehab. Instructions: Paresthesia (ED) Prescriptions: No Action potassium chloride 10 mEq tablet,ER particles/crystals 10 meq PO DAILY acetaminophen 500 mg Tablet 500 mg PO Q6H PRN (Reason: Pain) cefuroxime axetil 500 mg Tablet 500 mg PO Q12H Qty: 8 0RF Lubrifresh PM 83-15 % Ointment 1 appl ophthalmic (eye) TID PRN (Reason: Dry Eyes) Qty: 5 0RF Protocol: Apply to: Apply to: both eyes polyethylene glycol 3350 [Gavilax] 17 gram/dose powder 17 g PO DAILY PRN (Reason: Constipation) Print Language: Nepali
[2024-10-05] MEDS: Acetaminophen 325 MG TABLET 975 MG PO (01:29)
[2024-10-05 01:32] LABS: Basophils Percent Auto 0.6 % (0-2); Eosinophils Absolute Auto 0.1 X10*3/uL (0.0-0.4); Eosinophils Percent Auto 1.1 % (0-4); Hematocrit 33.3 % (37.0-47.0); Hemoglobin 11.5 g/dl (12.0-16.0); Imm Gran Abs Auto 0.01 X10*3/uL (0.00-0.03); Imm Gran Pct Auto 0.2 % (0.0-0.4); Lymphocytes Absolute Auto 1.6 X10*3/uL (1.2-4.9); Lymphocytes Percent Auto 29.4 % (20-40); MANUAL DIFF FLAG NO; Mean Corpuscular HGB Conc 34.5 g/dl (31.0-35.0); Mean Corpuscular Hemoglobin 29.7 pg (27.0-33.0); Mean Platelet Volume 9.9 fL (9.4-12.3); Monocytes Absolute Auto 0.4 X10*3/uL (0.1-1.2); Monocytes Percent Auto 7.5 % (2-11); Neutrophils Absolute Auto 3.3 x10*3/uL (2.0-8.3); Neutrophils Percent Auto 61.2 % (45-73); Platelet Count 186 X10*3/uL (160-400); Red Blood Count 3.87 X10*6/uL (4.20-5.50); Red Cell Distribution Width 13.2 % (11.0-16.0); White Blood Count 5.3 X10*3/uL (4.8-10.8)
[2024-10-05 01:45] LABS: Anion Gap 14 (12-20); Blood Urea Nitrogen 14 mg/dL (9-16); Calcium 9.3 mg/dL (8.4-10.2); Carbon Dioxide 25 mmol/L (22-29); Chloride 108 mmol/L (96-108); Creatinine Clr Calc Pharmacy 109.8; Estimated Glomerular Filt Rate > 60; Glucose Random 108 mg/dL (60-115); Potassium 3.5 mmol/L (3.3-5.1); Sodium 143 mmol/L (135-145)
[2024-10-05 03:07] VITALS: BP 143/72; PULSE 82; RESP 16; TEMP 36.9; O2SAT 97
[2024-10-05 03:10] VITALS: BP 143/72; PULSE 82; RESP 16; TEMP 36.9; O2SAT 97
--- NOTE | 2024-10-05 03:10 | PC.NURSE ---
report to Carlie AGUILAR at [facility]. pt transported by anne.
--- NOTE | 2024-10-05 04:59 | PC.NURSE ---
report to Carlie AGUILAR at [facility]. pt transported by anne.
== END 2024-10-05 03:10 | disposition skilled nursing facility (03) ==
PROVIDERS: Emergency Provider Emergency Medicine; PCP Internal Medicine
DX: R20.2 Paresthesia of skin (principal); M79.602 Pain in left arm; M79.601 Pain in right arm; Z79.899 Other long term (current) drug therapy
CPT/HCPCS: 36415; 80048; 82550; 85025; 99283

== ENCOUNTER 2024-10-30 09:42 | Outpatient (REF) | payer MEDICARE, MEDICAID, SELFPAY ==
[2024-10-30 17:54] LABS: C Reactive Protein 0.16 mg/dL (< or = 0.50)
[2024-10-30 18:04] LABS: Rheumatoid Factor < 13.0 IU/mL (<15.0)
[2024-10-30 18:30] LABS: Erythrocyte Sedimentation Rate 31 MM/HR (0-20)
[2024-10-31 20:57] LABS: Antibody to SS-A Antigen <1.0 NEG AI (<1.0 NEG); Antibody to SS-B Antigen <1.0 NEG AI (<1.0 NEG)
[2024-11-04 11:04] LABS: ANA Pattern 2 Nuclear, Homogeneous; ANA Titer 2 1:40 titer; Anti Nuclear Antibody Pattern Nuclear, Nucleolar; Anti Nuclear Antibody Screen POSITIVE (NEGATIVE)
== END 2024-10-30 09:43 | disposition home or self-care (01) ==
LOC: HO.HKASLDS 09:42
PROVIDERS: PCP Internal Medicine; Visit Provider Internal Medicine Rheumatology
DX: R76.0 Raised antibody titer (principal); M79.641 Pain in right hand; M79.642 Pain in left hand; H04.123 Dry eye syndrome of bilateral lacrimal glands; R29.898 Other symptoms and signs involving the musculoskeletal system
CPT/HCPCS: 36415; 85652; 86038; 86039; 86140; 86235; 86431; 99212

== ENCOUNTER 2024-10-30 09:42 | Outpatient (AMB) | payer MEDICARE, MEDICAID, SELFPAY ==
--- NOTE | 2024-10-30 10:04 | A.OFFVIS_ITS ---
Vital Signs 10/30/24 10:09 Height 5 ft 4 in Weight 186 lb 6 oz BMI 32.0 BP 132/80 Blood Pressure Location Rt brachial Position Sitting Respiration 16 Pulse 71 Pulse Source Pulse Oximeter Pulse Oximetry (%) 99 Oxygen Delivery Method Room Air Intake Visit Reasons: SERAFIN+ Intake Note: Patient presents for SERAFIN+ follow up. Allergies diphtheria,pertussis (acellular),te (From Boostrix Tdap) Allergy (Severe, Verified 10/30/24 10:09) Numbness ketorolac (From TORADOL) Allergy (Intermediate, Verified 10/30/24 10:08) hives polyethylene glycol Allergy (Intermediate, Verified 10/30/24 10:08) Unknown COVID-19 (SARS-CoV-2) vaccine, olivier Allergy (Verified 10/30/24 10:08) Hives morphine Adverse Reaction (Verified 10/30/24 10:08) Abdominal Pain perflutren (From Definity) Adverse Reaction (Verified 10/30/24 10:08) Unknown contrast dye Allergy (Intermediate, Uncoded 09/23/24 23:22) Hives gabapentin Adverse Reaction (Uncoded 09/23/24 23:22) Weakness HPI HPI SERAFIN+: Details: Last rheumatology visit 01/2022. 2-3 days after tdap vaccine she developed weakness in legs and paresthesia in face and legs. She went to [facility]. Workup at [facility] revealed inflammatory markers were elevated. She developed blurred vision. She was admitted to [facility] and had neuro workup, which was unremakable. LP and imaging did not reveal cause. SHe was discharged to rehab. While at [facility] she was treated to UTI with IV antibiotic. She continued to have hematuria. Repeat UC negative. She continues to have hematuria. 1.5 week ago eye doctor told her she had severe dry eyes. Legs are tight. Numbness and paresthesia in legs have progressed to involve hands. She continues to have paresthesia on her face. She is walking better. She has been home from rehab for at least a week. She continues to have weakness in her legs. Raynaud's in fingers and toes occurred 1.5 week ago when exposed to cold. Occurred in the past once. Denies fevers, rash, dry mouth, oral ulcers, DVT or PE, migraines. Bilateral foot and arm swelling. She feels legs are tight. [facility] Medical History Lumbar spinal stenosis Fatty liver Adverse neurologic event after COVID-19 vaccination Endometriosis FH: cholecystectomy Sleep apnea Migraine Alopecia IBS (irritable bowel syndrome) Asthma Pericardial effusion Anemia Kidney stones Depression Endometriosis GERD (gastroesophageal reflux disease) Fibromyalgia Scleroderma COVID-19 virus infection Cervicalgia Snoring Raynauds phenomenon SERAFIN positive Surgical History History of right oophorectomy Hx of hysterectomy Hx of cholecystectomy History of section Family History Sister Thyroid disease Alopecia Family/Other Diabetes Social History Household Members: Children Housing: House Do you presently have visiting nurse or other home services: No Unable to assess alcohol history related to: Unknown Alcohol intake: never Patient Tobacco Use Status: Never used Tobacco service: No Current occupational status: employed 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 Good respiratory effort Skin: No lesions seen, discoloration of fingertips, digital ulcers MSK: Tender right PIP hand. No synovitis. Normal range of motion of upper extremities. 5/5 power of upper extremities. Power Bilateral hip flexors 4/5, rest of lower extremities is 5/5 Results Reviewed Results Reviewed: Labs and imaging in expanse reviewed. Assessment & Plan Assessment & Plan (1) Dry eyes: Comment: Per patient report from recent eye exam. She has developed paresthesia and numbness in lower extremities progressing to involve upper extremities and hands since Tdap vaccine (? Vaccine related reaction versus alternative etiology). Recently she also experienced an episode of Raynaud's phenomenon affecting her hands and feet. Can consider Sjogren syndrome, which can have nerve involvement but it would not be typical for it to develop after vaccine. On exam she has lower extremity proximal muscle weakness but her recent laboratory workup has revealed normal muscle enzymes. She has elevated ESR. She has had extensive workup with lumbar puncture (CSF white blood cell count 0 with unremarkable testing), MRI brain and labs (no new cytopenias, normal kidney function, SERAFIN neg 10/2023, TSH). I discussed that it is unlikely she has idiopathic inflammatory myositis, SLE, systemic sclerosis (prior history of being positive for SERAFIN and SCL70) or any other connective tissue disease contributing to her symptoms. I a m pursuing workup for Sjogren syndrome with labs at this time. Code(s): H04.123 - Dry eye syndrome of bilateral lacrimal glands Category: Medical Plan: Ordered SSA/SSB antibody, RF, SERAFIN for evaluation of Sjogren syndrome, inflammatory markers, recheck CK and aldolase I have added bilateral upper extremity EMG to the current order. She is scheduled for bilateral lower extremity EMGs 11/26. If EMGs are not informative with cause to her current symptoms of numbness, paresthesia and weakness in her lower extremities, may need to consider small fiber neuropathy as a cause of some of her symptoms and further working with consultation with Neurology. Continue PT and OT. We discussed realistic expectations for recovery. I encouraged her to continue rehabilitation and reassess improvement month to month rather than weekly. She was recently discharged from rehab a week ago. Reviewed workup: labs, imaging, and consultation notes in [facility] Return to clinic in 2 months (2) Lower extremity weakness: Code(s): R29.898 - Other symptoms and signs involving the musculoskeletal system Category: Medical Qualifiers: Laterality: bilateral Qualified Code(s): R29.898 - Other symptoms and signs involving the musculoskeletal system Plan: See above (3) Bilateral hand pain: Comment: She recently started experiencing pain in her hands localized to PIP. No synovitis on exam to suggest inflammatory arthritis. Code(s): M79.641 - Pain in right hand; M79.642 - Pain in left hand Category: Medical Plan: X-ray bilateral hands ordered (4) Hematuria: Comment: Gross persistent hematuria of unclear etiology. She was recently treated for UTI and reports that repeat urine culture was negative. Code(s): R31.9 - Hematuria, unspecified Category: Medical Qualifiers: Hematuria type: gross Qualified Code(s): R31.0 - Gross hematuria Plan: I recommend that she contact PCP for further evaluation and management. She needs further workup with consideration of urology consultation/cystoscopy Orders: Orders NE nerve conduction velocity 10/07/24 R20.2 - Paresthesia of skin, R29.898 - Other symptoms and signs involving the musculoskeletal system Sjogren's Antibodies Today M79.641 - Pain in right hand, M79.642 - Pain in left hand, R76.0 - Raised antibody titer XR hand LT min 3V Today M79.641 - Pain in right hand, M79.642 - Pain in left hand XR hand RT min 3V Today M79.641 - Pain in right hand, M79.642 - Pain in left hand SERAFIN Reflex Titer and Pattern Today H04.123 - Dry eye syndrome of bilateral lacrimal glands Erythrocyte Sedimentation Rate Today R29.898 - Other symptoms and signs involving the musculoskeletal system Creatine Kinase Total Today R29.898 - Other symptoms and signs involving the musculoskeletal system NE electromyogram (EMG) 10/07/24 R20.2 - Paresthesia of skin, R29.898 - Other symptoms and signs involving the musculoskeletal system Rheumatoid Factor Today H04.123 - Dry eye syndrome of bilateral lacrimal glands C Reactive Protein Today R29.898 - Other symptoms and signs involving the musculoskeletal system Aldolase Today R29.898 - Other symptoms and signs involving the musculoskeletal system Coding Level of Care Code Est Pt Level 4 (31735) Diagnoses Dry eyes H04.123 Weakness of both lower extremities R29.898 Laterality: bilateral Bilateral hand pain M79.641; M79.642 Gross hematuria R31.0 Hematuria type: gross Time Spent (min) 60
[2024-10-30 10:09] VITALS: BP 132/80; PULSE 71; RESP 16; O2SAT 99; BMI 32.0
--- OUTSIDE RECORDS SUMMARY | 2024-10-30 10:41 | XMS_ITS | Clinical Summary ---
Author Organization [facility] Address [address] [place] [address] Phone Care Team Providers Care Disk Sharpener Name Role Phone Greg Long MD Primary Care Provider [phone] Allergies Active Allergy Reactions Criticality Noted Date [...] administer immediately). 20 tablet 5 10/01/19 25 Encounters Date Type Department Care Team Description 10/15/2024 Lab Requisition [facility] [address] [place] [address] Greg Long MD Gastro-esophageal reflux disease without esophagitis; Anemia in other chronic diseases classified elsewhere 10/14/2024 Lab Requisition [facility] [address] [place] [address] Greg Long MD Irritable bowel syndrome, unspecified 10/14/2024 Lab Requisition [facility] [address] [place] [phone] Greg Long MD Urinary tract infection, site not specified 10/09/2024 Lab Requisition [facility] [address] [place] [address] Greg Long MD Anemia, unspecified 09/29/[address] [facility] [address] [place] [address] Greg Long MD Other irritable bowel syndrome; Endometriosis, unspecified; Anemia, unspecified; Other pericardial effusion (noninflammatory) 09/19/2024 11:07 PM EDT - 09/20/2024 3:56 AM EDT Emergency [facility] Emergency [address] [place] [address] Kimi Mondragon MD Viral syndrome (Primary Dx); Myalgia; Hypokalemia Discharge Disposition: Home or Self Care from Last 3 Months Surgical History Surgery Date Site/Laterality Comments HYSTERECTOMY 2013 PROCEDURE: HISTORICAL HYSTERECTOMY; COMMENT: endometriosis SECTION PROCEDURE: HISTORICAL ; COMMENT: x 1 OVARIAN CYST REMOVAL 09/09/2012 PROCEDURE: LA OVARIAN CYSTECTOMY UNI/BI OTHER SURGICAL HISTORY PROCEDURE: LA HYSTEROSCOPY LYSIS INTRAUTERINE ADHESIONS COLONOSCOPY 02/12/2014 PROCEDURE: HISTORICAL COLONOSCOPY; COMMENT: hemorrhoids; repeat in 10 yrs CYSTOSCOPY 12/2014 PROCEDURE: HISTORICAL CYSTOSCOPY; COMMENT: Negative OOPHORECTOMY 2013 Right PROCEDURE: HISTORICAL OOPHORECTOMY; COMMENT: endometriosis OTHER SURGICAL HISTORY 11/15/2010 Left PROCEDURE: LA PUNCTURE ASPIRATION CYST OF BREAST; COMMENT: breast [...] 88 09/20/2024 2:17 AM EDT Temperature 36.7 C (98 F) 09/20/2024 2:17 AM EDT Respiratory Rate 16 [...] history exists Hypertension/CHF/CAD Annual BMP Blood Test 10/15/2025 10/15/2024, 10/14/2024, 10/09/2024, Additional history exists Cholesterol Screening (Lipid Panel) 03/28/2027 03/28/2022, 03/28/2022 [...] Procedure Name Priority Date/Time Associated Diagnosis Comments COMPREHENSIVE METABOLIC PANEL Routine 10/15/2024 1:10 PM EDT Gastro-esophageal reflux disease without esophagitis Anemia in other chronic diseases classified elsewhere COMPLETE BLOOD COUNT Routine 10/15/2024 1:10 PM EDT Gastro-esophageal reflux disease without esophagitis Anemia in other chronic diseases classified elsewhere BASIC METABOLIC PANEL Routine 10/14/2024 6:59 AM EDT Irritable bowel syndrome, unspecified COMPLETE BLOOD COUNT Routine 10/14/2024 6:59 AM EDT Irritable bowel syndrome, unspecified URINALYSIS WITH REFLEX MICROSCOPIC AND CULTURE Routine 10/14/2024 12:00 AM EDT Urinary tract infection, site not specified HOROWITZ URINE CULTURE TUBE Routine 10/14/2024 12:00 AM EDT Urinary tract infection, site not specified URINALYSIS WITH REFLEX MICROSCOPIC AND CULTURE Routine 10/14/2024 12:00 AM EDT Urinary tract infection, site not specified CULTURE URINE Routine 10/14/2024 12:00 AM EDT Urinary tract infection, site not specified MAGNESIUM Routine 10/09/2024 6:14 AM EDT Anemia, unspecified VITAMIN B12 Routine 10/09/2024 6:14 AM EDT Anemia, unspecified BASIC METABOLIC PANEL Routine 10/09/2024 6:14 AM EDT Anemia, unspecified COMPLETE BLOOD COUNT Routine 10/09/2024 6:14 AM EDT Anemia, unspecified THYROID STIMULATING HORMONE Routine 09/29/2024 10:30 AM EDT Other irritable bowel syndrome Endometriosis, unspecified Anemia, unspecified Other pericardial effusion (noninflammatory) VITAMIN B12 AND FOLATE Routine 09/29/2024 10:30 AM EDT Other irritable bowel syndrome Endometriosis, unspecified Anemia, unspecified Other pericardial effusion (noninflammatory) COMPREHENSIVE METABOLIC PANEL Routine 09/29/2024 10:30 AM EDT Other irritable bowel syndrome Endometriosis, unspecified Anemia, unspecified Other pericardial effusion (noninflammatory) COMPLETE BLOOD COUNT Routine 09/29/2024 10:30 AM EDT Other irritable bowel syndrome Endometriosis, unspecified Anemia, unspecified Other pericardial effusion (noninflammatory) ECG ANNOTATED 09/22/2024 ECG 12-LEAD STAT 09/20/2024 [...] Recently Relevant to Health Maintenance Results * Complete blood count (10/15/2024 1:10 PM EDT) Only the most recent of4 resultswithin the time period is included. WBC 6.3 4.8 - 10.8 K/mcL LAB HEMETOLOGY METHOD 10/15/2024 2:09 PM EDT [facility] RBC 4.50 3.80 - 4.80 M/mcL LAB HEMETOLOGY METHOD 10/15/2024 2:09 PM EDT [facility] Hemoglobin 13.1 11.5 - 16.0 g/dL LAB HEMETOLOGY METHOD 10/15/2024 2:09 PM EDT [facility] Hematocrit 39.7 35.0 - 47.0 % LAB HEMETOLOGY METHOD 10/15/2024 2:09 PM EDT [facility] MCV 87.6 79.0 - 98.0 FL LAB HEMETOLOGY METHOD [facility] MCH 28.9 27.0 - 32.0 pcg LAB HEMETOLOGY METHOD 10/15/2024 2:[facility] MCHC 33.0 32.0 - 37.0 g/dL LAB HEMETOLOGY METHOD 10/15/2024 2:09 PM EDT [facility] RDW 13.2 11.0 - 15.0 % LAB HEMETOLOGY METHOD 10/15/2024 2:09 PM EDT [facility] Platelets 257 130 - 400 K/mcL LAB HEMETOLOGY METHOD 10/15/2024 2:09 PM EDT [facility] MPV 10.4 7.0 - 11.0 FL LAB HEMETOLOGY METHOD 10/15/2024 2:09 PM EDT [facility] NRBC 0.0 <1.0 % LAB HEMETOLOGY METHOD 10/15/2024 2:09 PM EDT [facility] NRBC Absolute 0.00 <0.10 K/mcL [facility] 10/15/2024 2:09 PM EDT [facility] Blood Venous blood specimen / Unknown 10/15/2024 1:10 PM EDT 10/15/2024 1:49 PM EDT Greg Long MD LAB BLOOD ORDERABLES Final R esult [facility] [address] [place] [address], * (ABNORMAL) Comprehensive metabolic panel (10/15/2024 1:10 PM EDT) Only the most recent of3 resultswithin the time period is included. Sodium 138 133 - 145 mmol/L LAB CHEMISTRY METHOD 10/15/2024 2:54 PM EDT [facility] Potassium 3.6 3.5 - 5.5 mmol/L LAB CHEMISTRY METHOD 10/15/2024 2:54 PM EDT [facility] Chloride 105 96 - 110 mmol/L LAB CHEMISTRY METHOD 10/15/2024 2:54 PM EDT [facility] CO2 28 21 - 32 mmol/L LAB CHEMISTRY METHOD 10/15/2024 2:54 PM [facility] Anion Gap 5 3 - 11 LAB CHEMISTRY METHOD 10/15/2024 2:54 PM [facility] Glucose 70 70 - 100 mg/dL LAB CHEMISTRY METHOD 10/15/2024 2:54 PM [facility] BUN 15 5 - 25 mg/dL LAB CHEMISTRY METHOD 10/15/2024 2:54 PM [facility] Creatinine 0.76 0.50 - 1.10 mg/dL LAB CHEMISTRY METHOD 10/15/2024 2:54 PM [facility] eGFR 94 >=60 mL/min/1. 73m2 LAB CHEMISTRY METHOD 10/15/2024 2:54 PM [facility] Comment:Calculation based on the Chronic Kidney Disease Epidemiology Collaboration (CKD-EPI) equation refit without adjustment for race. BUN/Creatinine Ratio 19.7 LAB CHEMISTRY METHOD 10/15/2024 2:54 PM [facility] Calcium 9.8 8.5 - 10.5 mg/dL LAB CHEMISTRY METHOD 10/15/2024 2:54 PM [facility] AST (SGOT) 15 10 - 42 unit/L LAB CHEMISTRY METHOD 10/15/2024 2:54 PM [facility] ALT (SGPT) 34 10 - 60 unit/L LAB CHEMISTRY METHOD 10/15/2024 2:54 PM [facility] Alkaline Phosphatase 124(H) 42 - 121 unit/L LAB CHEMISTRY METHOD 10/15/2024 2:54 PM [facility] Total Protein 8.1(H) 6.0 - 8.0 g/dL LAB CHEMISTRY METHOD 10/15/2024 2:54 PM [facility] Albumin 4.1 3.2 - 5.0 g/dL LAB CHEMISTRY METHOD 10/15/2024 2:54 PM [facility] Total Bilirubin 0.4 0.0 - 1.4 mg/dL LAB CHEMISTRY METHOD 10/15/2024 2:54 PM EDT [facility] Blood Venous blood specimen / Unknown 10/15/2024 1:10 PM EDT 10/15/2024 1:49 PM EDT Greg Long MD LAB BLOOD ORDERABLES Final R esult [facility] [address] [place] [address], [place] [phone] * (ABNORMAL) Basic metabolic panel (10/14/2024 6:59 AM EDT) Only the most recent of2 resultswithin the time period is included. Sodium 142 133 - 145 mmol/L LAB CHEMISTRY METHOD 10/14/2024 10:52 AM [facility] Potassium 3.6 3.5 - 5.5 mmol/L LAB CHEMISTRY METHOD 10/14/2024 10:52 AM [facility] Chloride 108 96 - 110 mmol/L LAB CHEMISTRY METHOD 10/14/2024 10:52 AM [facility] CO2 27 21 - 32 mmol/L LAB CHEMISTRY METHOD 10/14/2024 10:52 AM [facility] Anion Gap 7 3 - 11 LAB CHEMISTRY METHOD 10/14/2024 10:52 AM [facility] Glucose 107(H) 70 - 100 mg/dL LAB CHEMISTRY METHOD 10/14/2024 10:52 AM [facility] BUN 13 5 - 25 mg/dL LAB CHEMISTRY METHOD 10/14/2024 10:52 AM [facility] Creatinine 0.70 0.50 - 1.10 mg/dL LAB CHEMISTRY METHOD 10/14/2024 10:52 AM [facility] eGFR 104 >=60 mL/min/1. 73m2 LAB CHEMISTRY METHOD 10/14/2024 10:52 AM EDT [facility] Comment:Calculation based on the Chronic Kidney Disease Epidemiology Collaboration (CKD-EPI) equation refit without adjustment for race. BUN/Creatinine Ratio 18.6 LAB CHEMISTRY METHOD 10/14/2024 10:52 AM T [facility] Calcium 9.0 8.5 - 10.5 mg/dL LAB CHEMISTRY METHOD 10/14/2024 10:52 AM EDT [facility] Blood Venous blood specimen / Unknown Venipuncture / Unknown 10/14/2024 6:59 AM EDT 10/14/2024 9:04 AM EDT us Greg Long MD LAB BLOOD ORDERABLES Final R esult [facility] [address] [place] [address], [place] [phone] * (ABNORMAL) Urinalysis with reflex microscopic and culture (10/14/2024 12:00 AM EDT) Only the most recent of2 resultswithin the time period is included. Specific Funk Urine 1.016 1.003 - 1.030 LAB URINALYSIS - AUTOMATED METHOD 10/14/2024 10:07 AM [facility] pH, Urine 7.0 5.0 - 8.0 pH LAB URINALYSIS - AUTOMATED METHOD 10/14/2024 10:07 AM [facility] Leukocytes, Urine Small(A) Negative LAB URINALYSIS - AUTOMATED METHOD 10/14/2024 10:07 AM [facility] Nitrite, Urine Negative Negative LAB URINALYSIS - AUTOMATED METHOD 10/14/2024 10:07 AM [facility] Protein, Urine Negative <=Trace mg/dL LAB URINALYSIS - AUTOMATED METHOD 10/14/2024 10:07 AM [facility] Glucose, Urine Negative Negative mg/dL LAB URINALYSIS - AUTOMATED METHOD 10/14/2024 10:07 AM [facility] Ketones, Urine Negative Negative mg/dL LAB URINALYSIS - AUTOMATED METHOD 10/14/2024 10:07 AM [facility] Urobilinogen, Urine 0.2 0.2 - 1.0 mg/dL LAB URINALYSIS - AUTOMATED METHOD 10/14/2024 10:07 AM [facility] Bilirubin, Urine Negative Negative LAB URINALYSIS - AUTOMATED METHOD 10/14/2024 10:07 AM [facility] Blood, Urine Small(A) Negative LAB URINALYSIS - AUTOMATED METHOD 10/14/2024 10:07 AM [facility] RBC, Urine 9.8(H) 0 - 4 /HPF LAB URINALYSIS - AUTOMATED METHOD 10/14/2024 10:07 AM [facility] WBC, Urine 3.8 0 - 4 /HPF LAB URINALYSIS - AUTOMATED METHOD 10/14/2024 10:07 AM [facility] Squamous Epithelial, Urine 40 0 - 60 /LPF LAB URINALYSIS - AUTOMATED METHOD 10/14/2024 10:07 AM [facility] Bacteria, Urine Negative Negative /HPF LAB URINALYSIS - AUTOMATED METHOD 10/14/2024 10:07 AM [facility] Hyaline Casts, Urine 0.0 0 - 3 /LPF LAB URINALYSIS - AUTOMATED METHOD 10/14/2024 10:07 AM [facility] Urine Urine specimen obtained by clean catch procedure / Unknown Non-blood Collection / Unknown 10/14/2024 10/14/2024 8:59 AM EDT us Greg Long MD LAB URINE ORDERABLES Final R esult [facility] [address] [place] [address], * Horowitz urine culture tube (10/14/2024 12:00 AM EDT) Only the most recent of2 resultswithin the time period is included. Extra Tube Hold for add-ons. 10/14/2024 10:01 AM EDT [facility] Comment:Auto resulted. Urine Urine specimen obtained by clean catch procedure / Unknown Non-blood Collection / Unknown 10/14/2024 10/14/2024 8:59 AM EDT us Greg Long MD LAB URINE ORDERABLES Final R esult Performing Organization Address [facility]/ZIP Co de Phone Number [facility] [address] [place] [address], * Culture urine (10/14/2024 12:00 AM EDT) Only the most recent of2 resultswithin the time period is included. Culture, Urine 10,000-49,000 CFU/mL Mixed urogenital esther, no uropathogens present. Suggest repeat specimen if clinically indicated. 10/15/2024 10:38 AM EDT [facility] Urine Urine specimen obtained by clean catch procedure / Unknown Non-blood Collection / Unknown 10/14/2024 10/14/2024 10:07 AM EDT Greg Long MD LAB MICROBIOLOGY - GENERAL O RDERABLES Final Result [facility] [address] [place] [address], * Magnesium (10/09/2024 6:14 AM EDT) Only the most recent of2 resultswithin the time period is included. Magnesium 2.3 1.9 - 2.6 mg/dL LAB CHEMISTRY METHOD 10/09/2024 10:48 AM EDT [facility] Blood Venous blood specimen / Unknown Venipuncture / Unknown 10/09/2024 6:14 AM EDT 10/09/2024 9:42 AM EDT Greg Long MD LAB BLOOD ORDERABLES Final R esult [facility] [address] [place] [address], [place] [phone] * Vitamin B12 (10/09/2024 6:14 AM EDT) Vitamin B-12 446 250 - 900 pcg/mL LAB CHEMISTRY METHOD 10/09/2024 11:11 AM EDT [facility] Blood Venous blood specimen / Unknown Venipuncture / Unknown 10/09/2024 6:14 AM EDT 10/09/2024 9:42 AM EDT Greg Long MD LAB BLOOD ORDERABLES Final R esult [facility] [address] [place] [address], [place] [phone] * Vitamin B12 and folate (09/29/2024 10:30 AM EDT) Vitamin B-12 482 250 - 900 pcg/mL LAB CHEMISTRY METHOD 09/29/2024 2:54 PM EDT [facility] Folate 14.6 2.8 - 17.0 ng/ml LAB CHEMISTRY METHOD 09/29/2024 2:54 PM EDT [facility] Blood Venous blood specimen / Unknown Venipuncture / Unknown 09/29/2024 10:30 AM EDT 09/29/2024 12:21 PM EDT Greg Long MD LAB BLOOD ORDERABLES Final R esult [facility] [address] [place] [address], [place] [phone] * Thyroid stimulating hormone (09/29/2024 10:30 AM EDT) [facility] TSH 1.12 0.40 - 4.00 mcIU/mL LAB CHEMISTRY METHOD 09/29/2024 4:28 PM EDT [facility] Blood Venous blood specimen / Unknown Venipuncture / Unknown 09/29/2024 10:30 AM EDT 09/29/2024 12:21 PM EDT Greg Long MD LAB BLOOD ORDERABLES Final R esult Performing Organization Address [facility] Co de Phone Number [facility] [address] [place] [address], [place] [phone] * ECG-Annotated (09/22/2024) Provider Tamara CHILDRESS ECG ORDERABLES Final Result * ECG 12 lead (09/20/2024 12:32 AM EDT) [facility] Ventricular Rate ECG 81 BPM GEMUSE Atrial Rate 81 BPM GEMUSE P-R Interval 138 ms GEMUSE QRS Duration 80 ms GEMUSE Q-T Interval 414 ms GEMUSE QTc 480 ms GEMUSE P Wave [place] 108 degrees GEMUSE R [place] 27 degrees GEMUSE T [place] 42 degrees GEMUSE ECG Interpretation Normal sinus rhythm When compared with ECG of 12-MAY-2022 14:24, No significant change was found Confirmed by MAXIMINO CARREON ([id number]) on 09/20/2024 11:09:55 PM GEMUSE 09/20/2024 12:3 2 AM EDT 09/20/2024 11:09 PM EDT Kimi Mondragon MD ECG ORDERABLES Final Re sult Performing Organization Address City/[facility]/ZIP Co de Phone Number GEMUSE * CBC auto differential (09/19/2024 5:48 PM EDT) [facility] Signature WBC 5.2 4.8 - 10.8 K/mcL LAB HEMETOLOGY METHOD 09/19/2024 6:23 PM EDT [facility] RBC 4.30 3.80 - 4.80 M/mcL LAB HEMETOLOGY METHOD 09/19[facility]2024 [facility] Hemoglobin 12.7 11.5 - 16.0 g/dL LAB HEMETOLOGY METHOD 09/19/2024 6:23 PM EDT [facility] Hematocrit 37.8 35.0 - 47.0 % LAB HEMETOLOGY METHOD 09/19/2024 6:23 [facility] MCV 88.1 79.0 - 98.0 FL LAB HEMETOLOGY METHOD 09/19/2024 6:23 [facility] MCH 29.6 27.0 - 32.0 pcg LAB HEMETOLOGY METHOD 09/19/2024 6:23 PM [facility] MCHC 33.6 32.0 - 37.0 g/dL LAB HEMETOLOGY METHOD 09/19/2024 6:23 PM [facility] RDW 13.3 11.0 - 15.0 % LAB HEMETOLOGY METHOD 09/19/2024 6:23 PM [facility] Platelets 242 130 - 400 K/mcL LAB HEMETOLOGY METHOD 09/19/2024 6:23 [facility] MPV 10.3 7.0 - 11.0 FL LAB HEMETOLOGY METHOD 09/19/2024 6:23 [facility] NRBC 0.0 <1.0 % LAB HEMETOLOGY METHOD 09/19/2024 6:23 [facility] NRBC Absolute 0.00 <0.10 K/mcL LAB HEMETOLOGY METHOD 09/19/2024 6:23 PM [facility] Neutrophils Relative 62.3 % LAB HEMETOLOGY METHOD 09/19/2024 6:23 PM [facility] Lymphocytes Relative 27.7 % LAB HEMETOLOGY METHOD 09/19/2024 6:23 PM [facility] Monocytes Relative 8.6 % LAB HEMETOLOGY METHOD 09/19/2024 6:23 PM [facility] Eosinophils Relative 0.6 % LAB HEMETOLOGY METHOD 09/19/2024 6:23 PM [facility] Basophils Relative 0.6 % LAB HEMETOLOGY METHOD 09/19/2024 6:23 PM [facility] Immature Granulocytes Relative 0.2 % LAB HEMETOLOGY METHOD 09/19/2024 6:23 PM [facility] Neutrophils Absolute 3.26 1.50 - 7.00 K/mcL LAB HEMETOLOGY METHOD 09/19/2024 6:23 PM [facility] Lymphocytes Absolute 1.45 1.00 - 5.00 K/mcL LAB HEMETOLOGY METHOD 09/19/2024 6:23 PM [facility] Monocytes Absolute 0.45 0.20 - 1.00 K/mcL LAB HEMETOLOGY METHOD 09/19/2024 6:23 PM [facility] Eosinophils Absolute 0.03 0.00 - 0.50 K/mcL LAB HEMETOLOGY METHOD 09/19/2024 6:23 PM [facility] Basophils Absolute 0.03 0.00 - 0.20 K/mcL LAB HEMETOLOGY METHOD 09/19/2024 6:23 PM [facility] Immature Granulocytes Absolute 0.01 0.00 - 0.03 K/mcL LAB HEMETOLOGY METHOD 09/19/2024 6:23 PM [facility] Blood Venous blood specimen / Unknown Venipuncture / Unknown 09/19/2024 5:48 PM EDT 09/19/2024 6:10 PM EDT Kimi Mondragon MD LAB BLOOD ORDERABLES Fin al Result Performing Organization Address [facility]/ZIP Co de Phone Number [facility] [address] [place] [address], [place] [phone] * C-reactive protein (09/19/2024 5:48 PM EDT) C-Reactive Protein <0.29 <=0.50 mg/dL LAB CHEMISTRY METHOD 09/20/2024 1:24 AM EDT [facility] Blood Venous blood specimen / Unknown Venipuncture / Unknown 09/19/2024 5:48 PM EDT 09/19/2024 6:10 PM EDT Kimi Mondragon MD LAB BLOOD ORDERABLES Fin al Result Performing Organization Address [facility] Co de Phone Number [facility] [address] [place] [address], [place] [phone] * Phosphorus (09/19/2024 5:48 PM EDT) Pathologist [facility] Phosphorus 3.5 2.5 - 4.5 mg/dL LAB CHEMISTRY METHOD 09/20/2024 1:24 AM EDT [facility] Blood Venous blood specimen / Unknown Venipuncture / Unknown 09/19/2024 5:48 PM EDT 09/19/2024 6:10 PM EDT Kimi Mondragon MD LAB BLOOD ORDERABLES Fin al Result Performing Organization Address City/[facility]/ZIP Co de Phone Number [facility] [address] [place] [address], [place] [phone] * Creatine kinase (09/19/2024 5:48 PM EDT) [facility] Total CK 81 22 - 269 unit/L LAB CHEMISTRY METHOD 09/20/2024 1:24 AM EDT [facility] Blood Venous blood specimen / Unknown Venipuncture / Unknown 09/19/2024 5:48 PM EDT 09/19/2024 6:10 PM EDT us Kimi Mondragon MD LAB BLOOD ORDERABLES Fin al Result [facility] [address] [place] [address], * Respiratory virus panel molecular study (09/19/2024 5:33 PM EDT) [facility] Adenovirus Detection by PCR Not Detected Not Detected LAB MICROBIOLOGY METHOD 09/19/2024 7:12 PM EDT [facility] Influenza A PCR Not Detected Not Detected LAB MICROBIOLOGY METHOD 09/19/2024 7:12 PM EDT [facility] Influenza B PCR Not Detected Not Detected LAB MICROBIOLOGY METHOD 09/19/2024 7:12 PM EDT [facility] Coronavirus 229E Not Detected Not Detected LAB MICROBIOLOGY METHOD 09/19/2024 7:12 PM EDT [facility] Coronavirus HKU1 Not Detected Not Detected LAB MICROBIOLOGY METHOD 09/19/2024 7:12 PM EDT [facility] Coronavirus OC43 Not Detected Not Detected LAB MICROBIOLOGY METHOD 09/19/2024 7:12 PM EDT [facility] Coronavirus NL63 Not Detected Not Detected LAB MICROBIOLOGY METHOD 09/19/2024 7:12 PM EDT [facility] Parainfluenza Virus 1 Not Detected Not Detected LAB MICROBIOLOGY METHOD 09/19/2024 7:12 PM EDT [facility] Parainfluenza Virus 2 Not Detected Not Detected LAB MICROBIOLOGY METHOD 09/19/2024 7:12 PM EDT [facility] Parainfluenza Virus 3 Not Detected Not Detected LAB MICROBIOLOGY METHOD 09/19/2024 7:12 PM EDT [facility] Parainfluenza Virus 4 Not Detected Not Detected LAB MICROBIOLOGY METHOD 09/19/2024 7:12 PM EDT [facility] RSV PCR Not Detected Not Detected LAB MICROBIOLOGY METHOD 09/19/2024 7:12 PM EDT [facility] Human Metapneumovirus A and B Not Detected Not Detected LAB MICROBIOLOGY METHOD 09/19/2024 7:12 PM EDT [facility] Rhinovirus/Entero virus Not Detected Not Detected LAB MICROBIOLOGY METHOD 09/19/2024 7:12 PM EDT [facility] Bordetella pertussis Not Detected Not Detected LAB MICROBIOLOGY METHOD 09/19/2024 7:12 PM EDT [facility] Bordetella parapertussis Not Detected Not Detected LAB MICROBIOLOGY METHOD 09/19/2024 7:12 PM EDT [facility] Mycoplasma pneumo by PCR Not Detected Not Detected LAB MICROBIOLOGY METHOD 09/19/2024 7:12 PM EDT [facility] Chlamydia pneumoniae Not Detected Not Detected LAB MICROBIOLOGY METHOD 09/19/2024 7:12 PM EDT [facility] SARS COV-2 Not Detected Not Detected LAB MICROBIOLOGY METHOD 09/19/2024 7:12 PM EDT [facility] Swab Both anterior nares / Unknown Non-blood Collection / Unknown 09/19/2024 5:33 PM EDT 09/19/2024 6:09 PM EDT [facility] - 09/19/2024 7:12 PM EDT Testing was performed using the [employer] Respiratory Pathogen PCR Assay. All results must [...] detection. Kimi Mondragon MD LAB MICROBIOLOGY - GENER AL ORDERABLES Final Result [facility] ([facility]) [facility] [address] [place] [address], * Lipid panel (03/28/2022) LDL/HDL Ratio 0 [...] Most Recently Relevant to Health Maintenance Insurance [place]IC[place] AD[place]ANT[place] Care Teams Disk Sharpener Relationship Specialty Start Date End Date Greg Long MD [address] [place] [address] PCP - General Family Medicine 09/29/24
== END 2024-10-30 11:19 | disposition home or self-care (01) ==
PROVIDERS: PCP Internal Medicine; Visit Provider Internal Medicine Rheumatology
DX: H04.123 Dry eye syndrome of bilateral lacrimal glands (principal); R29.898 Other symptoms and signs involving the musculoskeletal system; M79.641 Pain in right hand; M79.642 Pain in left hand; R31.0 Gross hematuria
CPT/HCPCS: 99214

== ENCOUNTER 2024-12-12 13:49 | Outpatient (REF) | payer MEDICARE, MEDICAID, SELFPAY ==
--- OUTSIDE RECORDS SUMMARY | 2024-12-12 13:51 | XMS_ITS ---
Author Name [facility] Organization Unknown Encounters Encounter Type Encounter Reason Primary Diagnosis Location Date Ambulatory [facility] [place] 05/11/2023
--- OUTSIDE RECORDS SUMMARY | 2024-12-12 13:51 | XMS_ITS | Encounter Summary ---
Author Organization [facility] Address [address] [place] [address] Phone Care Team Providers Care Community Health Nurse Name Role Phone Earlene Andrade MD Primary Care Provider + Encounter Details Date Type Department Care Team (Late st Contact Info) Description 12/02/2021 Documentation Only [facility] [address] [place] [phone] Darwin Hensley MD [address] [place] [address] [place] [phone] Social History Tobacco Use Types Packs/Day Years [...] Visit [facility] [address] [phone] Buddy Hough MD [address] [phone] documented as of this encounter Visit Diagnoses Not on filedocumented in this encounter Care Teams Community Health Nurse Relationship Specialty Start Date End Date Earlene Andrade MD [address] [place], [place] [phone] PCP - General Internal Medicine 02/16/23 documented as of this encounter
--- OUTSIDE RECORDS SUMMARY | 2024-12-12 13:51 | XMS_ITS | Clinical Summary ---
Author Organization [facility] Address [address] [place] [address] Care Team Providers Care Internal Sales Name Role Phone Nell ALARCON DO, Edward [...] - season) 2024 12/16/2020 Influenza Vaccine (#1) 2025 , 03/27/2020, 03/27/2020, Additional history exists DTap / Tdap / Td (2 - Td or Tdap) 05/18/2025 05/18/2015 Pneumococcal Vaccine Aged Out 02/26/2014 No long er eligible based on patient's age to complete this topic RSV Ped < 20 months Aged Out No longe r eligible based on patient's age to complete this topic Care Teams Internal Sales Relationship Specialty Start Date End Date Devang Camejo IV, DO PCP - General Internal Medicine 06/09/22
--- OUTSIDE RECORDS SUMMARY | 2024-12-12 13:51 | XMS_ITS | Encounter Summary ---
Author Organization [facility] Address [address] [place] [address] Care Team Providers Care Radio Sales Account Executive Name Role Phone Greg Long MD Primary Care Provider [phone] Encounter Details Date Type Department Care Team (Late st Contact Info) Description 11/21/2024 Lab Requisition [facility] - Main Lab [address] [facility] [place] [phone] Jose Pelaez MD [address] [place] [address] Polyneuropathy, unspecified Social History Tobacco Use Types Packs/Day Years [...] as of this encounter Plan of Treatment Not on file documented as of this encounter Visit Diagnoses Diagnosis Polyneuropathy, unspecified documented in this encounter Care Teams Radio Sales Account Executive Relationship Specialty Start Date End Date Greg Long MD [address] [place] [address] PCP - General Family Medicine 09/29/24 documented as of this encounter
--- OUTSIDE RECORDS SUMMARY | 2024-12-12 13:51 | XMS_ITS | Encounter Summary ---
Author Organization [facility] Address [address] [place] [address] Phone Care Team Providers Care Pourer Metal Name Role Phone Earlene Andrade MD Primary Care Provider + Encounter Details Date Type Department Care Team (Late st Contact Info) Description 03/25/2022 Procedure [facility] [address] [place] [address] Social History Tobacco Use Types Packs/Day Years Used Date Smoking Tobacco: Never Assessed Comments Unknown Sex and Gender Information Value Date Recorded Sex Assigned at Not on file Legal Sex Female 11:00 AM EST Gender Identity Not on file Sexual Orientation Not on file documented as of this encounter Functional Status * Calculated C-SSRS Risk Score (Lifetime/Recent) Answer Date of Assessment Author Low Risk 03/28/2022 3:00 AM Reynold Weems RN * [place] Suicide Severity Rating Scale (Screener/Recent Self-Report) Question Answer Date of Assessment Author 1. Wish to be (Past 1 Month) Yes 022 3:00 AM Orion Weems RN 2. Non-Specific Active Suici christian Thoughts (Past 1 Month) No 03/28/2022 3:00 AM Orion Weems RN 6. Suicidal Behavior (Lifetime) No 3:00 AM Orion Weems RN documented as of this encounter Plan of Treatment Not on file documented as of this encounter Visit Diagnoses Not on filedocumented in this encounter Care Teams Pourer Metal Relationship Specialty Start Date End Date Earlene Andrade MD [address] [address] PCP - General Internal Medicine 03/16/22 documented as of this encounter Additional Source Comments The information contained in this document represents components of the legal health record. It is not the complete legal health record.[facility]
--- NOTE | 2024-12-12 13:52 | EMG_ITS ---
Chief complaint: Lower leg pain Four days after a Tdap vaccine 3 months ago, patient started to have weakness, numbness, tingling. Discharge summary from [facility] reviewed. Neurology and rheumatology notes reviewed. On exam, does not show any proximal weakness. No footdrop. No atrophy. Reason for referral: Evaluate for polyneuropathy Referred by: Dr. Maddox Procedure done: Upper and lower extremity NCS/EMG Precautions and/or limitations: None The limb temperature was monitored continuously and remained between 32-36 degrees C during the performance of the NCS. Nerve Conduction Studies Anti Sensory Summary Table ?Stim Site NR Onset (ms) Norm Onset (ms) Peak (ms) Norm Peak (ms) O-P Amp (?V) Norm O-P Amp Site1 Site2 Delta-0 (ms) Dist (cm) Ricco (m/s) Norm Ricco (m/s) Left Median Anti Sensory (2nd Digit) Wrist ? 2.3 3.0 <3.6 55.9 >10 Wrist 2nd Digit 2.3 14.0 61 Right Median Anti Sensory (2nd Digit) Wrist ? 2.1 2.8 <3.6 18.2 >10 Wrist 2nd Digit 2.1 14.0 67 Left Radial Anti Sensory (Thumb) Forearm ? 1.5 2.2 <3.1 45.6 Forearm Thumb 1.5 0.0 Left Sural Anti Sensory (Lat Mall) Calf ? 1.9 2.9 <4.0 8.0 >5.0 Calf Lat Mall 1.9 14.0 74 Right Sural Anti Sensory (Lat Mall) Calf ? 2.6 3.0 <4.0 6.8 >5.0 Calf Lat Mall 2.6 14.0 54 Left Ulnar Anti Sensory (5th Digit) Wrist ? 2.2 3.0 <3.7 18.2 >15.0 Wrist 5th Digit 2.2 14.0 64 Motor Summary Table ?Stim Site NR Onset (ms) Norm Onset (ms) O-P Amp (mV) Norm O-P Amp iAmp (mV) Amp (1st) (%) Site1 Site2 Delta-0 (ms) Dist (cm) Ricco (m/s) Norm Ricco (m/s) Left Median Motor (Abd Poll Brev) Wrist ? 2.7 <3.9 11.0 >4.5 13.2 100.0 Elbow Wrist 3.4 19.5 57 >45 Elbow ? 6.1 11.2 13.6 101.8 Right Median Motor (Abd Poll Brev) Wrist ? 2.6 <3.9 8.5 >4.5 10.7 100.0 Elbow Wrist 3.6 19.0 53 >45 Elbow ? 6.2 9.1 11.7 107.1 Right Peroneal Motor (Ext Dig Brev) Ankle ? 3.4 <4.0 6.4 >2.5 7.5 100.0 Ankle Ext Dig Brev 3.4 0.0 B Fib ? 8.5 5.8 6.7 90.6 B Fib Ankle 5.1 28.0 55 >40 Poplt ? 9.2 6.0 7.0 93.8 Poplt B Fib 0.7 6.0 86 >40 Left Tibial Motor (Abd Gunn Brev) Ankle ? 3.1 <5 8.0 >2.5 10.6 100.0 Ankle Abd Gunn Brev 3.1 0.0 Knee ? 10.0 6.3 8.6 78.8 Knee Ankle 6.9 34.0 49 >40 Right Tibial Motor (Abd Gunn Brev) Ankle ? 3.0 <5 8.6 >2.5 13.2 100.0 Ankle Abd Gunn Brev 3.0 0.0 Knee ? 9.3 6.4 9.2 74.4 Knee Ankle 6.3 33.0 52 >40 Left Ulnar Motor (Abd Dig Minimi) Wrist ? 2.3 <3.0 7.4 >5 9.2 100.0 B Elbow Wrist 2.9 17.0 59 >45 B Elbow ? 5.2 6.7 8.3 90.5 A Elbow B Elbow 1.2 10.0 83 >45 A Elbow ? 6.4 6.4 8.1 86.5 EMG ?Side Muscle Nerve Root Ins Act Fibs Psw Amp Dur Poly Recrt Int Pat Comment Right 1stDorInt Ulnar C8-T1 Nml Nml Nml Nml Nml 0 Nml Complete Right FlexCarRad Median C6-7 Nml Nml Nml Nml Nml 0 Nml Complete Right Biceps Musculocut C5-6 Nml Nml Nml Nml Nml 0 Nml Complete Right Triceps Radial C6-7-8 Nml Nml Nml Nml Nml 0 Nml Complete Right Deltoid Axillary C5-6 Nml Nml Nml Nml Nml 0 Nml Complete Right AbdHallucis MedPlantar S1-2 Nml Nml Nml Nml Nml 0 Nml Complete Right AntTibialis Dp Br Peron L4-5 Nml Nml Nml Nml Nml 0 Nml Complete Right MedGastroc Tibial S1-2 Nml Nml Nml Nml Nml 0 Nml Complete Right VastusMed Femoral L2-4 Nml Nml Nml Nml Nml 0 Nml Complete Paraspinal EMG ?Side Muscle Nerve Root Ins Act Fibs Psw Comment Right Cervical Upper Rami Nml Nml Nml Right Cervical Mid Rami Nml Nml Nml Right Cervical Lower Rami Nml Nml Nml Left Cervical Upper Rami Nml Nml Nml Left Cervical Mid Rami Nml Nml Nml Left Cervical Lower Rami Nml Nml Nml Right Lumbar Upper Rami Nml Nml Nml Right Lumbar Mid Rami Nml Nml Nml Right Lumbar Lower Rami Nml Nml Nml Left Lumbar Upper Rami Nml Nml Nml Left Lumbar Mid Rami Nml Nml Nml Left Lumbar Lower Rami Nml Nml Nml FINDINGS: All motor and sensory nerves tested showed normal latencies, amplitudes and conduction velocities. Concentric needle EMG was performed in selected muscles of the right upper and lower extremities, cervical paraspinals and lumbar paraspinals. Study did not reveal signs of electric abnormalities as shown in the table above. IMPRESSION: 1. This is an abnormal study. 2. There is no electrodiagnostic evidence for median neuropathy, ulnar neuropathy, brachial plexopathy, cervical radiculopathy, peroneal neuropathy, tibial neuropathy, lumbosacral plexopathy, lumbar radiculopathy, or peripheral neuropathy. Thank you for your kind referral. Kat Pascual MD, ADRIAN Board Certified, [place] Board of Physical Medicine and Rehabilitation (ABPMR) Board Certified, [place] Board of Electrodiagnostic Medicine (ABEM) CODIN 06418 x 2 [phone] x 2 MTDD
== END 2024-12-12 13:50 | disposition home or self-care (01) ==
LOC: HO.NEURO 13:49
PROVIDERS: PCP Internal Medicine; Referring Provider Nurse Practitioner Family; Visit Provider Internal Medicine Rheumatology
DX: R29.898 Other symptoms and signs involving the musculoskeletal system (principal); R20.2 Paresthesia of skin; R94.131 Abnormal electromyogram [EMG]
CPT/HCPCS: 95885; 95886; 95912; 95913

== ENCOUNTER → 2024-12-12 13:52 | Outpatient (BNV) | payer MEDICARE, MEDICAID, SELFPAY | PROVIDERS: PCP Internal Medicine; Referring Provider Nurse Practitioner Family; Visit Provider Physical Medicine & Rehabilitation | DX: M79.661 Pain in right lower leg (principal); R20.0 Anesthesia of skin; R20.2 Paresthesia of skin | CPT/HCPCS: 95886; 95912 ==

== ENCOUNTER 2024-12-31 12:40 | Outpatient (AMB) | payer MEDICARE, MEDICAID, SELFPAY ==
--- NOTE | 2024-12-31 12:45 | A.OFFVIS_ITS ---
Vital Signs 12/31/24 12:46 Height 5 ft 4 in Weight 179 lb 14.355 oz BMI 30.9 BP 130/100 H Blood Pressure Location Lt brachial Position Sitting Pulse 67 Pulse Source Pulse Oximeter Pulse Oximetry (%) 99 Oxygen Delivery Method Room Air Intake Visit Reasons: SERAFIN+ Intake Note: Patient presents for SERAFIN+ follow up. Accompanied by: Self / Same As Patient Allergies diphtheria,pertussis (acellular),te (From Boostrix Tdap) Allergy (Severe, Verified 12/31/24 12:46) Numbness ketorolac (From TORADOL) Allergy (Intermediate, Verified 12/31/24 12:46) hives polyethylene glycol Allergy (Intermediate, Verified 12/31/24 12:46) Unknown COVID-19 (SARS-CoV-2) vaccine, olivier Allergy (Verified 12/31/24 12:46) Hives morphine Adverse Reaction (Verified 12/31/24 12:46) Abdominal Pain perflutren (From Definity) Adverse Reaction (Verified 12/31/24 12:46) Unknown contrast dye Allergy (Intermediate, Uncoded 09/23/24 23:22) Hives gabapentin Adverse Reaction (Uncoded 09/23/24 23:22) Weakness HPI HPI SERAFIN+: Details: She has blurry vision, loss of appetite. She does not feel well. She has not been participating physical therapy. She has not been referred to physical therapy. She was referred by her PCP to see a beading installer in [place]. She reports that it will be difficult for her to go to [place] for regular follow- ups. She continues to have weakness in her lower extremities. She uses a cane to ambulate. [facility] Medical History Lumbar spinal stenosis Fatty liver Adverse neurologic event after COVID-19 vaccination Endometriosis FH: cholecystectomy Sleep apnea Migraine Alopecia IBS (irritable bowel syndrome) Asthma Pericardial effusion Anemia Kidney stones Depression Endometriosis GERD (gastroesophageal reflux disease) Fibromyalgia Scleroderma COVID-19 virus infection Cervicalgia Snoring Raynauds phenomenon SERAFIN positive Surgical History History of right oophorectomy Hx of hysterectomy Hx of cholecystectomy History of section Family History Sister Thyroid disease Alopecia Family/Other Diabetes Social History Household Members: Children Housing: House Do you presently have visiting nurse or other home services: No Unable to assess alcohol history related to: Unknown Alcohol intake: never Patient Tobacco Use Status: Never used Tobacco service: No Current occupational status: employed 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 Good respiratory effort Skin: No lesions seen, discoloration of fingertips, digital ulcers MSK: No tender joints. No synovitis. Normal range of motion of upper extremities. 4/5 power of shoulder abductors. 3/5 power bilateral elbow extensors. Rest of upper extremity is Power 5/5. Bilateral hip flexors and extensors 3/5, rest of lower extremities is 5/5 Assessment & Plan Assessment & Plan (1) Lower extremity weakness: Comment: She has developed paresthesia and numbness in lower extremities progressing to involve upper extremities since Tdap vaccine (? Vaccine related reaction versus alternative etiology) 4 months ago. Her exam has worsened this visit with progression of proximal muscle weakness involving now the upper extremities. Workup to date has revealed low titer positive SERAFIN. Muscle enzymes have been normal on repeat testing. She has mild elevation in ESR intermittent normocytic anemia without any other organ involvement. Nerve conduction study of all 4 limbs was unremarkable. She reports that only right upper extremity, lower extremity and spine EMG was performed, which was confirmed when I reviewed testing. Extensive prior testing with brain and cervical MRI, and lumbar puncture were unremarkable. At this time I do not have a rheumatological basis for her complaints. I will complete workup for SLE due to low titer positive SERAFIN although my suspicion is very low. She has been experiencing blurry vision and had recent eye exam but does not confirm if there is any optic nerve involvement -I am wondering if she could have postvaccination NMOSD. Code(s): R29.898 - Other symptoms and signs involving the musculoskeletal system Category: Medical Qualifiers: Laterality: bilateral Qualified Code(s): R29.898 - Other symptoms and signs involving the musculoskeletal system Plan: Muscle enzymes and inflammatory markers ordered Laboratory workup for SLE. We will be in touch with patient after results are back. EMG left upper and left lower extremity ordered Physical therapy ordered to improve upper extremity and lower extremity strength Follow up with Neurology. Could Postvaccination NMOSD be considered? L-spine MRI with contrast for further evaluation of lower extremity weakness ? Transverse myelitis or further workup for small fiber neuropathy (2) Upper extremity weakness: Code(s): R29.898 - Other symptoms and signs involving the musculoskeletal system Category: Medical Plan: See above (3) Bilateral hand pain: Comment: Her pain is due to paraesthesia in hands. Nerve conduction study did not reveal etiology. She does not have joint pain on exam. No signs suggestive of inflammatory arthritis. Code(s): M79.641 - Pain in right hand; M79.642 - Pain in left hand Category: Medical Plan: Follow up with Neurology for further workup of neuropathy Orders: Orders Complete Blood Count Auto Diff Today R76.0 - Raised antibody titer UA ClnCatch+Micro w/rflx Cult Today R76.0 - Raised antibody titer Aspartate Amino Transferase Today R76.0 - Raised antibody titer Creatinine Today R76.0 - Raised antibody titer Anti DNA DS Antibody Today R76.0 - Raised antibody titer Erythrocyte Sedimentation Rate Today R76.0 - Raised antibody titer Complement C3 Today R76.0 - Raised antibody titer Sm Sm/DOCUMENT SCANNER Antibodies Today R76.0 - Raised antibody titer Complement C4 Today R76.0 - Raised antibody titer PT Evaluation and Treatment Today R29.898 - Other symptoms and signs involving the musculoskeletal system Aldolase Today R29.898 - Other symptoms and signs involving the musculoskeletal system NE electromyogram (EMG) Today R29.898 - Other symptoms and signs involving the musculoskeletal system Alanine Aminotransferase Today R76.0 - Raised antibody titer Protein Creatinine Ratio, Ur Today R76.0 - Raised antibody titer C Reactive Protein Today R76.0 - Raised antibody titer Creatine Kinase Total Today R29.898 - Other symptoms and signs involving the musculoskeletal system Coding Level of Care Code Est Pt Level 4 (46136) Complex EM visit Add On G2211 Diagnoses Weakness of both lower extremities R29.898 Laterality: bilateral Upper extremity weakness R29.898 Bilateral hand pain M79.641; M79.642 Time Spent (min) 25
[2024-12-31 12:46] VITALS: BP 130/100; PULSE 67; O2SAT 99; BMI 30.9
--- OUTSIDE RECORDS SUMMARY | 2024-12-31 13:32 | XMS_ITS | Encounter Summary ---
Author Organization [facility] Address [address] [place] [address] Care Team Providers Care Surgery Manager Name Role Phone Greg Long MD Primary Care Provider [phone] Encounter Details Date Type Department Care Team (Late st Contact Info) Description 11/21/2024 Lab Requisition [facility] - Main Lab [address] [facility] [place] [phone] Jose Pelaez MD [address] [place] [address] Polyneuropathy, unspecified Social History Tobacco Use Types [...] unspecified documented in this encounter Care Teams Surgery Manager Relationship Specialty Start Date End Date Greg Long MD [address] [place] [address] PCP - General Family Medicine 09/29/24 documented as of this encounter
--- OUTSIDE RECORDS SUMMARY | 2024-12-31 13:32 | XMS_ITS | Clinical Summary ---
Author Organization [facility] Address [address] [place] [address] Care Team Providers Care Carpet Weaver Name Role Phone Nell ALARCON DO, Edward [...] age to complete this topic Care Teams Carpet Weaver Relationship Specialty Start Date End Date Devang Camejo IV, DO PCP - General Internal Medicine 06/09/22
--- OUTSIDE RECORDS SUMMARY | 2024-12-31 13:32 | XMS_ITS | Encounter Summary ---
Author Organization [facility] Address [address] [place] [address] Phone Care Team Providers Care Oil Changer Name Role Phone Earlene Andrade MD Primary Care Provider + Encounter Details Date Type Department Care Team (Late st Contact Info) Description 12/02/2021 Documentation Only [facility] [address] [phone] Dariwn Hensley MD [address] [place] [address] [place] [phone] Social History Tobacco Use Types Packs/Day Years [...] Care Team (Late st Contact Info) Description 01/23/2025 11:30 AM EDT Office [facility] [address] [phone] Buddy Hough MD [address] [phone] documented as of this encounter Visit Diagnoses Not on filedocumented in this encounter Care Teams Oil Changer Relationship Specialty Start Date End Date Earlene Andrade MD [address] [place], [place] [address] PCP - General Internal Medicine 02/16/23 documented as of this encounter
--- OUTSIDE RECORDS SUMMARY | 2024-12-31 13:32 | XMS_ITS | Encounter Summary ---
Author Organization [facility] Address [address] [facility] [place] [address] Phone Care Team Providers Care It Operations Manager Name Role Phone Earlene Andrade MD Primary Care Provider + Encounter Details Date Type Department Care Team (Late st Contact Info) Description 03/25/2022 Procedure [facility] [address] [place] [address] Social History Tobacco Use Types Packs/Day Years [...] 03/28/2022 3:00 AM Reynold Weems RN * [place] Suicide Severity Rating Scale (Screener/Recent Self-Report) Question [...] on filedocumented in this encounter Care Teams It Operations Manager Relationship Specialty Start Date End Date Earlene Andrade MD [address], [place] [address] PCP - General Internal Medicine 03/16/22 documented as of this encounter Additional Source Comments The information contained in this document represents components of the legal health record. It is not the complete legal health record.[facility]
== END 2024-12-31 13:21 | disposition home or self-care (01) ==
LOC: HO.RHES 12:41
PROVIDERS: PCP Internal Medicine; Visit Provider Internal Medicine Rheumatology
DX: R29.898 Other symptoms and signs involving the musculoskeletal system (principal); M79.641 Pain in right hand; M79.642 Pain in left hand
CPT/HCPCS: 99214; G2211

== ENCOUNTER 2024-12-31 12:40 | Outpatient (REF) | payer MEDICARE, MEDICAID, SELFPAY ==
[2024-12-31 18:22] LABS: MANUAL DIFF FLAG NO
[2024-12-31 18:28] LABS: Appearance Urine Clear; Glucose Urine UA Negative (Negative); PH 6.5 (5.0-9.0); Specific Gravity - Urine 1.010 (1.005-1.025); UMIC TRIGGER UACC YES
[2024-12-31 18:38] LABS: Alanine Aminotransferase 23 U/L (0-31); Aspartate Amino Transferase 28 U/L (5-31); Estimated Glomerular Filt Rate > 60
[2024-12-31 18:49] LABS: Total Protein Urine Random < 7 mg/dL (<12)
[2024-12-31 18:52] LABS: Hematocrit 35.5 % (37.0-47.0); Hemoglobin 11.7 g/dl (12.0-16.0); Imm Gran Abs Auto 0.01 X10*3/uL (0.00-0.03); Imm Gran Pct Auto 0.2 % (0.0-0.4); Lymphocytes Absolute Auto 1.2 X10*3/uL (1.2-4.9); Mean Corpuscular HGB Conc 33.0 g/dl (31.0-35.0); Mean Corpuscular Hemoglobin 29.3 pg (27.0-33.0); Mean Corpuscular Volume 89.0 fL (80.0-98.0); NRBC Abs Auto 0.000 X10*3/uL (0.0-0.012); NRBC Pct Auto 0.0 /100WBC (0.0-0.2); Platelet Count 204 X10*3/uL (160-400); Red Blood Count 3.99 X10*6/uL (4.20-5.50); White Blood Count 4.9 X10*3/uL (4.8-10.8)
[2024-12-31 19:05] LABS: UACC Culture Trigger YES
[2025-01-01 14:33] LABS: SM/Ribonucleoprotein Ab <1.0 NEG AI (<1.0 NEG); Smith Protein <1.0 NEG AI (<1.0 NEG)
== END 2024-12-31 12:41 | disposition home or self-care (01) ==
LOC: HO.HKASLDS 12:40
PROVIDERS: PCP Internal Medicine; Visit Provider Internal Medicine Rheumatology
DX: R76.0 Raised antibody titer (principal); R20.2 Paresthesia of skin; R20.0 Anesthesia of skin; M62.81 Muscle weakness (generalized); R29.898 Other symptoms and signs involving the musculoskeletal system; M79.641 Pain in right hand; M79.642 Pain in left hand; D64.9 Anemia, unspecified; R70.0 Elevated erythrocyte sedimentation rate
CPT/HCPCS: 36415; 81001; 82085; 82550; 82565; 82570; 84156; 84450; 84460; 85025; 85652; 86140; 86160; 86225; 86235; 87086; 87147; 99212

== ENCOUNTER 2025-02-26 12:46 | Outpatient (AMB) | payer MEDICARE, MEDICAID, SELFPAY ==
[2025-02-26 13:05] VITALS: BMI 31.1
--- NOTE | 2025-02-26 13:05 | A.SPINEOV_ITS ---
Vital Signs 02/26/25 13:05 Height 5 ft 4 in Weight 181 lb BMI 31.1 Intake Visit Reasons: Neck pain Intake Note: Ms. Hernandez is here today c/o neck pain. Supervisor Underwriting Clerks Required: No Allergies diphtheria,pertussis (acellular),te (From Boostrix Tdap) Allergy (Severe, Verified 02/26/25 13:06) Numbness ketorolac (From TORADOL) Allergy (Intermediate, Verified 02/26/25 13:06) hives polyethylene glycol Allergy (Intermediate, Verified 02/26/25 13:06) Unknown COVID-19 (SARS-CoV-2) vaccine, olivier Allergy (Verified 02/26/25 13:06) Hives morphine Adverse Reaction (Verified 02/26/25 13:06) Abdominal Pain perflutren (From Definity) Adverse Reaction (Verified 02/26/25 13:06) Unknown contrast dye Allergy (Intermediate, Uncoded 09/23/24 23:22) Hives gabapentin Adverse Reaction (Uncoded 09/23/24 23:22) Weakness 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 Vital Signs: BMI result Body Mass Index 31.1 Assessment & Plan Assessment & Plan (1) Lumbar degenerative disc disease: Code(s): M51.369 - Other intervertebral disc degeneration, lumbar region without mention of lumbar back pain or lower extremity pain Category: Medical (2) Cervical disc disorder: Code(s): M50.90 - Cervical disc disorder, unspecified, unspecified cervical region Category: Medical Plan Dear Dr Andrade, Thank you for referring Mrs Hernandez to our office today. 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 She was seen by Neurology, underwent spinal taps etc.. Nothing ultimately showed that was amenable to treatment but again she regained function a number of months later. She has been having on and off neck pain which is the reason she came to see me today. It is centered mostly in the middle of her posterior cervical spine. Intermittently will get left arm pain as well but primarily it is posterior neck pain. She underwent a cervical MRI in September that showed some degenerative disc disease and stenosis at C5-6. She ultimately saw Dr. Bautista at [facility] who recommended an anterior cervical fusion. Niki's is a little concerned because she feels like she did not get all the answer she needed, but they told her she would go paralyzed if she did not have the surgery. She came in today for a follow-up and a 2nd opinion. She does have ongoing neurological symptoms related to the COVID vaccine in the Tdap vaccine neurological issues. Specifically she is still feel some weakness in her legs that never quite resolved. No specific upper extremity weakness to report. There is occasional paresthesias of the numbness of her hands. Again, these things have been present ever since the COVID vaccine situation. She did undergo physical therapy but that only seemed to aggravate it with regard to the situation of her neck. PMH: COVID related neurological issue as outlined above, similarly she had when the Tdap vaccine was given to her. This required hospitalization and ultimately rehabilitation to learn how to walk again. She has hypertension and based on what she tells me sounds like it is borderline, does not take any medications. She had an issue with mold toxicity at some point as well. Umbilical hernia, C- section, oophorectomy and cholecystectomy. As far she knows she has no cardiopulmonary problems, renal disease etc.. No history of bleeding disorders, blood clots. She does have some type of autoimmune issue going on. At 1 point it was felt that might be lupus and then she is currently being worked up for rheumatoid arthritis. The exact diagnosis seems elusive. Social hx: She has not smoke, drink use any recreational drugs Medications: Tylenol, ibuprofen as needed for the neck pain Allergies: Please see the Musical Sneakers list Physical exam: Awake alert oriented no acute distress, able to stand up out of a chair, she ambulates with a slightly unsteady gait, she has full strength of the upper extremities, diffuse weakness of the lower extremities which I would rate as 4-5 throughout. Reflexes normal at the biceps triceps patella and Achilles. No clonus. No Marks's sign. Imaging review: Cervical MRI done at [place] in September of 2024 reveals reversal of the normal lordotic curvature of the cervical spine, she has some disc degeneration at C5-6 with moderate central canal stenosis. I can see ventral and dorsal CSF around the spinal cord, there is no obvious compression and there is no cord signal change seen on the T2 or STIR sequences. There is minimal foraminal narrowing here. Impression: 54-year-old female, complicated neurological history mainly surrounding her neurological decline after having had vaccines, the ultimately gave her quadriparesis. She learned to walk again, but he has been left with bilateral lower extremity weakness diffusely. She comes in today with complaints of neck pain. She has a degenerative disc at C5-6 with moderate central stenosis. No cord signal change seen, no overt spinal cord compression seen. She was told at [facility] that she needed to have surgery on C5-6 or she is going to go paralyzed. I do not see the connection here between what I am seeing on the MRI, and an urgent need for surgery. On the sagittal sequences we can clearly see CSF in front of and behind the spinal cord with no obvious impingement. There some subtle posterior displacement of the spinal cord but no compression. There is no T2 cord signal change seen. Her examination does not reveal any hyperreflexia or upper motor neuron signs. This is consistent with a neurology evaluation that she had in September or October when she was admitted to the hospital. The indication for surgery would be her neck pain, but that right now is not all that bad and not a reason to press her into surgery. It seems like it is pretty well managed with Tylenol and ibuprofen so I do not think that would justify an operation. With regard to her lower extremity weakness, this is baseline after her quadriparesis from the COVID vaccine. We talked about the signs and symptoms of spinal cord compression and she will let me know if she starts to experience any. The other issue she has been dealing with is low back pain which has been going on for years. She is not sure if she has ever had an MRI on her lumbar spine. I would like to order 1 just because of the lower extremity weakness I think we should exclude any issues in the lumbar spine just as a precaution. I will see her back after the MRIs completed. Thank you for allowing us to care for your patient. The total time spent with this visit with this patient was 45 minutes reviewing history, physical exam, cervical imaging review, and implementation of treatment plan or further diagnostic testing Orion Koenig MD,PhD [facility] Orders: Orders MR lumbar spine wo con Today M51.369 - Other intervertebral disc degeneration, lumbar region without mention of lumbar back pain or lower extremity pain Coding Level of Care Code New Pt Level 4 (14890) Diagnoses Lumbar degenerative disc disease M51.369 Cervical disc disorder M50.90
--- OUTSIDE RECORDS SUMMARY | 2025-02-26 15:55 | XMS_ITS | Encounter Summary ---
Author Organization [facility] Address [address] [place] [address] Care Team Providers Care Firer Glost Kiln Name Role Phone Greg Long MD Primary Care Provider [phone] Encounter Details Date Type Department Care Team (Late st Contact Info) Description 11/10/[address] [facility] - Main Lab [address] [facility] [place] [address] Shandra Baker PA [address] [place] [address] Hypothyroidism, unspecified; Polyneuropathy, unspecified Social History Tobacco Use Types [...] Procedure Name Priority Date/Time Associated Diagnosis Comments COMPLETE BLOOD COUNT Routine 11/10/2024 6:08 AM EDT Hypothyroidism, unspecified Polyneuropathy, unspecified THYROID STIMULATING HORMONE Routine 11/10/2024 6:08 AM EDT Hypothyroidism, unspecified Polyneuropathy, unspecified FOLATE Routine 11/10/2024 6:08 AM EDT Hypothyroidism, unspecified Polyneuropathy, unspecified VITAMIN B12 Routine 11/10/2024 6:08 AM EDT Hypothyroidism, unspecified Polyneuropathy, unspecified COMPREHENSIVE METABOLIC PANEL Routine 11/10/2024 6:08 AM EDT Hypothyroidism, unspecified Polyneuropathy, unspecified documented in this encounter Results * Folate (11/10/2024 6:08 AM EDT) Pathologist [facility] Folate 12.1 2.8 - 17.0 ng/ml LAB CHEMISTRY METHOD 11/10/2024 2:32 PM EDT [facility] Blood Venous blood specimen / Unknown Venipuncture / Unknown 11/10/2024 6:08 AM EDT 11/10/2024 11:02 AM EDT us Shandra RUIZ LAB BLOOD ORDERABLES Final Resu lt Performing Organization Address City/[facility]/ZIP Co de Phone Number [facility] [address] [place] [address], [place] [phone] * Vitamin B12 (11/10/2024 6:08 AM EDT) Pathologist [facility] Vitamin B-12 462 250 - 900 pcg/mL LAB CHEMISTRY METHOD 11/10/2024 2:32 PM EDT [facility] Blood Venous blood specimen / Unknown Venipuncture / Unknown 11/10/2024 6:08 AM EDT 11/10/2024 11:02 AM EDT us Shandra RUIZ LAB BLOOD ORDERABLES Final Resu lt [facility] [address] [place] [address], [place] [phone] * Thyroid stimulating hormone (11/10/2024 6:08 AM EDT) [facility] TSH 2.59 0.40 - 4.00 mcIU/mL LAB CHEMISTRY METHOD 11/10/2024 3:44 PM EDT [facility] Blood Venous blood specimen / Unknown Venipuncture / Unknown 11/10/2024 6:08 AM EDT 11/10/2024 11:02 AM EDT us Shandra RUIZ LAB BLOOD ORDERABLES Final Resu lt [facility] [address] [place] [address], [place] [phone] * (ABNORMAL) Comprehensive metabolic panel (11/10/2024 6:08 AM EDT) [facility] Sodium 143 133 - 145 mmol/L LAB CHEMISTRY METHOD 11/10/2024 2:32 PM [facility] Potassium 3.7 3.5 - 5.5 mmol/L LAB CHEMISTRY METHOD 11/10/2024 2:32 PM [facility] Chloride 106 96 - 110 mmol/L LAB CHEMISTRY METHOD 11/10/2024 2:32 PM [facility] CO2 28 21 - 32 mmol/L LAB CHEMISTRY METHOD 11/10/2024 2:32 PM [facility] Anion Gap 9 3 - 11 LAB CHEMISTRY METHOD 11/10/2024 2:32 PM [facility] Glucose 84 70 - 100 mg/dL LAB CHEMISTRY METHOD 11/10/2024 2:32 PM [facility] BUN 14 5 - 25 mg/dL LAB CHEMISTRY METHOD 11/10/2024 2:32 PM [facility] Creatinine 0.72 0.50 - 1.10 mg/dL LAB CHEMISTRY METHOD 11/10/2024 2:32 PM [facility] eGFR 101 >=60 mL/min/1. 73m2 LAB CHEMISTRY METHOD 11/10/2024 2:32 PM EDT [facility] Comment:Calculation based on the Chronic Kidney Disease Epidemiology Collaboration (CKD-EPI) equation refit without adjustment for race. BUN/Creatinine Ratio 19.4 LAB CHEMISTRY METHOD 11/10/2024 2:32 PM EDT [facility] Calcium 9.0 8.5 - 10.5 mg/dL LAB CHEMISTRY METHOD 11/10/2024 2:32 PM T [facility] AST (SGOT) 8(L) 10 - 42 unit/L LAB CHEMISTRY METHOD 11/10/2024 2:32 PM [facility] ALT (SGPT) 27 10 - 60 unit/L LAB CHEMISTRY METHOD 11/10/2024 2:32 PM [facility] Alkaline Phosphatase 115 42 - 121 unit/L LAB CHEMISTRY METHOD 11/10/2024 2:32 PM [facility] Total Protein 7.6 6.0 - 8.0 g/dL LAB CHEMISTRY METHOD 11/10/2024 2:32 PM [facility] Albumin 3.8 3.2 - 5.0 g/dL LAB CHEMISTRY METHOD 11/10/2024 2:32 PM [facility] Total Bilirubin 0.4 0.0 - 1.4 mg/dL LAB CHEMISTRY METHOD 11/10/2024 2:32 PM [facility] Blood Venous blood specimen / Unknown Venipuncture / Unknown 11/10/2024 6:08 AM EDT 11/10/2024 11:02 AM EDT us Shandra RUIZ LAB BLOOD ORDERABLES Final Resu lt [facility] [address] [place] [address], [place] [phone] * Complete blood count (11/10/2024 6:08 AM EDT) WBC 5.3 4.8 - 10.8 K/mcL LAB HEMETOLOGY METHOD 11/10/2024 1:38 PM [facility] RBC 4.40 3.80 - 4.80 M/mcL LAB HEMETOLOGY METHOD 11/10/2024 1:38 PM [facility] Hemoglobin 13.0 11.5 - 16.0 g/dL LAB HEMETOLOGY METHOD 11/10/2024 1:38 PM [facility] Hematocrit 40.6 35.0 - 47.0 % LAB HEMETOLOGY METHOD 11/10/2024 1:38 PM [facility] MCV 93.1 79.0 - 98.0 FL LAB HEMETOLOGY METHOD 11/10/2024 1:38 PM [facility] MCH 29.8 27.0 - 32.0 pcg LAB HEMETOLOGY METHOD 11/10/2024 1:38 PM [facility] MCHC 32.0 32.0 - 37.0 g/dL LAB HEMETOLOGY METHOD 11/10/2024 1:38 PM [facility] RDW 13.8 11.0 - 15.0 % LAB HEMETOLOGY METHOD 11/10/2024 1:38 PM [facility] Platelets 245 130 - 400 K/mcL LAB HEMETOLOGY METHOD 11/10/2024 1:38 PM [facility] MPV 10.7 7.0 - 11.0 FL LAB HEMETOLOGY METHOD 11/10/2024 1:38 PM [facility] NRBC 0.0 <1.0 % LAB HEMETOLOGY METHOD 11/10/2024 1:38 PM [facility] NRBC Absolute 0.00 <0.10 K/[facility] LAB HEMETOLOGY METHOD 11/10/2024 1:38 PM EDT [facility] Blood Venous blood specimen / Unknown Venipuncture / Unknown 11/10/2024 6:08 AM EDT 11/10/2024 11:02 AM EDT us Shandra RUIZ LAB BLOOD ORDERABLES Final Resu lt [facility] [address] [place] [address], documented in this encounter Visit Diagnoses Diagnosis Hypothyroidism, unspecified Polyneuropathy, unspecified documented in this encounter Care Teams Firer Glost Kiln Relationship Specialty Start Date End Date Greg Long MD [address] [place] [address] PCP - General Family Medicine 09/29/24 documented as of this encounter
--- OUTSIDE RECORDS SUMMARY | 2025-02-26 15:55 | XMS_ITS | Encounter Summary ---
Author Organization [facility] Address [address] [place] [address] Phone Care Team Providers Care Airport Skilled Maintenance Supervisor Name Role Phone Earlene Andrade MD Primary Care Provider + Encounter Details Date Type Department Care Team (Late st Contact Info) Description 12/14/2021 Documentation Only [facility] [address] [phone] Darwin Hensley MD [address] [place] [address] [place] [phone] Social History Tobacco Use Types Packs/Day Years [...] Care Team (Late st Contact Info) Description 01/25/2026 1:45 PM EDT Office Visit [facility] [address] [phone] Buddy Hough MD [address] [phone] documented as of this encounter Visit Diagnoses Not on filedocumented in this encounter Care Teams Airport Skilled Maintenance Supervisor Relationship Specialty Start Date End Date Earlene Andrade MD [address] [place], [place] [phone] PCP - General Internal Medicine 02/16/23 documented as of this encounter
--- OUTSIDE RECORDS SUMMARY | 2025-02-26 15:55 | XMS_ITS | Encounter Summary ---
Author Organization [employer] Address [address] [place] [address] Care Team Providers Care Analytics Developer Name Role Phone Greg Long MD Primary Care Provider [phone] Encounter Details Date Type Department Care Team (Late st Contact Info) Description 11/06/2024 Lab Requisition [facility] - Main Lab [address] [facility] [place] [address] Moses Man PA [address] [place] [address] Other microscopic hematuria Social History Tobacco Use Types Packs/Day Years [...] Procedure Name Priority Date/Time Associated Diagnosis Comments AP OUTSIDE CONSULT Routine 10/29/2024 12 :00 AM EDT Other microscopic hematuria documented in this encounter Results * Anatomic pathology outside consult (10/29/2024 12:00 AM EDT) Final Diagnosis A. Urine, Voided, ([id number]): Negative for high grade urothelial carcinoma. Results of UroVysion fluorescence in situ hybridization (FISH) testing: CEP3: Normal CEP7: Normal CEP17: Normal LSI 9p21: Normal Interpretation: Normal profile Controls stained appropriately. Note: The results are intended as a screening device and should be interpreted in association with other clinical and pathological findings. 11/19/2024 4:08 PM EDT [facility] Clinical Information Other microscopic hematuria R31.29 Urine Cytology/FISH (now) 11/19/2024 4:08 PM EDT [facility] Gross Description A. Urine, Voided, [id number]: Received one ThinPrep slide for cytology and one ThinPrep slide for UroVysion FISH 11/19/2024 4:08 PM EDT [facility] Disclaimer Unless otherwise specified, all tissue is 10% NB formalin fixed and paraffin embedded. Technical pathology services provided by [facility] at [address], [place] [address] (CLIA #[id number]/Maria Eugenia Olmedo MD, Catering Attendant) 11/19/2024 4:08 PM EDT [facility] Tissue Urine specimen from urethra / Unknown 10/29/2024 11/06/2024 9:49 AM EDT us Moses RUIZ LAB PATHOLOGY ORDERABLES Final Result [facility] [address] [place] [address], documented in this encounter Visit Diagnoses Diagnosis Other microscopic hematuria documented in this encounter Care Teams Analytics Developer Relationship Specialty Start Date End Date Greg Long MD [address] [place] [address] PCP - General Family Medicine 09/29/24 documented as of this encounter
--- OUTSIDE RECORDS SUMMARY | 2025-02-26 15:55 | XMS_ITS | Encounter Summary ---
Author Organization [facility] Address [address] [place] [address] Phone Care Team Providers Care Lapel Baster Name Role Phone Earlene Andrade MD Primary Care Provider + Encounter Details Date Type Department Care Team (Late st Contact Info) Description 03/25/2022 Procedure [facility] [address] [place] [address] Social History Tobacco Use Types Packs/Day Years [...] 03/28/2022 3:00 AM Reynold Weems RN * [place] Suicide Severity Rating Scale (Screener/Recent Self-Report) Question [...] on filedocumented in this encounter Care Teams Lapel Baster Relationship Specialty Start Date End Date Earlene Andrade MD [address], [place] [address] PCP - General Internal Medicine 03/16/22 documented as of this encounter Additional Source Comments The information contained in this document represents components of the legal health record. It is not the complete legal health record.[facility]
--- OUTSIDE RECORDS SUMMARY | 2025-02-26 15:55 | XMS_ITS | Encounter Summary ---
Author Organization [facility] Address [address] [place] [address] Phone Care Team Providers Care Cow Tester Name Role Phone Earlene Andrade MD Primary Care Provider + Encounter Details Date Type Department Care Team (Late st Contact Info) Description 12/02/2021 Documentation Only [facility] [address] [place] [phone] Darwin Hensley MD [address] [place] [address] [place] [phone] Social History Tobacco Use Types Packs/Day Years [...] [facility] [address] [phone] Buddy Hough MD [address] [phone] documented as of this encounter Visit Diagnoses Not on filedocumented in this encounter Care Teams Cow Tester Relationship Specialty Start Date End Date Earlene Andrade MD [address] [place], [place] [phone] PCP - General Internal Medicine 02/16/23 documented as of this encounter
--- OUTSIDE RECORDS SUMMARY | 2025-02-26 15:55 | XMS_ITS | Encounter Summary ---
Author Organization [facility] Address [address] [place] [address] Phone Care Team Providers Care Oral Hygienist Name Role Phone Earlene Andrade MD Primary Care Provider + Encounter Details Date Type Department Care Team (Late st Contact Info) Description 12/02/2021 Documentation Only [facility] [address] [place] [phone] Darwin Hensley MD [address] [place] [address] [place]. [place] [phone] Social History Tobacco Use Types Packs/Day Years [...] Visit [facility] [address] [phone] Buddy Hough MD [address] [address] documented as of this encounter Visit Diagnoses Not on filedocumented in this encounter Care Teams Oral Hygienist Relationship Specialty Start Date End Date Earlene Andrade MD [address] [place], [place] [phone] PCP - General Internal Medicine 02/16/23 documented as of this encounter
--- OUTSIDE RECORDS SUMMARY | 2025-02-26 15:55 | XMS_ITS | Encounter Summary ---
Author Organization [employer] Address [address] [place] [address] Care Team Providers Care News Clerk Name Role Phone Greg Long MD Primary Care Provider [phone] Encounter Details Date Type Department Care Team (Late st Contact Info) Description 11/13/2024 Lab Requisition [facility] - Main Lab [address] [facility] [place] [phone] Jose Pelaez MD [address] [place], [place] [id number] Polyneuropathy, unspecified Social History Tobacco Use Types [...] Associated Diagnosis Comments COMPLETE BLOOD COUNT Routine 11/17/2024 5:50 AM EDT Polyneuropathy, unspecified BASIC METABOLIC PANEL Routine 11/17/2024 5:50 AM EDT Polyneuropathy, unspecified documented in this encounter Results * Basic metabolic panel (11/17/2024 5:50 AM EDT) Sodium 140 133 - 145 mmol/L LAB CHEMISTRY METHOD 11/17/2024 9:32 AM [facility] Potassium 4.1 3.5 - 5.5 mmol/L LAB CHEMISTRY METHOD 11/17/2024 9:32 AM [facility] Chloride 108 96 - 110 mmol/L LAB CHEMISTRY METHOD 11/17/2024 9:32 AM [facility] CO2 28 21 - 32 mmol/L LAB CHEMISTRY METHOD 11/17/2024 9:32 AM [facility] Anion Gap 4 3 - 11 LAB CHEMISTRY METHOD 11/17/2024 9:32 AM [facility] Glucose 95 70 - 100 mg/dL LAB CHEMISTRY METHOD 11/17/2024 9:32 AM [facility] BUN 22 5 - 25 mg/dL LAB CHEMISTRY METHOD 11/17/2024 9:32 AM [facility] Creatinine 0.74 0.50 - 1.10 mg/dL LAB CHEMISTRY METHOD 11/17/2024 9:32 AM [facility] eGFR 97 >=60 mL/min/1. 73m2 LAB CHEMISTRY METHOD 11/17/2024 9:32 AM [facility] Comment:Calculation based on the Chronic Kidney Disease Epidemiology Collaboration (CKD-EPI) equation refit without adjustment for race. BUN/Creatinine Ratio 29.7 LAB CHEMISTRY METHOD 11/17/2024 9:32 AM [facility] Calcium 9.2 8.5 - 10.5 mg/dL LAB CHEMISTRY METHOD 11/17/2024 9:32 AM [facility] Blood Venous blood specimen / Unknown Venipuncture / Unknown 11/17/2024 5:50 AM EDT 11/17/2024 8:27 AM EDT us Fahim A Benigno MD LAB BLOOD ORDERABLES Final Resul t [facility] [address] [place] [address], * (ABNORMAL) Complete blood count (11/17/2024 5:50 AM EDT) WBC 5.4 4.8 - 10.8 K/mcL LAB HEMETOLOGY METHOD 11/17/2024 9:05 AM EDT [facility] RBC 4.00 3.80 - 4.80 M/mcL LAB HEMETOLOGY METHOD 11/17/2024 9:05 AM EDT [facility] Hemoglobin 11.5 11.5 - 16.0 g/dL LAB HEMETOLOGY METHOD 11/17/2024 9:05 AM [facility] Hematocrit 36.2 35.0 - 47.0 % LAB HEMETOLOGY METHOD [facility]17[facility]24 [facility] MCV 90.7 79.0 - 98.0 FL LAB HEMETOLOGY METHOD 11/17/2024 9:[facility] MCH 28.8 27.0 - 32.0 pcg LAB HEMETOLOGY METHOD 11/17/2024 9:05 AM [facility] MCHC 31.8(L) 32.0 - 37.0 g/dL LAB HEMETOLOGY METHOD 11/17/2024 9:[facility] RDW 13.4 11.0 - 15.0 % LAB HEMETOLOGY METHOD 11/17/2024 9:[facility] Platelets 229 130 - 400 K/mcL LAB HEMETOLOGY METHOD 11/17/2024 9:05 AM [facility] MPV 10.3 7.0 - 11.0 FL LAB HEMETOLOGY METHOD 11/17/2024 9:05 AM EDT [facility] NRBC 0.0 <1.0 % LAB HEMETOLOGY METHOD 11/17/2024 9:05 AM EDT [facility] NRBC Absolute 0.00 <0.10 K/mcL LAB HEMETOLOGY METHOD 11/17/2024 9:05 AM EDT [facility] Blood Venous blood specimen / Unknown Venipuncture / Unknown 11/17/2024 5:50 AM EDT 11/17/2024 8:27 AM EDT us Jose Pelaez MD LAB BLOOD ORDERABLES Final Resul t [facility] [address] [place] [address], documented in this encounter Visit Diagnoses Diagnosis Polyneuropathy, unspecified documented in this encounter Care Teams News Clerk Relationship Specialty Start Date End Date Greg Long MD [address] [place] [address] PCP - General Family Medicine 09/29/24 documented as of this encounter
--- OUTSIDE RECORDS SUMMARY | 2025-02-26 15:55 | XMS_ITS | Encounter Summary ---
Author Organization [employer] Address [address] [place] [address] Care Team Providers Care Nuclear Plant Technical Advisor Name Role Phone Greg Long MD Primary Care Provider [phone] Encounter Details Date Type Department Care Team (Late st Contact Info) Description 11/20/[address] [facility] - Main Lab 299 [facility] [place] [phone] Jose Pelaez MD [address] [place] [address] Dysuria Social History Tobacco Use Types Packs/Day Years [...] Procedure Name Priority Date/Time Associated Diagnosis Comments URINALYSIS WITH REFLEX MICROSCOPIC AND CULTURE Routine 11/19/2024 10:00 AM EDT Dysuria HOROWITZ URINE CULTURE TUBE Routine 11/19/2024 10:00 AM EDT Dysuria URINALYSIS WITH REFLEX MICROSCOPIC AND CULTURE Routine 11/19/2024 10:00 AM EDT Dysuria CULTURE URINE Routine 11/19/2024 10:00 AM EDT Dysuria documented in this encounter Results * Culture urine (11/19/2024 10:00 AM EDT) Pathologist [facility] Culture, Urine 50,000-99,000 CFU/mL Mixed bacterial morphotypes present suggestive of possible contamination during collection. Suggest appropriate recollection if clinically indicated. 11/21/2024 9:31 AM EDT [facility] Urine Urine specimen obtained by clean catch procedure / Unknown Non-blood Collection / Unknown 11/19/2024 10:00 AM EDT 11/20/2024 10:19 AM EDT Jose Pelaez MD LAB MICROBIOLOGY - GENERAL ORDER LAUREN Final Result [facility] [address] [place] [address], [place] [phone] * (ABNORMAL) Urinalysis with reflex microscopic and culture (11/19/2024 10:00 AM EDT) [facility] Specific [place] Urine 1.018 1.003 - 1.030 LAB URINALYSIS - AUTOMATED METHOD 11/20/2024 10:19 AM [facility] pH, Urine 7.5 5.0 - 8.0 pH LAB URINALYSIS - AUTOMATED METHOD 11/20/2024 10:19 AM [facility] Leukocytes, Urine Trace(A) Negative LAB URINALYSIS - AUTOMATED METHOD 11/20/2024 10:19 AM [facility] Nitrite, Urine Negative Negative LAB URINALYSIS - AUTOMATED METHOD 11/20/2024 10:19 AM [facility] Protein, Urine Negative <=Trace mg/dL LAB URINALYSIS - AUTOMATED METHOD 11/20/2024 10:19 AM [facility] Glucose, Urine Negative Negative mg/dL LAB URINALYSIS - AUTOMATED METHOD 11/20/2024 10:19 AM [facility] Ketones, Urine Negative Negative mg/dL LAB URINALYSIS - AUTOMATED METHOD 11/20/2024 10:19 AM [facility] Urobilinogen, Urine 0.2 0.2 - 1.0 mg/dL LAB URINALYSIS - AUTOMATED METHOD 11/20/2024 10:19 AM [facility] Bilirubin, Urine Negative Negative LAB URINALYSIS - AUTOMATED METHOD 11/20/2024 10:19 AM [facility] Blood, Urine Negative Negative LAB URINALYSIS - AUTOMATED METHOD 11/20/2024 10:19 AM [facility] RBC, Urine 5.1(H) 0 - 4 /HPF LAB URINALYSIS - AUTOMATED METHOD 11/20/2024 10:19 AM [facility] WBC, Urine 2.2 0 - 4 /HPF LAB URINALYSIS - AUTOMATED METHOD 11/20/2024 10:19 AM [facility] Squamous Epithelial, Urine 41 0 - 60 /LPF LAB URINALYSIS - AUTOMATED METHOD 11/20/2024 10:19 AM [facility] Bacteria, Urine Negative Negative /HPF LAB URINALYSIS - AUTOMATED METHOD 11/20/2024 10:19 AM [facility] Hyaline Casts, Urine 0.4 0 - 3 /LPF LAB URINALYSIS - AUTOMATED METHOD 11/20/2024 10:19 AM [facility] Urine Urine specimen obtained by clean catch procedure / Unknown Non-blood Collection / Unknown 11/19/2024 10:00 AM EDT 11/20/2024 9:52 AM EDT us Jose Pelaez MD LAB URINE ORDERABLES Final Resul t [facility] [address] [place] [address], [place] [phone] * Horowitz urine culture tube (11/19/2024 10:00 AM EDT) Extra Tube Hold for add-ons. 11/20/2024 11:01 AM EDT [facility] Comment:Auto resulted. Urine Urine specimen obtained by clean catch procedure / Unknown Non-blood Collection / Unknown 11/19/2024 10:00 AM EDT 11/20/2024 9:52 AM EDT us Jose Pelaez MD LAB URINE ORDERABLES Final Resul t [facility] [address] [place] [address], [place] [phone] documented in this encounter Visit Diagnoses Diagnosis Dysuria documented in this encounter Care Teams Nuclear Plant Technical Advisor Relationship Specialty Start Date End Date Greg Long MD [address] [place] [address] PCP - General Family Medicine 09/29/24 documented as of this encounter
--- OUTSIDE RECORDS SUMMARY | 2025-02-26 15:55 | XMS_ITS | Encounter Summary ---
Author Organization [employer] Address [address] [place] [address] Care Team Providers Care Quality Control Tester Name Role Phone Greg Long MD Primary Care Provider [phone] Encounter Details Date Type Department Care Team (Late st Contact Info) Description 11/21/2024 Lab Requisition [facility] - Main Lab 299 [facility] [place] [phone] Jose Pelaez MD [address] [place] [address] Polyneuropathy, unspecified Social History Tobacco Use Types [...] unspecified documented in this encounter Care Teams Quality Control Tester Relationship Specialty Start Date End Date Greg Long MD [address] [place] [address] PCP - General Family Medicine 09/29/24 documented as of this encounter
--- OUTSIDE RECORDS SUMMARY | 2025-02-26 15:55 | XMS_ITS | Clinical Summary ---
Author Organization Formerly [facility] Address [address] [place] [address] Care Team Providers Care Nursery Supervisor Name Role Phone Nell ALARCON DO, Edward [...] of 2) 2022 COVID-19 Vaccine (2 - 2024- season) 2025 12/16/2020 Influenza Vaccine (#1) 2025 , 03/27/2020, 03/27/2020, Additional history exists DTap / Tdap / Td (2 - Td or Tdap) 05/18/2025 05/18/2015 Pneumococcal Vaccine Aged Out 02/26/2014 No long er eligible based on patient's age to complete this topic RSV Ped < 20 months Aged Out No longe r eligible based on patient's age to complete this topic Care Teams Nursery Supervisor Relationship Specialty Start Date End Date Devang Camejo IV, DO PCP - General Internal Medicine 06/09/22
--- OUTSIDE RECORDS SUMMARY | 2025-02-26 15:56 | XMS_ITS | Encounter Summary ---
Author Organization [employer] Address [address] [place] [address] Care Team Providers Care Paper Cone Maker Name Role Phone Greg Long MD Primary Care Provider [phone] Encounter Details Date Type Department Care Team (Late st Contact Info) Description 09/29/2024 Lab Requisition [facility] - Main Lab 299 [facility] [place] [address] Greg Long MD [address] [place] [address] Other irritable bowel syndrome; Endometriosis, unspecified; Anemia, unspecified; Other pericardial effusion (noninflammatory) Social History Tobacco Use Types Packs/Day Years [...] Procedure Name Priority Date/Time Associated Diagnosis Comments VITAMIN B12 AND FOLATE Routine 10:30 AM EDT Other irritable bowel syndrome Endometriosis, unspecified Anemia, unspecified Other pericardial effusion (noninflammatory) COMPLETE BLOOD COUNT Routine 09/29/2024 10:30 AM EDT Other irritable bowel syndrome Endometriosis, unspecified Anemia, unspecified Other pericardial effusion (noninflammatory) THYROID STIMULATING HORMONE Routine 09/29/2024 10:30 AM EDT Other irritable bowel syndrome Endometriosis, unspecified Anemia, unspecified Other pericardial effusion (noninflammatory) COMPREHENSIVE METABOLIC PANEL Routine 09/29/2024 10:30 AM EDT Other irritable bowel syndrome Endometriosis, unspecified Anemia, unspecified Other pericardial effusion (noninflammatory) documented in this encounter Results * Thyroid stimulating hormone (09/29/2024 10:30 AM EDT) [facility] TSH 1.12 0.40 - 4.00 mcIU/mL LAB CHEMISTRY METHOD 09/29/2024 4:28 PM EDT [facility] Blood Venous blood specimen / Unknown Venipuncture / Unknown 09/29/2024 10:30 AM EDT 09/29/2024 12:21 PM EDT Greg Long MD LAB BLOOD ORDERABLES Final R esult [facility] [address] [place] [address], [place] [phone] * Vitamin B12 and folate (09/29/2024 10:30 AM EDT) [facility] Vitamin B-12 482 250 - 900 pcg/mL LAB CHEMISTRY METHOD 09/29/2024 2:54 PM EDT [facility] Folate 14.6 2.8 - 17.0 ng/ml LAB CHEMISTRY METHOD 09/29/2024 2:54 PM EDT [facility] Blood Venous blood specimen / Unknown Venipuncture / Unknown 09/29/2024 10:30 AM EDT 09/29/2024 12:21 PM EDT us Greg Long MD LAB BLOOD ORDERABLES Final R esult [facility] [address] [place] [address], * Comprehensive metabolic panel (09/29/2024 10:30 AM EDT) Sodium 142 133 - 145 mmol/L LAB CHEMISTRY METHOD [facility] Potassium 3.9 3.5 - 5.5 mmol/L LAB CHEMISTRY METHOD 09/29/2024 2:54 PM [facility] Chloride 107 96 - 110 mmol/L LAB CHEMISTRY METHOD 09/29/2024 2:54 PM [facility] CO2 25 21 - 32 mmol/L LAB CHEMISTRY METHOD 09/29/2024 2:54 PM [facility] Anion Gap 10 3 - 11 LAB CHEMISTRY METHOD 09/29/2024 2:54 PM [facility] Glucose 90 70 - 100 mg/dL LAB CHEMISTRY METHOD 09/29/2024 2:54 PM [facility] BUN 17 5 - 25 mg/dL LAB CHEMISTRY METHOD 09/29/2024 2:54 PM [facility] Creatinine 0.74 0.50 - 1.10 mg/dL LAB CHEMISTRY METHOD [facility]/29[facility]2024 2:[facility] eGFR 97 >=60 mL/min/1. 73m2 LAB CHEMISTRY METHOD 09/29/2024 2:54 PM [facility] Comment:Calculation based on the Chronic Kidney Disease Epidemiology Collaboration (CKD-EPI) equation refit without adjustment for race. BUN/Creatinine Ratio 23.0 LAB CHEMISTRY METHOD 09/29/2024 2:54 PM [facility] Calcium 8.6 8.5 - 10.5 mg/dL LAB CHEMISTRY METHOD 09/29/2024 2:54 PM [facility] AST (SGOT) 21 10 - 42 unit/L LAB CHEMISTRY METHOD 09/29/2024 2:54 PM EDT [facility] ALT (SGPT) 41 10 - 60 unit/L LAB CHEMISTRY METHOD 09/29/2024 2:54 PM EDT [facility] Alkaline Phosphatase 105 42 - 121 unit/L LAB CHEMISTRY METHOD 09/29/2024 2:54 PM EDT [facility] Total Protein 7.1 6.0 - 8.0 g/dL LAB CHEMISTRY METHOD 09/29/2024 2:54 PM EDT [facility] Albumin 3.4 3.2 - 5.0 g/dL LAB CHEMISTRY METHOD 09/29/2024 2:54 PM EDT [facility] Total Bilirubin 0.3 0.0 - 1.4 mg/dL LAB CHEMISTRY METHOD 09/29/2024 2:54 PM EDT [facility] Blood Venous blood specimen / Unknown Venipuncture / Unknown 09/29/2024 10:30 AM EDT 09/29/2024 12:21 PM EDT us Greg Long MD LAB BLOOD ORDERABLES Final R esult [facility] [address] [place] [address], * (ABNORMAL) Complete blood count (09/29/2024 10:30 AM EDT) WBC 4.9 4.8 - 10.8 K/mcL LAB HEMETOLOGY METHOD 09/29/2024 2:47 PM EDT [facility] RBC 4.00 3.80 - 4.80 M/mcL LAB HEMETOLOGY METHOD 09/29/2024 2:47 PM EDT [facility] Hemoglobin 11.7 11.5 - 16.0 g/dL LAB HEMETOLOGY METHOD 09/29/2024 2:47 PM EDT [facility] Hematocrit 36.9 35.0 - 47.0 % LAB HEMETOLOGY METHOD 09/29/2024 2:47 PM EDT [facility] MCV 92.0 79.0 - 98.0 FL LAB HEMETOLOGY METHOD 09/29/2024 2:47 PM EDT [facility] MCH 29.2 27.0 - 32.0 pcg LAB HEMETOLOGY METHOD 09/29/2024 2:47 PM EDT [facility] MCHC 31.7(L) 32.0 - 37.0 g/dL LAB HEMETOLOGY METHOD 09/29/2024 2:47 PM EDT [facility] RDW 13.5 11.0 - 15.0 % LAB HEMETOLOGY METHOD 09/29/2024 2:47 PM EDT [facility] Platelets 201 130 - 400 K/mcL LAB HEMETOLOGY METHOD 09/29/2024 2:47 PM EDT [facility] MPV 11.1(H) 7.0 - 11.0 FL LAB HEMETOLOGY METHOD 09/29/2024 2:47 PM EDT [facility] NRBC 0.0 <1.0 % LAB HEMETOLOGY METHOD 09/29/2024 2:47 PM EDT [facility] NRBC Absolute 0.00 <0.10 K/mcL LAB HEMETOLOGY METHOD 09/29/2024 2:47 PM EDT [facility] Blood Venous blood specimen / Unknown Venipuncture / Unknown 09/29/2024 10:30 AM EDT 09/29/2024 12:21 PM EDT us Greg Long MD LAB BLOOD ORDERABLES Final R esult [facility] [address] [place], [place] [address] [phone] documented in this encounter Visit Diagnoses Diagnosis Other irritable bowel syndrome Endometriosis, unspecified Anemia, unspecified Other pericardial effusion (noninflammatory) documented in this encounter Care Teams Paper Cone Maker Relationship Specialty Start Date End Date Greg Long MD [address] [place] [address] PCP - General Family Medicine 09/29/24 documented as of this encounter
--- OUTSIDE RECORDS SUMMARY | 2025-02-26 15:56 | XMS_ITS | Encounter Summary ---
Author Organization [facility] Address [address] [facility] [address] [place] [address] Phone Care Team Providers Care Grocery Clerk Stocking Name Role Phone Earlene Andrade MD Primary Care Provider + Encounter Details Date Type Department Care Team (Late st Contact Info) Description 03/25/2022 Procedure [facility] [address] [place] [address] Social History Tobacco Use Types Packs/Day Years [...] 03/28/2022 3:00 AM Reynold Weems RN * [place] Suicide Severity Rating Scale (Screener/Recent Self-Report) Question [...] on filedocumented in this encounter Care Teams Grocery Clerk Stocking Relationship Specialty Start Date End Date Earlene Andrade MD [address], [place] [address] PCP - General Internal Medicine 03/16/22 documented as of this encounter Additional Source Comments The information contained in this document represents components of the legal health record. It is not the complete legal health record.[facility]
--- OUTSIDE RECORDS SUMMARY | 2025-02-26 15:56 | XMS_ITS | Clinical Summary ---
Author Organization [facility] Address [address] [address] Phone Care Team Providers Care Youth Services Specialist Name Role Phone Earlene Andrade MD [...] #3) 300-30 MG per tablet 1 Active Multiple Vitamin (MULTI-VITAMIN DAILY PO) Take 1 capsule by mouth 1 (one) time each day Active ondansetron (ZOFRAN) 4 MG tablet Take 4 mg by mouth if needed for nausea or vomiting Active ALBUTEROL IN Inhale 9 Active rizatriptan (MAXALT) 10 MG tablet TAKE 1/2 TO 1 TABLET BY MOUTH EVERY 2 HOURS NEEDED AT ONSET OF MIGRAINE HEADACHE MAX OF 2 TABS PER DAY AND MAX OF 4 TABS PER WEEK 2 Active famotidine (PEPCID) 20 MG tablet Take 20 mg by mouth 2 Active buPROPion SR (WELLBUTRIN SR) 200 MG [...] Active Problems Problem Noted Date Diagnosed Date Hypertension 01/23/2025 Calculus of gallbladder with cholecystitis 07/05 Proteinuria [...] Encounters Date Type Department Care Team Description 01/23/2025 11:30 AM EDT Office Visit [facility] [address] [address] Buddy Hough MD Microscopic hematuria (Primary Dx); Hypertension from Last 3 Months Immunizations Immunization Administration [...] Sign Reading Time Taken Comments Blood Pressure 136/90 01/23/2025 11:23 AM EDT Pulse 61 01/23/2025 11:23 AM EDT Temperature - - Respiratory Rate - - Oxygen Saturation - - Inhaled Oxygen Concentration - - Weight 81.6 kg (179 lb 12.8 oz) 025 11:23 AM EDT Height 162.6 cm (5' 4 ) 09/06/2020 11:3 6 AM EDT Body Mass Index 30.86 09/06/2020 11:36 AM EDT Plan of Treatment Upcoming Encounters Date Type Department Care Team (Late st Contact Info) Description 01/25/2026 1:45 PM EDT Office Visit [facility] [address] [phone] Buddy Hough MD [address] [place] [phone] Health Maintenance Due Date Last Done Comments Breast Cancer Screening 1970 Hepatitis B Vaccine (1 of 3 - 19+ 3-dose series) 08/09/1991 Pneumococcal Vaccine: 50+ Ye ars (1 of 2 - PCV) 08/09/1991 Colorectal Cancer Screening: Annual FOBT 2021 Colorectal Cancer Screening: Colonoscopy 2021 Colorectal Cancer Screening: Sigmoidoscopy 2021 Influenza Vaccine (#1) 2025 , 03/27/2020, 03/07/2019, Additional history exists Insurance [employer] Commercial Member Subscriber Plan / Payer (Ef fective 2021-Present) Name:Sariah Jc Relation to Subscriber:Self Name:Sariah Jc Payer ID:[id number] ([facility]) Type:Not on file Address: [facility] [id number] [place] [phone] [place] [facility] Member Subscriber Plan / Payer (Ef fective 2018-Present) Name:David Newmanbelo Sariah Relation to Subscriber:Self Name:Sariah Jc Payer ID:[id number] ([facility]) Type:Not on file Address: [address] [place] [address] Care Teams Youth Services Specialist Relationship Specialty Start Date End Date Earlene Andrade MD [address] [place] [phone] PCP - General Internal Medicine 02/16/23
--- OUTSIDE RECORDS SUMMARY | 2025-02-26 15:56 | XMS_ITS | Data Portability ---
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 On examination she does not seem to have visible rash or disruption of the skin. EACs and oropharynx are normal to inspection as well. Recommended Zyrtec twice daily for the next 2 weeks. If itching continues she should consider seeing a administrative services specialist. I have also recommended topical hydrocortisone if she notices any more visible rashes. All questions were answered. madonna Not available 12/22/2024 11:41:50 12/26/2024 12/26/2024 Tinnitus, bilateral, worsened post-Tdap vaccination. Anosmia, onset four days post-Tdap vaccination. Allergic rhinitis with nasal swelling. History of paresthesias due to long COVID. I will order imaging studies to evaluate the sinuses and brain to rule out any underlying pathology contributing to the anosmia. The patient will begin using Flonase nasal spray to address nasal swelling and potentially improve her sense of smell. Additionally, I recommended a smell training kit, which can be purchased online, to aid in olfactory rehabilitation. The patient was educated on the potential benefits of smell training and nasal spray use. Follow-up will be scheduled to review imaging results and assess symptom progression. jschros Not available 12/26/2024 15:16:04 Plan of Treatment Reminders Order Date Submit Date Provider Last Modified By Organization Details Last Modified Time Details Appointments None recorded. Lab None recorded. Referral None recorded. Procedures None recorded. Surgeries None recorded. Imaging CT, maxillofaci al, w/o contrast 2024 025 [email or web address] [facility] (Imaging), [address], [place], [address], 15:49:42 Medication Orders fluticasone propionate 50 mcg/actuati on nasal spray,suspe nsion [address] [facility] [place]armacy #[id number], [address] [place], [address], 15:16:51 Zyrtec [address] mg tablet [address] [facility] ([place] [place]armacy #[id number], [address] [place], [address], 11:43:01 hydrocortis one 2.5 % topical cream [address] [facility] ([place] [place]Pharmacy #[id number], [address] [place], [address], 11:43:00 Patient TargetsNo targets recorded. Patient Instructions Encounter Date Encounter Id Patient Instructions Last Modified By Organization Details Last Modified Time 12/26/2024 [id number] Begin using Flonase nasal spray as directed. Purchase and utilize a smell training kit from [employer] to aid in olfactory rehabilitation. Follow up to review imaging results and assess symptom progression. [email or web address] Not available 12/26/2024 15:16:04 Please note: Parts of this encounter note have been generated by AI based on audio conversation. Patient consent was required prior to utilizing this technology. Content review was required prior to finalizing the note. [email or web address] Not available 12/26/2024 15:16:04 Reason for Referral None Reported. Results Created Date Observation Date Name Description Value Unit Range Abnormal Flag Note LastModifiedBy Organization Detail LastModifiedTime 12/27/19 25 audio gram No observ ation record ed. BARCODE Not Available 2024 15:29:16 Result Notes None recorded. Problems Name Problem SNOMED Code Status Onset Date Resolution Date Notes Provider Name and Address Organization Details Recorded Time Bilateral disorder of Eustachia n tubes 15252813839 29675 Active 2022 Other specified disorders of Eustachia n tube, bilateral ; Note: Date Diagnosed : 07/11/2022 3:44 PM (H69.83) Not Available [facility] 4 03:24:47 Bilateral tinnitus 21325438253 02 Active 2022 Tinnitus, bilateral ; Note: Date Diagnosed : 07/11/2022 3:44 PM (H93.13) Not Available [facility] 4 03:24:46 Nasal congestio n 86969535 Active 2022 Nasal congestio n; Note: Date Diagnosed : 09/20/2022 10:48 AM (R09.81) Not Available [facility] 4 03:24:47 Allergic rhinitis 91264575 Active 2022 Other allergic rhinitis; Note: Date Diagnosed : 09/20/2022 10:48 AM (J30.89) Not Available Critical [facility] hospital 4 03:24:47 Pruritic disorder of skin Active 2024 SUZANNE DOMINGUEZ PA-C [address] [address], [place], [address] , [facility] - [facility] 5 11:41:58 Loss of sense of smell 14698718 Active 2024 GIL RAMOS MD [address] [place], [place] [address], [address] , [facility] - [facility] [place] 5 15:14:41 Vaccine adverse reaction 087635318 Active 2024 GIL RAMOS MD [address] [place], [place] [address], [address] , [facility] [place] 5 15:14:49 Problem Notes None recorded. Procedures Surgical History Date Name Laterality Status Provider Name and Address Organization Details Recorded Time 12/27/19 25 Air & Speech Audio with Tymps - 10208, 96901 & 92908 completed RANI SOTELO MA, CCC-A 100 [facility],[address], [address], [facility] - [facility] 12/26/2024 14:53:02 section completed Rea Simpson [place] [facility] 12/26/2024 14:59:26 cholecystectomy completed Rea Simpson [place] [facility] 12/26/2024 14:59:33 Imaging Results None recorded. Procedure Notes None recorded. Medical Equipment None Reported. Allergies Allergen ID Allergen Name Allergen Category Reaction Reaction Severity Criticality Documentation Date Start Date Code Code System Note Provider Name and Address Organization Details Recorded Time 117517 Toradol medicatio n other Not available Not available 09/25/2023 27831 RxNorm React ion: Unkno wn; Not Available [facility] 4 01:26:11 723807 Iodinated contrast media (substanc e) medicatio n Not available Not available Not available 12/26/2024 82391 2004 SNOMED Rea haque [place] - [facility] 5 15:00:01 018531 COVID-19 (SARS-CoV -2) vaccine, olivier cell Not available Not available Not available Not available 12/26/2024 Rea haque [place] - [facility] 5 15:00:11 Medications Name Sig Start Date Stop Date Status Note LastModified by Organization Details LastModified Time amoxicill in 500 mg capsule TAKE ONE CAPSULE BY MOUTH EVERY SIX HOURS UNTIL GONE 12/22 completed Not Available Not Available Not Available methocarb loida 500 mg tablet TAKE 1 TABLET BY MOUTH FOUR TIMES A DAY FOR 7 DAYS NEEDED FOR SEVERE PAIN 12/26 completed Not Available Not Available Not Available bupropion HCl SR 150 mg tablet,12 hr sustained -release TAKE ONE (1) TABLET BY MOUTH DAILY TOGETHER WITH 300 MG. TOTAL DAILY DOSE 450 MG DAILY active Not Available Not Available No t Available prednison e 10 mg tablet 12/01 completed Medicati on ID: [id number] B rand Name: predniso ne Send Method: E-Prescr ibed Sub s Allowed: subs OK Medic ationGen ericName : predniso ne Not Available Not Available Not Available doxycycli ne hyclate 100 mg capsule 12/01 completed Medicati on ID: [id number] B rand Name: doxycycl ine hyclate Send Method: E-Prescr ibed Sub s Allowed: subs OK Medic ationGen ericName : doxycycl ine hyclate Not Available Not Available Not Available cetirizin e 10 mg tablet 1 TABLET TWICE DAILY FOR 2 WEEKS active Not Available Not Available No t Available ibuprofen 800 mg tablet TAKE 1 TABLET BY MOUTH EVERY 8 HOURS NEEDED FOR PAIN 12/22 completed Not Available Not Available Not Available candesart an 4 mg tablet 12/22 completed Medicati on ID: [id number] B rand Name: candesar durham Send Method: E-Prescr ibed Sub s Allowed: subs OK Medic ationGen ericName : candesar durham Not Available Not Available Not Available Claritin 10 mg tablet 12/22 completed Medicati on ID: [id number] B rand Name: Claritin Send Method: E-Prescr ibed Sub s Allowed: subs OK Medic ationGen ericName : Claritin Not Available Not Available Not Available prednison e 20 mg tablet TAKE 1 TABLET BY MOUTH EVERY DAY FOR 5 DAYS 12/22 completed Not Available Not Available Not Available rizatript an 10 mg tablet 12/22 completed Medicati on ID: [id number] B rand Name: rizatrarmond durham Send Method: E-Prescr ibed Sub s Allowed: subs OK Speci al Instruct ion: TAKE 1/2 TO 1 TABLET BY MOUTH EVERY 2 HOURS NEEDED AT ONSET OF MIGRAINE HEADACHE MAX OF 2 TABS PER DAY AND MAX OF 4 TABS PER WEEK Med icationG enericNa me: juan danieltrarmond durham Not Available Not Available Not Available methylpre dnisolone 4 mg tablet TAKE 6 TABLETS ON DAY 1 DIRECTED ON PACKAGE AND DECREASE BY 1 TAB EACH DAY FOR A TOTAL OF 6 DAYS 12/22 completed Not Available Not Available Not Available naproxen 250 mg tablet 12/22 completed Medicati on ID: [id number] B rand Name: naproxen Send Method: E-Prescr ibed Sub s Allowed: subs OK Speci al Instruct ion: TAKE 1 TABLET BY MOUTH TWO TIMES A DAY WITH MEALS Me dication GenericN jose: naproxen Not Available Not Available Not Available acetamino phen 500 mg tablet 12/22 completed Medicati on ID: [id number] B rand Name: acetamin ophen Se nd Method: E-Prescr ibed Sub s Allowed: subs OK Speci al Instruct ion: PLEASE SEE ATTACHED FOR DETAILED DIRECTIO NS Medic ationGen ericName : acetamin ophen Not Available Not Available Not Available ondansetr on 8 mg disintegr ating tablet TAKE 1 TABLET BY MOUTH EVERY 8 HOURS NEEDED FOR NAUSEA AND VOMITING 12/22 completed Not Available Not Available Not Available acetamino phen ER 650 mg tablet,ex tended release TAKE 1 TABLET BY MOUTH EVERY SIX HOURS NEEDED FOR PAIN 12/26 completed Not Available Not Available Not Available pantopraz ole 20 mg tablet,de layed release 12/22 completed Medicati on ID: [id number] B rand Name: pantopra zole Sen d Method: E-Prescr ibed Sub s Allowed: subs OK Medic ationGen ericName : pantopra zole Not Available Not Available Not Available amoxicill in 875 mg tablet TAKE 1 TABLET BY MOUTH TWICE A DAY FOR 7 DAYS 12/22 completed Not Available Not Available Not Available prednisol one acetate 1 % eye drops,jennifer pension INSTILL 1 DROP INTO BOTH EYES THREE TIMES A DAY 12/22 completed Not Available Not Available Not Available magnesium oxide 400 mg (241.3 mg magnesium ) tablet TAKE 1 TABLET ORALLY BEDTIME FOR 30 DAYS MAY HOLD FOR LOOSE STOOLS 12/22 completed Not Available Not Available Not Available lorazepam 0.5 mg tablet 12/01 completed Medicati on ID: [id number] B rand Name: lorazepa m Send Method: E-Prescr ibed Sub s Allowed: subs OK Medic ationGen ericName : lorazepa m Not Available Not Available Not Available amitripty line 10 mg tablet 12/01 completed Medicati on ID: [id number] B rand Name: amitript yline Se nd Method: E-Prescr ibed Sub s Allowed: subs OK Speci al Instruct ion: TAKE 1 TABLET BY MOUTH EVERY DAY AT BEDTIME FOR 2 WEEKS THEN INCREASE TO 2 TABLLETS EVERY DAY AT BEDTIME THEREAFT ER Medic ationGen ericName : amitript yline Not Available Not Available Not Available mirtazapi ne 30 mg tablet TAKE 1 TABLET BY MOUTH EVERYDAY AT BEDTIME active Not Available Not Available No t Available prednison e 50 mg tablet 12/01 completed Medicati on ID: [id number] B rand Name: predniso ne Send Method: E-Prescr ibed Sub s Allowed: subs OK Medic ationGen ericName : predniso ne Not Available Not Available Not Available losartan 25 mg tablet TAKE 1 TABLET BY MOUTH EVERY DAY. 12/22 completed Not Available Not Available Not Available docusate sodium 100 mg capsule 12/22 completed Medicati on ID: [id number] B rand Name: docusate sodium S end Method: E-Prescr ibed Sub s Allowed: subs OK Speci al Instruct ion: TAKE 1 CAPSULE BY MOUTH TWICE A DAY Medi cationGe nericNam e: docusate sodium Not Available Not Available Not Available gabapenti n 300 mg capsule 12/01 completed Medicati on ID: [id number] B rand Name: gabapent in Send Method: E-Prescr ibed Sub s Allowed: subs OK Medic ationGen ericName : gabapent in Not Available Not Available Not Available verapamil ER (PM) 100 mg capsule 24hr pellet CT,ext.re lease TAKE 1 CAPSULE BY MOUTH AT BEDTIME 12/22 completed Not Available Not Available Not Available hydrocort isone 2.5 % topical cream APPLY THIN COAT TO AFFECTED AREA TWICE A DAY active Not Available Not Available No t Available monteluka st 10 mg tablet 12/01 completed Medicati on ID: [id number] B rand Name: monteluk ast Send Method: E-Prescr ibed Sub s Allowed: subs OK Medic ationGen ericName : monteluk ast Not Available Not Available Not Available mirtazapi ne 15 mg tablet TAKE 1 TABLET BY MOUTH EVERYDAY AT BEDTIME 12/22 completed Not Available Not Available Not Available gabapenti n 100 mg capsule 12/01 completed Medicati on ID: [id number] B rand Name: gabapent in Send Method: E-Prescr ibed Sub s Allowed: subs OK Medic ationGen ericName : gabapent in Not Available Not Available Not Available hydroxych loroquine 200 mg tablet 12/01 completed Medicati on ID: [id number] B rand Name: hydroxyc hloroqui ne Send Method: E-Prescr ibed Sub s Allowed: subs OK Medic ationGen ericName : hydroxyc hloroqui ne Not Available Not Available Not Available methylpre dnisolone 4 mg tablets in a dose pack TAKE 6 TABLETS ON DAY 1 DIRECTED ON PACKAGE AND DECREASE BY 1 TAB EACH DAY FOR A TOTAL OF 6 DAYS 12/22 completed Not Available Not Available Not Available ondansetr on 4 mg disintegr ating tablet 12/22 completed Medicati on ID: [id number] B rand Name: ondamary eladia Send Method: E-Prescr ibed Sub s Allowed: subs OK Medic ationGen ericName : ondanset eladia Not Available Not Available Not Available fluticaso ne propionat e 50 mcg/actua tion nasal spray,jennifer pension INSTILL 2 SPRAYS BY INTRANAS AL ROUTE EVERY DAY active Not Available Not Available No t Available doxycycli ne hyclate 100 mg tablet 12/01 completed Medicati on ID: [id number] B rand Name: doxycycl ine hyclate Send Method: E-Prescr ibed Sub s Allowed: subs OK Medic ationGen ericName : doxycycl ine hyclate Not Available Not Available Not Available amoxicill in 875 mg-potass ium clavulana te 125 mg tablet TAKE 1 TABLET BY MOUTH TWICE A DAY FOR 7 DAYS active Not Available Not Available No t Available Ventolin HFA 90 mcg/actua tion aerosol inhaler 12/01 completed Medicati on ID: [id number] B rand Name: Ventolin HFA Send Method: E-Prescr ibed Sub s Allowed: subs OK Speci al Instruct ion: INHALE 2 PUFFS INTO LUNGS EVERY 4 HOURS NEEDED FOR WHEEZING /SHORTNE SS OF BREATH M edicatio nGeneric Name: Ventolin HFA Not Available Not Available Not Available tobramyci n 0.3 %-dexamet hasone 0.1 % eye drops,jennifer pension 12/22 completed Medicati on ID: [id number] B rand Name: tobramyc in-dexam ethasone Send Method: E-Prescr ibed Sub s Allowed: subs OK Medic ationGen ericName : tobramyc in-dexam ethasone Not Available Not Available Not Available neomycin 3.5 mg/g-poly myxin B 10,000 unit/g-de xameth 0.1 % eye oint APPLY 1 A SMALL AMOUNT INTO BOTH EYES FOUR TIMES A DAY USE FOR 2 WEEKS THEN STOP 12/22 completed Not Available Not Available Not Available escitalop gold 10 mg tablet 12/01 completed Medicati on ID: [id number] B rand Name: escitalo pram oxalate Send Method: E-Prescr ibed Sub s Allowed: subs OK Medic ationGen ericName : escitalo pram oxalate Not Available Not Available Not Available aripipraz ole 10 mg tablet TAKE 1 TABLET BY MOUTH EVERY DAY 12/26 completed Not Available Not Available Not Available aripipraz ole 20 mg tablet TAKE 1 TABLET BY MOUTH EVERYDAY AT BEDTIME 12/22 completed Not Available Not Available Not Available cyclospor ine 0.05 % eye drops in a dropperet te INSTILL 1 DROP INTO BOTH EYES TWICE A DAY 12/22 completed Not Available Not Available Not Available aripipraz ole 5 mg tablet TAKE ONE (1) TABLET BY MOUTH EVERY MORNING TOGETHER WITH 10 MG AT NIGHT, DAILY DOSE IS 15 MG 12/26 completed Not Available Not Available Not Available cholestyr amine (with sugar) 4 gram powder for susp in a packet 12/22 completed Medicati on ID: [id number] B rand Name: cholesty ramine (with sugar) S end Method: E-Prescr ibed Sub s Allowed: subs OK Medic ationGen ericName : cholesty ramine (with sugar) Not Available Not Available Not Available potassium chloride ER 10 mEq tablet,ex tended release(p art/cryst ) PLEASE SEE ATTACHED FOR DETAILED DIRECTIO NS 12/22 completed Not Available Not Available Not Available bupropion HCl XL 300 mg 24 hr tablet, extended release TAKE 1 TABLET BY MOUTH EVERY DAY 12/26 completed Not Available Not Available Not Available bupropion HCl XL 150 mg 24 hr tablet, extended release TAKE 1 TABLET BY MOUTH EVERY DAY 12/22 completed Not Available Not Available Not Available escitalop gold 5 mg tablet 12/26 completed Medicati on ID: [id number] B rand Name: escitalo pram oxalate Send Method: E-Prescr ibed Sub s Allowed: subs OK Medic ationGen ericName : escitalo pram oxalate Not Available Not Available Not Available duloxetin e 20 mg capsule,d elayed release 12/26 completed Medicati on ID: [id number] B rand Name: duloxeti ne Send Method: E-Prescr ibed Sub s Allowed: subs OK Medic ationGen ericName : duloxeti ne Not Available Not Available Not Available duloxetin e 30 mg capsule,d elayed release 12/22 completed Medicati on ID: [id number] B rand Name: duloxeti ne Send Method: E-Prescr ibed Sub s Allowed: subs OK Medic ationGen ericName : duloxeti ne Not Available Not Available Not Available pregabali n 25 mg capsule TAKE 1 CAPSULE BY MOUTH THREE TIMES A DAY. active Not Available Not Available No t Available cholecalc iferol (vitamin D3) 50 mcg (2,000 unit) capsule TAKE 1 CAPSULE BY MOUTH DAILY WITH FOOD active Not Available Not Available No t Available GaviLyte- G 236 gram-22.7 4 gram-6.74 gram-5.86 gram oral solution PLEASE SEE ATTACHED FOR DETAILED DIRECTIO NS 12/22 completed Not Available Not Available Not Available Gavilax 17 gram/dose oral powder TAKE 17 GM BY MOUTH 2 TIMES A DAY,INST R:DISSOL VE IN 4 TO 8 OZ OF BEVERAGE 12/22 completed Not Available Not Available Not Available lidocaine 5 % topical ointment 12/01 completed Medicati on ID: [id number] B rand Name: lidocain e Send Method: E-Prescr ibed Sub s Allowed: subs OK Medic ationGen ericName : lidocain e Not Available Not Available Not Available desvenlaf axine succinate ER 25 mg tablet,ex tended release 24 hr 12/01 completed Medicati on ID: [id number] B rand Name: desvenla faxine succinat e Send Method: E-Prescr ibed Sub s Allowed: subs OK Medic ationGen ericName : desvenla faxine succinat e Not Available Not Available Not Available ergocalci ferol (vitamin D2) 50 mcg (2,000 unit) capsule 12/26 completed Medicati on ID: [id number] B rand Name: ergocalc iferol (vitamin D2) Send Method: E-Prescr ibed Sub s Allowed: subs OK Speci al Instruct ion: TAKE 1 CAPSULE BY MOUTH DAILY WITH FOOD Med icationG enericNa me: ergocalc iferol (vitamin D2) Not Available Not Available Not Available Pataday Once Daily Relief 0.7 % eye drops 12/01 completed Medicati on ID: [id number] B rand Name: Pataday Once Daily Relief S end Method: E-Prescr ibed Sub s Allowed: subs OK Speci al Instruct ion: INSTILL 1 DROP INTO BOTH EYES IN THE MORNING Medicati onGeneri cName: Pataday Once Daily Relief Not Available Not Available Not Available Paxlovid 300 mg (150 mg x 2)-100 mg tablets in a dose pack 12/01 completed Medicati on ID: [id number] B rand Name: Paxlovid Send Method: E-Prescr ibed Sub s Allowed: subs OK Medic ationGen ericName : Paxlovid Not Available Not Available Not Available Vitals Date Recorded Body height Body mass index (BMI) Body weight Provider Name and Address Organization Details Last Updated DateTime 12/22/2024 162.56 cm 32.1 kg/m2 20792.77 g Pau Alaniz [place] [facility] 12/22/2024 11:30:11 Social History None recorded. Functional Status None recorded. Mental Status None recorded. Family History Nothing Reported. Medical History No medical history recorded. Gynecological HistoryNo gynecological history recorded. Obstetrics History GPAL:G 0 P 0 0 0 0 Past Encounters Encounter ID Performer Location Encounter Start Date Encounter Closed Date Diagnosis/Indication Diagnosis SNOMED-CT Code Diagnosis ICD10 Code Diagnosis IMO Codes Diagnosis Note [id number] SUZNANE DOMINGUEZ PA-C [facility] [address] [place] [address] 12/22/2024 11:22:02 12/22/2024 11:39:58 Allergic rhinitis 86684597 J30.89 Pruritic d isorder of skin 0806593816 L29.9 [id number] GIL RAMOS MD [facility] [address] [place] [address] 12/26/2024 13:51:06 12/26/2024 16:48:15 Bilateral tinnitus 2667605154 102 H93.13 Audiologic al evaluation results: Right ear: Normal hearing with excellent word recognitio n. Left ear: Normal hearing with excellent word recognitio n. Tympanomet ry: Right Ear:Type A Left Ear:Type A Loss of se nse of smell 12866663 R43.0 01225 Suggest trial of fluticason e spray and CT imaging. Patient feels it is related to Tdap vaccine. Smell retraining discussed Vaccine ad verse reaction 160673124 T50.Z95A [id number] Health Concerns Section Related Observation LastModified by Organization Detai ls LastModified Time None Recorded Concern Status LastModified by Organization Details LastModified Time None Recorded Advance Directives Directive None Recorded Payers Insurance Date Sequence Insurance Name Policy Number Policy Robles Covered Member ID Robles Member ID Guarantor Name 12/26/2024 2 [place] [facility] Sariah Samuelso [id number] Sariah Rosario 12/22/2024 2 [employer] [id number] Sariah Samuelso [id number] Sariah Rosario 12/22/2024 1 [facility] [employer] [facility] [id number] Sariah Samuelso [id number] Sariah Rosario 12/22/2024 1 [place]MEDICARE [place]AC[place] HMO) [id number] Sariah Samuelso [id number] Sariah Rosario 12/22/2024 3 [place] [facility] Sariah Newmanbelo [id number] Sariah Rosario 12/22/2024 1 [place] [employer] Sariah Rosario [id number] Sariah Rosario Notes Date Note Type Note Provider Name and Address Organization Details Recorded Time 12/22/2024 text/html ROS as noted in the HPI 54-year-old female presents for evaluation of itching. Patient states that she was poked by a luiz thorn about 2 weeks ago. Initially she had some redness and irritation at the site which resolved within a day. Since then however she has had full body itching. She had a mild rash on her arm and leg. The rash seems to have resolved but she continues to have itching all over her body. GIL HOYT MD [address] [facility] [place] [address], [place], [address], [facility] - [facility] 12/22/2024 11:55:01 12/26/2024 text/html ROS as noted in the HPI Sariah Rosario is a 54-year-old female who presents for evaluation of tinnitus and anosmia. She reports a history of preexisting tinnitus in both ears, which has worsened since receiving a Tdap vaccination approximately three months ago. Four days after the vaccination, she experienced a complete loss of her sense of smell. She denies any recent cold or viral illness. Her medical history includes asthma, paresthesias attributed to long COVID, and vision problems. She also recalls a nodule inside her nostril identified approximately two years ago, which was deemed small and not concerning at the time. She has not had it rechecked since. A prior head CT scan performed in demonstrated no abnormalities. GIL HOYT MD 100 [facility], [place], [address], [facility] - [facility] 12/26/2024 15:18:04 OBGyn Episode No OBEpisode recorded.
--- OUTSIDE RECORDS SUMMARY | 2025-02-26 15:56 | XMS_ITS | Encounter Summary ---
Author Organization [employer] Address [address] [place] [address] Care Team Providers Care Rubber Goods Inspector Tester Name Role Phone Greg Long MD Primary Care Provider [phone] Encounter Details Date Type Department Care Team (Late st Contact Info) Description 10/14/2024 Lab Requisition [facility] - Main Lab [address] [place] [id number] Greg Long MD [address] [place] [address] Irritable bowel syndrome, unspecified Social History Tobacco Use Types Packs/Day [...] Associated Diagnosis Comments COMPLETE BLOOD COUNT Routine 10/14/2024 6:59 AM EDT Irritable bowel syndrome, unspecified BASIC METABOLIC PANEL Routine 10/14/2024 6:59 AM EDT Irritable bowel syndrome, unspecified documented in this encounter Results * (ABNORMAL) Basic metabolic panel (10/14/2024 6:59 AM EDT) Sodium 142 133 - 145 mmol/L LAB CHEMISTRY METHOD 10/14/2024 10:52 AM [facility] Potassium 3.6 3.5 - 5.5 mmol/L LAB CHEMISTRY METHOD 10/14/2024 10:52 AM [facility] Chloride 108 96 - 110 mmol/L LAB CHEMISTRY METHOD 10/14/2024 10:52 AM [facility] CO2 27 21 - 32 mmol/L LAB CHEMISTRY METHOD 10/14/2024 10:52 AM [facility] Anion Gap 7 3 - 11 LAB CHEMISTRY METHOD 10/14/2024 10:52 AM [facility] Glucose 107(H) 70 - 100 mg/dL LAB CHEMISTRY METHOD 10/14/2024 10:52 AM [facility] BUN 13 5 - 25 mg/dL LAB CHEMISTRY METHOD 10/14/2024 10:52 AM [facility] Creatinine 0.70 0.50 - 1.10 mg/dL LAB CHEMISTRY METHOD 10/14/2024 10:52 AM [facility] eGFR 104 >=60 mL/min/1. 73m2 LAB CHEMISTRY METHOD 10/14/2024 10:52 AM [facility] Comment:Calculation based on the Chronic Kidney Disease Epidemiology Collaboration (CKD-EPI) equation refit without adjustment for race. BUN/Creatinine Ratio 18.6 LAB CHEMISTRY METHOD 10/14/2024 10:52 AM [facility] Calcium 9.0 8.5 - 10.5 mg/dL LAB CHEMISTRY METHOD 10/14/2024 10:52 AM [facility] Blood Venous blood specimen / Unknown Venipuncture / Unknown 10/14/2024 6:59 AM EDT 10/14/2024 9:04 AM EDT us Greg Long MD LAB BLOOD ORDERABLES Final R esult [facility] [address] [place] [address], * (ABNORMAL) Complete blood count (10/14/2024 6:59 AM EDT) WBC 4.3(L) 4.8 - 10.8 K/mcL LAB HEMETOLOGY METHOD 10/14/2024 10:06 AM EDT [facility] RBC 4.20 3.80 - 4.80 M/mcL LAB HEMETOLOGY METHOD 10/14/2024 10:06 AM EDT [facility] Hemoglobin 12.2 11.5 - 16.0 g/dL LAB HEMETOLOGY METHOD 10/14/2024 10:06 AM EDT [facility] Hematocrit 37.0 35.0 - 47.0 % LAB HEMETOLOGY METHOD 10/14/2024 10:06 AM EDT [facility] MCV 88.3 79.0 - 98.0 FL LAB HEMETOLOGY METHOD 10/14/2024 10:06 AM EDT [facility] MCH 29.1 27.0 - 32.0 pcg LAB HEMETOLOGY METHOD 10/14/2024 10:06 AM EDT [facility] MCHC 33.0 32.0 - 37.0 g/dL LAB HEMETOLOGY METHOD 10/14/2024 10:06 AM EDT [facility] RDW 13.3 11.0 - 15.0 % LAB HEMETOLOGY METHOD 10/14/2024 10:06 AM EDT [facility] Platelets 201 130 - 400 K/mcL LAB HEMETOLOGY METHOD 10/14/2024 10:06 AM EDT [facility] MPV 10.4 7.0 - 11.0 FL LAB HEMETOLOGY METHOD 10/14/2024 10:06 AM EDT [facility] NRBC 0.0 <1.0 % LAB HEMETOLOGY METHOD 10/14/2024 10:06 AM EDT [facility] NRBC Absolute 0.00 <0.10 K/mcL LAB HEMETOLOGY METHOD 10/14/2024 10:06 AM EDT [facility] Blood Venous blood specimen / Unknown Venipuncture / Unknown 10/14/2024 6:59 AM EDT 10/14/2024 9:04 AM EDT us Greg Long MD LAB BLOOD ORDERABLES Final R esult [facility] [address] [place] [address], documented in this encounter Visit Diagnoses Diagnosis Irritable bowel syndrome, unspecified documented in this encounter Care Teams Rubber Goods Inspector Tester Relationship Specialty Start Date End Date Greg Long MD [address] [place] [address] PCP - General Family Medicine 09/29/24 documented as of this encounter
--- OUTSIDE RECORDS SUMMARY | 2025-02-26 15:56 | XMS_ITS | Encounter Summary ---
Author Organization [facility] Address [address] [facility] [address] [place] [address] Phone Care Team Providers Care Podiatry Teacher Name Role Phone Earlene Andrade MD Primary Care Provider + Encounter Details Date Type Department Care Team (Late st Contact Info) Description 02/24/2025 Orders Only [facility] [address] [place] [address] [email or web address] [email or web address] Neck pain (Primary Dx) Social History Tobacco Use Types Packs/Day Years Used Date Smoking Tobacco: Never Passive Smoke Exposure: Never Smokeless Tobacco: Never Education Answer Date Recorded Are you interested in more education? Not on sol e 09/08/2022 Are you concerned about learning? Not on file 09/08/2022 No 09/08/2022 No 09/08/2022 Digital Access Answer Date Recorded No 10/10/2022 No 10/10/2022 Reliable internet access at home? Not on file 10/10/2022 Device with a working camera? Not on file Comments Unknown Sex and Gender Information Value Date Recorded Sex Assigned at Not on file Legal Sex Female 11:00 AM EST Gender Identity Not on file Sexual Orientation Not on file documented as of this encounter Plan of Treatment Scheduled Orders Name Type Priority Associated Diagnoses Orde r Schedule XR Cervical Spine Imaging Routine Neck pain Expected: 02/24/2025, Expires: 05/27/2025 documented as of this encounter Visit Diagnoses Diagnosis Neck pain- Primary Cervicalgia documented in this encounter Care Teams Podiatry Teacher Relationship Specialty Start Date End Date Earlene Andrade MD [facility] [address] PCP - General Internal Medicine 03/16/22 documented as of this encounter Additional Source Comments The information contained in this document represents components of the legal health record. It is not the complete legal health record.[facility]
--- OUTSIDE RECORDS SUMMARY | 2025-02-26 15:56 | XMS_ITS | Clinical Summary ---
Author Organization [facility] Address [address] [address] Phone Care Team Providers Care Certified Registered Locksmith Name Role Phone Earlene Andrade MD Primary Care Provider + Allergies Active Allergy Reactions Criticality Noted Date Comments Covid-19 Vacc,Mrna(Pfizer)(Pf) Angioedema 03/25/2022 Gadolinium-Containing Contrast Media Itching 03/25/2022 No rash seen, patient reported itching to the arms and hands Iodinated Contrast Media Hives 03/25/2022 Ketorolac Hives 03/25/2022 Medications acetaminophen (TYLENOL) 325 mg tablet Take 325 mg by mouth daily. 2 Active LORazepam (ATIVAN) 0.5 MG tablet Take 0.25 mg by mouth. 2 Active sertraline (ZOLOFT) 25 MG tablet Take 1 tablet (25 mg total) by mouth daily. 2 Active gabapentin (NEURONTIN) 100 MG capsule Take 2 capsules (200 mg total) by mouth 3 (three) times a day. 2 Active Additional Information Patient taking differently:200 mg Oral2 times daily, Reported on 08/31/2022 cholestyramine (QUESTRAN) 4 gram packet Take 1 packet by mouth nightly at bedtime. Active ibuprofen (ADVIL,MOTRIN) 400 MG tablet Take 400 mg by mouth 2 (two) times a day (once in the morning and once in the afternoon). Active Active Problems Problem Noted Date Diagnosed Date Weakness 03/25/2022 Encounters Date Type Department Care Team Description 02/24/2025 Orders Only [facility] [address] [place] [address] Melisa Sebastain Neck pain (Primary Dx) from Last 3 Months Immunizations Immunization Administration Dates Next Due Influenza Quadrivalent Prese rvative Free IM 03/31/2022(Deferred: Patient Refused) Family History Medical History Relation Comments Cancer Father Alopecia Sister Thyroid disease Sister Relation Status Comments Father Sister Social History Tobacco Use Types Packs/Day Years Used Date Smoking Tobacco: Never Passive Smoke Exposure: Never Smokeless Tobacco: Never Tobacco Cessation:Counseling Given: Not Answered Education Answer Date Recorded Are you interested [...] Sign Reading Time Taken Comments Blood Pressure 133/62 08/31/2022 1:26 PM EDT Pulse 68 08/31/2022 1:26 PM EDT Temperature 35.9 C (96.6 F) 08/31/2022 1:26 PM EDT Respiratory Rate 18 03/30/2022 3:11 PM EST Oxygen Saturation 100% 08/31/2022 1:26 PM EDT Inhaled Oxygen Concentration - - Weight 84.8 kg (187 lb) 03/25/2022 12:10 PM EST Height 162.6 cm (5' 4 ) 03/25/2022 12:10 PM EST Body Mass Index 32.1 03/25/2022 12:10 PM EST Plan of Treatment Health Maintenance Due Date Last Done Comments DEPRESSION SCREENING 1984 HEPATITIS C SCREENING 1990 PAP SMEAR 1993 MAMMOGRAM 2012 COLOGUARD 2017 COLONOSCOPY 2017 COLORECTAL CANCER SCREENING 2017 FIT TEST 2017 FOBT 2017 SIGMOIDOSCOPY 2017 VIRTUAL COLONOSCOPY 2017 PNEUMOCOCCAL VACCINES (50+ years) (1 of 1 - PCV) 2022 ZOSTER VACCINES (1 of 2) 2022 INFLUENZA VACCINE (#1) 2024 , 03/27/2020, 03/07/2019, Additional history exists SCREENING FOR DIABETES 03/31/2025 03/31/2022, 2021 Adult Td,Tdap Booster 05/18/2025 05/18/2015 LIPID PANEL 03/28/2027 03/28/2022 RSV VACCINE (1 - 1-dose 75+ series) 08/09/2047 HIV ONE-TIME SCREENING (18-65 YEARS) Completed 03/25/2022 SMOKING STATUS SCREENING (Once After 26 Yrs) Completed 08/31/2022 HEPATITIS A VACCINES Aged Out No long er eligible based on patient's age to complete this topic HIB VACCINES Aged Out No longer eligi ble based on patient's age to complete this topic MENINGOCOCCAL VACCINES (ACWY) Aged Out No longer eligible based on patient's age to complete this topic MENINGOCOCCAL VACCINES (B) Aged Out N o longer eligible based on patient's age to complete this topic Medical Devices Not on file Procedures Procedure Name Priority Date/Time Associated Diagnosis Comments LIPID PANEL Routine 03/28/2022 6:50 AM EST from Last 3 Months or Most Recently Relevant to Health Maintenance Results * Lipid panel (03/28/2022 6:50 AM EST) CHOLESTEROL 167 <200 mg/dL [facility] TRIGLYCERIDES 101 35 - 150 mg/dL [facility] HDL 46 40 - 80 mg/dL [facility] CALCULATED LDL 101 50 - 129 mg/dL [facility] VLDL 20 <31 mg/dL [facility] CARDIAC RISK RATIO 3.6 0.0 - 4.0 [facility] Blood 03/28/2022 6:50 AM EST 03/28/2022 7:55 AM EST us Orion Griffith MD, PhD LAB BLOOD ORDERABLES Viviane condon Result [facility] [address] [place] [address] from Last 3 Months or Most Recently Relevant to Health Maintenance [place] B Advance Directives For more information, please contact: [phone] (9AM - 5PM [facility], Sunday-Sunday) Documents on File Type Date Recorded Patient Sap Bi Developer Expl anation Healthcare Proxy 03/28/2022 1:10 PM * Full Code (Latest Code Status on File) Date Activated Date Inactivated Comments 03/27/2022 4:13 PM Question Answer Comments Code Status Confirmed With: Patient Healthcare Agents on File Name Relationship Healthcare Agent Relationshi p Communication Tyrel Skinner Life Partner .Primary Health Care Agent (Proxy form on file) Care Teams Certified Registered Locksmith Relationship Specialty Start Date End Date Earlene Andrade MD [address], [place] [address] PCP - General Internal Medicine 03/16/22 Additional Source Comments The information contained in this document represents components of the legal health record. It is not the complete legal health record.[facility]
--- OUTSIDE RECORDS SUMMARY | 2025-02-26 15:56 | XMS_ITS | Encounter Summary ---
Author Organization [employer] Address [address] [place] [address] Care Team Providers Care Operations Director Name Role Phone Greg Long MD Primary Care Provider [phone] Encounter Details Date Type Department Care Team (Late st Contact Info) Description 10/09/2024 Lab Requisition [facility] - Main Lab [address] [facility] [place] [phone] Greg Long MD [address] [place] [address] Anemia, unspecified Social History Tobacco Use Types Packs/Day [...] Associated Diagnosis Comments COMPLETE BLOOD COUNT Routine 10/09/2024 6:14 AM EDT Anemia, unspecified MAGNESIUM Routine 10/09/2024 6:14 AM EDT Anemia, unspecified VITAMIN B12 Routine 10/09/2024 6:14 AM EDT Anemia, unspecified BASIC METABOLIC PANEL Routine 10/09/2024 6:14 AM EDT Anemia, unspecified documented in this encounter Results * Magnesium (10/09/2024 6:14 AM EDT) [facility] Magnesium 2.3 1.9 - 2.6 mg/dL LAB CHEMISTRY METHOD 10/09/2024 10:48 AM EDT [facility] Blood Venous blood specimen / Unknown Venipuncture / Unknown 10/09/2024 6:14 AM EDT 10/09/2024 9:42 AM EDT Greg Long MD LAB BLOOD ORDERABLES Final R esult Performing Organization Address [facility]/ZIP Co de Phone Number [facility] [address] [place] [address], [place] [phone] * Vitamin B12 (10/09/2024 6:14 AM EDT) [facility] Vitamin B-12 446 250 - 900 pcg/mL LAB CHEMISTRY METHOD 10/09/2024 11:11 AM EDT [facility] Blood Venous blood specimen / Unknown Venipuncture / Unknown 10/09/2024 6:14 AM EDT 10/09/2024 9:42 AM EDT Greg Long MD LAB BLOOD ORDERABLES Final R esult [facility] [address] [place] [address], [place] [phone] * (ABNORMAL) Basic metabolic panel (10/09/2024 6:14 AM EDT) [facility] Sodium 143 133 - 145 mmol/L LAB CHEMISTRY METHOD 10/09/2024 10:48 AM EDT [facility] Potassium 3.9 3.5 - 5.5 mmol/L LAB CHEMISTRY METHOD 10/09/2024 10:48 AM [facility] Chloride 109 96 - 110 mmol/L LAB CHEMISTRY METHOD 10/09/2024 10:48 AM [facility] CO2 27 21 - 32 mmol/L LAB CHEMISTRY METHOD 10/09/2024 10:48 AM [facility] Anion Gap 7 3 - 11 LAB CHEMISTRY METHOD 10/09/2024 10:48 AM [facility] Glucose 101(H) 70 - 100 mg/dL LAB CHEMISTRY METHOD 10/09/2024 10:48 AM [facility] BUN 21 5 - 25 mg/dL LAB CHEMISTRY METHOD 10/09/2024 10:48 AM [facility] Creatinine 0.71 0.50 - 1.10 mg/dL LAB CHEMISTRY METHOD 10/09/2024 10:48 AM [facility] eGFR 102 >=60 mL/min/1. 73m2 LAB CHEMISTRY METHOD 10/09/2024 10:48 AM [facility] Comment:Calculation based on the Chronic Kidney Disease Epidemiology Collaboration (CKD-EPI) equation refit without adjustment for race. BUN/Creatinine Ratio 29.6 LAB CHEMISTRY METHOD 10/09/2024 10:48 AM [facility] Calcium 9.2 8.5 - 10.5 mg/dL LAB CHEMISTRY METHOD 10/09/2024 10:48 AM [facility] Blood Venous blood specimen / Unknown Venipuncture / Unknown 10/09/2024 6:14 AM EDT 10/09/2024 9:42 AM EDT us Greg Long MD LAB BLOOD ORDERABLES Final R esult [facility] [address] [place] [address], * Complete blood count (10/09/2024 6:14 AM EDT) [facility] Signature WBC 5.9 4.8 - 10.8 K/mcL LAB HEMETOLOGY METHOD 10/09/2024 10:10 AM T [facility] RBC 4.30 3.80 - 4.80 M/mcL LAB HEMETOLOGY METHOD 10/09/2024 10:10 AM T [facility] Hemoglobin 12.5 11.5 - 16.0 g/dL LAB HEMETOLOGY METHOD 10/09/2024 10:10 AM EDT [facility] Hematocrit 38.1 35.0 - 47.0 % LAB HEMETOLOGY METHOD 10/09/2024 10:10 AM [facility] MCV 89.6 79.0 - 98.0 FL LAB HEMETOLOGY METHOD 10/09/2024 10:10 AM [facility] MCH 29.4 27.0 - 32.0 pcg LAB HEMETOLOGY METHOD 10/09/2024 10:10 AM [facility] MCHC 32.8 32.0 - 37.0 g/dL LAB HEMETOLOGY METHOD 10/09/2024 10:10 AM [facility] RDW 13.4 11.0 - 15.0 % LAB HEMETOLOGY METHOD 10/09/2024 10:10 AM [facility] Platelets 213 130 - 400 K/mcL LAB HEMETOLOGY METHOD 10/09/2024 10:10 AM T [facility] MPV 10.4 7.0 - 11.0 FL LAB HEMETOLOGY METHOD 10/09/2024 10:10 AM EDT [facility] NRBC 0.0 <1.0 % LAB HEMETOLOGY METHOD 10/09/2024 10:10 AM [facility] NRBC Absolute 0.00 <0.10 K/mcL LAB HEMETOLOGY METHOD 10/09/2024 10:10 AM EDT [facility] Blood Venous blood specimen / Unknown Venipuncture / Unknown 10/09/2024 6:14 AM EDT 10/09/2024 9:42 AM EDT us Greg Long MD LAB BLOOD ORDERABLES Final R esult [facility] [address] [place] [address], documented in this encounter Visit Diagnoses Diagnosis Anemia, unspecified documented in this encounter Care Teams Operations Director Relationship Specialty Start Date End Date Greg Long MD [address] [place] [address] PCP - General Family Medicine 09/29/24 documented as of this encounter
--- OUTSIDE RECORDS SUMMARY | 2025-02-26 15:56 | XMS_ITS | Encounter Summary ---
Author Organization [employer] Address [address] [place] [address] Care Team Providers Care Client Services Associate Name Role Phone Greg Long MD Primary Care Provider [phone] Encounter Details Date Type Department Care Team (Late st Contact Info) Description 02/04/2025 Lab Requisition [facility] - Main Lab [address] [facility] [place] [address] Campbell Jensen MD [address] [place] [address] Gross hematuria Social History Tobacco Use Types Packs/Day [...] Procedure Name Priority Date/Time Associated Diagnosis Comments NON-GYNECOLOGIC CYTOLOGY Routine 01/28/2025 12:00 AM EDT Gross hematuria documented in this encounter Results * Non-gynecologic cytology (01/28/2025 12:00 AM EDT) Final Diagnosis A. Urine, Voided, [id number]: Negative for high grade urothelial carcinoma. 02/25/2025 4:55 PM EDT [facility] at 1655 EDT Specimen A Adequacy Satisfactory for evaluation 02/25/2025 4:55 PM EDT [facility] Clinical Information Gross hematuria R31.0 Urine cytology with reflex UroVysion (AUC/SHGUC) 02/25/2025 4:55 PM EDT [facility] Gross Description A. Urine, Voided, [id number]: Received one ThinPrep slide for cytology. 02/25/2025 4:55 PM EDT [facility] Disclaimer Unless otherwise specified, all tissue is 10% NB formalin fixed and paraffin embedded. Technical pathology services provided by [facility] at [address], [place] [address] (CLIA #[id number]/Ramana Olmedo MD, Street Railway Line Installer) 02/25/2025 4:55 PM EDT [facility] Urine Urine specimen from urethra / Unknown 01/28/2025 02/04/2025 8:31 AM EDT us Campbell Jensen MD LAB CYTOLOGY ORDERABLES Fin al Result [facility] [address] [place] [address], documented in this encounter Visit Diagnoses Diagnosis Gross hematuria documented in this encounter Care Teams Client Services Associate Relationship Specialty Start Date End Date Greg Long MD [address] [place] [address] PCP - General Family Medicine 09/29/24 documented as of this encounter
--- OUTSIDE RECORDS SUMMARY | 2025-02-26 15:56 | XMS_ITS | Encounter Summary ---
Author Organization [facility] Address [address] [facility] [address] [place] [address] Phone Care Team Providers Care Gypsum Block Setter Name Role Phone Earlene Andrade MD Primary Care Provider + Encounter Details Date Type Department Care Team (Late st Contact Info) Description 03/25/2022 Procedure Pass [facility] [address] [place] [address] Social History Tobacco Use Types Packs/Day Years [...] 03/28/2022 3:00 AM Reynold Weems RN * [place] Suicide Severity Rating Scale (Screener/Recent Self-Report) Question [...] on filedocumented in this encounter Care Teams Gypsum Block Setter Relationship Specialty Start Date End Date Earlene Andrade MD [address] [address] PCP - General Internal Medicine 03/16/22 documented as of this encounter Additional Source Comments The information contained in this document represents components of the legal health record. It is not the complete legal health record.[facility]
--- OUTSIDE RECORDS SUMMARY | 2025-02-26 15:56 | XMS_ITS | Encounter Summary ---
Author Organization [facility] Address [address] [facility] [address] [place] [address] Phone Care Team Providers Care Train Planner Name Role Phone Earlene Andrade MD Primary Care Provider + Encounter Details Date Type Department Care Team (Late st Contact Info) Description 03/25/2022 Procedure Pass [facility] [address] [place] [address] Social History Tobacco Use Types Packs/Day Years [...] 03/28/2022 3:00 AM Reynold Weems RN * [place] Suicide Severity Rating Scale (Screener/Recent Self-Report) Question [...] on filedocumented in this encounter Care Teams Train Planner Relationship Specialty Start Date End Date Earlene Andrade MD [address] [address] PCP - General Internal Medicine 03/16/22 documented as of this encounter Additional Source Comments The information contained in this document represents components of the legal health record. It is not the complete legal health record.[facility]
--- OUTSIDE RECORDS SUMMARY | 2025-02-26 15:56 | XMS_ITS | Encounter Summary ---
Author Organization [facility] Address [address] [place] [address] Care Team Providers Care Flame Brazing Machine Operator Name Role Phone Greg Long MD Primary Care Provider [phone] Encounter Details Date Type Department Care Team (Late st Contact Info) Description 10/15/2024 Lab Requisition [facility] - Main Lab [address] [facility] [place] [phone] Greg Long MD [address], [place] [id number] Gastro-esophageal reflux disease without esophagitis; Anemia in other chronic diseases classified elsewhere Social History Tobacco Use Types Packs/Day Years [...] Associated Diagnosis Comments COMPLETE BLOOD COUNT Routine 10/15/2024 1:10 PM EDT Gastro-esophageal reflux disease without esophagitis Anemia in other chronic diseases classified elsewhere COMPREHENSIVE METABOLIC PANEL Routine 10/15/2024 1:10 PM EDT Gastro-esophageal reflux disease without esophagitis Anemia in other chronic diseases classified elsewhere documented in this encounter Results * (ABNORMAL) Comprehensive metabolic panel (10/15/2024 1:10 PM EDT) Sodium 138 133 - 145 mmol/L LAB CHEMISTRY METHOD 10/15/2024 2:54 PM [facility] Potassium 3.6 3.5 - 5.5 mmol/L LAB CHEMISTRY METHOD 10/15/2024 2:54 PM [facility] Chloride 105 96 - 110 mmol/L LAB CHEMISTRY METHOD 10/15/2024 2:54 PM [facility] CO2 28 21 - 32 mmol/L LAB CHEMISTRY METHOD 10/15/2024 2:54 PM [facility] Anion Gap 5 3 - 11 LAB CHEMISTRY METHOD 10/15/2024 2:54 PM [facility] Glucose 70 70 - 100 mg/dL LAB CHEMISTRY METHOD 10/15/2024 2:54 PM [facility] BUN 15 5 - 25 mg/dL LAB CHEMISTRY METHOD 10/15/2024 2:54 PM [facility] Creatinine 0.76 0.50 - 1.10 mg/dL LAB CHEMISTRY METHOD 10/15/2024 2:54 PM [facility] eGFR 94 >=60 mL/min/1. 73m2 LAB CHEMISTRY METHOD 10/15/2024 2:54 PM [facility] Comment:Calculation based on the Chronic Kidney Disease Epidemiology Collaboration (CKD-EPI) equation refit without adjustment for race. BUN/Creatinine Ratio 19.7 LAB CHEMISTRY METHOD 10/15/2024 2:54 PM [facility] Calcium 9.8 8.5 - 10.5 mg/dL LAB CHEMISTRY METHOD 10/15/2024 2:54 PM [facility] AST (SGOT) 15 10 - 42 unit/L LAB CHEMISTRY METHOD 10/15/2024 2:54 PM [facility] ALT (SGPT) 34 10 - 60 unit/L LAB CHEMISTRY METHOD 10/15/2024 2:54 PM EDT [facility] Alkaline Phosphatase 124(H) 42 - 121 unit/L [facility] Total Protein 8.1(H) 6.0 - 8.0 g/dL LAB CHEMISTRY METHOD 10/15/2024 2:54 PM EDT [facility] Albumin 4.1 3.2 - 5.0 g/dL LAB CHEMISTRY [facility] Total Bilirubin 0.4 0.0 - 1.4 mg/dL LAB CHEMISTRY METHOD 10/15/2024 2:54 PM EDT [facility] Blood Venous blood specimen / Unknown 10/15/2024 1:10 PM EDT 10/15/2024 1:49 PM EDT us Greg Long MD LAB BLOOD ORDERABLES Final R esult [facility] [address] [place] [address], * Complete blood count (10/15/2024 1:10 PM EDT) WBC 6.3 4.8 - 10.8 K/mcL LAB HEMETOLOGY METHOD 10/15/2024 2:09 PM EDT [facility] RBC 4.50 3.80 - 4.80 M/mcL LAB HEMETOLOGY METHOD 10/15/2024 2:09 PM EDT [facility] Hemoglobin 13.1 11.5 - 16.0 g/dL LAB HEMETOLOGY METHOD 10/15/2024 2:09 PM EDT [facility] Hematocrit 39.7 35.0 - 47.0 % LAB HEMETOLOGY METHOD 10/15/2024 2:09 PM EDT [facility] MCV 87.6 79.0 - 98.0 FL LAB HEMETOLOGY METHOD 10/15/2024 2:09 PM EDT [facility] MCH 28.9 27.0 - 32.0 pcg LAB HEMETOLOGY METHOD 10/15/2024 2:09 PM EDT [facility] MCHC 33.0 32.0 - 37.0 g/dL LAB HEMETOLOGY METHOD 10/15/2024 2:09 PM EDT [facility] RDW 13.2 11.0 - 15.0 % LAB HEMETOLOGY METHOD 10/15/2024 2:09 PM EDT [facility] Platelets 257 130 - 400 K/mcL LAB HEMETOLOGY METHOD 10/15/2024 2:09 PM EDT [facility] MPV 10.4 7.0 - 11.0 FL LAB HEMETOLOGY METHOD 10/15/2024 2:09 PM EDT [facility] NRBC 0.0 <1.0 % LAB HEMETOLOGY METHOD 10/15/2024 2:09 PM EDT [facility] NRBC Absolute 0.00 <0.10 K/mcL LAB HEMETOLOGY METHOD 10/15/2024 2:09 PM EDT [facility] Blood Venous blood specimen / Unknown 10/15/2024 1:10 PM EDT 10/15/2024 1:49 PM EDT us Greg Long MD LAB BLOOD ORDERABLES Final R esult [facility] [address] [place] [address], documented in this encounter Visit Diagnoses Diagnosis Gastro-esophageal reflux disease without esophagitis Anemia in other chronic diseases classified elsewhere documented in this encounter Care Teams Flame Brazing Machine Operator Relationship Specialty Start Date End Date Greg Long MD [address] [place] [address] PCP - General Family Medicine 09/29/24 documented as of this encounter
--- OUTSIDE RECORDS SUMMARY | 2025-02-26 15:56 | XMS_ITS | Encounter Summary ---
Author Organization [facility] Address [address] [place] [address] Care Team Providers Care Peeler Operator Name Role Phone Greg Long MD Primary Care Provider [phone] Encounter Details Date Type Department Care Team (Late st Contact Info) Description 10/14/2024 Lab Requisition [facility] - Main Lab [address] [place] [phone] Greg Long MD [address] [place] [address] Urinary tract infection, site not specified Social History Tobacco Use Types Packs/Day Years [...] EDT Urinary tract infection, site not specified documented in this encounter Results * Culture urine (10/14/2024 12:00 AM EDT) Pathologist [facility] Culture, Urine 10,000-49,000 CFU/mL Mixed urogenital esther, no uropathogens present. Suggest repeat specimen if clinically indicated. 10/15/2024 10:38 AM T [facility] Urine Urine specimen obtained by clean catch procedure / Unknown Non-blood Collection / Unknown 10/14/2024 10/14/2024 10:07 AM EDT Greg Long MD LAB MICROBIOLOGY - GENERAL O RDERABLES Final Result [facility] [address] [place] [address], [place] [phone] * (ABNORMAL) Urinalysis with reflex microscopic and culture (10/14/2024 12:00 AM EDT) Pathologist [facility] Specific [place] Urine 1.016 1.003 - 1.030 LAB URINALYSIS - AUTOMATED METHOD 10/14/2024 10:07 AM [facility] pH, Urine 7.0 5.0 - 8.0 pH LAB URINALYSIS - AUTOMATED METHOD 10/14/2024 10:07 AM [facility] Leukocytes, Urine Small(A) Negative LAB URINALYSIS - AUTOMATED METHOD 10/14/2024 10:07 AM [facility] Nitrite, Urine Negative Negative LAB URINALYSIS - AUTOMATED METHOD 10/14/2024 10:07 AM [facility] Protein, Urine Negative <=Trace mg/dL LAB URINALYSIS - AUTOMATED METHOD 10/14/2024 10:07 AM [facility] Glucose, Urine Negative Negative mg/dL LAB URINALYSIS - AUTOMATED METHOD 10/14/2024 10:07 AM [facility] Ketones, Urine Negative Negative mg/dL LAB URINALYSIS - AUTOMATED METHOD 10/14/2024 10:07 AM [facility] Urobilinogen, Urine 0.2 0.2 - 1.0 mg/dL LAB URINALYSIS - AUTOMATED METHOD 10/14/2024 10:07 AM [facility] Bilirubin, Urine Negative Negative LAB URINALYSIS - AUTOMATED METHOD 10/14/2024 10:07 AM [facility] Blood, Urine Small(A) Negative LAB URINALYSIS - AUTOMATED METHOD 10/14/2024 10:07 AM [facility] RBC, Urine 9.8(H) 0 - 4 /HPF LAB URINALYSIS - AUTOMATED METHOD 10/14/2024 10:07 AM [facility] WBC, Urine 3.8 0 - 4 /HPF LAB URINALYSIS - AUTOMATED METHOD 10/14/2024 10:07 AM [facility] Squamous Epithelial, Urine 40 0 - 60 /LPF LAB URINALYSIS - AUTOMATED METHOD 10/14/2024 10:07 AM [facility] Bacteria, Urine Negative Negative /HPF LAB URINALYSIS - AUTOMATED METHOD 10/14/2024 10:07 AM [facility] Hyaline Casts, Urine 0.0 0 - 3 /LPF LAB URINALYSIS - AUTOMATED METHOD 10/14/2024 10:07 AM [facility] Urine Urine specimen obtained by clean catch procedure / Unknown Non-blood Collection / Unknown 10/14/2024 10/14/2024 8:59 AM EDT us Greg Long MD LAB URINE ORDERABLES Final R esult [facility] [address] [place] [address], [place] [phone] * Horowitz urine culture tube (10/14/2024 12:00 AM EDT) Extra Tube Hold for add-ons. 10/14/2024 10:01 AM EDT [facility] Comment:Auto resulted. Urine Urine specimen obtained by clean catch procedure / Unknown Non-blood Collection / Unknown 10/14/2024 10/14/2024 8:59 AM EDT Greg Long MD LAB URINE ORDERABLES Final R esult [facility] [address] [place] [address], documented in this encounter Visit Diagnoses Diagnosis Urinary tract infection, site not specified documented in this encounter Care Teams Peeler Operator Relationship Specialty Start Date End Date Greg Long MD [address] [place] [address] PCP - General Family Medicine 09/29/24 documented as of this encounter
--- OUTSIDE RECORDS SUMMARY | 2025-02-26 15:56 | XMS_ITS | Clinical Summary ---
Author Organization [facility] Address [address] [place] [address] Phone Care Team Providers Care Aircraft Maintenance Manager Name Role Phone Greg Long MD Primary Care Provider [phone] Allergies Active Allergy Reactions Criticality Noted Date [...] time each day after breakfast. 3 Active Encounters Date Type Department Care Team Description 02/04/2025 Lab Requisition [facility] - Main Lab [address] [facility] [phone] Campbell Jensen MD Gross hematuria from Last 3 Months Surgical History Surgery Date Site/Laterality Comments HYSTERECTOMY 2013 PROCEDURE: HISTORICAL HYSTERECTOMY; COMMENT: endometriosis SECTION PROCEDURE: HISTORICAL ; COMMENT: x 1 OVARIAN CYST REMOVAL 09/09/2012 PROCEDURE: [place] OVARIAN CYSTECTOMY UNI/BI OTHER SURGICAL HISTORY PROCEDURE: [place] HYSTEROSCOPY LYSIS INTRAUTERINE ADHESIONS COLONOSCOPY 02/12/2014 PROCEDURE: HISTORICAL COLONOSCOPY; COMMENT: hemorrhoids; repeat in 10 yrs CYSTOSCOPY 12/2014 PROCEDURE: HISTORICAL CYSTOSCOPY; COMMENT: Negative OOPHORECTOMY 2013 Right PROCEDURE: HISTORICAL OOPHORECTOMY; COMMENT: endometriosis OTHER SURGICAL HISTORY 11/15/2010 Left PROCEDURE: [place] PUNCTURE ASPIRATION CYST OF BREAST; COMMENT: breast [...] DX:Bladder diso rder; COMMENT: Dr Flower urology, nl cystoscopy 01/2014 Chronic constipation 04/19/2017 DX:Chronic constipation; [...] Last Done Comments Breast Cancer Screening 1972 Colorectal Cancer Screening: Colonoscopy 1972 Hepatitis A Vaccines (1 of 2 - Risk 2-dose series) 08/09/1991 Hepatitis B Vaccines (1 of 3 - 19+ 3-dose series) 08/09/1991 Pneumococcal Vaccine: 50+ Years (1 of 2 - PCV) 08/09/1991 HIV Screening 09/30/2021 Hepatitis C Screening 09/30/2021 Medicare Annual Wellness Visit 09/30/2021 Social Influencers of Health Screening 09/30/2021 RSV Immunization Adult Patients (1 - Risk 50-74 years 1-dose series) 2022 Zoster Vaccines (1 of 2) 2022 Depression Screening 05/14/2024 COVID-19 Vaccine (2 - 2024- season) 2025 12/16/2020 Influenza Vaccine (#1) 2025 , 04/08/2021, 03/27/2020, Additional history exists Hypertension/CHF/CAD Annual BMP Blood Test 11/17/2025 11/17/2024, 11/10/2024, 10/15/2024, Additional history exists Cholesterol Screening (Lipid Panel) [...] Routine 01/28/2025 12:00 AM EDT Gross hematuria BASIC METABOLIC PANEL Routine 11/17/2024 5:50 AM EDT Polyneuropathy, unspecified LIPID PANEL Routine 03/28/2022 from Last 3 Months or Most Recently Relevant to Health Maintenance Results * Non-gynecologic cytology (01/28/2025 12:00 AM EDT) Final Diagnosis A. Urine, Voided, [id number]: Negative for high grade urothelial carcinoma. 02/25/2025 4:55 PM EDT [facility] at 1655 EDT Specimen A Adequacy Satisfactory for evaluation 02/25/2025 4:55 PM EDT [facility] Clinical Information Gross hematuria R31.0 Urine cytology with reflex UroVysion (AUC/SHGUC) 02/25/2025 4:55 PM EDT [facility] Gross Description A. Urine, Voided, [id number]: Received one ThinPrep slide for cytology. 02/25/2025 4:55 PM EDT [facility] Disclaimer Unless otherwise specified, all tissue is 10% NB formalin fixed and paraffin embedded. Technical pathology services provided by [facility] at [address], [place] [address] (CLIA #[id number]/Ramana Olmedo MD, Welder Machine Operator) 02/25/2025 4:55 PM EDT [facility] Urine Urine specimen from urethra / Unknown 01/28/2025 02/04/2025 8:31 AM EDT us Campbell Jensen MD LAB CYTOLOGY ORDERABLES Fin al Result [facility] [address] [place] [address], [place] [phone] * Basic metabolic panel (11/17/2024 5:50 AM EDT) Sodium 140 133 - 145 mmol/L LAB CHEMISTRY METHOD 11/17/2024 9:32 AM [facility] Potassium 4.1 3.5 - 5.5 mmol/L LAB CHEMISTRY METHOD 11/17/2024 9:32 AM [facility] Chloride 108 96 - 110 mmol/L LAB CHEMISTRY METHOD 11/17/2024 9:32 AM [facility] CO2 28 21 - 32 mmol/L LAB CHEMISTRY METHOD 11/17/2024 9:32 AM [facility] Anion Gap 4 3 - 11 LAB CHEMISTRY METHOD 11/17/2024 9:32 AM [facility] Glucose 95 70 - 100 mg/dL LAB CHEMISTRY METHOD 11/17/2024 9:32 AM [facility] BUN 22 5 - 25 mg/dL LAB CHEMISTRY METHOD 11/17/2024 9:32 AM [facility] Creatinine 0.74 0.50 - 1.10 mg/dL LAB CHEMISTRY METHOD 11/17/2024 9:32 AM EDT [facility] eGFR 97 >=60 mL/min/1. 73m2 LAB CHEMISTRY METHOD 11/17/2024 9:32 AM EDT [facility] Comment:Calculation based on the Chronic Kidney Disease Epidemiology Collaboration (CKD-EPI) equation refit without adjustment for race. BUN/Creatinine Ratio 29.7 LAB CHEMISTRY METHOD 11/17/2024 9:32 AM EDT [facility] Calcium 9.2 8.5 - 10.5 mg/dL LAB CHEMISTRY METHOD 11/17/2024 9:32 AM EDT [facility] Blood Venous blood specimen / Unknown Venipuncture / Unknown 11/17/2024 5:50 AM EDT 11/17/2024 8:27 AM EDT Jose Pelaez MD LAB BLOOD ORDERABLES Final Resul t [facility] [address] [place] [address], * Lipid panel (03/28/2022) LDL/HDL Ratio 0 [...] Unknown Historical Provider LAB BLOOD ORDERABLES Viviane condon Result from Last 3 Months or Most Recently Relevant to Health Maintenance Insurance BL[place] - [place] MEDICARE ADVANTAGE [place]ICA[place] - [place] Care Teams Aircraft Maintenance Manager Relationship Specialty Start Date End Date Greg oLng MD [address] [place] [address] PCP - General Family Medicine 09/29/24
== END 2025-02-26 14:02 | disposition home or self-care (01) ==
PROVIDERS: PCP Internal Medicine; Visit Provider Physician Assistant
DX: M51.369 Other intervertebral disc degeneration, lumbar region without mention of lumbar back pain or lower extremity pain (principal); M50.90 Cervical disc disorder, unspecified, unspecified cervical region
CPT/HCPCS: 99204

== ENCOUNTER → 2025-02-26 12:46 | Outpatient (BNVA) | payer MEDICARE, MEDICAID, SELFPAY | PROVIDERS: PCP Internal Medicine; Visit Provider Physician Assistant | DX: M51.369 Other intervertebral disc degeneration, lumbar region without mention of lumbar back pain or lower extremity pain (principal); M50.90 Cervical disc disorder, unspecified, unspecified cervical region | CPT/HCPCS: 99202 ==

== ENCOUNTER → 2025-03-29 14:39 | Outpatient (BNV) | payer MEDICARE, MEDICAID, SELFPAY | PROVIDERS: PCP Internal Medicine; Visit Provider Radiology Diagnostic Radiology | DX: M47.816 Spondylosis without myelopathy or radiculopathy, lumbar region (principal); M48.061 Spinal stenosis, lumbar region without neurogenic claudication; N28.1 Cyst of kidney, acquired | CPT/HCPCS: 72148 ==

== ENCOUNTER 2025-03-29 14:47 | Outpatient (REF) | payer MEDICARE, MEDICAID, SELFPAY ==
--- NOTE | ~2025-03-29 | MR_ITS ---
EXAMINATION: MR LUMBAR SPINE WITHOUT CONTRAST CLINICAL INFORMATION: M 51.369. COMPARISON: None available. TECHNIQUE: MRI of the lumbar spine was obtained using routine sequences without contrast. FINDINGS: Last rib-bearing vertebra labeled T12. No bone marrow STIR signal abnormality. 1.7 cm intrinsic hyperintense T1 bone lesion at L2, intraosseous hemangioma. Loss of the intervertebral discs signal at L4-5 secondary to disc desiccation. Focal hyperintense T2 signal in the posterior aspect of the intervertebral disc L4-5 likely focal annular fissure. Multilevel Schmorl nodes in the endplates of T11, T12, L1, L3 and to a lesser extent L4. Normal alignment. Conus medullaris and septated pedicle of L1 with normal signal. T12-L1: Broad-based disc bulging. Facet joint and ligamentum flavum hypertrophy. Bilateral perineural cysts. No central spinal canal or neuroforamina stenosis. L1-2: Broad-based disc bulging. Facet joint ligamentum flavum hypertrophy. Right perineural cyst. No central spinal canal or neuroforamina stenosis. L2-3: Broad-based disc bulging. Facet joint hypertrophy as well as ligamentum flavum. No compression upon neural elements. L3-4: Broad-based disc bulging. Facet joint and ligamentum flavum hypertrophy. Reduced AP diameter of the thecal sac and neuroforamina. L4-5: Broad-based disc bulging. Right foraminal annular fissure. Bilateral facet joint hypertrophy as well as ligamentum flavum. CSF effacement of the thecal sac central spinal canal and bilateral neuroforamina stenosis encroaching posterior compressing the neural elements. L5-S1: Broad-based disc bulging. Facet joint hypertrophy. No central spinal canal or neuroforamina stenosis. No prevertebral compartment hematoma, mass or fluid collection. Common bile duct measures 9 mm maximal diameter. 2 cm fluid signal characteristic lesion in the posterior midportion, right kidney. MR/MR lumbar spine wo con IMPRESSION: Multilevel lumbar spondylosis pronounced at L4-5 resulting in central spinal canal and bilateral neuroforamina stenosis encroaching posterior compressing the neural elements. 2 cm cystic lesion right kidney. Recommend renal ultrasound. Electronically signed by: Davy Nelson MD 03/30/2025 07:59 AM EST
--- OUTSIDE RECORDS SUMMARY | 2025-03-29 14:53 | XMS_ITS | Encounter Summary ---
Author Organization [facility] Address [address] [place] [phone] Phone Care Team Providers Care Crystal Slicer Name Role Phone Earlene Andrade MD Primary Care Provider + Encounter Details Date Type Department Care Team (Late st Contact Info) Description 03/25/2022 Procedure [facility] [address] [place] [address] Social History Tobacco Use Types Packs/Day Years [...] 03/28/2022 3:00 AM Reynold Weems RN * [place] Suicide Severity Rating Scale (Screener/Recent Self-Report) Question [...] on filedocumented in this encounter Care Teams Crystal Slicer Relationship Specialty Start Date End Date Earlene Andrade MD [address], [place] [address] PCP - General Internal Medicine 03/16/22 documented as of this encounter Additional Source Comments The information contained in this document represents components of the legal health record. It is not the complete legal health record.[facility]
--- OUTSIDE RECORDS SUMMARY | 2025-03-29 14:53 | XMS_ITS | Encounter Summary ---
Author Organization [facility] Address [address] [facility] [address] [place] [address] Phone Care Team Providers Care Geophysical Data Technician Name Role Phone Earlene Andrade MD Primary Care Provider + Encounter Details Date Type Department Care Team (Late st Contact Info) Description 03/25/2022 Procedure Pass [facility] [address] [place] [address] Social History Tobacco Use Types Packs/Day Years [...] 03/28/2022 3:00 AM Reynold Weems RN * [place] Suicide Severity Rating Scale (Screener/Recent Self-Report) Question [...] on filedocumented in this encounter Care Teams Geophysical Data Technician Relationship Specialty Start Date End Date Earlene Andrade MD [address], [place] [address] PCP - General Internal Medicine 03/16/22 documented as of this encounter Additional Source Comments The information contained in this document represents components of the legal health record. It is not the complete legal health record.[facility]
--- OUTSIDE RECORDS SUMMARY | 2025-03-29 14:53 | XMS_ITS | Encounter Summary ---
Author Organization [facility] Address [address] [place] [address] Phone Care Team Providers Care General Merchandise Manager Name Role Phone Earlene Andrade MD Primary Care Provider + Encounter Details Date Type Department Care Team (Late st Contact Info) Description 12/02/2021 Documentation Only [facility] [address] [place] [phone] Darwin Hensley MD [address] [place] [address] [place] [phone] Social History Tobacco Use Types Packs/Day Years [...] Visit [facility] [address] [phone] Buddy Hough MD [address] [phone] documented as of this encounter Visit Diagnoses Not on filedocumented in this encounter Care Teams General Merchandise Manager Relationship Specialty Start Date End Date Earlene Andrade MD [address] [place], [place] [phone] PCP - General Internal Medicine 02/16/23 documented as of this encounter
--- OUTSIDE RECORDS SUMMARY | 2025-03-29 14:53 | XMS_ITS | Encounter Summary ---
Author Organization [facility] Address [address] [place] [address] Phone Care Team Providers Care Linux Consultant Name Role Phone Earlene Andrade MD Primary Care Provider + Encounter Details Date Type Department Care Team (Late st Contact Info) Description 12/14/2021 Documentation Only [facility] [address] [place] [phone] Darwin Hensley MD [address] [place] [address] [place] [phone] Social History Tobacco Use Types Packs/Day Years [...] [facility] [address] [phone] Buddy Hough MD [address] [address] documented as of this encounter Visit Diagnoses Not on filedocumented in this encounter Care Teams Linux Consultant Relationship Specialty Start Date End Date Earlene Andrade MD [address] [place], [place] [phone] PCP - General Internal Medicine 02/16/23 documented as of this encounter
--- OUTSIDE RECORDS SUMMARY | 2025-03-29 14:53 | XMS_ITS | Encounter Summary ---
Author Organization [facility] Address [address] [place] [address] Phone Care Team Providers Care Bucket Pusher Name Role Phone Earlene Andrade MD Primary Care Provider + Encounter Details Date Type Department Care Team (Late st Contact Info) Description 12/02/2021 Documentation Only [facility] [address] [place] [phone] Darwin Hensley MD [address] [place] [address] [place] [phone] Social History Tobacco Use Types Packs/Day Years [...] Visit [facility] [address] [phone] Buddy Hough MD [address] [phone] documented as of this encounter Visit Diagnoses Not on filedocumented in this encounter Care Teams Bucket Pusher Relationship Specialty Start Date End Date Earlene Andrade MD [address] [place], [place] [phone] PCP - General Internal Medicine 02/16/23 documented as of this encounter
--- OUTSIDE RECORDS SUMMARY | 2025-03-29 14:53 | XMS_ITS | Encounter Summary ---
Author Organization [facility] Address [address] [place] [address] Care Team Providers Care Citrix Administrator Name Role Phone Greg Long MD Primary Care Provider +1 [phone] Encounter Details Date Type Department Care Team (Late st Contact Info) Description 11/21/2024 Lab Requisition [facility] - Main Lab 299 [facility] [phone] Jose Pelaez MD [address] [place] [address] Polyneuropathy, unspecified Social History Tobacco Use Types [...] unspecified documented in this encounter Care Teams Citrix Administrator Relationship Specialty Start Date End Date Greg Long MD [address] [place] [address] PCP - General Family Medicine 09/29/24 documented as of this encounter
--- OUTSIDE RECORDS SUMMARY | 2025-03-29 14:53 | XMS_ITS | Encounter Summary ---
Author Organization [facility] Address [address] [facility] [address] [place] [address] Phone Care Team Providers Care Manager Of Tires Sales Name Role Phone Earlene Andrade MD Primary Care Provider + Encounter Details Date Type Department Care Team (Late st Contact Info) Description 03/25/2022 Procedure Pass [facility] [address] [place] [address] Social History Tobacco Use Types Packs/Day Years [...] 03/28/2022 3:00 AM Reynold Weems RN * [place] Suicide Severity Rating Scale (Screener/Recent Self-Report) Question [...] on filedocumented in this encounter Care Teams Manager Of Tires Sales Relationship Specialty Start Date End Date Earlene Andrade MD [address], [place] [address] PCP - General Internal Medicine 03/16/22 documented as of this encounter Additional Source Comments The information contained in this document represents components of the legal health record. It is not the complete legal health record.[facility]
--- OUTSIDE RECORDS SUMMARY | 2025-03-29 14:53 | XMS_ITS | Encounter Summary ---
Author Organization [employer] Address [address] [place] [address] Care Team Providers Care Career Development Manager Name Role Phone Greg Long MD Primary Care Provider [phone] Encounter Details Date Type Department Care Team (Late st Contact Info) Description 11/20/2024 Lab Requisition [facility] - Main Lab 299 [facility] [place] [phone] Jose Pelaez MD [address] [place] [address] Dysuria Social History Tobacco Use Types Packs/Day [...] Culture urine (11/19/2024 10:00 AM EDT) Pathologist [facility] Culture, Urine 50,000-99,000 CFU/mL Mixed bacterial morphotypes present suggestive of possible contamination during collection. Suggest appropriate recollection if clinically indicated. 11/21/2024 9:31 AM EDT [facility] Urine Urine specimen obtained by clean catch procedure / Unknown Non-blood Collection / Unknown 11/19/2024 10:00 AM EDT 11/20/2024 10:19 AM EDT Jose Pelaez MD LAB MICROBIOLOGY - GENERAL ORDER LAUREN Final Result [facility] [address] [place] [address], [place] [phone] * (ABNORMAL) Urinalysis with reflex microscopic and culture (11/19/2024 10:00 AM EDT) [facility] Specific [place] Urine 1.018 1.003 - 1.030 LAB URINALYSIS - AUTOMATED METHOD 11/20/2024 10:19 AM [facility] pH, Urine 7.5 5.0 - 8.0 pH LAB URINALYSIS - AUTOMATED METHOD 11/20/2024 10:19 AM [facility] Leukocytes, Urine Trace(A) Negative LAB URINALYSIS - AUTOMATED METHOD 11/20/2024 10:19 AM [facility] Nitrite, Urine Negative Negative LAB URINALYSIS - AUTOMATED METHOD 11/20/2024 10:19 AM [facility] Protein, Urine Negative <=Trace mg/dL LAB URINALYSIS - AUTOMATED METHOD 11/20/2024 10:19 AM [facility] Glucose, Urine Negative Negative mg/dL LAB URINALYSIS - AUTOMATED METHOD 11/20/2024 10:19 AM [facility] Ketones, Urine Negative Negative mg/dL LAB URINALYSIS - AUTOMATED METHOD 11/20/2024 10:19 AM [facility] Urobilinogen, Urine 0.2 0.2 - 1.0 mg/dL LAB URINALYSIS - AUTOMATED METHOD 11/20/2024 10:19 AM [facility] Bilirubin, Urine Negative Negative LAB URINALYSIS - AUTOMATED METHOD 11/20/2024 10:19 AM [facility] Blood, Urine Negative Negative LAB URINALYSIS - AUTOMATED METHOD 11/20/2024 10:19 AM [facility] RBC, Urine 5.1(H) 0 - 4 /HPF LAB URINALYSIS - AUTOMATED METHOD 11/20/2024 10:19 AM [facility] WBC, Urine 2.2 0 - 4 /HPF LAB URINALYSIS - AUTOMATED METHOD 11/20/2024 10:19 AM [facility] Squamous Epithelial, Urine 41 0 - 60 /LPF LAB URINALYSIS - AUTOMATED METHOD 11/20/2024 10:19 AM [facility] Bacteria, Urine Negative Negative /HPF LAB URINALYSIS - AUTOMATED METHOD 11/20/2024 10:19 AM [facility] Hyaline Casts, Urine 0.4 0 - 3 /LPF LAB URINALYSIS - AUTOMATED METHOD 11/20/2024 10:19 AM [facility] Urine Urine specimen obtained by clean catch procedure / Unknown Non-blood Collection / Unknown 11/19/2024 10:00 AM EDT 11/20/2024 9:52 AM EDT us Jose Pelaez MD LAB URINE ORDERABLES Final Resul t [facility] [address] [place] [address], [place] [phone] * Horowitz urine culture tube (11/19/2024 10:00 AM EDT) Extra Tube Hold for add-ons. 11/20/2024 11:01 AM EDT [facility] Comment:Auto resulted. Urine Urine specimen obtained by clean catch procedure / Unknown Non-blood Collection / Unknown 11/19/2024 10:00 AM EDT 11/20/2024 9:52 AM EDT us Jose Pelaez MD LAB URINE ORDERABLES Final Resul t [facility] [address] [place] [address], [place] [phone] documented in this encounter Visit Diagnoses Diagnosis Dysuria documented in this encounter Care Teams Career Development Manager Relationship Specialty Start Date End Date Greg Long MD [address] [place] [address] PCP - General Family Medicine 09/29/24 documented as of this encounter
--- OUTSIDE RECORDS SUMMARY | 2025-03-29 14:53 | XMS_ITS | Encounter Summary ---
Author Organization [facility] Address [address] [place] [address] Care Team Providers Care Competitive Intelligence Analyst Name Role Phone Greg Long MD Primary Care Provider [phone] Encounter Details Date Type Department Care Team (Late st Contact Info) Description 11/13/2024 Lab Requisition [facility] - Main Lab 299 [facility] [place] [phone] Jose Pelaez MD [address] [place], [place] [phone] Polyneuropathy, unspecified Social History Tobacco Use Types [...] mmol/L LAB CHEMISTRY METHOD 11/17/2024 9:32 AM [facility] Potassium 4.1 3.5 - 5.5 mmol/L LAB CHEMISTRY METHOD 11/17/2024 9:32 AM [facility] Chloride 108 96 - 110 mmol/L LAB CHEMISTRY METHOD 11/17/2024 9:32 AM [facility] CO2 28 21 - 32 mmol/L LAB CHEMISTRY METHOD 11/17/2024 9:32 AM [facility] Anion Gap 4 3 - 11 LAB CHEMISTRY METHOD 11/17/2024 9:32 AM [facility] Glucose 95 70 - 100 mg/dL LAB CHEMISTRY METHOD 11/17/2024 9:32 AM [facility] BUN 22 5 - 25 mg/dL LAB CHEMISTRY METHOD 11/17/2024 9:32 AM [facility] Creatinine 0.74 0.50 - 1.10 mg/dL LAB CHEMISTRY METHOD 11/17/2024 9:32 AM [facility] eGFR 97 >=60 mL/min/1. 73m2 LAB CHEMISTRY METHOD 11/17/2024 9:32 AM [facility] Comment:Calculation based on the Chronic Kidney Disease Epidemiology Collaboration (CKD-EPI) equation refit without adjustment for race. BUN/Creatinine Ratio 29.7 LAB CHEMISTRY METHOD 11/17/2024 9:32 AM [facility] Calcium 9.2 8.5 - 10.5 mg/dL LAB CHEMISTRY METHOD 11/17/2024 9:32 AM [facility] Blood Venous blood specimen / Unknown Venipuncture / Unknown 11/17/2024 5:50 AM EDT 11/17/2024 8:27 AM EDT us Fahim A Benigno MD LAB BLOOD ORDERABLES Final Resul t [facility] [address] [place] [address], * (ABNORMAL) Complete blood count (11/17/2024 5:50 AM EDT) WBC 5.4 4.8 - 10.8 K/mcL LAB HEMETOLOGY METHOD 11/17/2024 9:05 AM EDT [facility] RBC 4.00 3.80 - 4.80 M/mcL LAB HEMETOLOGY METHOD 11/17/2024 9:05 AM EDT [facility] Hemoglobin 11.5 11.5 - 16.0 g/dL LAB HEMETOLOGY METHOD 11/17/2024 9:05 AM [facility] Hematocrit 36.2 35.0 - 47.0 % LAB HEMETOLOGY METHOD 11/17[facility]24 [facility] MCV 90.7 79.0 - 98.0 FL LAB HEMETOLOGY METHOD 11/17[facility]2024 [facility] MCH 28.8 27.0 - 32.0 pcg LAB HEMETOLOGY METHOD 11/17/2024 9:05 AM [facility] MCHC 31.8(L) 32.0 - 37.0 g/dL LAB HEMETOLOGY METHOD 11/17/2024 9[facility] RDW 13.4 11.0 - 15.0 % LAB HEMETOLOGY METHOD 11/17/2024 9[facility] Platelets 229 130 - 400 K/mcL LAB HEMETOLOGY METHOD 11/17/2024 9:05 AM [facility] MPV 10.3 7.0 - 11.0 FL LAB HEMETOLOGY METHOD 11/17/2024 9:05 AM EDT [facility] NRBC 0.0 <1.0 % LAB HEMETOLOGY METHOD 11/17/2024 9:05 AM EDT [facility] NRBC Absolute 0.00 <0.10 K/mcL LAB HEMETOLOGY METHOD 11/17/2024 9:05 AM EDT [facility] Blood Venous blood specimen / Unknown Venipuncture / Unknown 11/17/2024 5:50 AM EDT 11/17/2024 8:27 AM EDT us Jose Pelaez MD LAB BLOOD ORDERABLES Final Resul t [facility] [address] [place] [address], documented in this encounter Visit Diagnoses Diagnosis Polyneuropathy, unspecified documented in this encounter Care Teams Competitive Intelligence Analyst Relationship Specialty Start Date End Date Greg Long MD [address] [place] [address] PCP - General Family Medicine 09/29/24 documented as of this encounter
--- OUTSIDE RECORDS SUMMARY | 2025-03-29 14:53 | XMS_ITS | Encounter Summary ---
Author Organization [employer] Address [address] [place] [address] Care Team Providers Care Digital Content Manager Name Role Phone Greg Long MD Primary Care Provider [phone] Encounter Details Date Type Department Care Team (Late st Contact Info) Description 11/10/2024 Lab Requisition [facility] - Main Lab 299 [facility] [place] [address] Shandra Baker PA [address] [place] [address] Hypothyroidism, unspecified; Polyneuropathy, unspecified Social [...] * Folate (11/10/2024 6:08 AM EDT) Pathologist [facility] Folate 12.1 2.8 - 17.0 ng/ml LAB CHEMISTRY METHOD 11/10/2024 2:32 PM EDT [facility] Blood Venous blood specimen / Unknown Venipuncture / Unknown 11/10/2024 6:08 AM EDT 11/10/2024 11:02 AM EDT us Shandra RUIZ LAB BLOOD ORDERABLES Final Resu lt Performing Organization Address City/[facility]/ZIP Co de Phone Number [facility] [address] [place] [address], [place] [phone] * Vitamin B12 (11/10/2024 6:08 AM EDT) Pathologist [facility] Vitamin B-12 462 250 - 900 pcg/mL LAB CHEMISTRY METHOD 11/10/2024 2:32 PM EDT [facility] Blood Venous blood specimen / Unknown Venipuncture / Unknown 11/10/2024 6:08 AM EDT 11/10/2024 11:02 AM EDT us Shandra RUIZ LAB BLOOD ORDERABLES Final Resu lt [facility] [address] [place] [address], [place] [phone] * Thyroid stimulating hormone (11/10/2024 6:08 AM EDT) [facility] TSH 2.59 0.40 - 4.00 mcIU/mL LAB CHEMISTRY METHOD 11/10/2024 3:44 PM EDT [facility] Blood Venous blood specimen / Unknown Venipuncture / Unknown 11/10/2024 6:08 AM EDT 11/10/2024 11:02 AM EDT us Shandra RUIZ LAB BLOOD ORDERABLES Final Resu lt [facility] [address] [place] [address], [place] [phone] * (ABNORMAL) Comprehensive metabolic panel (11/10/2024 6:08 AM EDT) [facility] Sodium 143 133 - 145 mmol/L LAB CHEMISTRY METHOD 11/10/2024 2:32 PM [facility] Potassium 3.7 3.5 - 5.5 mmol/L LAB CHEMISTRY METHOD 11/10/2024 2:32 PM [facility] Chloride 106 96 - 110 mmol/L LAB CHEMISTRY METHOD 11/10/2024 2:32 PM [facility] CO2 28 21 - 32 mmol/L LAB CHEMISTRY METHOD 11/10/2024 2:32 PM [facility] Anion Gap 9 3 - 11 LAB CHEMISTRY METHOD 11/10/2024 2:32 PM [facility] Glucose 84 70 - 100 mg/dL LAB CHEMISTRY METHOD 11/10/2024 2:32 PM [facility] BUN 14 5 - 25 mg/dL LAB CHEMISTRY METHOD 11/10/2024 2:32 PM [facility] Creatinine 0.72 0.50 - 1.10 mg/dL LAB CHEMISTRY METHOD 11/10/2024 2:32 PM [facility] eGFR 101 >=60 mL/min/1. 73m2 LAB CHEMISTRY METHOD 11/10/2024 2:32 PM EDT [facility] Comment:Calculation based on the Chronic Kidney Disease Epidemiology Collaboration (CKD-EPI) equation refit without adjustment for race. BUN/Creatinine Ratio 19.4 LAB CHEMISTRY METHOD 11/10/2024 2:32 PM EDT [facility] Calcium 9.0 8.5 - 10.5 mg/dL LAB CHEMISTRY METHOD 11/10/2024 2:32 PM T [facility] AST (SGOT) 8(L) 10 - 42 unit/L LAB CHEMISTRY METHOD 11/10/2024 2:32 PM [facility] ALT (SGPT) 27 10 - 60 unit/L LAB CHEMISTRY METHOD 11/10/2024 2:32 PM [facility] Alkaline Phosphatase 115 42 - 121 unit/L LAB CHEMISTRY METHOD 11/10/2024 2:32 PM [facility] Total Protein 7.6 6.0 - 8.0 g/dL LAB CHEMISTRY METHOD 11/10/2024 2:32 PM [facility] Albumin 3.8 3.2 - 5.0 g/dL LAB CHEMISTRY METHOD 11/10/2024 2:32 PM [facility] Total Bilirubin 0.4 0.0 - 1.4 mg/dL LAB CHEMISTRY METHOD 11/10/2024 2:32 PM [facility] Blood Venous blood specimen / Unknown Venipuncture / Unknown 11/10/2024 6:08 AM EDT 11/10/2024 11:02 AM EDT us Shandra RUIZ LAB BLOOD ORDERABLES Final Resu lt [facility] [address] [place] [address], [place] [phone] * Complete blood count (11/10/2024 6:08 AM EDT) WBC 5.3 4.8 - 10.8 K/mcL LAB HEMETOLOGY METHOD 11/10/2024 1:38 PM [facility] RBC 4.40 3.80 - 4.80 M/mcL LAB HEMETOLOGY METHOD 11/10/2024 1:38 PM [facility] Hemoglobin 13.0 11.5 - 16.0 g/dL LAB HEMETOLOGY METHOD 11/10/2024 1:38 PM [facility] Hematocrit 40.6 35.0 - 47.0 % LAB HEMETOLOGY METHOD 11/10/2024 1:38 PM [facility] MCV 93.1 79.0 - 98.0 FL LAB HEMETOLOGY METHOD 11/10/2024 1:38 PM [facility] MCH 29.8 27.0 - 32.0 pcg LAB HEMETOLOGY METHOD 11/10/2024 1:38 PM [facility] MCHC 32.0 32.0 - 37.0 g/dL LAB HEMETOLOGY METHOD 11/10/2024 1:38 PM [facility] RDW 13.8 11.0 - 15.0 % LAB HEMETOLOGY METHOD 11/10/2024 1:38 PM [facility] Platelets 245 130 - 400 K/mcL LAB HEMETOLOGY METHOD 11/10/2024 1:38 PM [facility] MPV 10.7 7.0 - 11.0 FL LAB HEMETOLOGY METHOD 11/10/2024 1:38 PM [facility] NRBC 0.0 <1.0 % LAB HEMETOLOGY METHOD 11/10/2024 1:38 PM [facility] NRBC Absolute 0.00 <0.10 K/[facility] LAB HEMETOLOGY METHOD 11/10/2024 1:38 PM EDT [facility] Blood Venous blood specimen / Unknown Venipuncture / Unknown 11/10/2024 6:08 AM EDT 11/10/2024 11:02 AM EDT us Shandra RUIZ LAB BLOOD ORDERABLES Final Resu lt [facility] [address] [place] [address], documented in this encounter Visit Diagnoses Diagnosis Hypothyroidism, unspecified Polyneuropathy, unspecified documented in this encounter Care Teams Digital Content Manager Relationship Specialty Start Date End Date Greg Long MD [address] [place] [address] PCP - General Family Medicine 09/29/24 documented as of this encounter
--- OUTSIDE RECORDS SUMMARY | 2025-03-29 14:53 | XMS_ITS | Encounter Summary ---
Author Organization [facility] Address [address] [facility] [address] [place] [address] Phone Care Team Providers Care Fitter/Welder Name Role Phone Earlene Andrade MD Primary Care Provider + Encounter Details Date Type Department Care Team (Late st Contact Info) Description 03/25/2022 Procedure Pass [facility] [address] [place] [address] Social History Tobacco Use Types Packs/Day Years [...] 03/28/2022 3:00 AM Reynold Weems RN * [place] Suicide Severity Rating Scale (Screener/Recent Self-Report) Question [...] on filedocumented in this encounter Care Teams Fitter/Welder Relationship Specialty Start Date End Date Earlene Andrade MD [address] [address] PCP - General Internal Medicine 03/16/22 documented as of this encounter Additional Source Comments The information contained in this document represents components of the legal health record. It is not the complete legal health record.[facility]
--- OUTSIDE RECORDS SUMMARY | 2025-03-29 14:53 | XMS_ITS | Encounter Summary ---
Author Organization [employer] Address [address] [place] [address] Care Team Providers Care Calibration Specialist Name Role Phone Greg Long MD Primary Care Provider [phone] Encounter Details Date Type Department Care Team (Late st Contact Info) Description 11/06/2024 Lab Requisition [facility] - Main Lab 299 [facility] [place] [address] Moses Man PA [address] [place] [address] Other microscopic hematuria Social History [...] AM EDT) Final Diagnosis A. Urine, Voided, ([id number]): Negative for high grade urothelial carcinoma. Results of [employer] fluorescence in situ hybridization (FISH) testing: CEP3: Normal CEP7: Normal CEP17: Normal LSI 9p21: Normal Interpretation: Normal profile Controls stained appropriately. Note: The results are intended as a screening device and should be interpreted in association with other clinical and pathological findings. 11/19/2024 4:08 PM EDT [facility] Clinical Information Other microscopic hematuria R31.29 Urine Cytology/FISH (now) 11/19/2024 4:08 PM EDT [facility] Gross Description A. Urine, Voided, [id number]: Received one ThinPrep slide for cytology and one ThinPrep slide for [employer] FISH 11/19/2024 4:08 PM EDT [facility] Disclaimer Unless otherwise specified, all tissue is 10% NB formalin fixed and paraffin embedded. Technical pathology services provided by [facility] at [address], [place] [address] (CLIA #[id number]/Maria Eugenia Olmedo MD, Hasher Machine Operator) 11/19/2024 4:08 PM EDT [facility] Tissue Urine specimen from urethra / Unknown 10/29/2024 11/06/2024 9:49 AM EDT us Moses RUIZ LAB PATHOLOGY ORDERABLES Final Result [facility] [address] [place] [address], documented in this encounter Visit Diagnoses Diagnosis Other microscopic hematuria documented in this encounter Care Teams Calibration Specialist Relationship Specialty Start Date End Date Greg Long MD [address] [place] [address] PCP - General Family Medicine 09/29/24 documented as of this encounter
--- OUTSIDE RECORDS SUMMARY | 2025-03-29 14:53 | XMS_ITS | Clinical Summary ---
Author Organization [facility] Address [address] [place] [address] Care Team Providers Care Horticultural Technical Officer Name Role Phone Nell ALARCON DO, Edward [...] age to complete this topic Care Teams Horticultural Technical Officer Relationship Specialty Start Date End Date Devang Camejo IV, DO PCP - General Internal Medicine 06/09/22
--- OUTSIDE RECORDS SUMMARY | 2025-03-29 14:54 | XMS_ITS | Encounter Summary ---
Author Organization [facility] Address [address] [place] [address] Care Team Providers Care Refrigerated National Truck Driver Name Role Phone Greg Long MD Primary Care Provider [phone] Encounter Details Date Type Department Care Team (Late st Contact Info) Description 10/14/2024 Lab Requisition [facility] - Main Lab [address] [place] [phone] Greg Long MD [address] [place] [address] Irritable bowel syndrome, unspecified Social History Tobacco [...] mmol/L LAB CHEMISTRY METHOD 10/14/2024 10:52 AM [facility] Potassium 3.6 3.5 - 5.5 mmol/L LAB CHEMISTRY METHOD 10/14/2024 10:52 AM [facility] Chloride 108 96 - 110 mmol/L LAB CHEMISTRY METHOD 10/14/2024 10:52 AM [facility] CO2 27 21 - 32 mmol/L LAB CHEMISTRY METHOD 10/14/2024 10:52 AM [facility] Anion Gap 7 3 - 11 LAB CHEMISTRY METHOD 10/14/2024 10:52 AM [facility] Glucose 107(H) 70 - 100 mg/dL LAB CHEMISTRY METHOD 10/14/2024 10:52 AM [facility] BUN 13 5 - 25 mg/dL LAB CHEMISTRY METHOD 10/14/2024 10:52 AM [facility] Creatinine 0.70 0.50 - 1.10 mg/dL LAB CHEMISTRY METHOD 10/14/2024 10:52 AM [facility] eGFR 104 >=60 mL/min/1. 73m2 LAB CHEMISTRY METHOD 10/14/2024 10:52 AM [facility] Comment:Calculation based on the Chronic Kidney Disease Epidemiology Collaboration (CKD-EPI) equation refit without adjustment for race. BUN/Creatinine Ratio 18.6 LAB CHEMISTRY METHOD 10/14/2024 10:52 AM [facility] Calcium 9.0 8.5 - 10.5 mg/dL LAB CHEMISTRY METHOD 10/14/2024 10:52 AM [facility] Blood Venous blood specimen / Unknown Venipuncture / Unknown 10/14/2024 6:59 AM EDT 10/14/2024 9:04 AM EDT us Greg Long MD LAB BLOOD ORDERABLES Final R esult [facility] [address] [place] [address], * (ABNORMAL) Complete blood count (10/14/2024 6:59 AM EDT) WBC 4.3(L) 4.8 - 10.8 K/mcL LAB HEMETOLOGY METHOD 10/14/2024 10:06 AM EDT [facility] RBC 4.20 3.80 - 4.80 M/mcL LAB HEMETOLOGY METHOD 10/14/2024 10:06 AM EDT [facility] Hemoglobin 12.2 11.5 - 16.0 g/dL LAB HEMETOLOGY METHOD 10/14/2024 10:06 AM EDT [facility] Hematocrit 37.0 35.0 - 47.0 % LAB HEMETOLOGY METHOD 10/14/2024 10:06 AM EDT [facility] MCV 88.3 79.0 - 98.0 FL LAB HEMETOLOGY METHOD 10/14/2024 10:06 AM EDT [facility] MCH 29.1 27.0 - 32.0 pcg LAB HEMETOLOGY METHOD 10/14/2024 10:06 AM EDT [facility] MCHC 33.0 32.0 - 37.0 g/dL LAB HEMETOLOGY METHOD 10/14/2024 10:06 AM EDT [facility] RDW 13.3 11.0 - 15.0 % LAB HEMETOLOGY METHOD 10/14/2024 10:06 AM EDT [facility] Platelets 201 130 - 400 K/mcL LAB HEMETOLOGY METHOD 10/14/2024 10:06 AM EDT [facility] MPV 10.4 7.0 - 11.0 FL LAB HEMETOLOGY METHOD 10/14/2024 10:06 AM EDT [facility] NRBC 0.0 <1.0 % LAB HEMETOLOGY METHOD 10/14/2024 10:06 AM EDT [facility] NRBC Absolute 0.00 <0.10 K/mcL LAB HEMETOLOGY METHOD 10/14/2024 10:06 AM EDT [facility] Blood Venous blood specimen / Unknown Venipuncture / Unknown 10/14/2024 6:59 AM EDT 10/14/2024 9:04 AM EDT us Greg Long MD LAB BLOOD ORDERABLES Final R esult [facility] [address] [place] [address], documented in this encounter Visit Diagnoses Diagnosis Irritable bowel syndrome, unspecified documented in this encounter Care Teams Refrigerated National Truck Driver Relationship Specialty Start Date End Date Greg Long MD [address] [place] [address] PCP - General Family Medicine 09/29/24 documented as of this encounter
--- OUTSIDE RECORDS SUMMARY | 2025-03-29 14:54 | XMS_ITS | Clinical Summary ---
Author Organization [facility] Address [address] [address] Phone Care Team Providers Care Journeyman Pipe Fitter Name Role Phone Earlene Andrade MD Primary [...] [facility] [address] [place] [address] Melisa Sebastian Neck pain (Primary Dx) from Last 3 [...] 2024 , 03/27/2020, 03/07/2019, Additional history exists Adult Td,Tdap Booster 05/18/2025 05/18/2015 LIPID PANEL [...] patient's age to complete this topic IPV VACCINES Aged Out No longer eligi ble [...] 6:50 AM EST) CHOLESTEROL 167 <200 mg/dL [facility] TRIGLYCERIDES 101 35 - 150 mg/dL [facility] HDL 46 40 - 80 mg/dL [facility] CALCULATED LDL 101 50 - 129 mg/dL [facility] VLDL 20 <31 mg/dL [facility] CARDIAC RISK RATIO 3.6 0.0 - 4.0 [facility] Blood 03/28/2022 6:50 AM EST 03/28/2022 7:55 AM EST us Orion Griffith MD, PhD LAB BLOOD BKR ORDERABLES Final Result [facility] [address] [place] [address] from Last 3 Months or Most Recently Relevant to Health Maintenance Insurance [place] & [place] & B Advance Directives For more information, please contact: [phone] (9AM - 5PM [facility], Sunday-Sunday) Documents on File Type Date Recorded Patient Crap Shooter Expl anation Healthcare Proxy 03/28/2022 1:10 PM * Full Code (Latest Code Status on File) Date Activated Date Inactivated Comments 03/27/2022 4:13 PM Question Answer Comments Code Status Confirmed With: Patient Healthcare Agents on File Name Relationship Healthcare Agent Relationshi p Communication Tyrel Skinner Life Partner .Primary Health Care Agent (Proxy form on file) Care Teams Journeyman Pipe Fitter Relationship Specialty Start Date End Date Earlene Andrade MD [address] [address] PCP - General Internal Medicine 03/16/22 Additional Source Comments The information contained in this document represents components of the legal health record. It is not the complete legal health record.[facility]
--- OUTSIDE RECORDS SUMMARY | 2025-03-29 14:54 | XMS_ITS | Encounter Summary ---
Author Organization [facility] Address [address] [place] [address] Care Team Providers Care Explosive Operator Fuse Name Role Phone Greg Long MD Primary Care Provider [phone] Encounter Details Date Type Department Care Team (Late st Contact Info) Description 10/09/2024 Lab Requisition [facility] - Main Lab [address] [facility] [place] [phone] Greg Long MD [address] [place] [address] Anemia, unspecified Social History Tobacco Use Types [...] Results * Magnesium (10/09/2024 6:14 AM EDT) [facility] Magnesium 2.3 1.9 - 2.6 mg/dL LAB CHEMISTRY METHOD 10/09/2024 10:48 AM EDT [facility] Blood Venous blood specimen / Unknown Venipuncture / Unknown 10/09/2024 6:14 AM EDT 10/09/2024 9:42 AM EDT Greg Long MD LAB BLOOD ORDERABLES Final R esult Performing Organization Address [facility]/ZIP Co de Phone Number [facility] [address] [place] [address], [place] [phone] * Vitamin B12 (10/09/2024 6:14 AM EDT) [facility] Vitamin B-12 446 250 - 900 pcg/mL LAB CHEMISTRY METHOD 10/09/2024 11:11 AM EDT [facility] Blood Venous blood specimen / Unknown Venipuncture / Unknown 10/09/2024 6:14 AM EDT 10/09/2024 9:42 AM EDT Greg Long MD LAB BLOOD ORDERABLES Final R esult [facility] [address] [place] [address], [place] [phone] * (ABNORMAL) Basic metabolic panel (10/09/2024 6:14 AM EDT) [facility] Sodium 143 133 - 145 mmol/L LAB CHEMISTRY METHOD 10/09/2024 10:48 AM EDT [facility] Potassium 3.9 3.5 - 5.5 mmol/L LAB CHEMISTRY METHOD 10/09/2024 10:48 AM [facility] Chloride 109 96 - 110 mmol/L LAB CHEMISTRY METHOD 10/09/2024 10:48 AM [facility] CO2 27 21 - 32 mmol/L LAB CHEMISTRY METHOD 10/09/2024 10:48 AM [facility] Anion Gap 7 3 - 11 LAB CHEMISTRY METHOD 10/09/2024 10:48 AM [facility] Glucose 101(H) 70 - 100 mg/dL LAB CHEMISTRY METHOD 10/09/2024 10:48 AM [facility] BUN 21 5 - 25 mg/dL LAB CHEMISTRY METHOD 10/09/2024 10:48 AM [facility] Creatinine 0.71 0.50 - 1.10 mg/dL LAB CHEMISTRY METHOD 10/09/2024 10:48 AM [facility] eGFR 102 >=60 mL/min/1. 73m2 LAB CHEMISTRY METHOD 10/09/2024 10:48 AM [facility] Comment:Calculation based on the Chronic Kidney Disease Epidemiology Collaboration (CKD-EPI) equation refit without adjustment for race. BUN/Creatinine Ratio 29.6 LAB CHEMISTRY METHOD 10/09/2024 10:48 AM [facility] Calcium 9.2 8.5 - 10.5 mg/dL LAB CHEMISTRY METHOD 10/09/2024 10:48 AM [facility] Blood Venous blood specimen / Unknown Venipuncture / Unknown 10/09/2024 6:14 AM EDT 10/09/2024 9:42 AM EDT us Greg Long MD LAB BLOOD ORDERABLES Final R esult [facility] [address] [place] [address], * Complete blood count (10/09/2024 6:14 AM EDT) [facility] Signature WBC 5.9 4.8 - 10.8 K/mcL LAB HEMETOLOGY METHOD 10/09/2024 10:10 AM T [facility] RBC 4.30 3.80 - 4.80 M/mcL LAB HEMETOLOGY METHOD 10/09/2024 10:10 AM T [facility] Hemoglobin 12.5 11.5 - 16.0 g/dL LAB HEMETOLOGY METHOD 10/09/2024 10:10 AM EDT [facility] Hematocrit 38.1 35.0 - 47.0 % LAB HEMETOLOGY METHOD 10/09/2024 10:10 AM [facility] MCV 89.6 79.0 - 98.0 FL LAB HEMETOLOGY METHOD 10/09/2024 10:10 AM [facility] MCH 29.4 27.0 - 32.0 pcg LAB HEMETOLOGY METHOD 10/09/2024 10:10 AM [facility] MCHC 32.8 32.0 - 37.0 g/dL LAB HEMETOLOGY METHOD 10/09/2024 10:10 AM [facility] RDW 13.4 11.0 - 15.0 % LAB HEMETOLOGY METHOD 10/09/2024 10:10 AM [facility] Platelets 213 130 - 400 K/mcL LAB HEMETOLOGY METHOD 10/09/2024 10:10 AM T [facility] MPV 10.4 7.0 - 11.0 FL LAB HEMETOLOGY METHOD 10/09/2024 10:10 AM EDT [facility] NRBC 0.0 <1.0 % LAB HEMETOLOGY METHOD 10/09/2024 10:10 AM [facility] NRBC Absolute 0.00 <0.10 K/mcL LAB HEMETOLOGY METHOD 10/09/2024 10:10 AM EDT [facility] Blood Venous blood specimen / Unknown Venipuncture / Unknown 10/09/2024 6:14 AM EDT 10/09/2024 9:42 AM EDT us Greg Long MD LAB BLOOD ORDERABLES Final R esult [facility] [address] [place] [address], documented in this encounter Visit Diagnoses Diagnosis Anemia, unspecified documented in this encounter Care Teams Explosive Operator Fuse Relationship Specialty Start Date End Date Greg Long MD [address] [place] [address] PCP - General Family Medicine 09/29/24 documented as of this encounter
--- OUTSIDE RECORDS SUMMARY | 2025-03-29 14:54 | XMS_ITS | Encounter Summary ---
Author Organization [employer] Address [address] [place] [address] Care Team Providers Care Medical Liaison Name Role Phone Greg Long MD Primary Care Provider [phone] Encounter Details Date Type Department Care Team (Late st Contact Info) Description 02/04/2025 Lab Requisition [facility] - Main Lab [address] [facility] [place] [address] Campbell Jensen MD [address] [place] [address] Gross hematuria Social History Tobacco Use Types [...] AM EDT) Final Diagnosis A. Urine, Voided, [id number]: Negative for high grade urothelial carcinoma. 02/25/2025 4:[address] [facility] at 1655 EDT Specimen A Adequacy Satisfactory for evaluation 02/25/2025 4:[address] [facility] Clinical Information Gross hematuria R31.0 Urine cytology with reflex UroVysion (AUC/SHGUC) 02/25/2025 4:[address] [facility] Gross Description A. Urine, Voided, [id number]: Received one ThinPrep slide for cytology. 02/25/2025 4:[address] [facility] Disclaimer Unless otherwise specified, all tissue is 10% NB formalin fixed and paraffin embedded. Technical pathology services provided by [facility] at [address] [facility] [address], [place] [address] (CLIA #[id number]/Ramana Olmedo MD, Salesperson Shoes) 02/25/2025 4:[address] [facility] Urine Urine specimen from urethra / Unknown 01/28/2025 02/04/2025 8:31 AM EDT us Campbell Jensen MD LAB CYTOLOGY ORDERABLES Fin al Result [facility] [address] [place] [address], documented in this encounter Visit Diagnoses Diagnosis Gross hematuria documented in this encounter Care Teams Medical Liaison Relationship Specialty Start Date End Date Greg Long MD [address] [place] [address] PCP - General Family Medicine 09/29/24 documented as of this encounter
--- OUTSIDE RECORDS SUMMARY | 2025-03-29 14:54 | XMS_ITS | Encounter Summary ---
Author Organization [employer] Address [address] [place] [address] Care Team Providers Care Client Onboarding Analyst Name Role Phone Greg Long MD Primary Care Provider [phone] Encounter Details Date Type Department Care Team (Late st Contact Info) Description 09/29/2024 Lab Requisition [facility] - Main Lab [address] [facility] [place] [address] Greg Long MD [address] [place] [address] Other irritable bowel syndrome; Endometriosis, unspecified; Anemia, [...] Thyroid stimulating hormone (09/29/2024 10:30 AM EDT) [facility] TSH 1.12 0.40 - 4.00 mcIU/mL LAB CHEMISTRY METHOD 09/29/2024 4:[address] [facility] Blood Venous blood specimen / Unknown Venipuncture / Unknown 09/29/2024 10:30 AM EDT 09/29/2024 12:21 PM EDT Greg Long MD LAB BLOOD ORDERABLES Final R esult [facility] [address] [place] [address], [place] [phone] * Vitamin B12 and folate (09/29/2024 10:30 AM EDT) [facility] Vitamin B-12 482 250 - 900 pcg/mL LAB CHEMISTRY METHOD 09/29/2024 2:[address] [facility] Folate 14.6 2.8 - 17.0 ng/ml LAB CHEMISTRY METHOD 09/29/2024 2:[address] [facility] Blood Venous blood specimen / Unknown Venipuncture / Unknown 09/29/2024 10:30 AM EDT 09/29/2024 12:21 PM EDT us Greg Long MD LAB BLOOD ORDERABLES Final R esult [facility] [address] [place] [address], * Comprehensive metabolic panel (09/29/2024 10:30 AM EDT) Sodium 142 133 - 145 mmol/L LAB CHEMISTRY METHOD [facility] Potassium 3.9 3.5 - 5.5 mmol/L LAB CHEMISTRY METHOD 09/29/2024 2:54 PM [facility] Chloride 107 96 - 110 mmol/L LAB CHEMISTRY METHOD 09/29/2024 2:54 PM [facility] CO2 25 21 - 32 mmol/L LAB CHEMISTRY METHOD 09/29/2024 2:54 PM [facility] Anion Gap 10 3 - 11 LAB CHEMISTRY METHOD 09/29/2024 2:54 PM [facility] Glucose 90 70 - 100 mg/dL LAB CHEMISTRY METHOD 09/29/2024 2:54 PM [facility] BUN 17 5 - 25 mg/dL LAB CHEMISTRY METHOD 09/29/2024 2:54 PM [facility] Creatinine 0.74 0.50 - 1.10 mg/dL LAB CHEMISTRY METHOD 09/29/2024 2[facility] eGFR 97 >=60 mL/min/1. 73m2 LAB CHEMISTRY METHOD 09/29/2024 2:54 PM [facility] Comment:Calculation based on the Chronic Kidney Disease Epidemiology Collaboration (CKD-EPI) equation refit without adjustment for race. BUN/Creatinine Ratio 23.0 LAB CHEMISTRY METHOD 09/29/2024 2:54 PM [facility] Calcium 8.6 8.5 - 10.5 mg/dL LAB CHEMISTRY METHOD 09/29/2024 2:54 PM [facility] AST (SGOT) 21 10 - 42 unit/L LAB CHEMISTRY METHOD 09/29/2024 2:[address] [facility] ALT (SGPT) 41 10 - 60 unit/L LAB CHEMISTRY METHOD 09/29/2024 2:[address] [facility] Alkaline Phosphatase 105 42 - 121 unit/L LAB CHEMISTRY METHOD 09/29/2024 2:[address] [facility] Total Protein 7.1 6.0 - 8.0 g/dL LAB CHEMISTRY METHOD 09/29/2024 2:[address] [facility] Albumin 3.4 3.2 - 5.0 g/dL LAB CHEMISTRY METHOD 09/29/2024 2:[address] [facility] Total Bilirubin 0.3 0.0 - 1.4 mg/dL LAB CHEMISTRY METHOD 09/29/2024 2:[address] [facility] Blood Venous blood specimen / Unknown Venipuncture / Unknown 09/29/2024 10:30 AM EDT 09/29/2024 12:21 PM EDT us Greg Long MD LAB BLOOD ORDERABLES Final R esult [facility] [address] [place] [address], * (ABNORMAL) Complete blood count (09/29/2024 10:30 AM EDT) WBC 4.9 4.8 - 10.8 K/mcL LAB HEMETOLOGY METHOD 09/29/2024 2:[address] [facility] RBC 4.00 3.80 - 4.80 M/mcL LAB HEMETOLOGY METHOD 09/29/2024 2:[address] [facility] Hemoglobin 11.7 11.5 - 16.0 g/dL LAB HEMETOLOGY METHOD 09/29/2024 2:[address] [facility] Hematocrit 36.9 35.0 - 47.0 % LAB HEMETOLOGY METHOD 09/29/2024 2:[address] [facility] MCV 92.0 79.0 - 98.0 FL LAB HEMETOLOGY METHOD 09/29/2024 2:[address] [facility] MCH 29.2 27.0 - 32.0 pcg LAB HEMETOLOGY METHOD 09/29/2024 2:[address] [facility] MCHC 31.7(L) 32.0 - 37.0 g/dL LAB HEMETOLOGY METHOD 09/29/2024 2:[address] [facility] RDW 13.5 11.0 - 15.0 % LAB HEMETOLOGY METHOD 09/29/2024 2:[address] [facility] Platelets 201 130 - 400 K/mcL LAB HEMETOLOGY METHOD 09/29/2024 2:[address] [facility] MPV 11.1(H) 7.0 - 11.0 FL LAB HEMETOLOGY METHOD 09/29/2024 2:[address] [facility] NRBC 0.0 <1.0 % LAB HEMETOLOGY METHOD 09/29/2024 2:[address] [facility] NRBC Absolute 0.00 <0.10 K/mcL LAB HEMETOLOGY METHOD 09/29/2024 2:[address] [facility] Blood Venous blood specimen / Unknown Venipuncture / Unknown 09/29/2024 10:30 AM EDT 09/29/2024 12:21 PM EDT us Greg Long MD LAB BLOOD ORDERABLES Final R esult [facility] [address] [place], [place] [address] [phone] documented in this encounter Visit Diagnoses Diagnosis Other irritable bowel syndrome Endometriosis, unspecified Anemia, unspecified Other pericardial effusion (noninflammatory) documented in this encounter Care Teams Client Onboarding Analyst Relationship Specialty Start Date End Date Greg Long MD [address] [place] [address] PCP - General Family Medicine 09/29/24 documented as of this encounter
--- OUTSIDE RECORDS SUMMARY | 2025-03-29 14:54 | XMS_ITS | Data Portability ---
Author Organization [place] - [facility], Allergy Address [address] [place] [address] Care Team Providers Care Graduate Teaching Assistant Name Role Phone KOURTNEY ALVAREZ Primary Care Provider [phone] Assessment Encounter Date Assessment Date Assessment LastModified by Organization Details LastModified Time 12/22/2024 12/22/2024 54-year-old female presents for evaluation of itching. On examination she does not seem to have visible rash or disruption of the skin. EACs and oropharynx are normal to inspection as well. Recommended Zyrtec twice daily for the next 2 weeks. If itching continues she should consider seeing a undraped artist model. I have also recommended topical hydrocortisone if [...] CT, maxillofaci al, w/o contrast 2024 025 [email or web address] [facility] (Imaging), [address], [place], [address], 15:49:42 Medication Orders fluticasone propionate 50 mcg/actuati on nasal spray,suspe nsion 2024 025 [id number], [address] [place], [address], 15:16:51 Zyrtec 10 mg tablet 2024 025 [id number], [address] [place], [address], 11:43:01 hydrocortis one 2.5 % topical cream 2024 025 [id number], [address] [place], [address], 11:43:00 Patient TargetsNo targets recorded. Patient Instructions Encounter Date Encounter Id Patient Instructions Last Modified By Organization Details Last Modified Time 12/26/2024 [id number] Begin using Flonase nasal spray as directed. Purchase and utilize a smell training kit from [employer] to aid in olfactory rehabilitation. Follow up [...] Time Bilateral disorder of Eustachia n tubes 40280038749 24899 Active 2022 Other specified disorders of Eustachia n tube, bilateral ; Note: Date Diagnosed : 07/11/2022 3:44 PM (H69.83) Not Available Count includes the [facility] 4 03:24:47 Bilateral tinnitus 60635096758 02 Active 2022 Tinnitus, bilateral ; Note: Date Diagnosed : 07/11/2022 3:44 PM (H93.13) Not Available Count includes the [facility] 4 03:24:46 Nasal congestio n 44132200 Active 2022 Nasal congestio n; Note: Date Diagnosed : 09/20/2022 10:48 AM (R09.81) Not Available Count includes the [facility] 4 03:24:47 Allergic rhinitis 31691150 Active 2022 Other allergic rhinitis; Note: Date Diagnosed : 09/20/2022 10:48 AM (J30.89) Not Available Count includes the [facility] 4 03:24:47 Pruritic disorder of skin Active 2024 SUZANNE DOMINGUEZ PA-C [address] [address], [place], [address] , [facility] - [facility] 5 11:41:58 Loss of sense of smell 39222817 Active 2024 GIL RAMOS MD [address] [place], [place] [address], [address] , [facility] - [facility] [place] 5 15:14:41 Vaccine adverse reaction 458379284 Active 2024 GIL RAMOS MD [address] [place], [place] [address], [address] , [facility] [place] 5 15:14:49 Problem Notes None recorded. Procedures Surgical History Date Name Laterality Status Provider Name and Address Organization Details Recorded Time 12/27/19 25 Air & Speech Audio with Tymps - 40323, 66282 & 26138 completed RANI SOTELO MA, CCC-A 100 [facility],[address], [address], [place] - [facility] 12/26/2024 14:53:02 section completed Rea Simpson [place] [facility] 12/26/2024 14:59:26 cholecystectomy completed Rea Simpson [place] [facility] 12/26/2024 14:59:33 Imaging Results None recorded. Procedure Notes None recorded. Medical Equipment None Reported. Allergies Allergen ID Allergen Name Allergen Category Reaction Reaction Severity Criticality Documentation Date Start Date Code Code System Note Provider Name and Address Organization Details Recorded Time 633138 Toradol medicatio n other Not available Not available 09/25/2023 58424 RxNorm React ion: Unkno wn; Not Available [facility] 4 01:26:11 427111 Iodinated contrast media (substanc e) medicatio n Not available Not available Not available 12/26/2024 76211 2004 SNOMED Rea haque [place] - [facility] 5 15:00:01 796646 COVID-19 (SARS-CoV -2) vaccine, olivier cell Not available Not available Not available Not available 12/26/2024 Rea haque [place] - [facility] 5 15:00:11 Medications Name Sig Start Date [...] mg tablet 12/01 completed Medicati on ID: [id number] B rand Name: predniso ne Send Method: E-Prescr ibed Sub s Allowed: subs OK Medic ationGen ericName : predniso ne Not Available Not Available Not Available doxycycli ne hyclate 100 mg capsule 12/01 completed Medicati on ID: [id number] B rand Name: doxycycl ine hyclate Send [...] mg tablet 12/22 completed Medicati on ID: [id number] B rand Name: candesar durham Send Method: E-Prescr ibed Sub s Allowed: subs OK Medic ationGen ericName : candesar durham Not Available Not Available Not Available Claritin 10 mg tablet 12/22 completed Medicati on ID: 413388 B rand Name: Claritin Send Method: E-Prescr ibed Sub s Allowed: subs OK Medic ationGen ericName : Claritin Not Available Not Available Not Available prednison e 20 mg tablet TAKE 1 TABLET BY MOUTH EVERY DAY FOR 5 DAYS 12/22 completed Not Available Not Available Not Available rizatript an 10 mg tablet 12/22 completed Medicati on ID: [id number] B rand Name: rizatrarmond durham Send Method: [...] mg tablet 12/22 completed Medicati on ID: [id number] B rand Name: naproxen Send Method: E-Prescr ibed Sub s Allowed: subs OK Speci al Instruct ion: TAKE 1 TABLET BY MOUTH TWO TIMES A DAY WITH MEALS Me dication GenericN jose: naproxen Not Available Not Available Not Available acetamino phen 500 mg tablet 12/22 completed Medicati on ID: [id number] B rand Name: acetamin ophen Se nd [...] layed release 12/22 completed Medicati on ID: [id number] B rand Name: pantopra zole Sen d Method: E-Prescr ibed Sub s Allowed: subs OK Medic ationGen ericName : pantopra zole Not Available Not Available Not Available amoxicill in 875 mg tablet TAKE 1 TABLET BY MOUTH TWICE A DAY FOR 7 DAYS 12/22 completed Not Available Not Available Not Available prednisol one acetate 1 % eye drops,jenniefr pension INSTILL 1 DROP INTO BOTH EYES THREE TIMES A DAY 12/22 completed Not Available Not Available Not Available magnesium oxide 400 mg (241.3 mg magnesium ) tablet TAKE 1 TABLET ORALLY BEDTIME FOR 30 DAYS MAY HOLD FOR LOOSE STOOLS 12/22 completed Not Available Not Available Not Available lorazepam 0.5 mg tablet 12/01 completed Medicati on ID: [id number] B rand Name: lorazepa m Send Method: E-Prescr ibed Sub s Allowed: subs OK Medic ationGen ericName : lorazepa m Not Available Not Available Not Available amitripty line 10 mg tablet 12/01 completed Medicati on ID: 465230 B rand Name: amitript yline Se nd [...] mg tablet 12/01 completed Medicati on ID: 729758 B rand Name: predniso ne Send Method: E-Prescr ibed Sub s Allowed: subs OK Medic ationGen ericName : predniso ne Not Available Not Available Not Available losartan 25 mg tablet TAKE 1 TABLET BY MOUTH EVERY DAY. 12/22 completed Not Available Not Available Not Available docusate sodium 100 mg capsule 12/22 completed Medicati on ID: [id number] B rand Name: docusate sodium S end Method: E-Prescr ibed Sub s Allowed: subs OK Speci al Instruct ion: TAKE 1 CAPSULE BY MOUTH TWICE A DAY Medi cationGe nericNam e: docusate sodium Not Available Not Available Not Available gabapenti n 300 mg capsule 12/01 completed Medicati on ID: 492089 B rand Name: gabapent in Send Method: [...] mg tablet 12/01 completed Medicati on ID: 109305 B rand Name: monteluk ast Send Method: E-Prescr ibed Sub s Allowed: subs OK Medic ationGen ericName : monteluk ast Not Available Not Available Not Available mirtazapi ne 15 mg tablet TAKE 1 TABLET BY MOUTH EVERYDAY AT BEDTIME 12/22 completed Not Available Not Available Not Available gabapenti n 100 mg capsule 12/01 completed Medicati on ID: 365666 B rand Name: gabapent in Send Method: E-Prescr ibed Sub s Allowed: subs OK Medic ationGen ericName : gabapent in Not Available Not Available Not Available hydroxych loroquine 200 mg tablet 12/01 completed Medicati on ID: 616075 B rand Name: hydroxyc hloroqui ne Send [...] ating tablet 12/22 completed Medicati on ID: 390453 B rand Name: ondamary eladia Send Method: [...] mg tablet 12/01 completed Medicati on ID: 830283 B rand Name: doxycycl ine hyclate Send [...] aerosol inhaler 12/01 completed Medicati on ID: 017508 B rand Name: Ventolin HFA Send Method: E-Prescr ibed Sub s Allowed: subs OK Speci al Instruct ion: INHALE 2 PUFFS INTO LUNGS EVERY 4 HOURS NEEDED FOR WHEEZING /SHORTNE SS OF BREATH M edicatio nGeneric Name: Ventolin HFA Not Available Not Available Not Available tobramyci n 0.3 %-dexamet hasone 0.1 % eye drops,jennifer pension 12/22 completed Medicati on ID: 718969 B rand Name: tobramyc in-dexam ethasone Send [...] mg tablet 12/01 completed Medicati on ID: 002178 B rand Name: escitalo pram oxalate Send [...] a packet 12/22 completed Medicati on ID: [id number] B rand Name: cholesty ramine (with sugar) [...] mg tablet 12/26 completed Medicati on ID: 393860 B rand Name: escitalo pram oxalate Send Method: E-Prescr ibed Sub s Allowed: subs OK Medic ationGen ericName : escitalo pram oxalate Not Available Not Available Not Available duloxetin e 20 mg capsule,d elayed release 12/26 completed Medicati on ID: 810569 B rand Name: duloxeti ne Send Method: E-Prescr ibed Sub s Allowed: subs OK Medic ationGen ericName : duloxeti ne Not Available Not Available Not Available duloxetin e 30 mg capsule,d elayed release 12/22 completed Medicati on ID: 324824 B rand Name: duloxeti ne Send Method: [...] topical ointment 12/01 completed Medicati on ID: 335277 B rand Name: lidocain e Send Method: E-Prescr ibed Sub s Allowed: subs OK Medic ationGen ericName : lidocain e Not Available Not Available Not Available desvenlaf axine succinate ER 25 mg tablet,ex tended release 24 hr 12/01 completed Medicati on ID: 670549 B rand Name: desvenla faxine succinat e Send Method: E-Prescr ibed Sub s Allowed: subs OK Medic ationGen ericName : desvenla faxine succinat e Not Available Not Available Not Available ergocalci ferol (vitamin D2) 50 mcg (2,000 unit) capsule 12/26 completed Medicati on ID: [id number] B rand Name: ergocalc iferol (vitamin D2) Send Method: E-Prescr ibed Sub s Allowed: subs OK Speci al Instruct ion: TAKE 1 CAPSULE BY MOUTH DAILY WITH FOOD Med icationG enericNa me: ergocalc iferol (vitamin D2) Not Available Not Available Not Available Pataday Once Daily Relief 0.7 % eye drops 12/01 completed Medicati on ID: 082433 B rand Name: Pataday Once Daily Relief S end Method: E-Prescr ibed Sub s Allowed: subs OK Speci al Instruct ion: INSTILL 1 DROP INTO BOTH EYES IN THE MORNING Medicati onGeneri cName: Pataday Once Daily Relief Not Available Not Available Not Available Paxlovid 300 mg (150 mg x 2)-100 mg tablets in a dose pack 12/01 completed Medicati on ID: [id number] B rand Name: Paxlovid Send Method: E-Prescr ibed Sub s Allowed: subs OK Medic ationGen ericName : Paxlovid Not Available Not Available Not Available Vitals Date Recorded Body height Body mass index (BMI) Body weight Provider Name and Address Organization Details Last Updated DateTime 12/22/2024 162.56 cm 32.1 kg/m2 14178.77 g Pau Alaniz [place] - [facility] 12/22/2024 11:30:11 Social History None recorded. Functional Status None recorded. Mental Status None recorded. Family History Nothing Reported. Medical History No medical history recorded. Gynecological HistoryNo gynecological history recorded. Obstetrics History GPAL:G 0 P 0 0 0 0 Past Encounters Encounter ID Performer Location Encounter Start Date Encounter Closed Date Diagnosis/Indication Diagnosis SNOMED-CT Code Diagnosis ICD10 Code Diagnosis IMO Codes Diagnosis Note [id number] SUZANNE DOMINGUEZ PA-C [facility] [address] [place] [address] 12/22/2024 11:22:02 12/22/2024 11:39:58 Allergic rhinitis 79652210 J30.89 Pruritic d isorder of skin 8741367394 L29.9 [id number] GIL RAMOS MD [facility] [address] [place] [address] 12/26/2024 13:51:06 12/26/2024 16:48:15 Bilateral tinnitus 7621767644 102 H93.13 Audiologic al evaluation results: Right ear: Normal hearing with excellent word recognitio n. Left ear: Normal hearing with excellent word recognitio n. Tympanomet ry: Right Ear:Type A Left Ear:Type A Loss of se nse of smell 47132210 R43.0 27796 Suggest trial of fluticason e spray and CT imaging. Patient feels it is related to Tdap vaccine. Smell retraining discussed Vaccine ad verse reaction 333703359 T50.Z95A [id number] Health Concerns Section Related Observation LastModified by Organization Detai ls LastModified Time None Recorded Concern Status LastModified by Organization Details LastModified Time None Recorded Advance Directives Directive None Recorded Payers Insurance Date Sequence Insurance Name Policy Number Policy Robles Covered Member ID Robles Member ID Guarantor Name 12/26/2024 2 [place] [facility] Sariah Samuelso [id number] Sariah Rosario 12/22/2024 2 [employer] [id number] Sariah Samuelso [id number] Sariah Rosario 12/22/2024 1 [facility] [employer] - DIRECT CONNE[facility]STIANACARE TYPE I (HMO) [id number] Sariah Samuelso [id number] Sariah Rosario 12/22/2024 1 [place]MEDICARE REPLACEMENT HMO) [id number] Sariah Samuelso [id number] Sariah Rosario 12/22/2024 3 [place] [facility] Sariah Newmanbelo [id number] Sariah Rosario 12/22/2024 1 [place] [employer] Sariah Rosario [id number] Sariah Rosario Notes Date Note Type Note [...] over her body. GIL HOYT MD [address] [facility] [place] [address], [place], [address], [facility] - [facility] 12/22/2024 11:55:01 12/26/2024 text/html ROS as noted [...] demonstrated no abnormalities. GIL HOYT MD 100 [facility] [[email or web address] [address], [place], [address], [facility] - [facility] 12/26/2024 15:18:04 OBGyn Episode No OBEpisode recorded.
--- OUTSIDE RECORDS SUMMARY | 2025-03-29 14:54 | XMS_ITS | Clinical Summary ---
Author Organization [facility] Address [address] [address] Phone Care Team Providers Care District Wire Chief Name Role Phone Earlene Andrade MD Primary [...] Office Visit [facility] [address] [address] Buddy Hough MD Microscopic hematuria [...] Office Visit [facility] [address] [phone] Buddy Hough MD [address] [place] [phone] Health Maintenance Due Date Last Done Comments Breast Cancer Screening 1970 Hepatitis B Vaccine (1 of 3 - 19+ 3-dose series) 08/09/1991 Pneumococcal Vaccine: 50+ Ye ars (1 of 2 - PCV) 08/09/1991 Colorectal Cancer Screening: Annual FOBT 2021 Colorectal Cancer Screening: Colonoscopy 2021 Colorectal Cancer Screening: Sigmoidoscopy 2021 Influenza Vaccine (#1) 2025 , 03/27/2020, 03/07/2019, Additional history exists Insurance [employer] [place] [facility] Care Teams District Wire Chief Relationship Specialty Start Date End Date Earlene Andrade MD [address] [place] [id number] PCP - General Internal Medicine 02/16/23
--- OUTSIDE RECORDS SUMMARY | 2025-03-29 14:54 | XMS_ITS | Clinical Summary ---
Author Organization [facility] Address [address] [place] [address] Phone Care Team Providers Care Trailer Mechanic Name Role Phone Greg Long MD Primary Care Provider [phone] Allergies Active Allergy Reactions Criticality Noted Date [...] Department Care Team Description 02/04/2025 Lab Requisition [facility] [address] [facility] [place] [address] Campbell Jensen MD Gross hematuria from Last 3 Months Surgical History Surgery Date Site/Laterality Comments HYSTERECTOMY 2013 PROCEDURE: HISTORICAL HYSTERECTOMY; COMMENT: endometriosis SECTION PROCEDURE: HISTORICAL ; COMMENT: x 1 OVARIAN CYST REMOVAL 09/09/2012 PROCEDURE: VA OVARIAN CYSTECTOMY UNI/BI OTHER SURGICAL HISTORY PROCEDURE: [facility] HYSTEROSCOPY LYSIS INTRAUTERINE ADHESIONS COLONOSCOPY 02/12/2014 PROCEDURE: HISTORICAL COLONOSCOPY; COMMENT: hemorrhoids; repeat in 10 yrs CYSTOSCOPY 12/2014 PROCEDURE: HISTORICAL CYSTOSCOPY; COMMENT: Negative OOPHORECTOMY 2013 Right PROCEDURE: HISTORICAL OOPHORECTOMY; COMMENT: endometriosis OTHER SURGICAL HISTORY 11/15/2010 Left PROCEDURE: [facility] PUNCTURE ASPIRATION CYST OF BREAST; COMMENT: breast [...] AM EDT) Final Diagnosis A. Urine, Voided, [id number]: Negative for high grade urothelial carcinoma. 02/25/2025 4:55 PM EDT [facility] at 1655 EDT Specimen A Adequacy Satisfactory for evaluation 02/25/2025 4:55 PM EDT [facility] Clinical Information Gross hematuria R31.0 Urine cytology with reflex UroVysion (AUC/SHGUC) 02/25/2025 4:55 PM EDT [facility] Gross Description A. Urine, Voided, [id number]: Received one ThinPrep slide for cytology. 02/25/2025 4:55 PM EDT [facility] Disclaimer Unless otherwise specified, all tissue is 10% NB formalin fixed and paraffin embedded. Technical pathology services provided by [facility] at [address], [place] [address] (CLIA #[id number]/Ramana Olmedo MD, Floor Scrubber) 02/25/2025 4:55 PM EDT [facility] Urine Urine specimen from urethra / Unknown 01/28/2025 02/04/2025 8:31 AM EDT us Campbell Jensen MD LAB CYTOLOGY ORDERABLES Fin al Result [facility] [address] [place] [address], [place] [phone] * Basic metabolic panel (11/17/2024 5:50 AM EDT) Sodium 140 133 - 145 mmol/L LAB CHEMISTRY METHOD 11/17/2024 9:32 AM [facility] Potassium 4.1 3.5 - 5.5 mmol/L LAB CHEMISTRY METHOD 11/17/2024 9:32 AM [facility] Chloride 108 96 - 110 mmol/L LAB CHEMISTRY METHOD 11/17/2024 9:32 AM [facility] CO2 28 21 - 32 mmol/L LAB CHEMISTRY METHOD 11/17/2024 9:32 AM [facility] Anion Gap 4 3 - 11 LAB CHEMISTRY METHOD 11/17/2024 9:32 AM [facility] Glucose 95 70 - 100 mg/dL LAB CHEMISTRY METHOD 11/17/2024 9:32 AM [facility] BUN 22 5 - 25 mg/dL LAB CHEMISTRY METHOD 11/17/2024 9:32 AM [facility] Creatinine 0.74 0.50 - 1.10 mg/dL LAB CHEMISTRY METHOD 11/17/2024 9:32 AM EDT [facility] eGFR 97 >=60 mL/min/1. 73m2 LAB CHEMISTRY METHOD 11/17/2024 9:32 AM EDT [facility] Comment:Calculation based on the Chronic Kidney Disease Epidemiology Collaboration (CKD-EPI) equation refit without adjustment for race. BUN/Creatinine Ratio 29.7 LAB CHEMISTRY METHOD 11/17/2024 9:32 AM EDT [facility] Calcium 9.2 8.5 - 10.5 mg/dL LAB CHEMISTRY METHOD 11/17/2024 9:32 AM EDT [facility] Blood Venous blood specimen / Unknown Venipuncture / Unknown 11/17/2024 5:50 AM EDT 11/17/2024 8:27 AM EDT Jose Pelaez MD LAB BLOOD ORDERABLES Final Resul t [facility] [address] [place] [address], * Lipid panel (03/28/2022) LDL/HDL Ratio 0 [...] MEDICARE ADVANTAGE [place]ICAID - [place] Care Teams Trailer Mechanic Relationship Specialty Start Date End Date Greg Long MD [address] [place] [address] PCP - General Family Medicine 09/29/24
--- OUTSIDE RECORDS SUMMARY | 2025-03-29 14:54 | XMS_ITS | Encounter Summary ---
Author Organization [facility] Address [address] [place] [address] Care Team Providers Care Blankbook Stitching Machine Operator Name Role Phone Greg Long MD Primary Care Provider [phone] Encounter Details Date Type Department Care Team (Late st Contact Info) Description 10/15/2024 Lab Requisition [facility] - Main Lab [address] [facility] [place] [phone] Greg Long MD [address] [place], [place] [phone] Gastro-esophageal reflux disease without esophagitis; Anemia in [...] mmol/L LAB CHEMISTRY METHOD 10/15/2024 2:54 PM [facility] Potassium 3.6 3.5 - 5.5 mmol/L LAB CHEMISTRY METHOD 10/15/2024 2:54 PM [facility] Chloride 105 96 - 110 mmol/L LAB CHEMISTRY METHOD 10/15/2024 2:54 PM [facility] CO2 28 21 - 32 mmol/L LAB CHEMISTRY METHOD 10/15/2024 2:54 PM [facility] Anion Gap 5 3 - 11 LAB CHEMISTRY METHOD 10/15/2024 2:54 PM [facility] Glucose 70 70 - 100 mg/dL LAB CHEMISTRY METHOD 10/15/2024 2:54 PM [facility] BUN 15 5 - 25 mg/dL LAB CHEMISTRY METHOD 10/15/2024 2:54 PM [facility] Creatinine 0.76 0.50 - 1.10 mg/dL LAB CHEMISTRY METHOD 10/15/2024 2:54 PM [facility] eGFR 94 >=60 mL/min/1. 73m2 LAB CHEMISTRY METHOD 10/15/2024 2:54 PM [facility] Comment:Calculation based on the Chronic Kidney Disease Epidemiology Collaboration (CKD-EPI) equation refit without adjustment for race. BUN/Creatinine Ratio 19.7 LAB CHEMISTRY METHOD 10/15/2024 2:54 PM [facility] Calcium 9.8 8.5 - 10.5 mg/dL LAB CHEMISTRY METHOD 10/15/2024 2:54 PM [facility] AST (SGOT) 15 10 - 42 unit/L LAB CHEMISTRY METHOD 10/15/2024 2:54 PM [facility] ALT (SGPT) 34 10 - 60 unit/L LAB CHEMISTRY METHOD 10/15/2024 2:54 PM EDT [facility] Alkaline Phosphatase 124(H) 42 - 121 unit/L LAB [facility] Total Protein 8.1(H) 6.0 - 8.0 g/dL LAB CHEMISTRY METHOD 10/15/2024 2:54 PM EDT [facility] Albumin 4.1 3.2 - 5.0 g/dL LAB CHEMISTRY METHOD [facility] Total Bilirubin 0.4 0.0 - 1.4 mg/dL LAB CHEMISTRY METHOD 10/15/2024 2:54 PM EDT [facility] Blood Venous blood specimen / Unknown 10/15/2024 1:10 PM EDT 10/15/2024 1:49 PM EDT us Greg Long MD LAB BLOOD ORDERABLES Final R esult [facility] [address] [place] [address], * Complete blood count (10/15/2024 1:10 PM EDT) WBC 6.3 4.8 - 10.8 K/mcL LAB HEMETOLOGY METHOD 10/15/2024 2:09 PM EDT [facility] RBC 4.50 3.80 - 4.80 M/mcL LAB HEMETOLOGY METHOD 10/15/2024 2:09 PM EDT [facility] Hemoglobin 13.1 11.5 - 16.0 g/dL LAB HEMETOLOGY METHOD 10/15/2024 2:09 PM EDT [facility] Hematocrit 39.7 35.0 - 47.0 % LAB HEMETOLOGY METHOD 10/15/2024 2:09 PM EDT [facility] MCV 87.6 79.0 - 98.0 FL LAB HEMETOLOGY METHOD 10/15/2024 2:09 PM EDT [facility] MCH 28.9 27.0 - 32.0 pcg LAB HEMETOLOGY METHOD 10/15/2024 2:09 PM EDT [facility] MCHC 33.0 32.0 - 37.0 g/dL LAB HEMETOLOGY METHOD 10/15/2024 2:09 PM EDT [facility] RDW 13.2 11.0 - 15.0 % LAB HEMETOLOGY METHOD 10/15/2024 2:09 PM EDT [facility] Platelets 257 130 - 400 K/mcL LAB HEMETOLOGY METHOD 10/15/2024 2:09 PM EDT [facility] MPV 10.4 7.0 - 11.0 FL LAB HEMETOLOGY METHOD 10/15/2024 2:09 PM EDT [facility] NRBC 0.0 <1.0 % LAB HEMETOLOGY METHOD 10/15/2024 2:09 PM EDT [facility] NRBC Absolute 0.00 <0.10 K/mcL LAB HEMETOLOGY METHOD 10/15/2024 2:09 PM EDT [facility] Blood Venous blood specimen / Unknown 10/15/2024 1:10 PM EDT 10/15/2024 1:49 PM EDT us Greg Long MD LAB BLOOD ORDERABLES Final R esult [facility] [address] [place] [address], documented in this encounter Visit Diagnoses Diagnosis Gastro-esophageal reflux disease without esophagitis Anemia in other chronic diseases classified elsewhere documented in this encounter Care Teams Blankbook Stitching Machine Operator Relationship Specialty Start Date End Date Greg Long MD [address] [place] [address] PCP - General Family Medicine 09/29/24 documented as of this encounter
--- OUTSIDE RECORDS SUMMARY | 2025-03-29 14:54 | XMS_ITS | Encounter Summary ---
Author Organization [facility] Address [address] [place] [address] Care Team Providers Care Art Class Model Name Role Phone Greg Long MD Primary Care Provider [phone] Encounter Details Date Type Department Care Team (Late st Contact Info) Description 10/14/2024 Lab Requisition [facility] - Main Lab [address] [place] [phone] Greg Long MD [address] [place] [address] Urinary tract infection, site not specified Social [...] Culture urine (10/14/2024 12:00 AM EDT) Pathologist [facility] [place] Culture, Urine 10,000-49,000 CFU/mL Mixed urogenital esther, no uropathogens present. Suggest repeat specimen if clinically indicated. 10/15/2024 10:38 AM T [facility] Urine Urine specimen obtained by clean catch procedure / Unknown Non-blood Collection / Unknown 10/14/2024 10/14/2024 10:07 AM EDT Greg Long MD LAB MICROBIOLOGY - GENERAL O RDERABLES Final Result [facility] [address] [place] [address], [place] [phone] * (ABNORMAL) Urinalysis with reflex microscopic and culture (10/14/2024 12:00 AM EDT) Pathologist [facility] [place] Specific [place] Urine 1.016 1.003 - 1.030 LAB URINALYSIS - AUTOMATED METHOD 10/14/2024 10:07 AM [facility] pH, Urine 7.0 5.0 - 8.0 pH LAB URINALYSIS - AUTOMATED METHOD 10/14/2024 10:07 AM [facility] Leukocytes, Urine Small(A) Negative LAB URINALYSIS - AUTOMATED METHOD 10/14/2024 10:07 AM [facility] Nitrite, Urine Negative Negative LAB URINALYSIS - AUTOMATED METHOD 10/14/2024 10:07 AM [facility] Protein, Urine Negative <=Trace mg/dL LAB URINALYSIS - AUTOMATED METHOD 10/14/2024 10:07 AM [facility] Glucose, Urine Negative Negative mg/dL LAB URINALYSIS - AUTOMATED METHOD 10/14/2024 10:07 AM [facility] Ketones, Urine Negative Negative mg/dL LAB URINALYSIS - AUTOMATED METHOD 10/14/2024 10:07 AM [facility] Urobilinogen, Urine 0.2 0.2 - 1.0 mg/dL LAB URINALYSIS - AUTOMATED METHOD 10/14/2024 10:07 AM [facility] Bilirubin, Urine Negative Negative LAB URINALYSIS - AUTOMATED METHOD 10/14/2024 10:07 AM [facility] Blood, Urine Small(A) Negative LAB URINALYSIS - AUTOMATED METHOD 10/14/2024 10:07 AM [facility] RBC, Urine 9.8(H) 0 - 4 /HPF LAB URINALYSIS - AUTOMATED METHOD 10/14/2024 10:07 AM [facility] WBC, Urine 3.8 0 - 4 /HPF LAB URINALYSIS - AUTOMATED METHOD 10/14/2024 10:07 AM [facility] Squamous Epithelial, Urine 40 0 - 60 /LPF LAB URINALYSIS - AUTOMATED METHOD 10/14/2024 10:07 AM [facility] Bacteria, Urine Negative Negative /HPF LAB URINALYSIS - AUTOMATED METHOD 10/14/2024 10:07 AM [facility] Hyaline Casts, Urine 0.0 0 - 3 /LPF LAB URINALYSIS - AUTOMATED METHOD 10/14/2024 10:07 AM [facility] Urine Urine specimen obtained by clean catch procedure / Unknown Non-blood Collection / Unknown 10/14/2024 10/14/2024 8:59 AM EDT us Greg Long MD LAB URINE ORDERABLES Final R esult [facility] [address] [place] [address], [place] [phone] * Horowitz urine culture tube (10/14/2024 12:00 AM EDT) Extra Tube Hold for add-ons. 10/14/2024 10:01 AM EDT [facility] Comment:Auto resulted. Urine Urine specimen obtained by clean catch procedure / Unknown Non-blood Collection / Unknown 10/14/2024 10/14/2024 8:59 AM EDT Greg Long MD LAB URINE ORDERABLES Final R esult [facility] [address] [place] [address], documented in this encounter Visit Diagnoses Diagnosis Urinary tract infection, site not specified documented in this encounter Care Teams Art Class Model Relationship Specialty Start Date End Date Greg Long MD [address] [place] [address] PCP - General Family Medicine 09/29/24 documented as of this encounter
--- OUTSIDE RECORDS SUMMARY | 2025-03-29 14:54 | XMS_ITS | Encounter Summary ---
Author Organization [facility] Address [address] [facility] [address] [place] [address] Phone Care Team Providers Care Area Relief Pilot Name Role Phone Earlene Andrade MD Primary Care Provider + Encounter Details Date Type Department Care Team (Late st Contact Info) Description 02/24/[address] [facility] Department of Orthopaedics [address] [place] [address] [email or web address] (Primary Dx) Social History [...] Cervicalgia documented in this encounter Care Teams Area Relief Pilot Relationship Specialty Start Date End Date Earlene Andrade MD [facility] [address] PCP - General Internal Medicine 03/16/22 documented as of this encounter Additional Source Comments The information contained in this document represents components of the legal health record. It is not the complete legal health record.[facility]
== END 2025-03-29 14:48 | disposition home or self-care (01) ==
LOC: HO.MRI 14:47
PROVIDERS: PCP Internal Medicine; Visit Provider Physician Assistant
DX: M51.369 Other intervertebral disc degeneration, lumbar region without mention of lumbar back pain or lower extremity pain (principal); M47.816 Spondylosis without myelopathy or radiculopathy, lumbar region; M48.061 Spinal stenosis, lumbar region without neurogenic claudication
CPT/HCPCS: 72148

== ENCOUNTER 2025-04-02 14:42 | Outpatient (REF) | payer MEDICARE, MEDICAID, SELFPAY ==
--- OUTSIDE RECORDS SUMMARY | 2025-03-27 23:59 | XMS_ITS | Continuity of Care Document ---
Author Organization [facility] Address [address] [address]- Care Team Providers Care Recording Studio Set Up Worker Name Role Phone Raymond CHILDRESS, Earlene Gonzalez Primary Care Physic lita Encounter [facility] Date(s): 02/25/25 - 03/27/25 [facility] [address] [place], [place] [address] Encounter Type: Triage Allergies, Adverse Reactions, Alerts Substance Criticality Severity Reaction Reaction Severity Status Adacel (Tdap) Active Toradol Unable to assess criticality Persistent Severe SOB, palpitations Hives Active Contrast Dye Unable to assess criticality Persistent Severe SOB Hives Active Car [employer] COVID-19 Vaccine PF SOB facial and lip swelling Active Immunizations Given and Recorded Vaccine Date Status Refusal Reason tetanus/diphtheria/pertussis, acel(Tdap) 09/05/24 Recorded tetanus/diphtheria/pertussis, acel(Tdap) 05/18/15 Given influenza virus vaccine, inactivated 04/08/21 Kevin rded influenza virus vaccine, inactivated 03/27/20 Kevin rded influenza virus vaccine, inactivated 03/07/19 Kevin rded influenza virus vaccine, inactivated 04/23/18 Kevin rded SARS-CoV-2 (COVID-19) mRNA BNT-162b2 vac 12/16/20 Recorded Medications acetaminophen 325 mg oral tablet 650 mg, By Mouth, Every 4 hours, PRN, Temperature Greater than 100.5, Refills 0, Maintenance, Pain , Mild, 11/07/24 9:53:00 AM EDT, Partial fill upon patient request if the prescription is for a schedule II opioid drug. Start Date: 11/07/24 Status: Ordered Medication Dispense Status: Completed Total Allowed Fills: 1 Fills Dispensed: 0 amLODIPine 5 mg oral tablet 1 tablet, By Mouth, Daily, # 90 tablet, 3 Refills, Maintenance, 03/23/25 8:26:00 AM EST, [id number], 163, cm, 01/06/25 9:29:00 EDT, Height, 84.2, kg, 11/05/24 20:53:00 EDT, Dry Weight Start Date: 03/23/25 Status: Ordered Medication Dispense Status: Completed Quantity: 90.0 Unit: tablet Total Allowed Fills: 1 Fills Dispensed: 0 ARIPiprazole 20 mg oral tablet 90 each, 0 Refill(s), TAKE 1 TABLET BY MOUTH EVERYDAY AT BEDTIME, 0 Refills, 11/26/24 2:20:00 PM EDT, Partial fill upon patient request if the prescription is for a schedule II opioid drug. Start Date: 11/26/24 Status: Ordered Medication Dispense Status: Completed Total Allowed Fills: 1 Fills Dispensed: 0 BuPROPion (Eqv-Wellbutrin SR) 150 mg/12 hours oral tablet, extended release 90 each, 0 Refill(s), TAKE ONE (1) TABLET BY MOUTH DAILY TOGETHER WITH 300 MG , TOTAL DAILY DOSE IS450 MG DAILY, 0 Refills, 11/26/24 2:20:00 PM EDT, Partial fill upon patient request if the prescription is for a schedule II opioid drug. Start Date: 11/26/24 Status: Ordered Medication Dispense Status: Completed Total Allowed Fills: 1 Fills Dispensed: 0 MiraLax oral powder for reconstitution = 17 Gm, By Mouth, Daily, PRN Constipation, dissolve in water or juice, # 527 Gm, 0 Refills, Maintenance, 10/25/24 7:55:00 PM EDT, REC Powder, [facility]pharm[facility] #[id number], Partial fill upon patient request if the prescription is for a schedule II opioid drug., 17 Gm By Mouth Daily,PRN:Constipation,Instr:dissolve in water or juice, 163, cm, 09/09/24 10:48:00 EDT, Height, 86.9, kg, 09/09/24 10:48:00 EDT, DryWeight Start Date: 10/25/24 Status: Ordered Medication Dispense Status: Completed Quantity: 527.0 Unit: g Total Allowed Fills: 1 Fills Dispensed: 0 mirtazapine 30 mg oral tablet 90 each, 0 Refill(s), TAKE 1 TABLET BY MOUTH EVERYDAY AT BEDTIME, 0 Refills, 11/26/24 2:20:00 PM EDT, Partial fill upon patient request if the prescription is for a schedule II opioid drug. Start Date: 11/26/24 Status: Ordered Medication Dispense Status: Completed Total Allowed Fills: 1 Fills Dispensed: 0 pregabalin 25 mg oral capsule 1 capsule = 25 mg, By Mouth, 3 times a day, # 90 capsule, 0 Refills, Maintenance, 12/04/24 11:20:00 AM EDT, Capsule, [facility]/pharmacy #[id number], Partial fill upon patient request if the prescription is for a schedule II opioid drug., 163, cm, 11/26/24 14:00:00 EDT, Height, 84.2, kg, 11/05/24 20:53:00 EDT, Dry Weight Start Date: 12/04/24 Status: Ordered Medication Dispense Status: Completed Quantity: 90.0 Unit: capsule Total Allowed Fills: 1 Fills Dispensed: 0 Shower Chair Shower Chair, See Instructions, # 1 each, Refills 0, Tot. Refills 0, Maintenance, F44.7, 11/06/24 4:26:00 PM EDT, Supply Start Date: 11/06/24 Status: Ordered Medication Dispense Status: Completed Quantity: 1.0 Unit: each Total Allowed Fills: 1 Fills Dispensed: 0 Shower grab bar Shower grab bar, See Instructions, # 2 each, Refills 0, Tot. Refills 0, Maintenance, F44.7, 6/26/254:26:00 PM EDT, Supply Start Date: 11/06/24 Status: Ordered Medication Dispense Status: Completed Quantity: 2.0 Unit: each Total Allowed Fills: 1 Fills Dispensed: 0 Indications: Conversion disorder with mixed symptom presentation; Vitamin D2 2000 intl units oral capsule 1 capsule = 50 mcg, By Mouth, Daily, with food, # 90 capsule, 11 Refills, Maintenance, 12/04/24 11:21:00 AM EDT, Capsule, [id number], Partial fill upon patient request if the prescription is for a schedule II opioid drug., 163, cm, 11/26/24 14:00:00 EDT, Height, 84.2, kg, 11/05/24 20:53:00 EDT, Dry Weight Start Date: 12/04/24 Status: Ordered Medication Dispense Status: Completed Quantity: 90.0 Unit: capsule Total Allowed Fills: 12 Fills Dispensed: 0 Problem List Condition Confirmation Course Effective Dates Status H ealth Status Informant Hematuria Confirmed Active Chronic constipation Confirmed Active Dysuria Confirmed Active GERD (gastroesophageal reflux disease) Confirmed Active Hypertension Confirmed Active Iron deficiency anemia Confirmed Active IBS (irritable bowel syndrome) Confirmed Active Asthma Confirmed Active Mixed hyperlipidemia Confirmed Active Obese class I Confirmed Active Health care maintenance Confirmed Active Functional neurological symptom disorder with mixed symptoms Confirmed Active Migraines Confirmed Active Major depression, recurrent, chronic Confirmed Active Fatty liver Confirmed Active Social History Social History Type Response Smoking Status Never smoker; Tobacc o user in household: No entered on: 06/25/14 Sexual Orientation Self described orien tation: ; Straight or heterosexual Sex Sex Representation Female (finding) Patient Care team information Care Team Personnel Name: Geetha Hendricks Position: [facility] Outreach Member Role: Lifetime Consulting Physician Name: Noreen Hoover RN Position: [facility] RN Member Role: Primary Care Nurse Name: Hipolito Puri RN Position: [facility] RN Member Role: Primary Care Nurse Name: Radha Castro RN Position: [facility] RN Member Role: Primary Care Nurse Name: Raymond CHILDRESS, Earlene Gonzalez Position: [facility] Physician - Primary Care Member Role: PCP Address: [address] [place] [address] Telecom: Care Team Related Persons Name: WANDA MENON Name: WANDA MENON Name: WANDA MCLEAN Name: TOM LUNDBERG Name: JV ABDUL Insurance Providers Guarantor name: KORINA ABDUL [employer] [facility] Plan Information #: 1 Payer: [facility] Payer Identifier: NA Member Number: [id number] Group Number: [id number] Subscriber Identifier: NA Relationship to Subscriber: self Coverage Type: Medicare HMO Coverage Verification Date: NA Telecom: NA Address: NA
--- OUTSIDE RECORDS SUMMARY | 2025-04-01 23:59 | XMS_ITS | Continuity of Care Document ---
Author Organization [facility] Address [address] [place] [address]- Care Team Providers Care Gore Maker Name Role Phone Raymond CHILDRESS, Earlene Gonzalez Primary Care Physic lita Encounter [facility] Date(s): 01/27/25 - 04/01/[address] [address]- Attending Physician: Rupali , Provider Admitting Physician: Rupali , Provider Referring Physician: NirmalaastExam , Provider Encounter Type: Pre-Outpt Allergies, Adverse Reactions, Alerts Substance Criticality Severity Reaction Reaction Severity Status Toradol Unable to assess criticality Persistent Severe SOB, palpitations Hives Active Adacel (Tdap) Active Am[employer]re-openPeople COVID-19 Vaccine PF SOB facial and lip swelling Active Contrast Dye Unable to assess criticality Persistent Severe SOB Hives Active Immunizations Given and Recorded Vaccine Date [...] 3 Refills, Maintenance, 03/23/25 8:26:00 AM EST, [facility], 163, cm, 01/06/25 9:29:00 EDT, Height, 84.2, [...] Maintenance, 10/25/24 7:55:00 PM EDT, REC Powder, [facility]/pharmacy #[id number], Partial fill upon patient request if [...] Refills, Maintenance, 12/04/24 11:20:00 AM EDT, Capsule, [facility]/pharmacy #[id number], Partial fill upon patient request if [...] Refills 0, Tot. Refills 0, Maintenance, F44.7, 254:26:00 PM EDT, Supply Start Date: 11/06/24 Status: [...] Care team information Care Team Personnel Name: Eladio Geetha Position: [facility] Outreach Member Role: Lifetime Consulting Physician Name: Noreen Hoover RN Position: [facility] RN Member Role: Primary Care Nurse Name: Hipolito Puri RN Position: [facility] RN Member Role: Primary Care Nurse Name: Radha Castro RN Position: [facility] RN Member Role: Primary Care Nurse Name: Raymond CHILDRESS, Earlene Gonzalez Position: [facility] Physician - Primary Care Member Role: PCP Address: [address] [place] [address] Telecom: Care Team Related Persons Name: WANDA MENON Name: WANDA MENON Name: WANDA MCLEAN Name: TOM LUNDBERG Name: JV ABDUL Insurance Providers Guarantor name: KORINAJose ABDUL [facility] Information #: 1 Payer: [facility] Payer Identifier: NA Member Number: [id number] Group Number: [id number] Subscriber Identifier: [id number] Relationship to Subscriber: self Coverage Type: Medicare O Coverage Verification Date: NA Telecom: NA Address: NA
--- NOTE | 2025-04-02 14:46 | EMG_ITS ---
Chief complaint: Worsening left arm pain, weakness on left ankle. 12/12/2024 bilateral upper and lower extremity NCS/EMG was normal. Reason for referral: Repeat test Referred by: Dr. Maddox Procedure done: Left upper and lower extremity NCS/EMG Precautions and/or limitations: None The limb temperature was monitored continuously and remained between 32-36 degrees C during the performance of the NCS. Nerve Conduction Studies Anti Sensory Summary Table ?Stim Site NR Onset (ms) Norm Onset (ms) Peak (ms) Norm Peak (ms) O-P Amp (?V) Norm O-P Amp Site1 Site2 Delta-0 (ms) Dist (cm) Ricco (m/s) Norm Ricco (m/s) Left Median Anti Sensory (2nd Digit) Wrist ? 2.8 3.4 <3.6 60.5 >10 Wrist 2nd Digit 2.8 14.0 50 Left Radial Anti Sensory (Thumb) Forearm ? 1.6 2.1 <3.1 33.6 Forearm Thumb 1.6 10.0 63 Left Sup Peron Anti Sensory (Ankle) Lateral Leg ? 2.7 3.3 <4.4 8.8 >5.0 Lateral Leg Ankle 2.7 14.0 52 Left Sural Anti Sensory (Lat Mall) Calf ? 2.2 3.2 <4.0 17.7 >5.0 Calf Lat Mall 2.2 14.0 64 Left Ulnar Anti Sensory (5th Digit) Wrist ? 2.5 3.3 <3.7 36.7 >15.0 Wrist 5th Digit 2.5 14.0 56 Motor Summary Table ?Stim Site NR Onset (ms) Norm Onset (ms) O-P Amp (mV) Norm O-P Amp iAmp (mV) Amp (1st) (%) Site1 Site2 Delta-0 (ms) Dist (cm) Ricco (m/s) Norm Ricco (m/s) Left Median Motor (Abd Poll Brev) Wrist ? 3.0 <3.9 13.3 >4.5 16.5 100.0 Elbow Wrist 3.4 19.5 57 >45 Elbow ? 6.4 13.4 16.8 100.8 Left Peroneal Motor (Ext Dig Brev) Ankle ? 3.8 <4.0 4.9 >2.5 6.2 100.0 Ankle Ext Dig Brev 3.8 0.0 B Fib ? 9.8 4.5 5.8 91.8 B Fib Ankle 6.0 31.0 52 >40 Poplt ? 10.1 4.5 5.8 91.8 Poplt B Fib 0.3 3.0 100 >40 Left Tibial Motor (Abd Gunn Brev) Ankle ? 3.8 <5 6.3 >2.5 9.4 100.0 Ankle Abd Gunn Brev 3.8 0.0 Knee ? 10.7 6.0 8.6 95.2 Knee Ankle 6.9 37.0 54 >40 Left Ulnar Motor (Abd Dig Minimi) Wrist ? 2.7 <3.0 8.7 >5 10.7 100.0 B Elbow Wrist 2.8 17.0 61 >45 B Elbow ? 5.5 8.1 10.2 93.1 A Elbow B Elbow 1.3 10.0 77 >45 A Elbow ? 6.8 7.9 9.8 90.8 EMG ?Side Muscle Nerve Root Ins Act Fibs Psw Amp Dur Poly Recrt Int Pat Comment Left 1stDorInt Ulnar C8-T1 Nml Nml Nml Nml Nml 0 Nml Complete Left FlexCarRad Median C6-7 Nml Nml Nml Nml Nml 0 Nml Complete Left Biceps Musculocut C5-6 Nml Nml Nml Nml Nml 0 Nml Complete Left Triceps Radial C6-7-8 Nml Nml Nml Nml Nml 0 Nml Complete Left Deltoid Axillary C5-6 Nml Nml Nml Nml Nml 0 Nml Complete Left AbdHallucis MedPlantar S1-2 Nml Nml Nml Nml Nml 0 Nml Complete Left AntTibialis Dp Br Peron L4-5 Nml Nml Nml Nml Nml 0 Nml Complete Left PostTibialis Tibial L5, S1 Nml Nml Nml Nml Nml 0 Nml Complete Left MedGastroc Tibial S1-2 Nml Nml Nml Nml Nml 0 Nml Complete Left VastusMed Femoral L2-4 Nml Nml Nml Nml Nml 0 Nml Complete Left Peroneus Long Sup Br Peron L5-S1 Nml Nml Nml Nml Nml 0 Nml Complete Paraspinal EMG ?Side Muscle Nerve Root Ins Act Fibs Psw Comment Left Lumbar Upper Rami Nml Nml Nml Left Cervical Upper Rami Nml Nml Nml Left Cervical Mid Rami Nml Nml Nml Left Cervical Lower Rami Nml Nml Nml Left Lumbar Mid Rami Nml Nml Nml Left Lumbar Lower Rami Nml Nml Nml FINDINGS: All motor and sensory nerves tested showed normal latencies, amplitudes and conduction velocities. Concentric needle EMG was performed in selected muscles of the left upper and lower extremities, cervical and lumbar paraspinals. Study did not reveal signs of electric abnormalities as shown in the table above. IMPRESSION: 1. This is a normal study. 2. There is no electrodiagnostic evidence for median neuropathy, ulnar neuropathy, brachial plexopathy, or cervical radiculopathy. 3. There is no electrodiagnostic evidence for peroneal neuropathy, tibial neuropathy, lumbosacral plexopathy, lumbar radiculopathy, or peripheral neuropathy. Thank you for your kind referral. Kat Pascual MD, ADRIAN Board Certified, [place] Board [employer] Physical Medicine and Rehabilitation (ABPMR) Board Certified, [place] Board of Electrodiagnostic Medicine (ABEM) CODIN [phone] x 2 extremities MTDD
--- OUTSIDE RECORDS SUMMARY | 2025-04-02 20:05 | XMS_ITS | Encounter Summary ---
Author Organization [facility] Address [address] [facility] [address] [place] [address] Phone Care Team Providers Care Clinical Pharmacist Name Role Phone Earlene Andrade MD Primary Care Provider + Encounter Details Date Type Department Care Team (Late st Contact Info) Description 03/25/2022 Procedure [facility] [address] [place] [address] Social History Tobacco Use Types Packs/Day Years [...] 03/28/2022 3:00 AM Reynold Weems RN * [place] Suicide Severity Rating Scale (Screener/Recent Self-Report) [...] on filedocumented in this encounter Care Teams Clinical Pharmacist Relationship Specialty Start Date End Date Earlene Andrade MD [address] [place] [address] PCP - General Internal Medicine 03/16/22 documented as of this encounter Additional Source Comments The information contained in this document represents components of the legal health record. It is not the complete legal health record.[facility]
--- OUTSIDE RECORDS SUMMARY | 2025-04-02 20:05 | XMS_ITS | Data Portability ---
Author Organization [place] [facility], Allergy Address [address] [place] [address] Care Team Providers Care Central Supply Assistant Name Role Phone KOURTNEY ALVAREZ Primary Care Provider [phone] Assessment Encounter Date Assessment Date Assessment LastModified by Organization Details LastModified Time 12/22/2024 12/22/2024 54-year-old female presents for evaluation of itching. On examination she does not seem to have visible rash or disruption of the skin. EACs and oropharynx are normal to inspection as well. Recommended Zyrtec twice daily for the next 2 weeks. If itching continues she should consider seeing a customer service coordinator. I have also recommended topical hydrocortisone if [...] CT, maxillofaci al, w/o contrast 2024 025 [facility] (Imaging), [address], [place], [address], 15:49:42 Medication Orders fluticasone propionate 50 mcg/actuati on nasal spray,suspe nsion 2024 025 [id number], [address] [place], [address], 15:16:51 Zyrtec 10 mg tablet 2024 025 [id number], [address] [place], [address], 11:43:01 hydrocortis one 2.5 % topical cream 2024 025 [id number], [address] [place], [address], 11:43:00 Patient TargetsNo targets recorded. Patient Instructions Encounter Date Encounter Id Patient Instructions Last Modified By Organization Details Last Modified Time 12/26/2024 [id number] Begin using Flonase nasal spray as directed. Purchase and utilize a smell training kit from [employer] to aid in olfactory rehabilitation. Follow up [...] Time Bilateral disorder of Eustachia n tubes 80206029833 72485 Active 2022 Other specified disorders of Eustachia n tube, bilateral ; Note: Date Diagnosed : 07/11/2022 3:44 PM (H69.83) Not Available [facility] 4 03:24:47 Bilateral tinnitus 38210539119 02 Active 2022 Tinnitus, bilateral ; Note: Date Diagnosed : 07/11/2022 3:44 PM (H93.13) Not Available [facility] 4 03:24:46 Nasal congestio n 94000220 Active 2022 Nasal congestio n; Note: Date Diagnosed : 09/20/2022 10:48 AM (R09.81) Not Available [facility] 4 03:24:47 Allergic rhinitis 67074524 Active 2022 Other allergic rhinitis; Note: Date Diagnosed : 09/20/2022 10:48 AM (J30.89) Not Available [facility] 4 03:24:47 Pruritic disorder of skin Active 2024 SUZANNE DOMINGUEZ PA-C [address] [address], [place], [address] , [facility] 5 11:41:58 Loss of sense of smell 58985973 Active 2024 GIL RAMOS MD [address] [place], [place] [address], [address] , [facility] 5 15:14:41 Vaccine adverse reaction 426464012 Active 2024 GIL RAMOS MD [address] [place], [place] [address], [address] , [facility] 5 15:14:49 Problem Notes None recorded. Procedures Surgical History Date Name Laterality Status Provider Name and Address Organization Details Recorded Time 12/27/19 25 Air & Speech Audio with Tymps - 57496, 68201 & 63170 completed RANI SOTELO [place], CCC-A 100 [facility],[address], [address], [facility] - [facility] 12/26/2024 14:53:02 section completed Rea Simpson [place] [facility] 12/26/2024 14:59:26 cholecystectomy completed Rea Simpson [place] [facility] 12/26/2024 14:59:33 Imaging Results None recorded. Procedure Notes None recorded. Medical Equipment None Reported. Allergies Allergen ID Allergen Name Allergen Category Reaction Reaction Severity Criticality Documentation Date Start Date Code Code System Note Provider Name and Address Organization Details Recorded Time 128927 Toradol medicatio n other Not available Not available 09/25/2023 26193 RxNorm React ion: Unkno wn; Not Available [facility] 4 01:26:11 290018 Iodinated contrast media (substanc e) medicatio n Not available Not available Not available 12/26/2024 47663 2004 SNOMED Rea haque [place] - [facility] 5 15:00:01 276637 COVID-19 (SARS-CoV -2) vaccine, olivier cell Not available Not available Not available Not available 12/26/2024 Rea haque [place] - [facility] 5 15:00:11 Medications Name Sig Start [...] mg tablet 12/01 completed Medicati on ID: [id number] B rand Name: predniso ne Send Method: E-Prescr ibed Sub s Allowed: subs OK Medic ationGen ericName : predniso ne Not Available Not Available Not Available doxycycli ne hyclate 100 mg capsule 12/01 completed Medicati on ID: 594384 B rand Name: doxycycl ine hyclate Send [...] mg tablet 12/22 completed Medicati on ID: [id number] B rand Name: candesar durham Send Method: E-Prescr ibed Sub s Allowed: subs OK Medic ationGen ericName : candesar durham Not Available Not Available Not Available Claritin 10 mg tablet 12/22 completed Medicati on ID: 155114 B rand Name: Claritin Send Method: E-Prescr ibed Sub s Allowed: subs OK Medic ationGen ericName : Claritin Not Available Not Available Not Available prednison e 20 mg tablet TAKE 1 TABLET BY MOUTH EVERY DAY FOR 5 DAYS 12/22 completed Not Available Not Available Not Available rizatript an 10 mg tablet 12/22 completed Medicati on ID: [id number] B rand Name: rizatrarmond durham Send Method: [...] mg tablet 12/22 completed Medicati on ID: [id number] B rand Name: naproxen Send Method: E-Prescr ibed Sub s Allowed: subs OK Speci al Instruct ion: TAKE 1 TABLET BY MOUTH TWO TIMES A DAY WITH MEALS Me dication GenericN jose: naproxen Not Available Not Available Not Available acetamino phen 500 mg tablet 12/22 completed Medicati on ID: 403946 B rand Name: acetamin ophen Se nd [...] layed release 12/22 completed Medicati on ID: 896721 B rand Name: pantopra zole Sen d [...] mg tablet 12/01 completed Medicati on ID: [id number] B rand Name: lorazepa m Send Method: E-Prescr ibed Sub s Allowed: subs OK Medic ationGen ericName : lorazepa m Not Available Not Available Not Available amitripty line 10 mg tablet 12/01 completed Medicati on ID: 406034 B rand Name: amitript yline Se nd [...] mg tablet 12/01 completed Medicati on ID: 822525 B rand Name: predniso ne Send Method: E-Prescr ibed Sub s Allowed: subs OK Medic ationGen ericName : predniso ne Not Available Not Available Not Available losartan 25 mg tablet TAKE 1 TABLET BY MOUTH EVERY DAY. 12/22 completed Not Available Not Available Not Available docusate sodium 100 mg capsule 12/22 completed Medicati on ID: [id number] B rand Name: docusate sodium S end Method: E-Prescr ibed Sub s Allowed: subs OK Speci al Instruct ion: TAKE 1 CAPSULE BY MOUTH TWICE A DAY Medi cationGe nericNam e: docusate sodium Not Available Not Available Not Available gabapenti n 300 mg capsule 12/01 completed Medicati on ID: 683554 B rand Name: gabapent in Send Method: [...] mg tablet 12/01 completed Medicati on ID: [id number] B rand Name: monteluk ast Send Method: E-Prescr ibed Sub s Allowed: subs OK Medic ationGen ericName : montel[place] ast Not Available Not Available Not Available mirtazapi ne 15 mg tablet TAKE 1 TABLET BY MOUTH EVERYDAY AT BEDTIME 12/22 completed Not Available Not Available Not Available gabapenti n 100 mg capsule 12/01 completed Medicati on ID: 907043 B rand Name: gabapent in Send Method: E-Prescr ibed Sub s Allowed: subs OK Medic ationGen ericName : gabapent in Not Available Not Available Not Available hydroxych loroquine 200 mg tablet 12/01 completed Medicati on ID: 217352 B rand Name: hydroxyc hloroqui ne Send [...] ating tablet 12/22 completed Medicati on ID: 667305 B rand Name: ondamary eladia Send Method: [...] mg tablet 12/01 completed Medicati on ID: 483200 B rand Name: doxycycl ine hyclate Send [...] aerosol inhaler 12/01 completed Medicati on ID: 456600 B rand Name: Ventolin HFA Send Method: E-Prescr ibed Sub s Allowed: subs OK Speci al Instruct ion: INHALE 2 PUFFS INTO LUNGS EVERY 4 HOURS NEEDED FOR WHEEZING /SHORTNE SS OF BREATH M edicatio nGeneric Name: Ventolin HFA Not Available Not Available Not Available tobramyci n 0.3 %-dexamet hasone 0.1 % eye drops,jennifer pension 12/22 completed Medicati on ID: [id number] B rand Name: tobramyc in-dexam ethasone Send [...] mg tablet 12/01 completed Medicati on ID: 405660 B rand Name: escitalo pram oxalate Send [...] a packet 12/22 completed Medicati on ID: [id number] B rand Name: cholesty ramine (with sugar) [...] mg tablet 12/26 completed Medicati on ID: 964041 B rand Name: escitalo pram oxalate Send Method: E-Prescr ibed Sub s Allowed: subs OK Medic ationGen ericName : escitalo pram oxalate Not Available Not Available Not Available duloxetin e 20 mg capsule,d elayed release 12/26 completed Medicati on ID: 340458 B rand Name: duloxeti ne Send Method: E-Prescr ibed Sub s Allowed: subs OK Medic ationGen ericName : duloxeti ne Not Available Not Available Not Available duloxetin e 30 mg capsule,d elayed release 12/22 completed Medicati on ID: 234646 B rand Name: duloxeti ne Send Method: [...] topical ointment 12/01 completed Medicati on ID: 059613 B rand Name: lidocain e Send Method: E-Prescr ibed Sub s Allowed: subs OK Medic ationGen ericName : lidocain e Not Available Not Available Not Available desvenlaf axine succinate ER 25 mg tablet,ex tended release 24 hr 12/01 completed Medicati on ID: 831679 B rand Name: desvenla faxine succinat e Send Method: E-Prescr ibed Sub s Allowed: subs OK Medic ationGen ericName : desvenla faxine succinat e Not Available Not Available Not Available ergocalci ferol (vitamin D2) 50 mcg (2,000 unit) capsule 12/26 completed Medicati on ID: 585247 B rand Name: ergocalc iferol (vitamin D2) Send Method: E-Prescr ibed Sub s Allowed: subs OK Speci al Instruct ion: TAKE 1 CAPSULE BY MOUTH DAILY WITH FOOD Med icationG enericNa me: ergocalc iferol (vitamin D2) Not Available Not Available Not Available Pataday Once Daily Relief 0.7 % eye drops 12/01 completed Medicati on ID: 006826 B rand Name: Pataday Once Daily Relief S end Method: E-Prescr ibed Sub s Allowed: subs OK Speci al Instruct ion: INSTILL 1 DROP INTO BOTH EYES IN THE MORNING Medicati onGeneri cName: Pataday Once Daily Relief Not Available Not Available Not Available Paxlovid 300 mg (150 mg x 2)-100 mg tablets in a dose pack 12/01 completed Medicati on ID: [id number] B rand Name: Paxlovid Send Method: E-Prescr ibed Sub s Allowed: subs OK Medic ationGen ericName : Paxlovid Not Available Not Available Not Available Vitals Date Recorded Body height Body mass index (BMI) Body weight Provider Name and Address Organization Details Last Updated DateTime 12/22/2024 162.56 cm 32.1 kg/m2 52848.77 g Pau Alaniz [place] [facility] 12/22/2024 11:30:11 Social History None recorded. Functional Status None recorded. Mental Status None recorded. Family History Nothing Reported. Medical History No medical history recorded. Gynecological HistoryNo gynecological history recorded. Obstetrics History GPAL:G 0 P 0 0 0 0 Past Encounters Encounter ID Performer Location Encounter Start Date Encounter Closed Date Diagnosis/Indication Diagnosis SNOMED-CT Code Diagnosis ICD10 Code Diagnosis IMO Codes Diagnosis Note [id number] SUZANNE DOMINGUEZ PA-C [facility] [address] [place] [address] 12/22/2024 11:22:02 12/22/2024 11:39:58 Allergic rhinitis 05834085 J30.89 Pruritic d isorder of skin 7344455455 L29.9 99705 [id number] GIL RAMOS MD [facility] [address] [place] [address] 12/26/2024 13:51:06 12/26/2024 16:48:15 Bilateral tinnitus 3374118963 102 H93.13 Audiologic al evaluation results: Right ear: Normal hearing with excellent word recognitio n. Left ear: Normal hearing with excellent word recognitio n. Tympanomet ry: Right Ear:Type A Left Ear:Type A Loss of se nse of smell 09655189 R43.0 72064 Suggest trial of fluticason e spray and CT imaging. Patient feels it is related to Tdap vaccine. Smell retraining discussed Vaccine ad verse reaction 859886199 T50.Z95A 27323659 Health Concerns Section Related Observation LastModified by Organization Detai ls LastModified Time None Recorded Concern Status LastModified by Organization Details LastModified Time None Recorded Advance Directives Directive None Recorded Payers Insurance Date Sequence Insurance Name Policy Number Policy Robles Covered Member ID Robles Member ID Guarantor Name 12/26/2024 2 [place] [facility] Sariah Samuelso [id number] Sariah Rosario 12/22/2024 2 [employer] [id number] Sariah Samuelso [id number] Sariah Rosario 12/22/2024 1 [facility] [employer] [facility]HMO[facility] [id number] Sariah Samuelso [id number] Sariah Rosario 12/22/2024 1 [place]MEDICARE REPLACEMENT HMO) [id number] Sariah Samuelso [id number] Sariah Rosario 12/22/2024 3 [place] [facility] Sariah Newmanbelo [id number] Sariah Rosario 12/22/2024 1 [place] [employer] Sariah Rosario [id number] Sariah Rosario Notes Date Note Type Note [...] over her body. GIL HOYT MD 100 [facility] [address], [place], [address], [facility] 12/22/2024 11:55:01 12/26/2024 text/html ROS as [...] demonstrated no abnormalities. GIL HOYT MD 100 [facility], [place], [address], [facility] 12/26/2024 15:18:04 OBGyn Episode No OBEpisode recorded.
--- OUTSIDE RECORDS SUMMARY | 2025-04-02 20:05 | XMS_ITS | Encounter Summary ---
Author Organization [facility] Address [address] [facility] [address] [place] [address] Phone Care Team Providers Care Furnace Combustion Tester Name Role Phone Earlene Andrade MD Primary Care Provider + Encounter Details Date Type Department Care Team (Late st Contact Info) Description 03/25/2022 Procedure Pass [facility] [address] [place] [address] Social History Tobacco Use Types Packs/Day Years [...] 03/28/2022 3:00 AM Reynold Weems RN * [place] Suicide Severity Rating Scale (Screener/Recent Self-Report) Question [...] on filedocumented in this encounter Care Teams Furnace Combustion Tester Relationship Specialty Start Date End Date Earlene Andrade MD [address], [place] [address] PCP - General Internal Medicine 03/16/22 documented as of this encounter Additional Source Comments The information contained in this document represents components of the legal health record. It is not the complete legal health record.[facility]
--- OUTSIDE RECORDS SUMMARY | 2025-04-02 20:05 | XMS_ITS | Clinical Summary ---
Author Organization [facility] Address [address] [facility] [address] [place] [address] Phone Care Team Providers Care Chemical Processing Laborer Name Role Phone Earlene Andrade MD Primary [...] [facility] [address] [place] [address] Melisa Sebastian Neck pain (Primary Dx) from [...] of 2) 2022 INFLUENZA VACCINE (#1) 2024 1, 03/27/2020, 03/07/2019, Additional history exists Adult Td,Tdap [...] 6:50 AM EST) CHOLESTEROL 167 <200 mg/dL [facility] TRIGLYCERIDES 101 35 - 150 mg/dL [facility] HDL 46 40 - 80 mg/dL [facility] CALCULATED LDL 101 50 - 129 mg/dL [facility] VLDL 20 <31 mg/dL [facility] CARDIAC RISK RATIO 3.6 0.0 - 4.0 [facility] Blood 03/28/2022 6:50 AM EST 03/28/2022 7:55 AM EST us Orion Griffith MD, PhD LAB BLOOD BKR ORDERABLES Final Result [facility] [address] [place] [address] from Last 3 Months or Most Recently Relevant to Health Maintenance Insurance [place] & B Advance Directives For more information, please contact: [phone] (9AM - 5PM [facility], Sunday-Sunday) Documents on File Type Date Recorded Patient Telecommunications Support Expl anation Healthcare Proxy 03/28/2022 1:10 PM * Full Code (Latest Code Status on File) Date Activated Date Inactivated Comments 03/27/2022 4:13 PM Question Answer Comments Code Status Confirmed With: Patient Healthcare Agents on File Name Relationship Healthcare Agent Relationshi p Communication Tyrel Skinner Life Partner .Primary Health Care Agent (Proxy form on file) Care Teams Chemical Processing Laborer Relationship Specialty Start Date End Date Earlene Andrade MD [address] [place] [address] PCP - General Internal Medicine 03/16/22 Additional Source Comments The information contained in this document represents components of the legal health record. It is not the complete legal health record.[facility]
--- OUTSIDE RECORDS SUMMARY | 2025-04-02 20:05 | XMS_ITS | Encounter Summary ---
Author Organization [facility] Address [address] [facility] [address] [place] [address] Phone Care Team Providers Care Loom Operator Apprentice Name Role Phone Earlene Andrade MD Primary Care Provider + Encounter Details Date Type Department Care Team (Late st Contact Info) Description 03/25/2022 Procedure [facility] [address] [place] [address] Social History Tobacco Use Types Packs/Day Years [...] 03/28/2022 3:00 AM Reynold Weems RN * [place] Suicide Severity Rating Scale (Screener/Recent Self-Report) Question [...] on filedocumented in this encounter Care Teams Loom Operator Apprentice Relationship Specialty Start Date End Date Earlene Andrade MD [address] [address] PCP - General Internal Medicine 03/16/22 documented as of this encounter Additional Source Comments The information contained in this document represents components of the legal health record. It is not the complete legal health record.[facility]
--- OUTSIDE RECORDS SUMMARY | 2025-04-02 20:05 | XMS_ITS | Encounter Summary ---
Author Organization [facility] Address [address] [facility] [address] [place] [address] Phone Care Team Providers Care Molder Labels Name Role Phone Earlene Andrade MD Primary Care Provider + Encounter Details Date Type Department Care Team (Late st Contact Info) Description 03/25/2022 Procedure [facility] [address] [place] [address] Social History Tobacco Use Types Packs/Day Years [...] 03/28/2022 3:00 AM Reynold Weems RN * [place] Suicide Severity Rating Scale (Screener/Recent Self-Report) Question [...] on filedocumented in this encounter Care Teams Molder Labels Relationship Specialty Start Date End Date Earlene Andrade MD [address] [address] PCP - General Internal Medicine 03/16/22 documented as of this encounter Additional Source Comments The information contained in this document represents components of the legal health record. It is not the complete legal health record.[facility]
--- OUTSIDE RECORDS SUMMARY | 2025-04-02 20:05 | XMS_ITS | Encounter Summary ---
Author Organization [facility] Address [address] [place] [address] Phone Care Team Providers Care Farm Or Ranch Animal Caretaker Name Role Phone Earlene Andrade MD Primary Care Provider + Encounter Details Date Type Department Care Team (Late st Contact Info) Description 12/14/2021 Documentation Only [facility] [address] [place] [phone] Darwin Hensley MD [address] [place] [address] [place] [phone] Social History Tobacco Use Types Packs/Day Years [...] Visit [facility] [address] [phone] Buddy Hough MD [address] [address] documented as of this encounter Visit Diagnoses Not on filedocumented in this encounter Care Teams Farm Or Ranch Animal Caretaker Relationship Specialty Start Date End Date Earlene Andrade MD [address] [place], [place] [phone] PCP - General Internal Medicine 02/16/23 documented as of this encounter
--- OUTSIDE RECORDS SUMMARY | 2025-04-02 20:05 | XMS_ITS | Encounter Summary ---
Author Organization [facility] Address [address] [place] [address] Phone Care Team Providers Care Shaper Setter Name Role Phone Earlene Andrade MD Primary Care Provider + Encounter Details Date Type Department Care Team (Late st Contact Info) Description 12/02/2021 Documentation Only [facility] [address] [place] [phone] Darwin Hensley MD [address] [place] [address] [place] [phone] Social History Tobacco Use Types Packs/Day Years [...] Visit [facility] [place] [facility] [address] [phone] Buddy Hough MD [address] [address] documented as of this encounter Visit Diagnoses Not on filedocumented in this encounter Care Teams Shaper Setter Relationship Specialty Start Date End Date Earlene Andrade MD [address] [place], [place] [phone] PCP - General Internal Medicine 02/16/23 documented as of this encounter
--- OUTSIDE RECORDS SUMMARY | 2025-04-02 20:05 | XMS_ITS | Clinical Summary ---
Author Organization [facility] Address [address] [place] [address] Care Team Providers Care Physicist Astrophysics Name Role Phone Nell ALARCON DO, Edward [...] age to complete this topic Care Teams Physicist Astrophysics Relationship Specialty Start Date End Date Devang Camejo IV, DO PCP - General Internal Medicine 06/09/22
--- OUTSIDE RECORDS SUMMARY | 2025-04-02 20:06 | XMS_ITS | Encounter Summary ---
Author Organization [employer] Address [address] [place] [address] Care Team Providers Care Engineering And Operations Director Name Role Phone Greg Long MD Primary Care Provider [phone] Encounter Details Date Type Department Care Team (Late st Contact Info) Description 11/13/2024 Lab Requisition [facility] - Main Lab 299 [facility] [place] [phone] Jose Pelaez MD [address] [place], [place] [id number] Polyneuropathy, unspecified Social History Tobacco Use Types [...] mmol/L LAB CHEMISTRY METHOD 11/17/2024 9:32 AM [facility] Potassium 4.1 3.5 - 5.5 mmol/L LAB CHEMISTRY METHOD 11/17/2024 9:32 AM [facility] Chloride 108 96 - 110 mmol/L LAB CHEMISTRY METHOD 11/17/2024 9:32 AM [facility] CO2 28 21 - 32 mmol/L LAB CHEMISTRY METHOD 11/17/2024 9:32 AM [facility] Anion Gap 4 3 - 11 LAB CHEMISTRY METHOD 11/17/2024 9:32 AM [facility] Glucose 95 70 - 100 mg/dL LAB CHEMISTRY METHOD 11/17/2024 9:32 AM [facility] BUN 22 5 - 25 mg/dL LAB CHEMISTRY METHOD 11/17/2024 9:32 AM [facility] Creatinine 0.74 0.50 - 1.10 mg/dL LAB CHEMISTRY METHOD 11/17/2024 9:32 AM [facility] eGFR 97 >=60 mL/min/1. 73m2 LAB CHEMISTRY METHOD 11/17/2024 9:32 AM [facility] Comment:Calculation based on the Chronic Kidney Disease Epidemiology Collaboration (CKD-EPI) equation refit without adjustment for race. BUN/Creatinine Ratio 29.7 LAB CHEMISTRY METHOD 11/17/2024 9:32 AM [facility] Calcium 9.2 8.5 - 10.5 mg/dL LAB CHEMISTRY METHOD 11/17/2024 9:32 AM [facility] Blood Venous blood specimen / Unknown Venipuncture / Unknown 11/17/2024 5:50 AM EDT 11/17/2024 8:27 AM EDT us Fahim A Benigno MD LAB BLOOD ORDERABLES Final Resul t [facility] [address] [place] [address], * (ABNORMAL) Complete blood count (11/17/2024 5:50 AM EDT) WBC 5.4 4.8 - 10.8 K/mcL LAB HEMETOLOGY METHOD 11/17/2024 9:05 AM EDT [facility] RBC 4.00 3.80 - 4.80 M/mcL LAB HEMETOLOGY METHOD 11/17/2024 9:05 AM EDT [facility] Hemoglobin 11.5 11.5 - 16.0 g/dL LAB HEMETOLOGY METHOD 11/17/2024 9:05 AM [facility] Hematocrit 36.2 35.0 - 47.0 % LAB HEMETOLOGY METHOD 11/17/2024 9:05 [facility] MCV 90.7 79.0 - 98.0 FL LAB HEMETOLOGY METHOD 11/17/2024 9:05 AM [facility] MCH 28.8 27.0 - 32.0 pcg LAB HEMETOLOGY METHOD 11/17/2024 9:05 AM [facility] MCHC 31.8(L) 32.0 - 37.0 g/dL LAB HEMETOLOGY METHOD 11/17/2024 9:05 AM [facility] RDW 13.4 11.0 - 15.0 % LAB HEMETOLOGY METHOD 11/17/2024 9:05 AM [facility] Platelets 229 130 - 400 K/mcL LAB HEMETOLOGY METHOD 11/17/2024 9:05 AM [facility] MPV 10.3 7.0 - 11.0 FL LAB HEMETOLOGY METHOD 11/17/2024 9:05 AM EDT [facility] NRBC 0.0 <1.0 % LAB HEMETOLOGY METHOD 11/17/2024 9:05 AM EDT [facility] NRBC Absolute 0.00 <0.10 K/mcL LAB HEMETOLOGY METHOD 11/17/2024 9:05 AM EDT [facility] Blood Venous blood specimen / Unknown Venipuncture / Unknown 11/17/2024 5:50 AM EDT 11/17/2024 8:27 AM EDT us Jose Pelaez MD LAB BLOOD ORDERABLES Final Resul t [facility] [address] [place] [address], documented in this encounter Visit Diagnoses Diagnosis Polyneuropathy, unspecified documented in this encounter Care Teams Engineering And Operations Director Relationship Specialty Start Date End Date Greg Long MD [address] [place] [address] PCP - General Family Medicine 09/29/24 documented as of this encounter
--- OUTSIDE RECORDS SUMMARY | 2025-04-02 20:06 | XMS_ITS | Encounter Summary ---
Author Organization [employer] Address [address] [place] [address] Care Team Providers Care Tracer Clerk Name Role Phone Greg Long MD Primary Care Provider + [phone] Encounter Details Date Type Department Care Team (Late st Contact Info) Description 09/29/2024 Lab Requisition [facility] - Main Lab 299 [facility] [place] [address] Greg Long MD [address] [place] [address] Other irritable bowel syndrome; Endometriosis, unspecified; Anemia, [...] Thyroid stimulating hormone (09/29/2024 10:30 AM EDT) [facility] TSH 1.12 0.40 - 4.00 mcIU/mL LAB CHEMISTRY METHOD 09/29/2024 4:[address] [facility] Blood Venous blood specimen / Unknown Venipuncture / Unknown 09/29/2024 10:30 AM EDT 09/29/2024 12:21 PM EDT Greg Long MD LAB BLOOD ORDERABLES Final R esult [facility] [address] [place] [address], [place] [phone] * Vitamin B12 and folate (09/29/2024 10:30 AM EDT) [facility] Vitamin B-12 482 250 - 900 pcg/mL LAB CHEMISTRY METHOD 09/29/2024 2:[address] [facility] Folate 14.6 2.8 - 17.0 ng/ml LAB CHEMISTRY METHOD 09/29/2024 2:[address] [facility] Blood Venous blood specimen / Unknown Venipuncture / Unknown 09/29/2024 10:30 AM EDT 09/29/2024 12:21 PM EDT us Greg Long MD LAB BLOOD ORDERABLES Final R esult [facility] [address] [place] [address], * Comprehensive metabolic panel (09/29/2024 10:30 AM EDT) Sodium 142 133 - 145 mmol/L LAB CHEMISTRY METHOD [facility] Potassium 3.9 3.5 - 5.5 mmol/L LAB CHEMISTRY METHOD 09/29/2024 2:54 PM [facility] Chloride 107 96 - 110 mmol/L LAB CHEMISTRY METHOD 09/29/2024 2:54 PM [facility] CO2 25 21 - 32 mmol/L LAB CHEMISTRY METHOD 09/29/2024 2:54 PM [facility] Anion Gap 10 3 - 11 LAB CHEMISTRY METHOD 09/29/2024 2:54 PM [facility] Glucose 90 70 - 100 mg/dL LAB CHEMISTRY METHOD 09/29/2024 2:54 PM [facility] BUN 17 5 - 25 mg/dL LAB CHEMISTRY METHOD 09/29/2024 2:54 PM [facility] Creatinine 0.74 0.50 - 1.10 mg/dL LAB CHEMISTRY METHOD 09/29/2024 2[facility] eGFR 97 >=60 mL/min/1. 73m2 LAB CHEMISTRY METHOD 09/29/2024 2:54 PM [facility] Comment:Calculation based on the Chronic Kidney Disease Epidemiology Collaboration (CKD-EPI) equation refit without adjustment for race. BUN/Creatinine Ratio 23.0 LAB CHEMISTRY METHOD 09/29/2024 2:54 PM [facility] Calcium 8.6 8.5 - 10.5 mg/dL LAB CHEMISTRY METHOD 09/29/2024 2:54 PM [facility] AST (SGOT) 21 10 - 42 unit/L LAB CHEMISTRY METHOD 09/29/2024 2:[address] [facility] ALT (SGPT) 41 10 - 60 unit/L LAB CHEMISTRY METHOD 09/29/2024 2:[address] [facility] Alkaline Phosphatase 105 42 - 121 unit/L LAB CHEMISTRY METHOD 09/29/2024 2:[address] [facility] Total Protein 7.1 6.0 - 8.0 g/dL LAB CHEMISTRY METHOD 09/29/2024 2:[address] [facility] Albumin 3.4 3.2 - 5.0 g/dL LAB CHEMISTRY METHOD 09/29/2024 2:[address] [facility] Total Bilirubin 0.3 0.0 - 1.4 mg/dL LAB CHEMISTRY METHOD 09/29/2024 2:[address] [facility] Blood Venous blood specimen / Unknown Venipuncture / Unknown 09/29/2024 10:30 AM EDT 09/29/2024 12:21 PM EDT us Greg Long MD LAB BLOOD ORDERABLES Final R esult [facility] [address] [place] [address], * (ABNORMAL) Complete blood count (09/29/2024 10:30 AM EDT) WBC 4.9 4.8 - 10.8 K/mcL LAB HEMETOLOGY METHOD 09/29/2024 2:[address] [facility] RBC 4.00 3.80 - 4.80 M/mcL LAB HEMETOLOGY METHOD 09/29/2024 2:[address] [facility] Hemoglobin 11.7 11.5 - 16.0 g/dL LAB HEMETOLOGY METHOD 09/29/2024 2:[address] [facility] Hematocrit 36.9 35.0 - 47.0 % LAB HEMETOLOGY METHOD 09/29/2024 2:[address] [facility] MCV 92.0 79.0 - 98.0 FL LAB HEMETOLOGY METHOD 09/29/2024 2:[address] [facility] MCH 29.2 27.0 - 32.0 pcg LAB HEMETOLOGY METHOD 09/29/2024 2:[address] [facility] MCHC 31.7(L) 32.0 - 37.0 g/dL LAB HEMETOLOGY METHOD 09/29/2024 2:[address] [facility] RDW 13.5 11.0 - 15.0 % LAB HEMETOLOGY METHOD 09/29/2024 2:[address] [facility] Platelets 201 130 - 400 K/mcL LAB HEMETOLOGY METHOD 09/29/2024 2:[address] [facility] MPV 11.1(H) 7.0 - 11.0 FL LAB HEMETOLOGY METHOD 09/29/2024 2:[address] [facility] NRBC 0.0 <1.0 % LAB HEMETOLOGY METHOD 09/29/2024 2:[address] [facility] NRBC Absolute 0.00 <0.10 K/mcL LAB HEMETOLOGY METHOD 09/29/2024 2:[address] [facility] Blood Venous blood specimen / Unknown Venipuncture / Unknown 09/29/2024 10:30 AM EDT 09/29/2024 12:21 PM EDT us Greg Long MD LAB BLOOD ORDERABLES Final R esult [facility] [address] [place], [place] [address] [phone] documented in this encounter Visit Diagnoses Diagnosis Other irritable bowel syndrome Endometriosis, unspecified Anemia, unspecified Other pericardial effusion (noninflammatory) documented in this encounter Care Teams Tracer Clerk Relationship Specialty Start Date End Date Greg Long MD [address] [place] [address] PCP - General Family Medicine 09/29/24 documented as of this encounter
--- OUTSIDE RECORDS SUMMARY | 2025-04-02 20:06 | XMS_ITS | Encounter Summary ---
Author Organization [facility] Address [address] [place] [address] Phone Care Team Providers Care Per Diem Physical Therapist Assistant Name Role Phone Earlene Andrade MD Primary Care Provider + Encounter Details Date Type Department Care Team (Late st Contact Info) Description 12/02/2021 Documentation Only [facility] [address] [place] [phone] Darwin Hensley MD [address] [place] [address] [place] [phone] Social History Tobacco Use Types Packs/Day Years [...] Visit [facility] [address] [phone] Buddy Hough MD [address] [address] documented as of this encounter Visit Diagnoses Not on filedocumented in this encounter Care Teams Per Diem Physical Therapist Assistant Relationship Specialty Start Date End Date Earlene Andrade MD [address] [place], [place] [phone] PCP - General Internal Medicine 02/16/23 documented as of this encounter
--- OUTSIDE RECORDS SUMMARY | 2025-04-02 20:06 | XMS_ITS | Encounter Summary ---
Author Organization [employer] Address [address] [place] [address] Care Team Providers Care Sports Umpire Name Role Phone Greg Long MD Primary Care Provider [phone] Encounter Details Date Type Department Care Team (Late st Contact Info) Description 11/21/2024 Lab Requisition [facility] - Main Lab 299 [facility] [place] [phone] Jose Pelaez MD [address] [place] [address] Polyneuropathy, unspecified Social History Tobacco Use Types [...] unspecified documented in this encounter Care Teams Sports Umpire Relationship Specialty Start Date End Date Greg Long MD [address] [place] [address] PCP - General Family Medicine 09/29/24 documented as of this encounter
--- OUTSIDE RECORDS SUMMARY | 2025-04-02 20:06 | XMS_ITS | Encounter Summary ---
Author Organization [employer] Address [address] [place] [address] Care Team Providers Care Logistician Name Role Phone Greg Long MD Primary Care Provider [phone] Encounter Details Date Type Department Care Team (Late st Contact Info) Description 11/10/2024 Lab Requisition [facility] - Main Lab 299 [facility] [place] [address] Shandra Baker PA [address] [place] [address] Hypothyroidism, unspecified; Polyneuropathy, unspecified Social [...] * Folate (11/10/2024 6:08 AM EDT) Pathologist [facility] Folate 12.1 2.8 - 17.0 ng/ml LAB CHEMISTRY METHOD 11/10/2024 2:32 PM EDT [facility] Blood Venous blood specimen / Unknown Venipuncture / Unknown 11/10/2024 6:08 AM EDT 11/10/2024 11:02 AM EDT us Shandra RUIZ LAB BLOOD ORDERABLES Final Resu lt Performing Organization Address City/[facility]/ZIP Co de Phone Number [facility] [address] [place] [address], [place] [phone] * Vitamin B12 (11/10/2024 6:08 AM EDT) Pathologist [facility] Vitamin B-12 462 250 - 900 pcg/mL LAB CHEMISTRY METHOD 11/10/2024 2:32 PM EDT [facility] Blood Venous blood specimen / Unknown Venipuncture / Unknown 11/10/2024 6:08 AM EDT 11/10/2024 11:02 AM EDT us Shandra RUIZ LAB BLOOD ORDERABLES Final Resu lt [facility] [address] [place] [address], [place] [phone] * Thyroid stimulating hormone (11/10/2024 6:08 AM EDT) [facility] TSH 2.59 0.40 - 4.00 mcIU/mL LAB CHEMISTRY METHOD 11/10/2024 3:44 PM EDT [facility] Blood Venous blood specimen / Unknown Venipuncture / Unknown 11/10/2024 6:08 AM EDT 11/10/2024 11:02 AM EDT us Shandra RUIZ LAB BLOOD ORDERABLES Final Resu lt [facility] [address] [place] [address], [place] [phone] * (ABNORMAL) Comprehensive metabolic panel (11/10/2024 6:08 AM EDT) [facility] Sodium 143 133 - 145 mmol/L LAB CHEMISTRY METHOD 11/10/2024 2:32 PM [facility] Potassium 3.7 3.5 - 5.5 mmol/L LAB CHEMISTRY METHOD 11/10/2024 2:32 PM [facility] Chloride 106 96 - 110 mmol/L LAB CHEMISTRY METHOD 11/10/2024 2:32 PM [facility] CO2 28 21 - 32 mmol/L LAB CHEMISTRY METHOD 11/10/2024 2:32 PM [facility] Anion Gap 9 3 - 11 LAB CHEMISTRY METHOD 11/10/2024 2:32 PM [facility] Glucose 84 70 - 100 mg/dL LAB CHEMISTRY METHOD 11/10/2024 2:32 PM [facility] BUN 14 5 - 25 mg/dL LAB CHEMISTRY METHOD 11/10/2024 2:32 PM [facility] Creatinine 0.72 0.50 - 1.10 mg/dL LAB CHEMISTRY METHOD 11/10/2024 2:32 PM [facility] eGFR 101 >=60 mL/min/1. 73m2 LAB CHEMISTRY METHOD 11/10/2024 2:32 PM EDT [facility] Comment:Calculation based on the Chronic Kidney Disease Epidemiology Collaboration (CKD-EPI) equation refit without adjustment for race. BUN/Creatinine Ratio 19.4 LAB CHEMISTRY METHOD 11/10/2024 2:32 PM EDT [facility] Calcium 9.0 8.5 - 10.5 mg/dL LAB CHEMISTRY METHOD 11/10/2024 2:32 PM T [facility] AST (SGOT) 8(L) 10 - 42 unit/L LAB CHEMISTRY METHOD 11/10/2024 2:32 PM [facility] ALT (SGPT) 27 10 - 60 unit/L LAB CHEMISTRY METHOD 11/10/2024 2:32 PM [facility] Alkaline Phosphatase 115 42 - 121 unit/L LAB CHEMISTRY METHOD 11/10/2024 2:32 PM [facility] Total Protein 7.6 6.0 - 8.0 g/dL LAB CHEMISTRY METHOD 11/10/2024 2:32 PM [facility] Albumin 3.8 3.2 - 5.0 g/dL LAB CHEMISTRY METHOD 11/10/2024 2:32 PM [facility] Total Bilirubin 0.4 0.0 - 1.4 mg/dL LAB CHEMISTRY METHOD 11/10/2024 2:32 PM [facility] Blood Venous blood specimen / Unknown Venipuncture / Unknown 11/10/2024 6:08 AM EDT 11/10/2024 11:02 AM EDT us Shandra RUIZ LAB BLOOD ORDERABLES Final Resu lt [facility] [address] [place] [address], [place] [phone] * Complete blood count (11/10/2024 6:08 AM EDT) WBC 5.3 4.8 - 10.8 K/mcL LAB HEMETOLOGY METHOD 11/10/2024 1:38 PM [facility] RBC 4.40 3.80 - 4.80 M/mcL LAB HEMETOLOGY METHOD 11/10/2024 1:38 PM [facility] Hemoglobin 13.0 11.5 - 16.0 g/dL LAB HEMETOLOGY METHOD 11/10/2024 1:38 PM [facility] Hematocrit 40.6 35.0 - 47.0 % LAB HEMETOLOGY METHOD 11/10/2024 1:38 PM [facility] MCV 93.1 79.0 - 98.0 FL LAB HEMETOLOGY METHOD 11/10/2024 1:38 PM [facility] MCH 29.8 27.0 - 32.0 pcg LAB HEMETOLOGY METHOD 11/10/2024 1:38 PM [facility] MCHC 32.0 32.0 - 37.0 g/dL LAB HEMETOLOGY METHOD 11/10/2024 1:38 PM [facility] RDW 13.8 11.0 - 15.0 % LAB HEMETOLOGY METHOD 11/10/2024 1:38 PM [facility] Platelets 245 130 - 400 K/mcL LAB HEMETOLOGY METHOD 11/10/2024 1:38 PM [facility] MPV 10.7 7.0 - 11.0 FL LAB HEMETOLOGY METHOD 11/10/2024 1:38 PM [facility] NRBC 0.0 <1.0 % LAB HEMETOLOGY METHOD 11/10/2024 1:38 PM [facility] NRBC Absolute 0.00 <0.10 [facility] LAB HEMETOLOGY METHOD 11/10/2024 1:38 PM EDT [facility] Blood Venous blood specimen / Unknown Venipuncture / Unknown 11/10/2024 6:08 AM EDT 11/10/2024 11:02 AM EDT us Shandra RUIZ LAB BLOOD ORDERABLES Final Resu lt [facility] [address] [place] [address], documented in this encounter Visit Diagnoses Diagnosis Hypothyroidism, unspecified Polyneuropathy, unspecified documented in this encounter Care Teams Logistician Relationship Specialty Start Date End Date Greg Long MD [address] [place] [address] PCP - General Family Medicine 09/29/24 documented as of this encounter
--- OUTSIDE RECORDS SUMMARY | 2025-04-02 20:06 | XMS_ITS | Clinical Summary ---
Author Organization [facility] Address [address] [address] Phone Care Team Providers Care Photocomposing Machine Operator Name Role Phone Earlene Andrade MD [...] Office Visit [facility] [address] [address] Buddy Hough MD Microscopic hematuria [...] Office Visit [facility] [address] [phone] Buddy Hough MD [address] [place] [phone] Health Maintenance Due Date Last Done Comments Breast Cancer Screening 1972 Hepatitis B Vaccine (1 of 3 - 19+ 3-dose series) 08/09/1991 Pneumococcal Vaccine: 50+ Ye ars (1 of 2 - PCV) 08/09/1991 Colorectal Cancer Screening: Annual FOBT 2021 Colorectal Cancer Screening: Colonoscopy 2021 Colorectal Cancer Screening: Sigmoidoscopy 2021 Influenza Vaccine (#1) 2025 , 03/27/2020, 03/07/2019, Additional history exists Insurance [employer] [place] [facility] Care Teams Photocomposing Machine Operator Relationship Specialty Start Date End Date Earlene Andrade MD [address] [place] [address] PCP - General Internal Medicine 02/16/23
--- OUTSIDE RECORDS SUMMARY | 2025-04-02 20:06 | XMS_ITS | Clinical Summary ---
Author Organization [facility] Address [address] [place] [address] Phone Care Team Providers Care Human Resource Intern Name Role Phone Greg Long MD Primary Care Provider +1 [phone] Allergies Active Allergy Reactions Criticality Noted Date [...] Lab Requisition [facility] - Main Lab 299 [facility] [place] [address] Campbell Jensen MD Gross hematuria from Last 3 Months Surgical History Surgery Date Site/Laterality Comments HYSTERECTOMY 2013 PROCEDURE: HISTORICAL HYSTERECTOMY; COMMENT: endometriosis SECTION PROCEDURE: HISTORICAL ; COMMENT: x 1 OVARIAN CYST REMOVAL 09/09/2012 PROCEDURE: ND OVARIAN CYSTECTOMY UNI/BI OTHER SURGICAL HISTORY PROCEDURE: ND HYSTEROSCOPY LYSIS INTRAUTERINE ADHESIONS COLONOSCOPY 02/12/2014 PROCEDURE: HISTORICAL COLONOSCOPY; COMMENT: hemorrhoids; repeat in 10 yrs CYSTOSCOPY 12/2014 PROCEDURE: HISTORICAL CYSTOSCOPY; COMMENT: Negative OOPHORECTOMY 2013 Right PROCEDURE: HISTORICAL OOPHORECTOMY; COMMENT: endometriosis OTHER SURGICAL HISTORY 11/15/2010 Left PROCEDURE: ND PUNCTURE ASPIRATION CYST OF BREAST; COMMENT: breast [...] AM EDT) Final Diagnosis A. Urine, Voided, [id number]: Negative for high grade urothelial carcinoma. 02/25/2025 4:55 PM EDT [facility] at 1655 EDT Specimen A Adequacy Satisfactory for evaluation 02/25/2025 4:55 PM EDT [facility] Clinical Information Gross hematuria R31.0 Urine cytology with reflex UroVysion (AUC/SHGUC) 02/25/2025 4:55 PM EDT [facility] Gross Description A. Urine, Voided, [id number]: Received one ThinPrep slide for cytology. 02/25/2025 4:55 PM EDT [facility] Disclaimer Unless otherwise specified, all tissue is 10% NB formalin fixed and paraffin embedded. Technical pathology services provided by [facility] at [address], [place] [address] (CLIA #[id number]/Ramana Olmedo MD, Editor Department) 02/25/2025 4:55 PM EDT [facility] Urine Urine specimen from urethra / Unknown 01/28/2025 02/04/2025 8:31 AM EDT us Campbell Jensen MD LAB CYTOLOGY ORDERABLES Fin al Result [facility] [address] [place] [address], [place] [phone] * Basic metabolic panel (11/17/2024 5:50 AM EDT) Sodium 140 133 - 145 mmol/L LAB CHEMISTRY METHOD 11/17/2024 9:32 AM [facility] Potassium 4.1 3.5 - 5.5 mmol/L LAB CHEMISTRY METHOD 11/17/2024 9:32 AM [facility] Chloride 108 96 - 110 mmol/L LAB CHEMISTRY METHOD 11/17/2024 9:32 AM [facility] CO2 28 21 - 32 mmol/L LAB CHEMISTRY METHOD 11/17/2024 9:32 AM [facility] Anion Gap 4 3 - 11 LAB CHEMISTRY METHOD 11/17/2024 9:32 AM [facility] Glucose 95 70 - 100 mg/dL LAB CHEMISTRY METHOD 11/17/2024 9:32 AM [facility] BUN 22 5 - 25 mg/dL LAB CHEMISTRY METHOD 11/17/2024 9:32 AM [facility] Creatinine 0.74 0.50 - 1.10 mg/dL LAB CHEMISTRY METHOD 11/17/2024 9:32 AM EDT [facility] eGFR 97 >=60 mL/min/1. 73m2 LAB CHEMISTRY METHOD 11/17/2024 9:32 AM EDT [facility] Comment:Calculation based on the Chronic Kidney Disease Epidemiology Collaboration (CKD-EPI) equation refit without adjustment for race. BUN/Creatinine Ratio 29.7 LAB CHEMISTRY METHOD 11/17/2024 9:32 AM EDT [facility] Calcium 9.2 8.5 - 10.5 mg/dL LAB CHEMISTRY METHOD 11/17/2024 9:32 AM EDT [facility] Blood Venous blood specimen / Unknown Venipuncture / Unknown 11/17/2024 5:50 AM EDT 11/17/2024 8:27 AM EDT Jose Pelaez MD LAB BLOOD ORDERABLES Final Resul t [facility] [address] [place] [address], * Lipid panel (03/28/2022) LDL/HDL Ratio 0 [...] MEDICARE ADVANTAGE [place]ICAID - [place] Care Teams Human Resource Intern Relationship Specialty Start Date End Date Greg Long MD [address] [place] [address] PCP - General Family Medicine 09/29/24
--- OUTSIDE RECORDS SUMMARY | 2025-04-02 20:06 | XMS_ITS | Encounter Summary ---
Author Organization [employer] Address [address] [place] [address] Care Team Providers Care Painter Touch Up Name Role Phone Greg Long MD Primary Care Provider [phone] Encounter Details Date Type Department Care Team (Late st Contact Info) Description 11/20/2024 Lab Requisition [facility] - Main Lab [address] [facility] [place] [phone] Jose Pelaez MD [address] [place] [address] Dysuria Social History Tobacco Use Types Packs/Day [...] Culture urine (11/19/2024 10:00 AM EDT) Pathologist [facility] Culture, Urine 50,000-99,000 CFU/mL Mixed bacterial morphotypes present suggestive of possible contamination during collection. Suggest appropriate recollection if clinically indicated. 11/21/2024 9:31 AM EDT [facility] Urine Urine specimen obtained by clean catch procedure / Unknown Non-blood Collection / Unknown 11/19/2024 10:00 AM EDT 11/20/2024 10:19 AM EDT Jose Pelaez MD LAB MICROBIOLOGY - GENERAL ORDER LAUREN Final Result [facility] [address] [place] [address], [place] [phone] * (ABNORMAL) Urinalysis with reflex microscopic and culture (11/19/2024 10:00 AM EDT) [facility] Specific [place] Urine 1.018 1.003 - 1.030 LAB URINALYSIS - AUTOMATED METHOD 11/20/2024 10:19 AM [facility] pH, Urine 7.5 5.0 - 8.0 pH LAB URINALYSIS - AUTOMATED METHOD 11/20/2024 10:19 AM [facility] Leukocytes, Urine Trace(A) Negative LAB URINALYSIS - AUTOMATED METHOD 11/20/2024 10:19 AM [facility] Nitrite, Urine Negative Negative LAB URINALYSIS - AUTOMATED METHOD 11/20/2024 10:19 AM [facility] Protein, Urine Negative <=Trace mg/dL LAB URINALYSIS - AUTOMATED METHOD 11/20/2024 10:19 AM [facility] Glucose, Urine Negative Negative mg/dL LAB URINALYSIS - AUTOMATED METHOD 11/20/2024 10:19 AM [facility] Ketones, Urine Negative Negative mg/dL LAB URINALYSIS - AUTOMATED METHOD 11/20/2024 10:19 AM [facility] Urobilinogen, Urine 0.2 0.2 - 1.0 mg/dL LAB URINALYSIS - AUTOMATED METHOD 11/20/2024 10:19 AM [facility] Bilirubin, Urine Negative Negative LAB URINALYSIS - AUTOMATED METHOD 11/20/2024 10:19 AM [facility] Blood, Urine Negative Negative LAB URINALYSIS - AUTOMATED METHOD 11/20/2024 10:19 AM [facility] RBC, Urine 5.1(H) 0 - 4 /HPF LAB URINALYSIS - AUTOMATED METHOD 11/20/2024 10:19 AM [facility] WBC, Urine 2.2 0 - 4 /HPF LAB URINALYSIS - AUTOMATED METHOD 11/20/2024 10:19 AM [facility] Squamous Epithelial, Urine 41 0 - 60 /LPF LAB URINALYSIS - AUTOMATED METHOD 11/20/2024 10:19 AM [facility] Bacteria, Urine Negative Negative /HPF LAB URINALYSIS - AUTOMATED METHOD 11/20/2024 10:19 AM [facility] Hyaline Casts, Urine 0.4 0 - 3 /LPF LAB URINALYSIS - AUTOMATED METHOD 11/20/2024 10:19 AM [facility] Urine Urine specimen obtained by clean catch procedure / Unknown Non-blood Collection / Unknown 11/19/2024 10:00 AM EDT 11/20/2024 9:52 AM EDT us Jose Pelaez MD LAB URINE ORDERABLES Final Resul t [facility] [address] [place] [address], [place] [phone] * Horowitz urine culture tube (11/19/2024 10:00 AM EDT) Extra Tube Hold for add-ons. 11/20/2024 11:01 AM EDT [facility] Comment:Auto resulted. Urine Urine specimen obtained by clean catch procedure / Unknown Non-blood Collection / Unknown 11/19/2024 10:00 AM EDT 11/20/2024 9:52 AM EDT us Jose Pelaez MD LAB URINE ORDERABLES Final Resul t [facility] [address] [place] [address], [place] [phone] documented in this encounter Visit Diagnoses Diagnosis Dysuria documented in this encounter Care Teams Painter Touch Up Relationship Specialty Start Date End Date Greg Long MD [address] [place] [address] PCP - General Family Medicine 09/29/24 documented as of this encounter
--- OUTSIDE RECORDS SUMMARY | 2025-04-02 20:06 | XMS_ITS | Encounter Summary ---
Author Organization [employer] Address [address] [place] [address] Care Team Providers Care Tapper Operator Name Role Phone Greg Long MD Primary Care Provider [phone] Encounter Details Date Type Department Care Team (Late st Contact Info) Description 02/04/[address] [facility] - Main Lab 299 [facility] [place] [address] Campbell Jensen MD [address] [place] [address] Gross hematuria Social History Tobacco Use Types [...] AM EDT) Final Diagnosis A. Urine, Voided, [id number]: Negative for high grade urothelial carcinoma. 02/25/2025 4:55 PM EDT [facility] at 1655 EDT Specimen A Adequacy Satisfactory for evaluation 02/25/2025 4:55 PM EDT [facility] Clinical Information Gross hematuria R31.0 Urine cytology with reflex UroVysion (AUC/SHGUC) 02/25/2025 4:55 PM EDT [facility] Gross Description A. Urine, Voided, [id number]: Received one ThinPrep slide for cytology. 02/25/2025 4:55 PM EDT [facility] Disclaimer Unless otherwise specified, all tissue is 10% NB formalin fixed and paraffin embedded. Technical pathology services provided by [facility] at [address] [facility] [address], [place] [address] (CLIA #[id number]/Ramana Olmedo MD, Title Inspector) 02/25/2025 4:55 PM EDT [facility] Urine Urine specimen from urethra / Unknown 01/28/2025 02/04/2025 8:31 AM EDT us Campbell Jensen MD LAB CYTOLOGY ORDERABLES Fin al Result [facility] [address] [place] [address], documented in this encounter Visit Diagnoses Diagnosis Gross hematuria documented in this encounter Care Teams Tapper Operator Relationship Specialty Start Date End Date Greg Long MD [address] [place] [address] PCP - General Family Medicine 09/29/24 documented as of this encounter
--- OUTSIDE RECORDS SUMMARY | 2025-04-02 20:06 | XMS_ITS | Encounter Summary ---
Author Organization [employer] Address [address] [place] [address] Care Team Providers Care Estimator Printing Plate Making Name Role Phone Greg Long MD Primary Care Provider [phone] Encounter Details Date Type Department Care Team (Late st Contact Info) Description 10/15/2024 Lab Requisition [facility] - Main Lab 299 [facility] [place] [phone] Greg Long MD [address] [place], [place] [id number] Gastro-esophageal reflux disease without esophagitis; Anemia in [...] mmol/L LAB CHEMISTRY METHOD 10/15/2024 2:54 PM [facility] Potassium 3.6 3.5 - 5.5 mmol/L LAB CHEMISTRY METHOD 10/15/2024 2:54 PM [facility] Chloride 105 96 - 110 mmol/L LAB CHEMISTRY METHOD 10/15/2024 2:54 PM [facility] CO2 28 21 - 32 mmol/L LAB CHEMISTRY METHOD 10/15/2024 2:54 PM [facility] Anion Gap 5 3 - 11 LAB CHEMISTRY METHOD 10/15/2024 2:54 PM [facility] Glucose 70 70 - 100 mg/dL LAB CHEMISTRY METHOD 10/15/2024 2:54 PM [facility] BUN 15 5 - 25 mg/dL LAB CHEMISTRY METHOD 10/15/2024 2:54 PM [facility] Creatinine 0.76 0.50 - 1.10 mg/dL LAB CHEMISTRY METHOD 10/15/2024 2:54 PM [facility] eGFR 94 >=60 mL/min/1. 73m2 LAB CHEMISTRY METHOD 10/15/2024 2:54 PM [facility] Comment:Calculation based on the Chronic Kidney Disease Epidemiology Collaboration (CKD-EPI) equation refit without adjustment for race. BUN/Creatinine Ratio 19.7 LAB CHEMISTRY METHOD 10/15/2024 2:54 PM [facility] Calcium 9.8 8.5 - 10.5 mg/dL LAB CHEMISTRY METHOD 10/15/2024 2:54 PM [facility] AST (SGOT) 15 10 - 42 unit/L LAB CHEMISTRY METHOD 10/15/2024 2:54 PM [facility] ALT (SGPT) 34 10 - 60 unit/L LAB CHEMISTRY METHOD 10/15/2024 2:54 PM EDT [facility] Alkaline Phosphatase 124(H) 42 - 121 unit/L LAB CHEMISTRY METHOD [facility] Total Protein 8.1(H) 6.0 - 8.0 g/dL LAB CHEMISTRY METHOD 10/15/2024 2:54 PM EDT [facility] Albumin 4.1 3.2 - 5.0 g/dL LAB CHEMISTRY METHOD [facility]24 [facility] Total Bilirubin 0.4 0.0 - 1.4 mg/dL LAB CHEMISTRY METHOD 10/15/2024 2:54 PM EDT [facility] Blood Venous blood specimen / Unknown 10/15/2024 1:10 PM EDT 10/15/2024 1:49 PM EDT us Greg Long MD LAB BLOOD ORDERABLES Final R esult [facility] [address] [place] [address], * Complete blood count (10/15/2024 1:10 PM EDT) WBC 6.3 4.8 - 10.8 K/mcL LAB HEMETOLOGY METHOD 10/15/2024 2:09 PM EDT [facility] RBC 4.50 3.80 - 4.80 M/mcL LAB HEMETOLOGY METHOD 10/15/2024 2:09 PM EDT [facility] Hemoglobin 13.1 11.5 - 16.0 g/dL LAB HEMETOLOGY METHOD 10/15/2024 2:09 PM EDT [facility] Hematocrit 39.7 35.0 - 47.0 % LAB HEMETOLOGY METHOD 10/15/2024 2:09 PM EDT [facility] MCV 87.6 79.0 - 98.0 FL LAB HEMETOLOGY METHOD 10/15/2024 2:09 PM EDT [facility] MCH 28.9 27.0 - 32.0 pcg LAB HEMETOLOGY METHOD 10/15/2024 2:09 PM EDT [facility] MCHC 33.0 32.0 - 37.0 g/dL LAB HEMETOLOGY METHOD 10/15/2024 2:09 PM EDT [facility] RDW 13.2 11.0 - 15.0 % LAB HEMETOLOGY METHOD 10/15/2024 2:09 PM EDT [facility] Platelets 257 130 - 400 K/mcL LAB HEMETOLOGY METHOD 10/15/2024 2:09 PM EDT [facility] MPV 10.4 7.0 - 11.0 FL LAB HEMETOLOGY METHOD 10/15/2024 2:09 PM EDT [facility] NRBC 0.0 <1.0 % LAB HEMETOLOGY METHOD 10/15/2024 2:09 PM EDT [facility] NRBC Absolute 0.00 <0.10 K/mcL LAB HEMETOLOGY METHOD 10/15/2024 2:09 PM EDT [facility] Blood Venous blood specimen / Unknown 10/15/2024 1:10 PM EDT 10/15/2024 1:49 PM EDT us Greg Long MD LAB BLOOD ORDERABLES Final R esult [facility] [address] [place] [address], documented in this encounter Visit Diagnoses Diagnosis Gastro-esophageal reflux disease without esophagitis Anemia in other chronic diseases classified elsewhere documented in this encounter Care Teams Estimator Printing Plate Making Relationship Specialty Start Date End Date Greg Long MD [address] [place] [address] PCP - General Family Medicine 09/29/24 documented as of this encounter
--- OUTSIDE RECORDS SUMMARY | 2025-04-02 20:06 | XMS_ITS | Encounter Summary ---
Author Organization [employer] Address [address] [place] [address] Care Team Providers Care Intertype Operator Name Role Phone Greg Long MD Primary Care Provider [phone] Encounter Details Date Type Department Care Team (Late st Contact Info) Description 10/09/2024 Lab Requisition [facility] - Main Lab [address] [facility] [place] [phone] Greg Long MD [address] [place] [address] Anemia, unspecified Social History Tobacco Use Types [...] Results * Magnesium (10/09/2024 6:14 AM EDT) [facility] Magnesium 2.3 1.9 - 2.6 mg/dL LAB CHEMISTRY METHOD 10/09/2024 10:48 AM EDT [facility] Blood Venous blood specimen / Unknown Venipuncture / Unknown 10/09/2024 6:14 AM EDT 10/09/2024 9:42 AM EDT Greg Long MD LAB BLOOD ORDERABLES Final R esult Performing Organization Address [facility]/ZIP Co de Phone Number [facility] [address] [place] [address], [place] [phone] * Vitamin B12 (10/09/2024 6:14 AM EDT) [facility] Vitamin B-12 446 250 - 900 pcg/mL LAB CHEMISTRY METHOD 10/09/2024 11:11 AM EDT [facility] Blood Venous blood specimen / Unknown Venipuncture / Unknown 10/09/2024 6:14 AM EDT 10/09/2024 9:42 AM EDT Greg Long MD LAB BLOOD ORDERABLES Final R esult [facility] [address] [place] [address], [place] [phone] * (ABNORMAL) Basic metabolic panel (10/09/2024 6:14 AM EDT) [facility] Sodium 143 133 - 145 mmol/L LAB CHEMISTRY METHOD 10/09/2024 10:48 AM EDT [facility] Potassium 3.9 3.5 - 5.5 mmol/L LAB CHEMISTRY METHOD 10/09/2024 10:48 AM [facility] Chloride 109 96 - 110 mmol/L LAB CHEMISTRY METHOD 10/09/2024 10:48 AM [facility] CO2 27 21 - 32 mmol/L LAB CHEMISTRY METHOD 10/09/2024 10:48 AM [facility] Anion Gap 7 3 - 11 LAB CHEMISTRY METHOD 10/09/2024 10:48 AM [facility] Glucose 101(H) 70 - 100 mg/dL LAB CHEMISTRY METHOD 10/09/2024 10:48 AM [facility] BUN 21 5 - 25 mg/dL LAB CHEMISTRY METHOD 10/09/2024 10:48 AM [facility] Creatinine 0.71 0.50 - 1.10 mg/dL LAB CHEMISTRY METHOD 10/09/2024 10:48 AM [facility] eGFR 102 >=60 mL/min/1. 73m2 LAB CHEMISTRY METHOD 10/09/2024 10:48 AM [facility] Comment:Calculation based on the Chronic Kidney Disease Epidemiology Collaboration (CKD-EPI) equation refit without adjustment for race. BUN/Creatinine Ratio 29.6 LAB CHEMISTRY METHOD 10/09/2024 10:48 AM [facility] Calcium 9.2 8.5 - 10.5 mg/dL LAB CHEMISTRY METHOD 10/09/2024 10:48 AM [facility] Blood Venous blood specimen / Unknown Venipuncture / Unknown 10/09/2024 6:14 AM EDT 10/09/2024 9:42 AM EDT us Greg Long MD LAB BLOOD ORDERABLES Final R esult [facility] [address] [place] [address], * Complete blood count (10/09/2024 6:14 AM EDT) [facility] Signature WBC 5.9 4.8 - 10.8 K/mcL LAB HEMETOLOGY METHOD 10/09/2024 10:10 AM T [facility] RBC 4.30 3.80 - 4.80 M/mcL LAB HEMETOLOGY METHOD 10/09/2024 10:10 AM T [facility] Hemoglobin 12.5 11.5 - 16.0 g/dL LAB HEMETOLOGY METHOD 10/09/2024 10:10 AM EDT [facility] Hematocrit 38.1 35.0 - 47.0 % LAB HEMETOLOGY METHOD 10/09/2024 10:10 AM [facility] MCV 89.6 79.0 - 98.0 FL LAB HEMETOLOGY METHOD 10/09/2024 10:10 AM [facility] MCH 29.4 27.0 - 32.0 pcg LAB HEMETOLOGY METHOD 10/09/2024 10:10 AM [facility] MCHC 32.8 32.0 - 37.0 g/dL LAB HEMETOLOGY METHOD 10/09/2024 10:10 AM [facility] RDW 13.4 11.0 - 15.0 % LAB HEMETOLOGY METHOD 10/09/2024 10:10 AM [facility] Platelets 213 130 - 400 K/mcL LAB HEMETOLOGY METHOD 10/09/2024 10:10 AM T [facility] MPV 10.4 7.0 - 11.0 FL LAB HEMETOLOGY METHOD 10/09/2024 10:10 AM EDT [facility] NRBC 0.0 <1.0 % LAB HEMETOLOGY METHOD 10/09/2024 10:10 AM [facility] NRBC Absolute 0.00 <0.10 K/mcL LAB HEMETOLOGY METHOD 10/09/2024 10:10 AM EDT [facility] Blood Venous blood specimen / Unknown Venipuncture / Unknown 10/09/2024 6:14 AM EDT 10/09/2024 9:42 AM EDT us Greg Long MD LAB BLOOD ORDERABLES Final R esult [facility] [address] [place] [address], documented in this encounter Visit Diagnoses Diagnosis Anemia, unspecified documented in this encounter Care Teams Intertype Operator Relationship Specialty Start Date End Date Greg Long MD [address] [place] [address] PCP - General Family Medicine 09/29/24 documented as of this encounter
--- OUTSIDE RECORDS SUMMARY | 2025-04-02 20:06 | XMS_ITS | Encounter Summary ---
Author Organization [employer] Address [address] [place] [address] Care Team Providers Care Product Marketing Manager Name Role Phone Greg Long MD Primary Care Provider [phone] Encounter Details Date Type Department Care Team (Late st Contact Info) Description 11/06/2024 Lab Requisition [facility] - Main Lab [address] [facility] [place] [address] Moses Man PA [address] [place] [address] Other microscopic hematuria Social History [...] AM EDT) Final Diagnosis A. Urine, Voided, ([id number]): Negative for high grade urothelial carcinoma. Results of UroVysion fluorescence in situ hybridization (FISH) testing: CEP3: Normal CEP7: Normal CEP17: Normal LSI 9p21: Normal Interpretation: Normal profile Controls stained appropriately. Note: The results are intended as a screening device and should be interpreted in association with other clinical and pathological findings. 11/19/2024 4:08 PM EDT [facility] Clinical Information Other microscopic hematuria R31.29 Urine Cytology/FISH (now) 11/19/2024 4:08 PM EDT [facility] Gross Description A. Urine, Voided, [id number]: Received one ThinPrep slide for cytology and one ThinPrep slide for UroVysion FISH 11/19/2024 4:08 PM EDT [facility] Disclaimer Unless otherwise specified, all tissue is 10% NB formalin fixed and paraffin embedded. Technical pathology services provided by [facility] at [address], [place] [address] (CLIA #[id number]/Maria Eugenia Olmedo MD, Steelscope Operator) 11/19/2024 4:08 PM EDT [facility] Tissue Urine specimen from urethra / Unknown 10/29/2024 11/06/2024 9:49 AM EDT us Moses RUIZ LAB PATHOLOGY ORDERABLES Final Result [facility] [address] [place] [address], documented in this encounter Visit Diagnoses Diagnosis Other microscopic hematuria documented in this encounter Care Teams Product Marketing Manager Relationship Specialty Start Date End Date Greg Long MD [address] [place] [address] PCP - General Family Medicine 09/29/24 documented as of this encounter
--- OUTSIDE RECORDS SUMMARY | 2025-04-02 20:06 | XMS_ITS | Encounter Summary ---
Author Organization [employer] Address [address] [place] [address] Care Team Providers Care Legal Operations Manager Name Role Phone Greg Long MD Primary Care Provider [phone] Encounter Details Date Type Department Care Team (Late st Contact Info) Description 10/14/2024 Lab Requisition [facility] - Main Lab [address] [place] [phone] Greg Long MD [address] [place] [address] Irritable bowel syndrome, unspecified Social History Tobacco [...] mmol/L LAB CHEMISTRY METHOD 10/14/2024 10:52 AM [facility] Potassium 3.6 3.5 - 5.5 mmol/L LAB CHEMISTRY METHOD 10/14/2024 10:52 AM [facility] Chloride 108 96 - 110 mmol/L LAB CHEMISTRY METHOD 10/14/2024 10:52 AM [facility] CO2 27 21 - 32 mmol/L LAB CHEMISTRY METHOD 10/14/2024 10:52 AM [facility] Anion Gap 7 3 - 11 LAB CHEMISTRY METHOD 10/14/2024 10:52 AM [facility] Glucose 107(H) 70 - 100 mg/dL LAB CHEMISTRY METHOD 10/14/2024 10:52 AM [facility] BUN 13 5 - 25 mg/dL LAB CHEMISTRY METHOD 10/14/2024 10:52 AM [facility] Creatinine 0.70 0.50 - 1.10 mg/dL LAB CHEMISTRY METHOD 10/14/2024 10:52 AM [facility] eGFR 104 >=60 mL/min/1. 73m2 LAB CHEMISTRY METHOD 10/14/2024 10:52 AM [facility] Comment:Calculation based on the Chronic Kidney Disease Epidemiology Collaboration (CKD-EPI) equation refit without adjustment for race. BUN/Creatinine Ratio 18.6 LAB CHEMISTRY METHOD 10/14/2024 10:52 AM [facility] Calcium 9.0 8.5 - 10.5 mg/dL LAB CHEMISTRY METHOD 10/14/2024 10:52 AM [facility] Blood Venous blood specimen / Unknown Venipuncture / Unknown 10/14/2024 6:59 AM EDT 10/14/2024 9:04 AM EDT us Greg Long MD LAB BLOOD ORDERABLES Final R esult [facility] [address] [place] [address], * (ABNORMAL) Complete blood count (10/14/2024 6:59 AM EDT) WBC 4.3(L) 4.8 - 10.8 K/mcL LAB HEMETOLOGY METHOD 10/14/2024 10:06 AM EDT [facility] RBC 4.20 3.80 - 4.80 M/mcL LAB HEMETOLOGY METHOD 10/14/2024 10:06 AM EDT [facility] Hemoglobin 12.2 11.5 - 16.0 g/dL LAB HEMETOLOGY METHOD 10/14/2024 10:06 AM EDT [facility] Hematocrit 37.0 35.0 - 47.0 % LAB HEMETOLOGY METHOD 10/14/2024 10:06 AM EDT [facility] MCV 88.3 79.0 - 98.0 FL LAB HEMETOLOGY METHOD 10/14/2024 10:06 AM EDT [facility] MCH 29.1 27.0 - 32.0 pcg LAB HEMETOLOGY METHOD 10/14/2024 10:06 AM EDT [facility] MCHC 33.0 32.0 - 37.0 g/dL LAB HEMETOLOGY METHOD 10/14/2024 10:06 AM EDT [facility] RDW 13.3 11.0 - 15.0 % LAB HEMETOLOGY METHOD 10/14/2024 10:06 AM EDT [facility] Platelets 201 130 - 400 K/mcL LAB HEMETOLOGY METHOD 10/14/2024 10:06 AM EDT [facility] MPV 10.4 7.0 - 11.0 FL LAB HEMETOLOGY METHOD 10/14/2024 10:06 AM EDT [facility] NRBC 0.0 <1.0 % LAB HEMETOLOGY METHOD 10/14/2024 10:06 AM EDT [facility] NRBC Absolute 0.00 <0.10 K/mcL LAB HEMETOLOGY METHOD 10/14/2024 10:06 AM EDT [facility] Blood Venous blood specimen / Unknown Venipuncture / Unknown 10/14/2024 6:59 AM EDT 10/14/2024 9:04 AM EDT us Greg Long MD LAB BLOOD ORDERABLES Final R esult [facility] [address] [place] [address], documented in this encounter Visit Diagnoses Diagnosis Irritable bowel syndrome, unspecified documented in this encounter Care Teams Legal Operations Manager Relationship Specialty Start Date End Date Greg Long MD [address] [place] [address] PCP - General Family Medicine 09/29/24 documented as of this encounter
--- OUTSIDE RECORDS SUMMARY | 2025-04-02 20:06 | XMS_ITS | Encounter Summary ---
Author Organization [facility] Address [address] [place] [address] Care Team Providers Care Warehouse Distribution Associate Name Role Phone Greg Long MD Primary Care Provider [phone] Encounter Details Date Type Department Care Team (Late st Contact Info) Description 10/14/[address] [facility] - Main Lab [address] [place] [id number] Greg Long MD [address] [place] [address] Urinary tract infection, site not specified Social [...] Culture urine (10/14/2024 12:00 AM EDT) Pathologist [facility] [place] Culture, Urine 10,000-49,000 CFU/mL Mixed urogenital esther, no uropathogens present. Suggest repeat specimen if clinically indicated. 10/15/2024 10:38 AM T [facility] Urine Urine specimen obtained by clean catch procedure / Unknown Non-blood Collection / Unknown 10/14/2024 10/14/2024 10:07 AM EDT Greg Long MD LAB MICROBIOLOGY - GENERAL O RDERABLES Final Result [facility] [address] [place] [address], [place] [phone] * (ABNORMAL) Urinalysis with reflex microscopic and culture (10/14/2024 12:00 AM EDT) Pathologist [facility] [place] Specific [place] Urine 1.016 1.003 - 1.030 LAB URINALYSIS - AUTOMATED METHOD 10/14/2024 10:07 AM [facility] pH, Urine 7.0 5.0 - 8.0 pH LAB URINALYSIS - AUTOMATED METHOD 10/14/2024 10:07 AM [facility] Leukocytes, Urine Small(A) Negative LAB URINALYSIS - AUTOMATED METHOD 10/14/2024 10:07 AM [facility] Nitrite, Urine Negative Negative LAB URINALYSIS - AUTOMATED METHOD 10/14/2024 10:07 AM [facility] Protein, Urine Negative <=Trace mg/dL LAB URINALYSIS - AUTOMATED METHOD 10/14/2024 10:07 AM [facility] Glucose, Urine Negative Negative mg/dL LAB URINALYSIS - AUTOMATED METHOD 10/14/2024 10:07 AM [facility] Ketones, Urine Negative Negative mg/dL LAB URINALYSIS - AUTOMATED METHOD 10/14/2024 10:07 AM [facility] Urobilinogen, Urine 0.2 0.2 - 1.0 mg/dL LAB URINALYSIS - AUTOMATED METHOD 10/14/2024 10:07 AM [facility] Bilirubin, Urine Negative Negative LAB URINALYSIS - AUTOMATED METHOD 10/14/2024 10:07 AM [facility] Blood, Urine Small(A) Negative LAB URINALYSIS - AUTOMATED METHOD 10/14/2024 10:07 AM [facility] RBC, Urine 9.8(H) 0 - 4 /HPF LAB URINALYSIS - AUTOMATED METHOD 10/14/2024 10:07 AM [facility] WBC, Urine 3.8 0 - 4 /HPF LAB URINALYSIS - AUTOMATED METHOD 10/14/2024 10:07 AM [facility] Squamous Epithelial, Urine 40 0 - 60 /LPF LAB URINALYSIS - AUTOMATED METHOD 10/14/2024 10:07 AM [facility] Bacteria, Urine Negative Negative /HPF LAB URINALYSIS - AUTOMATED METHOD 10/14/2024 10:07 AM [facility] Hyaline Casts, Urine 0.0 0 - 3 /LPF LAB URINALYSIS - AUTOMATED METHOD 10/14/2024 10:07 AM [facility] Urine Urine specimen obtained by clean catch procedure / Unknown Non-blood Collection / Unknown 10/14/2024 10/14/2024 8:59 AM EDT us Greg Long MD LAB URINE ORDERABLES Final R esult [facility] [address] [place] [address], [place] [phone] * Horowitz urine culture tube (10/14/2024 12:00 AM EDT) Extra Tube Hold for add-ons. 10/14/2024 10:01 AM EDT [facility] Comment:Auto resulted. Urine Urine specimen obtained by clean catch procedure / Unknown Non-blood Collection / Unknown 10/14/2024 10/14/2024 8:59 AM EDT Greg Long MD LAB URINE ORDERABLES Final R esult [facility] [address] [place] [address], documented in this encounter Visit Diagnoses Diagnosis Urinary tract infection, site not specified documented in this encounter Care Teams Warehouse Distribution Associate Relationship Specialty Start Date End Date Greg Long MD [address] [place] [address] PCP - General Family Medicine 09/29/24 documented as of this encounter
== END 2025-04-02 14:43 | disposition home or self-care (01) ==
LOC: HO.NEURO 14:42
PROVIDERS: PCP Internal Medicine; Visit Provider Internal Medicine Rheumatology
DX: R29.898 Other symptoms and signs involving the musculoskeletal system (principal); R20.2 Paresthesia of skin; M79.602 Pain in left arm; R53.1 Weakness
CPT/HCPCS: 95886; 95911

== ENCOUNTER → 2025-04-02 14:46 | Outpatient (BNV) | payer MEDICARE, MEDICAID, SELFPAY | PROVIDERS: PCP Internal Medicine; Visit Provider Physical Medicine & Rehabilitation | DX: R29.898 Other symptoms and signs involving the musculoskeletal system (principal) | CPT/HCPCS: 95886; 95911 ==